=== PATIENT | female | born 1985 | race African-American/Black ===

== ENCOUNTER 2022-04-06 08:29 | Emergency (ER) | payer OTHER, SELFPAY ==
[2022-04-06 08:40] VITALS: BP 139/83; PULSE 100; RESP 19; TEMP 36.6; O2SAT 95; BMI 44.1
--- NOTE | 2022-04-06 08:51 | PC.NURSE ---
36 y/o F presents for respiratory panel. +fever/cough/chills, no other complaints, VSS.
--- OUTSIDE RECORDS SUMMARY | 2022-04-06 08:51 | XMS_ITS | Continuity of Care Document ---
:1985 Author Organization [facility] Address [address] [place] [id number]- Care Team Providers Name Role Phone Nila CLIFFORD, Tracey Colvin [id number] [address] Attending Physician: Akhil Medley MD Admitting Physician: Akhil Medley MD Referring Physician: Akhil Medley MD Allergies, Adverse Reactions, Alerts Substance Reaction Severity Status Bee Stings Active Latex Active Immunizations Given and Recorded Vaccine Date Status Refusal Reason influenza virus vaccine, inactivated1 05/11/20 Given influenza virus vaccine, inactivated2 04/11/15 Given 1Early/Late Reason: Early/Late Reason: New Med [id number] Note: vis given, dated 11/13/13 Medications aspirin 81 mg oral delayed release tablet 81 mg, 1, tablet, By Mouth, Daily, Refills 0, Maintenance, 05/08/20 13:14:00 EST, Partial fill upon patient request if the prescription is for a schedule II opioid drug. Start Date: 05/08/20 Status: OrderedColace sodium 100 mg oral capsule 1 capsule = 100 mg, By Mouth, 2 times a day, PRN for constipation, # 60 capsule, 0 Refills, Maintenance, 04/11/15 18:04:49, Capsule Start Date: 04/11/15 Status: Orderedibuprofen 600 mg oral tablet 1 tablet = 600 mg, By Mouth, 4 times a day, PRN for pain, # 40 tablet, 0 Refills, Maintenance, 04/11/15 18:04:24, Tablet Start Date: 04/11/15 Status: Orderedlabetalol 200 mg oral tablet 2 tablet = 400 mg, By Mouth, 2 times a day, # 90 tablet, 1 Refills, Maintenance, 05/22/20 10:26:00 EST, Tablet, [facility]/pharmacy #[id number], Partial fill upon patient request if the prescription is for a schedule II opioid drug., 173, cm, 05/20/20 19:02:00 EST... Start Date: 05/22/20 Status: OrderedmetFORMIN 500 mg oral tablet 1 each = 500 mg, By Mouth, 2 times a day, 0 Refills, Maintenance, 05/13/20 16:51:00 EST, Tablet, Partial fill upon patient request if the prescription is for a schedule II opioid drug. Start Date: 05/13/20 Status: OrderedMultivitamin Tablet By Mouth, Daily, 0 Refills, Maintenance Start Date: 06/02/11 Status: OrderedNexium 20 mg oral enteric coated capsule 1 capsule = 20 mg, By Mouth, Daily, 0 Refills, Maintenance, 05/08/20 13:14:00 EST, Partial fill uponpatient request if the prescription is for a schedule II opioid drug. Start Date: 05/08/20 Status: OrderedNIFEdipine 30 mg oral tablet, extended release 30 mg, 1, tablet, By Mouth, Every 24 hours, # 30 tablet, Refills 1, Tot. Refills 1, Maintenance, 05/22/20 10:23:00 EST, Route to Pharmacy Electronically, [facility]/pharmacy #[id number], Partial fill upon patient request if the prescription is for a schedule II op... Start Date: 05/22/20 Status: OrderedOmeprazole By Mouth, Daily, 0 Refills, Maintenance, 02/23/17 15:06:41 Start Date: 02/23/17 Status: Orderedsimethicone 80 mg oral tablet, chewable 80 mg, Chew, 3 times a day, PRN, # 90 tablet, Refills 0, Tot. Refills 0, Maintenance, Gas, 05/13/20 16:50:00 EST, Route to Pharmacy Electronically, [facility]/pharmacy #[id number], Partial fill upon patient requestif the prescription is for a schedule II opioid d... Start Date: 05/13/20 Status: OrderedTylenol 325 mg oral tablet 650 mg, 2, tablet, By Mouth, Every 4 hours, PRN, Refills 0, Maintenance, Pain , Mild, 05/22/20 10:24:00 EST, Partial fill upon patient request if the prescription is for a schedule II opioid drug. Start Date: 05/22/20 Status: OrderedZantac 150 = 300 mg, By Mouth, Daily, 0 Refills, Maintenance, 02/07/15 13:12:53 Start Date: 02/07/15 Status: Ordered Problem List Condition Effective Dates Status Health Status Informant Diabetes mellitus(Confirmed) Active Chronic hypertension(Confirmed) Active VILMA on CPAP(Confirmed) Active Social History Social History Type Response Smoking Status 10 or more cigarettes (1/2 p ack or more)/day in last 30 days; Other: last in March; entered on: 05/18/20 Sex
--- OUTSIDE RECORDS SUMMARY | 2022-04-06 08:51 | XMS_ITS | Continuity of Care Document ---
:1985 Author Organization [facility] Address [address] [place] [address]- Care Team Providers Name Role Phone Nila CLIFFORD, Tracey Colvin Primary Care Physician Encounter [facility] [id number] Date(s): 04/07/20 - 04/07/[address] [address] Discharge Disposition: A-D/C Home Attending Physician: Akhil Medley MD Admitting Physician: Akhil Medley MD Referring Physician: Akhil Medley MD Allergies, Adverse Reactions, Alerts Substance Reaction Severity Status Bee Stings Active Latex Active Immunizations Given and Recorded Vaccine Date Status Refusal Reason influenza virus vaccine, inactivated1 04/11/15 Given 1Admin Note: vis given, dated 11/13/13 Medications amLODIPine 2.5 mg oral tablet 2.5 mg, 1, tablet, By Mouth, Daily, # 30 tablet, Refills 0, Maintenance, 10/01/19 8:48:00 EDT Start Date: 10/01/19 Status: Orderedaspirin 81 mg oral delayed release tablet 81 mg, 1, tablet, By Mouth, Daily, Refills 0, Maintenance, 03/21/20 2:10:00 EST, Partial fill upon patient request if the prescription is for a schedule II opioid drug. Start Date: 03/21/20 Status: OrderedColace sodium 100 mg oral capsule 1 capsule = 100 mg, By Mouth, 2 times a day, PRN for constipation, # 60 capsule, 0 Refills, Maintenance, 04/11/15 18:04:49, Capsule Start Date: 04/11/15 Status: OrderedDepo-Provera = 400 mg, Intramuscular, 0 Refills, Maintenance, 02/23/17 15:06:27 Start Date: 02/23/17 Status: OrderedDouble electric breast pump Double electric breast pump, See Instructions, # 1 each, Refills 0, Tot. Refills 0, Maintenance, ., 04/11/15 18:04:40, Compound Start Date: 04/11/15 Status: OrderedFerrous Fumarate = 325 mg, By Mouth, Daily, 0 Refills, Maintenance, 02/07/15 13:12:37 Start Date: 02/07/15 Status: OrderedFreestyle Lancets See Instructions, # 250 each, Refills 11, Tot. Refills 11, Maintenance, to check sugars 7x a day when . E 11.9, 10/01/19 12:25:00 EDT, Supply, 170, cm, 10/01/19 8:47:00 EDT, Height, 132.5, kg, 08/01/19 22:39:00 EDT, Dry Weight Start Date: 10/01/19 Status: OrderedFreestyle Lite Lancets See Instructions, # 600 each, Refills 3, Tot. Refills 3, Maintenance, check 4 times a day before meals and bedtime for DM-2 (E119.0), 07/19/18 17:28:05 EDT, Compound Start Date: 07/19/18 Stop Date: 11/16/18 Status: OrderedFreestyle Lite Monitor See Instructions, # 1 each, Refills 0, Tot. Refills 0, Maintenance, use as directed for Type 2 Diabetes Mellitus (E11.9), 10/27/18 10:30:27 EDT, Compound Start Date: 10/27/18 Stop Date: 11/26/18 Status: OrderedFreestyle Lite Monitor See Instructions, # 1 each, Refills 0, Tot. Refills 0, Maintenance, to check sugars, E11.9, 10/01/2011:25:00 EDT, Supply, 170, cm, 10/01/19 8:47:00 EDT, Height, 132.5, kg, 08/01/19 22:39:00 EDT, Dry Weight Start Date: 10/01/19 Status: OrderedFreestyle Lite Test Strips See Instructions, # 600 each, Refills 5, Tot. Refills 5, Maintenance, check 4 times a day before meals and bedtime for uncontrolled DM-2, 02/23/17 16:47:33, Compound Start Date: 02/23/17 Stop Date: 08/17/18 Status: OrderedFreestyle Lite Test Strips See Instructions, # 600 each, Refills 5, Tot. Refills 5, Maintenance, check 4 times a day before meals and bedtime for uncontrolled DM-2, 07/19/18 17:29:52 EDT, Compound Start Date: 07/19/18 Stop Date: 01/10/20 Status: OrderedFreestyle Lite Test Strips See Instructions, # 720 each, Refills 0, Tot. Refills 0, Maintenance, Use as directed to test blood glucose levels before and 2hrs after meals, at bedtime, and as needed. DX [id number], Z3AOO, 02/10/15 9:30:00, Compound Start Date: 02/10/15 Status: OrderedFreestyle Lite Test Strips See Instructions, # 250 each, Refills 11, Tot. Refills 11, Maintenance, to check sugars 7x a day when . E 11.9, 10/23/19 9:40:00 EDT, Supply, 173, cm, 10/23/19 9:15:00 EDT, Height, 136.5, kg, 10/04/19 12:03:00 EDT, Dry Weight Start Date: 10/23/19 Status: OrderedHumalog Kwik Pen 100 units/mL subcutaneous injection See Instructions, take 4-14 units 3 times a day before meals per sliding scale. E 11.9 Total daily dose is 42 units, # 30 mL, 11 Refills, Maintenance, 10/01/19 12:24:00 EDT, [facility]/pharmacy #[id number], 170, cm, 10/01/19 8:47:00 EDT, Height, 132.5, kg, ... Start Date: 10/01/19 Status: Orderedibuprofen 600 mg oral tablet 1 tablet = 600 mg, By Mouth, 4 times a day, PRN for pain, # 40 tablet, 0 Refills, Maintenance, 04/11/15 18:04:24, Tablet Start Date: 04/11/15 Status: OrderedKetostix See Instructions, # 1 bottle, Refills 3, Tot. Refills 3, Maintenance, Use as directed to test urine for ketones before breakfast daily, dx [id number], Z3AOO, 03/03/15 21:31:00, Compound Start Date: 03/03/15 Status: Orderedlabetalol 200 mg oral tablet 1 tablet = 200 mg, By Mouth, 3 times a day, # 90 tablet, 0 Refills, Maintenance, 10/04/19 16:08:00 EDT, Tablet, [facility]/pharmacy #[id number], 173, cm, 10/04/19 12:03:00 EDT, Height, 136.5, kg, 10/04/19 12:03:00 EDT, Dry Weight Start Date: 10/04/19 Stop Date: 11/03/19 Status: OrderedLantus Solostar Pen 100 units/mL subcutaneous solution = 30 units, Subcutaneous Infusion, Daily at bedtime, Keep 09/08/17 appt for refills., # 15 mL, 0 Refills, Maintenance, 06/20/17 14:43:46 EDT Start Date: 06/20/17 Stop Date: 09/18/17 Status: OrderedLevemir FlexPen 100 units/mL subcutaneous solution = 15 units, Subcutaneous Injection, Daily, increase does by 2 units every 3 days until fasting BG is> 95 mg/dl, # 3 mL, 1 Refills, Maintenance, 03/13/15 15:47:10, Solution, 15 units Subcutaneous Injection Daily,Instr:increase does by 2 units every 3... Start Date: 03/13/15 Status: OrderedLevemir FlexTouch 100 units/mL subcutaneous solution See Instructions, take 13 units in the am and take 13 units in the pm . E 11.9, # 30 mL, 11 Refills,Maintenance, 10/01/19 12:24:00 EDT, [facility]/pharmacy #[id number], 170, cm, 10/01/19 8:47:00 EDT, Height, 132.5, kg, 08/01/19 22:39:00 EDT, Dry Weight Start Date: 10/01/19 Status: OrderedMultivitamin Tablet By Mouth, Daily, 0 Refills, Maintenance Start Date: 06/02/11 Status: OrderedMultivitamin, By Mouth, Daily, 0 Refills, Maintenance, 02/07/15 13:12:20 Start Date: 02/07/15 Status: OrderedOmeprazole By Mouth, Daily, 0 Refills, Maintenance, 02/23/17 15:06:41 Start Date: 02/23/17 Status: OrderedPen [place], 31 G x 5 mm BD Ultra Fine III See Instructions, # 50 each, Refills 5, Tot. Refills 5, Maintenance, to administer Lantus 1x daily, E11.9, 02/24/17 9:22:58, Compound Start Date: 02/24/17 Stop Date: 08/23/17 Status: OrderedPen [place], 31 G x 5 mm BD Ultra Fine III See Instructions, # 150 each, Refills 11, Tot. Refills 11, Maintenance, TO GIVE WITH INSULIN 4X A DAY. E 11.9, 10/01/19 12:28:00 EDT, Supply, 170, cm, 10/01/19 8:47:00 EDT, Height, 132.5, kg, 08/01/19 22:39:00 EDT, Dry Weight Start Date: 10/01/19 Status: OrderedZantac 150 = 300 mg, By Mouth, Daily, 0 Refills, Maintenance, 02/07/15 13:12:53 Start Date: 02/07/15 Status: Ordered Problem List Condition Effective Dates Status Health Status Informant Diabetes mellitus during in Active third trimester(Confirmed) Chronic hypertension(Confirmed) Active
--- OUTSIDE RECORDS SUMMARY | 2022-04-06 08:51 | XMS_ITS | Continuity of Care Document ---
:1985 Author Organization [facility] Address [address] [place] [address]- Care Team Providers Name Role Phone Nila CLIFFORD, Tracey Colvin Primary Care Physician [place] [facility]04[place] 11/03/19 [facility] [address] [place] [id number] [facility] Allergies, Adverse Reactions, Alerts Substance Reaction Severity Status Bee Stings Active Latex Active Immunizations Given and Recorded Vaccine Date Status Refusal Reason influenza virus vaccine, inactivated1 04/11/15 Given 1Admin Note: vis given, dated 11/13/13 Medications amLODIPine 2.5 mg oral tablet 2.5 mg, 1, tablet, By Mouth, Daily, # 30 tablet, Refills 0, Maintenance, 10/01/19 8:48:00 EDT Start Date: 10/01/19 Status: OrderedColace sodium 100 mg oral capsule [...] Weight Start Date: 10/01/19 Status: OrderedFreestyle Lite Monitor See Instructions, # 1 each, Refills 0, Tot. Refills 0, Maintenance, use as directed for Type 2 Diabetes Mellitus (E11.9), 10/27/18 10:30:27 EDT, Compound Start Date: 10/27/18 Stop Date: 11/26/18 Status: OrderedFreestyle Lite Test Strips See Instructions, # 720 each, Refills 0, Tot. Refills 0, Maintenance, Use as directed to test blood glucose levels before and 2hrs after meals, at bedtime, and as needed. DX [id number], Z3AOO, 02/10/15 9:30:00, Compound Start Date: 02/10/15 Status: OrderedFreestyle Lite Test Strips See Instructions, # 250 each, Refills 11, Tot. Refills 11, Maintenance, to check sugars 7x a day when . E 11.9, 10/23/19 9:40:00 EDT, Supply, 173, cm, 10/23/19 9:15:00 EDT, Height, 136.5, kg, 10/04/19 12:03:00 EDT, Dry Weight Start Date: 10/23/19 Status: OrderedFreestyle Lite Test Strips See Instructions, [...] Start Date: 07/19/18 Stop Date: 01/10/20 Status: OrderedHumalog Kwik Pen 100 units/mL subcutaneous injection See Instructions, take 4-14 units 3 times a day before meals per sliding scale. E 11.9 Total daily dose is 42 units, # 30 mL, 11 Refills, Maintenance, 10/01/19 12:24:00 EDT, [facility]/pharmacy #[id number], 170, cm, 10/01/19 8:47:00 EDT, Height, [...] urine for ketones before breakfast daily, dx [id number], Z3AOO, 03/03/15 21:31:00, Compound Start Date: 03/03/15 Status: Orderedlabetalol 200 mg oral tablet 1 tablet = 200 mg, By Mouth, 3 times a day, # 90 tablet, 0 Refills, Maintenance, 10/04/19 16:08:00 EDT, Tablet, [facility]/pharmacy #[id number], 173, cm, 10/04/19 12:03:00 EDT, Height, [...] 30 mL, 11 Refills,Maintenance, 10/01/19 12:24:00 EDT, [facility]/pharmacy #[id number], 170, cm, 10/01/19 8:47:00 EDT, Height, 132.5, kg, 08/01/19 22:39:00 EDT, Dry Weight Start Date: 10/01/19 Status: OrderedMultivitamin Tablet By Mouth, Daily, 0 Refills, Maintenance Start Date: 06/02/11 Status: OrderedMultivitamin, By Mouth, Daily, 0 Refills, Maintenance, 02/07/15 13:12:20 Start Date: 02/07/15 Status: OrderedOmeprazole By Mouth, Daily, 0 Refills, Maintenance, 02/23/17 15:06:41 Start Date: 02/23/17 Status: OrderedPen [place], 31 G x 5 mm BD Ultra Fine III See Instructions, # 150 each, Refills 11, Tot. Refills 11, Maintenance, TO GIVE WITH INSULIN 4X A DAY. E 11.9, 10/01/19 12:28:00 EDT, Supply, 170, cm, 10/01/19 8:47:00 EDT, Height, 132.5, kg, 08/01/19 22:39:00 EDT, Dry Weight Start Date: 10/01/19 Status: OrderedPen [place], 31 G x 5 mm BD Ultra Fine III See Instructions, # 50 each, Refills 5, Tot. Refills 5, Maintenance, to administer Lantus 1x daily, E11.9, 02/24/17 9:22:58, Compound Start Date: 02/24/17 Stop Date: 08/23/17 Status: OrderedZantac 150 = 300 mg, By Mouth, Daily, 0 Refills, Maintenance, 02/07/15 13:12:53 Start Date: 02/07/15 Status: Ordered Problem List Condition Effective Dates Status Health Status Informant Diabetes mellitus during in Active third trimester(Confirmed)
--- OUTSIDE RECORDS SUMMARY | 2022-04-06 08:51 | XMS_ITS | Continuity of Care Document ---
:1985 Author Organization [facility] Address [address] [place] [address]- Care Team Providers Name Role Phone Alva Granados MD Primary Care Physician [place] [facility] [place]18[place]21 [place] 12/18/21 [facility] [address] [place] [id number] Allergies, Adverse Reactions, Alerts Substance Reaction Severity Status Bee Stings Active Latex Active Immunizations Given and Recorded Vaccine Date Status Refusal Reason influenza virus vaccine, inactivated1 05/11/20 Given influenza virus vaccine, inactivated2 04/11/15 Given 1Early/Late Reason: Early/Late Reason: New Med [id number] Note: vis given, dated 11/13/13 Medications aspirin [...] 04/11/15 18:04:49, Capsule Start Date: 04/11/15 Status: OrderedFreestyle Lancets See Instructions, # 100 each, Refills 6, Tot. Refills 6, Maintenance, use to check blood sugar before breakfast and at bedtime. E 11.9, 09/16/21 15:44:00 EDT, Compound, 173, cm, 09/16/21 14:55:00 EDT, Height, 132.4, kg, 06/18/20 11:15:00 EDT, Dry Weight Start Date: 09/16/21 Status: OrderedFreestyle Lite Monitor See Instructions, # 1 each, Refills 0, Tot. Refills 0, Maintenance, use to check blood sugar before breakfast and at bedtime. E 11.9, 09/16/21 15:45:00 EDT, Compound, 173, cm, 09/16/21 14:55:00 EDT, Height, 132.4, kg, 06/18/20 11:15:00 EDT, Dry Weight Start Date: 09/16/21 Status: OrderedFreestyle Lite Test Strips See Instructions, # 100 each, Refills 6, Tot. Refills 6, Maintenance, use to check blood sugar before breakfast and at bedtime. E 11.9, 09/16/21 15:44:00 EDT, Compound, 173, cm, 09/16/21 14:55:00 EDT, Height, 132.4, kg, 06/18/20 11:15:00 EDT, Dry Weight Start Date: 09/16/21 Status: Orderedibuprofen 600 mg oral tablet 1 tablet = 600 mg, By Mouth, 4 times a day, PRN for pain, # 40 tablet, 0 Refills, Maintenance, 04/11/15 18:04:24, Tablet Start Date: 04/11/15 Status: Orderedlabetalol 200 mg oral tablet 2 tablet = 400 mg, By Mouth, 2 times a day, # 90 tablet, 1 Refills, Maintenance, 05/22/20 10:26:00 EST, Tablet, [facility]/pharmacy #[id number], Partial fill upon patient request if the prescription is for a schedule II opioid drug., 173, cm, 05/20/20 19:02:00 EST... Start Date: 05/22/20 Status: OrderedMultivitamin Tablet By Mouth, Daily, 0 Refills, Maintenance Start Date: 06/02/11 Status: OrderedNexium 20 mg oral enteric coated capsule 1 capsule = 20 mg, By Mouth, Daily, 0 Refills, Maintenance, 05/08/20 13:14:00 EST, Partial fill uponpatient request if the prescription is for a schedule II opioid drug. Start Date: 05/08/20 Status: OrderedNIFEdipine (Eqv-Procardia XL) 30 mg oral tablet, extended release See Instructions, TAKE 1 TABLET BY MOUTH EVERY 24 HOURS, # 30 tablet, 1 Refills, [facility] STORE [id number], 173, cm, 06/18/20 11:15:00 EDT, Height, 132.4, kg, 06/18/20 11:15:00 EDT, Dry Weight Start Date: 12/24/20 Status: Orderedsimethicone 80 mg oral tablet, chewable 80 mg, Chew, 3 times a day, PRN, # 90 tablet, Refills 0, Tot. Refills 0, Maintenance, Gas, 05/13/20 16:50:00 EST, Route to Pharmacy Electronically, [facility]/pharmacy #[id number], Partial fill upon patient requestif the prescription is for a schedule II opioid d... Start Date: 05/13/20 Status: OrderedTrulicity Pen 1.5 mg/0.5 mL subcutaneous solution = 1.5 mg, Subcutaneous Infusion, Every week, # 4 each, 11 Refills, Maintenance, 11/19/21 10:40:00 EDT, [facility]/pharmacy #[id number], Pls discontinue tao, 173, cm, 09/16/21 14:55:00 EDT, Height, 132.4, kg, 06/18/20 11:15:00 EDT, Dry Weight Start Date: 11/19/21 Status: OrderedTylenol 325 mg oral tablet 650 [...] Chronic hypertension(Confirmed) Active VILMA on CPAP(Confirmed) Active Severe obesity(Confirmed) Active Social History Social History Type Response Smoking Status 10 or more cigarettes (1/2 p ack or more)/day in last 30 days; Other: last in March; entered on: 05/18/20 Sex Care Team PersonnelName: Alva Granados MD Address: [address] [place] [address] [place], [place] [address]
--- OUTSIDE RECORDS SUMMARY | 2022-04-06 08:51 | XMS_ITS | Continuity of Care Document ---
:1985 Author Organization [facility] Address [address] [place] [address]- Care Team Providers Name Role Phone Nila CLIFFORD, Tracey Colvin Primary Care Physician Encounter [facility] [place] Date(s): 05/06/20 - 05/06/[address] [address] Discharge Disposition: A-D/C Home Attending Physician: Akhil [...] meals, at bedtime, and as needed. DX [id number], Z3AOO, 02/10/15 9:30:00, Compound Start Date: 02/10/15 [...] mL, 11 Refills, Maintenance, 10/01/19 12:24:00 EDT, [facility]/pharmacy #[id number], 170, cm, 10/01/19 8:47:00 EDT, Height, [...] urine for ketones before breakfast daily, dx [id number], Z3AOO, 03/03/15 21:31:00, Compound Start Date: 03/03/15 Status: Orderedlabetalol 200 mg oral tablet 1 tablet = 200 mg, By Mouth, 3 times a day, # 90 tablet, 0 Refills, Maintenance, 10/04/19 16:08:00 EDT, Tablet, [facility]/pharmacy #[id number], 173, cm, 10/04/19 12:03:00 EDT, Height, [...] 30 mL, 11 Refills,Maintenance, 10/01/19 12:24:00 EDT, [facility]/pharmacy #[id number], 170, cm, 10/01/19 8:47:00 EDT, Height, 132.5, kg, 08/01/19 22:39:00 EDT, Dry Weight Start Date: 10/01/19 Status: OrderedMultivitamin Tablet By Mouth, Daily, 0 Refills, Maintenance Start Date: 06/02/11 Status: OrderedMultivitamin, By Mouth, Daily, 0 Refills, Maintenance, 02/07/15 13:12:20 Start Date: 02/07/15 Status: OrderedOmeprazole By Mouth, Daily, 0 Refills, Maintenance, 02/23/17 15:06:41 Start Date: 02/23/17 Status: OrderedPen [place], 31 G x 5 mm BD Ultra Fine III See Instructions, # 50 each, Refills 5, Tot. Refills 5, Maintenance, to administer Lantus 1x daily, E11.9, 02/24/17 9:22:58, Compound Start Date: 02/24/17 Stop Date: 08/23/17 Status: OrderedPen [place], 31 G x 5 mm BD Ultra [...]
--- OUTSIDE RECORDS SUMMARY | 2022-04-06 08:51 | XMS_ITS | Continuity of Care Document ---
:1985 Author Organization [facility] Address [address] [place] [address]- Care Team Providers Name Role Phone Nila CLIFFORD, Tracey Colvin [id number] Date[facility]s): 04/01/20 - 04/01/[address] [address] Discharge Disposition: A-D/C Home Attending Physician: Akhil [...] meals, at bedtime, and as needed. DX [id number], Z3AOO, 02/10/15 9:30:00, Compound Start Date: 02/10/15 [...] mL, 11 Refills, Maintenance, 10/01/19 12:24:00 EDT, [facility]/pharmacy #[id number], 170, cm, 10/01/19 8:47:00 EDT, Height, [...] urine for ketones before breakfast daily, dx [id number], Z3AOO, 03/03/15 21:31:00, Compound Start Date: 03/03/15 Status: Orderedlabetalol 200 mg oral tablet 1 tablet = 200 mg, By Mouth, 3 times a day, # 90 tablet, 0 Refills, Maintenance, 10/04/19 16:08:00 EDT, Tablet, [facility]/pharmacy #[id number], 173, cm, 10/04/19 12:03:00 EDT, Height, [...] 30 mL, 11 Refills,Maintenance, 10/01/19 12:24:00 EDT, [facility]/pharmacy #[id number], 170, cm, 10/01/19 8:47:00 EDT, Height, 132.5, kg, 08/01/19 22:39:00 EDT, Dry Weight Start Date: 10/01/19 Status: OrderedMultivitamin Tablet By Mouth, Daily, 0 Refills, Maintenance Start Date: 06/02/11 Status: OrderedMultivitamin, By Mouth, Daily, 0 Refills, Maintenance, 02/07/15 13:12:20 Start Date: 02/07/15 Status: OrderedOmeprazole By Mouth, Daily, 0 Refills, Maintenance, 02/23/17 15:06:41 Start Date: 02/23/17 Status: OrderedPen [place], 31 G x 5 mm BD Ultra Fine III See Instructions, # 50 each, Refills 5, Tot. Refills 5, Maintenance, to administer Lantus 1x daily, E11.9, 02/24/17 9:22:58, Compound Start Date: 02/24/17 Stop Date: 08/23/17 Status: OrderedPen [place], 31 G x 5 mm BD Ultra [...]
--- OUTSIDE RECORDS SUMMARY | 2022-04-06 08:51 | XMS_ITS | Continuity of Care Document ---
:1985 Author Organization [facility] Address [address] [place] [address]- Care Team Providers Name Role Phone Alva Granados MD Primary Care Physician [place] [facility] [place] 02[place]/22 [facility] [address] [place] [address]- Attending Physician: Princess Jensen Admitting Physician: Princess Jensen Referring Physician: AdmPrincess waite Allergies, Adverse Reactions, Alerts Substance Reaction Severity Status Bee Stings Active Latex Active Immunizations Given and Recorded Vaccine Date Status Refusal Reason influenza virus vaccine, inactivated1 05/11/20 Given influenza virus vaccine, inactivated2 04/11/15 Given 1Early/Late Reason: Early/Late Reason: New Med [id number] Note: vis given, dated 11/13/13 Medications aspirin [...] 11.9, 09/16/21 15:44:00 EDT, Compound, 173, cm, 06/22/22 14:55:00 EDT, Height, 132.4, kg, 06/18/20 11:15:00 [...] 1 Refills, Maintenance, 05/22/20 10:26:00 EST, Tablet, [facility]/pharmacy #[id number], Partial fill upon patient request if [...] 24 HOURS, # 30 tablet, 1 Refills, [id number], 173, cm, 06/18/20 11:15:00 EDT, Height, 132.4, kg, 06/18/20 11:15:00 EDT, Dry Weight Start Date: 12/24/20 Status: Orderedsimethicone 80 mg oral tablet, chewable 80 mg, Chew, 3 times a day, PRN, # 90 tablet, Refills 0, Tot. Refills 0, Maintenance, Gas, 05/13/20 16:50:00 EST, Route to Pharmacy Electronically, [facility]/pharmacy #[id number], Partial fill upon patient requestif the prescription is for a schedule II opioid d... Start Date: 05/13/20 Status: OrderedTrulicity Pen 1.5 mg/0.5 mL subcutaneous solution = 1.5 mg, Subcutaneous Infusion, Every week, # 4 each, 11 Refills, Maintenance, 11/19/21 10:40:00 EDT, [facility]/pharmacy #[id number], Pls discontinue tao, 173, cm, 09/16/21 [...] Date: 02/07/15 Status: Ordered Problem List Condition Confirmation Course Effective Dates Status Health Stat us Informant Diabetes mellitus Confirmed Active Chronic Confirmed Active hypertension VILMA on CPAP Confirmed Active Severe obesity Confirmed Active Social History Social History Type Response Smoking Status 10 or more cigarettes (1/2 p ack or more)/day in last 30 days; Other: last in March; entered on: 05/18/20 Sex Note Event Display: Non BH Lab Results Authored Date: [id number] Patient Care team information Care Team PersonnelName: Marge LUNDY, Divine Position: [facility] RN Member Role: Primary Care Nurse Name: Alva Granados MD Position: [facility] Physician (General Medicine) Member Role: PCP Address: Address: [address] [place] [id number] Care Team Related PersonsName: MORGAN ASENCIO Address: Address: home [address] [place] [address] [place] Name: KRISTEN CHANDLER Address: home [address] [address]
--- OUTSIDE RECORDS SUMMARY | 2022-04-06 08:51 | XMS_ITS | Continuity of Care Document ---
:1985 Author Organization [facility] Address [address] [place] [address]- Care Team Providers Name Role Phone Nila CLIFFORD, Tracey Colvin Primary Care Physician [phone] [place] [facility] [place] 11/03/19 [facility] [address] [place] [address]- [facility] Allergies, Adverse Reactions, Alerts Substance Reaction Severity [...] meals, at bedtime, and as needed. DX [id number], Z3AOO, 02/10/15 9:30:00, Compound Start Date: 02/10/15 [...] mL, 11 Refills, Maintenance, 10/01/19 12:24:00 EDT, [facility]/pharmacy #[id number], 170, cm, 10/01/19 8:47:00 EDT, [...] urine for ketones before breakfast daily, dx [id number], Z3AOO, 03/03/15 21:31:00, Compound Start Date: 03/03/15 [...] 02/23/17 15:06:41 Start Date: 02/23/17 Status: OrderedPen [place], 31 G x 5 mm BD Ultra Fine III See Instructions, # 150 each, Refills 11, Tot. Refills 11, Maintenance, TO GIVE WITH INSULIN 4X A DAY. E 11.9, 10/01/19 12:28:00 EDT, Supply, 170, cm, 10/01/19 8:47:00 EDT, Height, 132.5, kg, 08/01/19 22:39:00 EDT, Dry Weight Start Date: 10/01/19 Status: OrderedPen [place], 31 G x 5 mm BD Ultra [...]
--- OUTSIDE RECORDS SUMMARY | 2022-04-06 08:51 | XMS_ITS | Continuity of Care Document ---
:1985 Author Organization [facility] Address [address] [place] [address]- Care Team Providers Name Role Phone Alva Granados MD Primary Care Phys[id number] Date(s): 06/18/20 - 07/18/20 [facility] [address] [place] [address]- Attending Physician: Princess Jensen Admitting Physician: AdmPrincess waite Referring Physician: AdmtrPrincess Allergies, Adverse Reactions, Alerts Substance Reaction Severity Status Bee Stings Active Latex Active Immunizations Given and Recorded Vaccine Date Status Refusal Reason influenza virus vaccine, inactivated1 05/11/20 Given influenza virus vaccine, inactivated2 04/11/15 Given 1Early/Late Reason: Early/Late Reason: New Med [id number] Note: vis given, dated 11/13/13 Medications aspirin [...] 1 Refills, Maintenance, 05/22/20 10:26:00 EST, Tablet, [id number], Partial fill upon patient request if [...] 05/22/20 10:23:00 EST, Route to Pharmacy Electronically, [id number], Partial fill upon patient request if the prescription is for a schedule II op... Start Date: 05/22/20 Status: Orderedsimethicone 80 mg oral tablet, chewable 80 mg, Chew, 3 times a day, PRN, # 90 tablet, Refills 0, Tot. Refills 0, Maintenance, Gas, 05/13/20 16:50:00 EST, Route to Pharmacy Electronically, [id number], Partial fill upon patient requestif the [...]
--- OUTSIDE RECORDS SUMMARY | 2022-04-06 08:51 | XMS_ITS | Continuity of Care Document ---
:1985 Author Organization [facility] Address [address] [place] [address]- Care Team Providers Name Role Phone Tracey Dotson NP Primary Care Physician [place] [facility] [place] 10/23/19 - 12/23/19 [facility] [address] [place] [address]- [facility] Attending Physician: Lizbeth Ruelas MD Admitting Physician: Lizbeth Ruelas MD Referring Physician: Tracey Dotson NP Allergies, Adverse Reactions, Alerts Substance Reaction Severity [...] Maintenance, ., 04/11/15 18:04:40, Compound Start Date: 1/15/16 Status: OrderedFerrous Fumarate = 325 mg, By [...] meals, at bedtime, and as needed. DX [id number], Z3AOO, 02/10/15 9:30:00, Compound Start Date: 02/10/15 [...] mL, 11 Refills, Maintenance, 10/01/19 12:24:00 EDT, [id number], 170, cm, [...] urine for ketones before breakfast daily, dx [id number], Z3AOO, 03/03/15 21:31:00, Compound Start Date: 03/03/15 Status: Orderedlabetalol 200 mg oral tablet 1 tablet = 200 mg, By Mouth, 3 times a day, # 90 tablet, 0 Refills, Maintenance, 10/04/19 16:08:00 EDT, Tablet, [facility]/pharmacy #[id number], 173, cm, 10/04/19 12:03:00 EDT, [...] 30 mL, 11 Refills,Maintenance, 10/01/19 12:24:00 EDT, [facility]/pharmacy #[id number], 170, cm, 10/01/19 8:47:00 EDT, Height, 132.5, kg, 08/01/19 22:39:00 EDT, Dry Weight Start Date: 10/01/19 Status: OrderedMultivitamin Tablet By Mouth, Daily, 0 Refills, Maintenance Start Date: 06/02/11 Status: OrderedMultivitamin, By Mouth, Daily, 0 Refills, Maintenance, 02/07/15 13:12:20 Start Date: 02/07/15 Status: OrderedOmeprazole By Mouth, Daily, 0 Refills, Maintenance, 02/23/17 15:06:41 Start Date: 02/23/17 Status: OrderedPen [place], 31 G x 5 mm BD Ultra Fine III See Instructions, # 150 each, Refills 11, Tot. Refills 11, Maintenance, TO GIVE WITH INSULIN 4X A DAY. E 11.9, 10/01/19 12:28:00 EDT, Supply, 170, cm, 10/01/19 8:47:00 EDT, Height, 132.5, kg, 08/01/19 22:39:00 EDT, Dry Weight Start Date: 10/01/19 Status: OrderedPen [place], 31 G x 5 mm BD Ultra [...]
--- OUTSIDE RECORDS SUMMARY | 2022-04-06 08:51 | XMS_ITS | Continuity of Care Document ---
:1985 Author Organization [facility] Address [address] [place] [address]- Care Team Providers Name Role Phone Nila CLIFFORD, Tracey Colvin Primary Care Physician [place] [facility] [place] [id number] Date(s): 04/17/20 - 05/17/20 [facility] [address] [place] [id number] Attending Physician: Princess Jensen Admitting Physician: AdmtrPrincess Referring Physician: AdmtrPrincess Allergies, Adverse Reactions, Alerts Substance Reaction Severity Status Bee Stings Active Latex Active Immunizations Given and Recorded Vaccine Date Status Refusal Reason influenza virus vaccine, inactivated1 05/11/20 Given influenza virus vaccine, inactivated2 04/11/15 Given 1Early/Late Reason: Early/Late Reason: New Med [id number] Note: vis given, dated 11/13/13 Medications amLODIPine 2.5 mg oral tablet 2.5 mg, 1, tablet, By Mouth, Daily, # 30 tablet, Refills 0, Maintenance, 10/01/19 8:48:00 EDT Start Date: 10/01/19 Status: Orderedamoxicillin 500 mg oral capsule 2 capsule = 1,000 mg, By Mouth, 3 times a day, for 5 days, # 30 capsule, 0 Refills, Acute 05/19/20 14:05:00 EST, 05/14/20 14:05:00 EST, Capsule, [facility]/pharmacy #[id number], Partial fill upon patient request ifthe prescription is for a schedule II opioid drug... Start Date: 05/14/20 Stop Date: 05/19/20 Status: Orderedaspirin 81 mg oral delayed release tablet 81 mg, 1, tablet, By Mouth, Daily, Refills 0, Maintenance, 05/08/20 13:14:00 EST, Partial fill upon patient request if the prescription is for a schedule II opioid drug. Start Date: 05/08/20 Status: Orderedaspirin 81 mg oral delayed release tablet 81 mg, 1, tablet, By Mouth, Daily, Refills 0, Maintenance, 03/21/20 2:10:00 EST, Partial fill upon patient request if the prescription is for a schedule II opioid drug. Start Date: 03/21/20 Status: Orderedazithromycin 250 mg oral tablet 1 tablet = 250 mg, By Mouth, Daily, for 5 days, # 5 tablet, 0 Refills, Acute 05/19/20 14:05:00 EST, 05/14/20 14:05:00 EST, Tablet, [id number], Partial fill upon patient request if the prescription is for a schedule II opioid drug., 173, cm, 02... Start Date: 05/14/20 Stop Date: 05/19/20 Status: OrderedColace sodium 100 mg oral capsule 1 capsule = 100 mg, By Mouth, 2 times a day, PRN for constipation, # 60 capsule, 0 Refills, Maintenance, 04/11/15 18:04:49, Capsule Start Date: 04/11/15 Status: OrderedDilaudid 2 mg oral tablet 1 tablet = 2 mg, By Mouth, Every 4 hours, PRN Pain , Severe, # 12 tablet, 0 Refills, Maintenance, 05/13/20 16:51:00 EST, Tablet, [id number], Partial fill upon patient request if the prescription is for a schedule II opioid drug., 173, cm, 04/28... Start Date: 05/13/20 Status: Ordereddocusate sodium 100 mg oral capsule 1 capsule = 100 mg, By Mouth, 2 times a day, # 60 capsule, 2 Refills, Maintenance, 05/13/20 16:50:00EST, Capsule, [id number], Partial fill upon patient request if the prescription is for a schedule II opioid drug., 173, cm, 05/13/20 13:34:00... Start Date: 05/13/20 Status: OrderedDouble electric breast pump Double electric breast pump, See Instructions, # 1 each, Refills 0, Tot. Refills 0, Maintenance, ., 04/11/15 18:04:40, Compound Start Date: 04/11/15 Status: OrderedFerrous Fumarate = 325 mg, By Mouth, Daily, 0 Refills, Maintenance, 02/07/15 13:12:37 Start Date: 02/07/15 Status: OrderedFerrous Sulfate EC Refills 0, Maintenance, 05/08/20 13:13:00 EST, Partial fill upon patient request if the prescriptionis for a schedule II opioid drug. Start Date: 05/08/20 Status: OrderedFreestyle Lancets See Instructions, # 250 [...] meals, at bedtime, and as needed. DX [id number], Z3AOO, 02/10/15 9:30:00, Compound Start Date: 02/10/15 [...] mL, 11 Refills, Maintenance, 10/01/19 12:24:00 EDT, [facility]/pharmacy #[id number], 170, cm, 10/01/19 8:47:00 EDT, Height, 132.5, kg, ... Start Date: 10/01/19 Status: Orderedibuprofen 600 mg oral tablet 1 tablet = 600 mg, By Mouth, 4 times a day, PRN for pain, # 40 tablet, 0 Refills, Maintenance, 04/11/15 18:04:24, Tablet Start Date: 04/11/15 Status: Orderedibuprofen 800 mg oral tablet 800 mg, 1, tablet, By Mouth, Every 8 hours, # 50 tablet, Refills 0, Tot. Refills 0, Maintenance, 05/13/20 16:50:00 EST, Route to Pharmacy Electronically, [facility]/pharmacy #[id number], Partial fill upon patient request if the prescription is for a schedule II op... Start Date: 05/13/20 Status: Orderedincentive spirometer incentive spirometer, See Instructions, # 1 each, Refills 0, Tot. Refills 0, Maintenance, use as directed 4-6x per hour, 05/16/20 15:26:00 EST, Supply Start Date: 05/16/20 Status: OrderedKetostix See Instructions, # 1 bottle, Refills 3, Tot. Refills 3, Maintenance, Use as directed to test urine for ketones before breakfast daily, dx [id number], Z3AOO, 03/03/15 21:31:00, Compound Start Date: 03/03/15 Status: Orderedlabetalol 200 mg oral tablet 1 tablet = 200 mg, By Mouth, 3 times a day, # 90 tablet, 0 Refills, Maintenance, 10/04/19 16:08:00 EDT, Tablet, [facility]/pharmacy #[id number], 173, cm, 10/04/19 12:03:00 EDT, Height, [...] EDT, Dry Weight Start Date: 10/01/19 Status: OrderedmetFORMIN 500 mg oral tablet 1 [...] II opioid drug. Start Date: 05/08/20 Status: OrderedOmeprazole By Mouth, Daily, 0 Refills, Maintenance, 02/23/17 15:06:41 Start Date: 02/23/17 Status: OrderedPen [place], 31 G x 5 mm BD Ultra Fine III See Instructions, # 50 each, Refills 5, Tot. Refills 5, Maintenance, to administer Lantus 1x daily, E11.9, 02/24/17 9:22:58, Compound Start Date: 02/24/17 Stop Date: 08/23/17 Status: OrderedPen [place], 31 G x 5 mm BD Ultra Fine III See Instructions, # 150 each, Refills 11, Tot. Refills 11, Maintenance, TO GIVE WITH INSULIN 4X A DAY. E 11.9, 10/01/19 12:28:00 EDT, Supply, 170, cm, 10/01/19 8:47:00 EDT, Height, 132.5, kg, 08/01/19 22:39:00 EDT, Dry Weight Start Date: 10/01/19 Status: Orderedsimethicone 80 mg oral tablet, chewable 80 mg, Chew, 3 times a day, PRN, # 90 tablet, Refills 0, Tot. Refills 0, Maintenance, Gas, 05/13/20 16:50:00 EST, Route to Pharmacy Electronically, [facility]/pharmacy #[id number], Partial fill upon patient requestif the prescription is for a schedule II opioid d... Start Date: 05/13/20 Status: OrderedAravind See Instructions, # 1 each, Maintenance, Use as needed, 05/08/20 15:06:00 EST, Supply Start Date: 05/08/20 Status: OrderedZantac 150 = 300 mg, By Mouth, Daily, 0 Refills, Maintenance, 02/07/15 13:12:53 Start Date: 02/07/15 Status: Ordered Problem List Condition Effective Dates Status Health Status Informant Diabetes mellitus during in Active third trimester(Confirmed) Chronic hypertension(Confirmed) Active
--- OUTSIDE RECORDS SUMMARY | 2022-04-06 08:52 | XMS_ITS | Continuity of Care Document ---
:1985 Author Organization [facility] Address [address] [place] [address]- Care Team Providers Name Role Phone Alva Granados MD Primary Care Physician [place] [facility] [place] 02/17/22 - 03/19/22 [facility] Diabetes [address] [place] [address]- Attending Physician: Princess Jensen Admitting Physician: Princess Jensen Referring Physician: AdmPrincess waite Allergies, Adverse Reactions, Alerts Substance Reaction Severity Status Bee Stings Active Latex Active Immunizations Given and Recorded Vaccine Date Status Refusal Reason influenza virus vaccine, inactivated1 05/11/20 Given influenza virus vaccine, inactivated2 04/11/15 Given 1Early/Late Reason: Early/Late Reason: New Med [id number] Note: vis given, dated 11/13/13 Medications aspirin [...] 1 Refills, Maintenance, 05/22/20 10:26:00 EST, Tablet, [facility]/pharmacy #[id number], Partial fill upon patient request [...] 24 HOURS, # 30 tablet, 1 Refills, [facility] STORE [id number], 173, cm, 06/18/20 11:15:00 EDT, Height, 132.4, kg, 06/18/20 11:15:00 EDT, Dry Weight Start Date: 12/24/20 Status: Orderedsimethicone 80 mg oral tablet, chewable 80 mg, Chew, 3 times a day, PRN, # 90 tablet, Refills 0, Tot. Refills 0, Maintenance, Gas, 05/13/20 16:50:00 EST, Route to Pharmacy Electronically, [facility]/pharmacy #[id number], Partial fill upon patient requestif the prescription is for a schedule II opioid d... Start Date: 05/13/20 Status: OrderedTrulicity Pen 1.5 mg/0.5 mL subcutaneous solution = 1.5 mg, Subcutaneous Infusion, Every week, # 4 each, 11 Refills, Maintenance, 11/19/21 10:40:00 EDT, [facility]/pharmacy #[id number], Pls discontinue tao, 173, cm, [...] Display: Non BH Lab Results Authored Date: [id number] Patient Care team information Care Team PersonnelName: Marge LUNDY, Divine Position: [facility] RN Member Role: Primary Care Nurse Name: Alva Granados MD Position: [facility] Physician (General Medicine) Member Role: PCP Address: Address: [address] [place] [address] Care Team Related PersonsName: MORGAN ASENCIO Address: Address: home [address] [place] [address] [place] Name: KRISTEN CHANDLER Address: home [address] [address]
--- OUTSIDE RECORDS SUMMARY | 2022-04-06 08:52 | XMS_ITS | Continuity of Care Document ---
:1985 Author Organization [facility] Address [address] [place] [address]- Care Team Providers Name Role Phone Tracey Dotson NP Primary Care Physician Encounter [facility] [place] AC[place] R [id number] Date(s): 11/23/19 - 12/27/19 [facility] [address] [place] [address] [facility] Attending Physician: Salud Jameson NP Admitting Physician: Salud Jameson NP Referring Physician: Tracey Dotson NP Allergies, Adverse [...] meals, at bedtime, and as needed. DX [id number], Z3AOO, 02/10/15 9:30:00, Compound Start Date: 02/10/15 [...] 11 Refills, Maintenance, 10/01/19 12:24:00 EDT, [facility]/pharmacy #[id number], 170, cm, 10/01/19 8:47:00 EDT, [...] urine for ketones before breakfast daily, dx [id number], Z3AOO, 03/03/15 21:31:00, Compound Start Date: 03/03/15 Status: Orderedlabetalol 200 mg oral tablet 1 tablet = 200 mg, By Mouth, 3 times a day, # 90 tablet, 0 Refills, Maintenance, 10/04/19 16:08:00 EDT, Tablet, [facility]/pharmacy #[id number], 173, cm, 10/04/19 12:03:00 EDT, [...] mL, 11 Refills,Maintenance, 10/01/19 12:24:00 EDT, [facility]/pharmacy #[id number], 170, cm, 10/01/19 8:47:00 EDT, Height, 132.5, kg, 08/01/19 22:39:00 EDT, Dry Weight Start Date: 10/01/19 Status: OrderedMultivitamin Tablet By Mouth, Daily, 0 Refills, Maintenance Start Date: 06/02/11 Status: OrderedMultivitamin, By Mouth, Daily, 0 Refills, Maintenance, 02/07/15 13:12:20 Start Date: 02/07/15 Status: OrderedOmeprazole By Mouth, Daily, 0 Refills, Maintenance, 02/23/17 15:06:41 Start Date: 02/23/17 Status: OrderedPen [place], 31 G x 5 mm BD Ultra Fine III See Instructions, # 150 each, Refills 11, Tot. Refills 11, Maintenance, TO GIVE WITH INSULIN 4X A DAY. E 11.9, 10/01/19 12:28:00 EDT, Supply, 170, cm, 10/01/19 8:47:00 EDT, Height, 132.5, kg, 08/01/19 22:39:00 EDT, Dry Weight Start Date: 10/01/19 Status: OrderedPen [place], 31 G x 5 mm BD Ultra [...]
--- OUTSIDE RECORDS SUMMARY | 2022-04-06 08:52 | XMS_ITS | Continuity of Care Document ---
:1985 Author Organization [facility]ocrinology and D [facility] Address [address] [place] [address]- Care Team Providers Name Role Phone Nila CLIFFORD, Tracey Colvin Primary Care Physician En[place] [facility] [place] Date(s): 09/26/19 - 10/26/19 [facility]ocr[facility]ology [facility] Diabetes [address] [place] [address]- [facility] Allergies, Adverse Reactions, Alerts Substance Reaction Severity [...] meals, at bedtime, and as needed. DX [id number], Z3AOO, 02/10/15 9:30:00, Compound Start Date: 02/10/15 [...] urine for ketones before breakfast daily, dx [id number], Z3AOO, 03/03/15 21:31:00, Compound Start Date: 03/03/15 Status: Orderedlabetalol 200 mg oral tablet 1 tablet = 200 mg, By Mouth, 3 times a day, # 90 tablet, 0 Refills, Maintenance, 10/04/19 16:08:00 EDT, Tablet, [id number], 173, cm, 10/04/19 12:03:00 EDT, Height, 136.5, kg, 10/04/19 12:03:00 EDT, Dry Weight Start Date: 10/04/19 Stop Date: 11/03/19 Status: OrderedLankizzyus Solostar Pen 100 units/mL subcutaneous solution = [...] 02/23/17 15:06:41 Start Date: 02/23/17 Status: OrderedPen [place], 31 G x 5 mm BD Ultra Fine III See Instructions, # 150 each, Refills 11, Tot. Refills 11, Maintenance, TO GIVE WITH INSULIN 4X A DAY. E 11.9, 10/01/19 12:28:00 EDT, Supply, 170, cm, 10/01/19 8:47:00 EDT, Height, 132.5, kg, 08/01/19 22:39:00 EDT, Dry Weight Start Date: 10/01/19 Status: OrderedPen [place], 31 G x 5 mm BD Ultra [...]
--- OUTSIDE RECORDS SUMMARY | 2022-04-06 08:52 | XMS_ITS | Continuity of Care Document ---
:1985 Author Organization [facility] Address [address] [place] [address]- Care Team Providers Name Role Phone Alva Granados MD Primary Care Physician Encounter [facility] [place] Date(s): 06/26/21 - 10/24/21 [facility] Endocr[facility]ology and Diabetes [address] [place] [address] Attending Physician: Lizbeth Ruelas MD Admitting Physician: Lizbeth Ruelas MD Referring Physician: Alva Granados MD Allergies, Adverse Reactions, Alerts Substance Reaction Severity Status Bee Stings Active Latex Active Immunizations Given and Recorded Vaccine Date Status Refusal Reason influenza virus vaccine, inactivated1 05/11/20 Given influenza virus vaccine, inactivated2 04/11/15 Given 1Early/Late Reason: Early/Late Reason: New Med [id number] Note: vis given, dated 11/13/13 Medications aspirin [...] 1 Refills, Maintenance, 05/22/20 10:26:00 EST, Tablet, [facility]/pharmacy #[id number], Partial fill upon patient request if the [...] 24 HOURS, # 30 tablet, 1 Refills, [id number], 173, cm, 06/18/20 11:15:00 EDT, Height, 132.4, kg, 06/18/20 11:15:00 EDT, Dry Weight Start Date: 12/24/20 Status: Orderedsimethicone 80 mg oral tablet, chewable 80 mg, Chew, 3 times a day, PRN, # 90 tablet, Refills 0, Tot. Refills 0, Maintenance, Gas, 05/13/20 16:50:00 EST, Route to Pharmacy Electronically, [facility]/pharmacy #[id number], Partial fill upon patient requestif the prescription is for a schedule II opioid d... Start Date: 05/13/20 Status: OrderedTrulicity Pen 0.75 mg/0.5 mL subcutaneous solution = 0.75 mg, Subcutaneous Infusion, Every week, # 4 each, 6 Refills, Maintenance, 10/16/21 13:01:00 EDT, [facility]/pharmacy #[id number], 173, cm, 09/16/21 14:55:00 EDT, Height, 132.4, kg, 06/18/20 11:15:00 EDT, Dry Weight Start Date: 10/16/21 Status: OrderedTylenol 325 mg oral tablet 650 [...]
--- OUTSIDE RECORDS SUMMARY | 2022-04-06 08:52 | XMS_ITS | Continuity of Care Document ---
:1985 Author Organization [facility] Address [address] [place] [address]- Care Team Providers Name Role Phone Alva Granados MD Primary Care Physician Encounter [facility] [place] Date(s): 01/15/21 - 02/14/21 [facility] [address] [place] [address]- Allergies, Adverse Reactions, Alerts Substance Reaction Severity Status Bee Stings Active Latex Active Immunizations Given and Recorded Vaccine Date Status Refusal Reason influenza virus vaccine, inactivated1 05/11/20 Given influenza virus vaccine, inactivated2 04/11/15 Given 1Early/Late Reason: Early/Late Reason: New Med [id number] Note: vis given, dated 11/13/13 Medications aspirin [...] 1 Refills, Maintenance, 05/22/20 10:26:00 EST, Tablet, [facility]/pharmacy #[id number], Partial fill upon patient [...] 24 HOURS, # 30 tablet, 1 Refills, [facility] STORE [id number], 173, cm, 06/18/20 11:15:00 EDT, Height, 132.4, kg, 06/18/20 11:15:00 EDT, Dry Weight Start Date: 12/24/20 Status: Orderedsimethicone 80 mg oral tablet, chewable 80 mg, Chew, 3 times a day, PRN, # 90 tablet, Refills 0, Tot. Refills 0, Maintenance, Gas, 05/13/20 16:50:00 EST, Route to Pharmacy Electronically, [facility]/pharmacy #[id number], Partial fill upon patient [...]
--- OUTSIDE RECORDS SUMMARY | 2022-04-06 08:52 | XMS_ITS | Continuity of Care Document ---
:1985 Author Organization [facility] Address [address] [place] [address]- Care Team Providers Name Role Phone Alva Granados MD Primary Care Physician En[place] [facility] [place] Date(s): 09/17/21 - 10/17/21 [facility] [address] [place] [id number] Allergies, Adverse Reactions, Alerts Substance Reaction Severity Status Bee Stings Active Latex Active Immunizations Given and Recorded Vaccine Date Status Refusal Reason influenza virus vaccine, inactivated1 05/11/20 Given influenza virus vaccine, inactivated2 04/11/15 Given 1Early/Late Reason: Early/Late Reason: New Med [id number] Note: vis given, dated 11/13/13 Medications aspirin [...] tablet, 1 Refills, [facility] STORE [id number], 173, cm, 06/18/20 11:15:00 EDT, Height, 132.4, [...] each, 6 Refills, Maintenance, 10/16/21 13:01:00 EDT, [id number], cm, 09/16/21 14:55:00 EDT, Height, [...]
--- OUTSIDE RECORDS SUMMARY | 2022-04-06 08:52 | XMS_ITS | Continuity of Care Document ---
:1985 Author Organization [facility] Address [address] [place] [phone]- Care Team Providers Name Role Phone Nila CLIFFORD, Tracey Colvin Primary Care Physician [phone] Encounter [facility] [place] Date(s): 04/11/20 - 05/11/20 [facility] [address] [place] [id number] Allergies, Adverse Reactions, Alerts Substance Reaction Severity Status Bee Stings Active Latex Active Immunizations Given and Recorded Vaccine Date Status Refusal Reason influenza virus vaccine, inactivated1 05/11/20 Given influenza virus vaccine, inactivated2 04/11/15 Given 1Early/Late Reason: Early/Late Reason: New Med [id number] Note: vis given, dated 11/13/13 Medications amLODIPine [...] 04/11/15 18:04:49, Capsule Start Date: 04/11/15 Status: OrderedDouble electric breast pump Double electric [...] meals, at bedtime, and as needed. DX [id number], Z3AOO, 02/10/15 9:30:00, Compound Start Date: 02/10/15 [...] urine for ketones before breakfast daily, dx [id number], Z3AOO, 03/03/15 21:31:00, Compound Start Date: 03/03/15 [...] 02/23/17 15:06:41 Start Date: 02/23/17 Status: OrderedPen [place], 31 G x 5 mm BD Ultra Fine III See Instructions, # 50 each, Refills 5, Tot. Refills 5, Maintenance, to administer Lantus 1x daily, E11.9, 02/24/17 9:22:58, Compound Start Date: 02/24/17 Stop Date: 08/23/17 Status: OrderedPen [place], 31 G x 5 mm BD Ultra Fine III See Instructions, # 150 each, Refills 11, Tot. Refills 11, Maintenance, TO GIVE WITH INSULIN 4X A DAY. 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
--- OUTSIDE RECORDS SUMMARY | 2022-04-06 08:52 | XMS_ITS | Continuity of Care Document ---
:1985 Author Organization [facility] Address [address] [place] [address]- Care Team Providers Name Role Phone Alva Granados MD Primary Care Phys[id number] Date(s[facility] 07/02/20 - 09/05/20 [facility] [address] [place] [address]- Attending Physician: De Bustillos MD Admitting Physician: De Butsillos MD Referring Physician: Alva Granados MD Allergies, Adverse Reactions, Alerts Substance Reaction Severity Status Bee Stings Active Latex Active Immunizations Given and Recorded Vaccine Date Status Refusal Reason influenza virus vaccine, inactivated1 05/11/20 Given influenza virus vaccine, inactivated2 04/11/15 Given 1Early/Late Reason: Early/Late Reason: New Med [id number] Note: vis given, dated 11/13/13 Medications aspirin [...] 05/22/20 10:23:00 EST, Route to Pharmacy Electronically, [facility]/pharmacy [...]
--- OUTSIDE RECORDS SUMMARY | 2022-04-06 08:52 | XMS_ITS | Continuity of Care Document ---
:1985 Author Organization [facility] Address [address] [place] [address]- Care Team Providers Name Role Phone Alva Granados MD Primary Care Physician Encounter [facility] [place] Date(s): 09/16/21 - 10/16/21 [facility] [address] [place] [id number] Attending Physician: Princess Jensen Admitting Physician: AdmPrincess waite Referring Physician: AdmtrPrincess Allergies, Adverse Reactions, Alerts Substance Reaction Severity Status Bee Stings Active Latex Active Immunizations Given and Recorded Vaccine Date Status Refusal Reason influenza virus vaccine, inactivated1 05/11/20 Given influenza virus vaccine, inactivated2 04/11/15 Given 1Early/Late Reason: Early/Late Reason: New Med [id number] Note: vis given, dated 11/13/13 Medications aspirin [...] cm, 09/16/21 14:55:00 EDT, Height, 132.4, kg, 03/24/21 11:15:00 EDT, Dry Weight Start Date: 09/16/21 [...] 1 Refills, Maintenance, 05/22/20 10:26:00 EST, Tablet, [facility]/pharmacy #[id number], Partial fill upon patient request if the [...] 24 HOURS, # 30 tablet, 1 Refills, [facility] STORE [id number], 173, cm, 06/18/20 11:15:00 EDT, Height, 132.4, kg, 06/18/20 11:15:00 EDT, Dry Weight Start Date: 12/24/20 Status: Orderedsimethicone 80 mg oral tablet, chewable 80 mg, Chew, 3 times a day, PRN, # 90 tablet, Refills 0, Tot. Refills 0, Maintenance, Gas, 05/13/20 16:50:00 EST, Route to Pharmacy Electronically, [facility]/pharmacy #[id number], Partial fill upon patient requestif the prescription is for a schedule II opioid d... Start Date: 05/13/20 Status: OrderedTrulicity Pen 0.75 mg/0.5 mL subcutaneous solution = 0.75 mg, Subcutaneous Infusion, Every week, # 4 each, 6 Refills, Maintenance, 10/16/21 13:01:00 EDT, [facility]/pharmacy #[id number], 173, cm, 09/16/21 14:55:00 EDT, Height, [...]
--- OUTSIDE RECORDS SUMMARY | 2022-04-06 08:52 | XMS_ITS | Continuity of Care Document ---
:1985 Author Organization [facility] Address [address] [place] [address]- Care Team Providers Name Role Phone Nila CLIFFORD, Tracey Colvin Primary Care Physician Encounter [facility] [place] Date(s): 10/02/19 - 11/01/19 [facility] [address] [place] [phone] [facility] Allergies, Adverse Reactions, Alerts Substance Reaction Severity [...] meals, at bedtime, and as needed. DX [id number], Z3AOO, 02/10/15 9:30:00, Compound Start Date: 02/10/15 [...] mL, 11 Refills, Maintenance, 10/01/19 12:24:00 EDT, [facility]/pharmacy #[id number], 170, cm, 10/01/19 8:47:00 EDT, Height, [...] urine for ketones before breakfast daily, dx [id number], Z3AOO, 03/03/15 21:31:00, Compound Start Date: 03/03/15 [...] 02/23/17 15:06:41 Start Date: 02/23/17 Status: OrderedPen [place], 31 G x 5 mm BD Ultra Fine III See Instructions, # 150 each, Refills 11, Tot. Refills 11, Maintenance, TO GIVE WITH INSULIN 4X A DAY. E 11.9, 10/01/19 12:28:00 EDT, Supply, 170, cm, 10/01/19 8:47:00 EDT, Height, 132.5, kg, 08/01/19 22:39:00 EDT, Dry Weight Start Date: 10/01/19 Status: OrderedPen [place], 31 G x 5 mm BD Ultra [...]
--- OUTSIDE RECORDS SUMMARY | 2022-04-06 08:52 | XMS_ITS | Continuity of Care Document ---
:1985 Author Organization [facility] Address [address] [place] [address]- Care Team Providers Name Role Phone Alva Granados MD Primary Care Physician Encounter [facility] [place] Date(s): 09/17/21 - 10/17/21 [facility] [address] [place] [id number] All[facility]ies, Adverse Reactions, Alerts Substance Reaction Severity Status Bee Stings Active Latex Active Immunizations Given and Recorded Vaccine Date Status Refusal Reason influenza virus vaccine, inactivated1 05/11/20 Given influenza virus vaccine, inactivated2 04/11/15 Given 1Early/Late Reason: Early/Late Reason: New Med [id number] Note: vis given, dated 11/13/13 Medications aspirin [...] 1 Refills, Maintenance, 05/22/20 10:26:00 EST, Tablet, [facility]/pharmacy #[id number], Partial fill upon patient request [...] 24 HOURS, # 30 tablet, 1 Refills, [facility] STORE 54730, 173, cm, 06/18/20 11:15:00 EDT, Height, 132.4, kg, 06/18/20 11:15:00 EDT, Dry Weight Start Date: 12/24/20 Status: Orderedsimethicone 80 mg oral tablet, chewable 80 mg, Chew, 3 times a day, PRN, # 90 tablet, Refills 0, Tot. Refills 0, Maintenance, Gas, 05/13/20 16:50:00 EST, Route to Pharmacy Electronically, [facility]/pharmacy #[id number], Partial fill upon patient requestif the prescription is for a schedule II opioid d... Start Date: 05/13/20 Status: OrderedTrulicity Pen 0.75 mg/0.5 mL subcutaneous solution = 0.75 mg, Subcutaneous Infusion, Every week, # 4 each, 6 Refills, Maintenance, 10/16/21 13:01:00 EDT, [id number] 173, cm, 09/16/21 14:55:00 EDT, [...]
--- OUTSIDE RECORDS SUMMARY | 2022-04-06 08:52 | XMS_ITS | Continuity of Care Document ---
:1985 Author Organization [facility] Address [address] [place] [address]- Care Team Providers Name Role Phone Nila CLIFFORD, Tracey Colvin Primary Care Physician [place] [facility] [place] Date(s): 08/01/19 - 08/01/[address] [address] [facility] Discharge Disposition: A-D/C AMA Attending Physician: Andrew Arreola MD Admitting Physician: Andrew Arreola MD Referring Physician: Not on Staff, Referring MD Allergies, Adverse Reactions, Alerts Substance Reaction Severity Status Bee Stings Active Latex Active Immunizations Given and Recorded Vaccine Date Status Refusal Reason influenza virus vaccine, inactivated1 04/11/15 Given 1Admin Note: vis given, dated 11/13/13 Medications Actos 30 mg oral tablet 1 tablet = 30 mg, By Mouth, Daily, # 30 tablet, 5 Refills, Maintenance, 07/19/18 17:30:43 EDT, Tablet Start Date: 07/19/18 Status: OrderedColace sodium 100 mg oral capsule [...] 02/07/15 13:12:37 Start Date: 02/07/15 Status: OrderedFreestyle Lite Lancets See Instructions, # [...] meals, at bedtime, and as needed. DX [id number], Z3AOO, 02/10/15 9:30:00, Compound Start Date: 02/10/15 [...] Start Date: 07/19/18 Stop Date: 01/10/20 Status: Orderedibuprofen 600 mg oral tablet 1 tablet = 600 mg, By Mouth, 4 times a day, PRN for pain, # 40 tablet, 0 Refills, Maintenance, 04/11/15 18:04:24, Tablet Start Date: 04/11/15 Status: OrderedKetostix See Instructions, # 1 bottle, Refills 3, Tot. Refills 3, Maintenance, Use as directed to test urine for ketones before breakfast daily, dx [id number], Z3AOO, 03/03/15 21:31:00, Compound Start Date: 03/03/15 Status: OrderedLantus Solostar Pen 100 units/mL subcutaneous [...] units every 3... Start Date: 03/13/15 Status: OrderedmetFORMIN 500 mg oral tablet 2 tablet = 1,000 mg, By Mouth, 2 times a day, # 120 tablet, 0 Refills, Maintenance, 07/14/18 16:14:00 EDT Start Date: 07/14/18 Stop Date: 08/13/18 Status: OrderedMultivitamin Tablet By Mouth, Daily, 0 Refills, Maintenance Start Date: 06/02/11 Status: OrderedMultivitamin, By Mouth, Daily, 0 Refills, Maintenance, 02/07/15 13:12:20 Start Date: 02/07/15 Status: OrderedOmeprazole By Mouth, Daily, 0 Refills, Maintenance, 02/23/17 15:06:41 Start Date: 02/23/17 Status: OrderedPen [place], 31 G x 5 mm BD Ultra [...] Diabetes mellitus during in Active third trimester(Confirmed) Vital Signs Most recent to oldest [Reference 1 2 3 Range]: Oxygen Saturation [94-100 %] 100 % 100 % (08/01/19 6:37 PM) (08/01/19 6:11 PM) Pulse Rate [55-90 bpm] 93 bpm 96 bpm *H* *H* (08/01/19 6:37 PM) (08/01/19 6:11 PM) Blood Pressure [90-138/55-84 mm 141/80 mm Hg Hg] *H* (08/01/19 6:37 PM) Respiratory Rate [16-30 br/min] 19 br/min (08/01/19 6:37 PM) Temperature [96.8-100.4 DegF] 98.1 DegF (08/01/19 6:37 PM) Mode of Delivery (Oxygen) Room air Room air (08/01/19 6:37 PM) (08/01/19 6:11 PM) Blood pressure sites Arm, left (08/01/19 6:37 PM) Temperature Route Oral (08/01/19 6:37 PM) Dry Weight 132.5 kg 132.5 kg 132.5 kg (08/01/19 10:39 PM) (08/01/19 6:39 PM) (08/01/19 6:37 PM)
--- OUTSIDE RECORDS SUMMARY | 2022-04-06 08:52 | XMS_ITS | Continuity of Care Document ---
:1985 Author Organization [facility] Address [address] [place] [address]- Care Team Providers Name Role Phone Nila CLIFFORD, Tracey Colvin Primary Care Physician Encounter [facility] [place] Date(s): 05/08/20 - 05/08/[address] [address] Discharge Disposition: A-D/C Home Attending Physician: [...] meals, at bedtime, and as needed. DX [id number], Z3AOO, 02/10/15 9:30:00, Compound Start Date: 02/10/15 [...] urine for ketones before breakfast daily, dx [id number], Z3AOO, 03/03/15 21:31:00, Compound Start Date: 03/03/15 Status: Orderedlabetalol 200 mg oral tablet 1 tablet = 200 mg, By Mouth, 3 times a day, # 90 tablet, 0 Refills, Maintenance, 10/04/19 16:08:00 EDT, Tablet, [facility]/pharmacy #[id number], 173, cm, 10/04/19 12:03:00 EDT, [...] 30 mL, 11 Refills,Maintenance, 10/01/19 12:24:00 EDT, [facility]/pharmacy #[id number], 170, cm, 10/01/19 8:47:00 EDT, [...] 02/23/17 15:06:41 Start Date: 02/23/17 Status: OrderedPen [place], 31 G x 5 mm BD Ultra Fine III See Instructions, # 50 each, Refills 5, Tot. Refills 5, Maintenance, to administer Lantus 1x daily, E11.9, 02/24/17 9:22:58, Compound Start Date: 02/24/17 Stop Date: 08/23/17 Status: OrderedPen [place], 31 G x 5 mm BD Ultra [...] in Active third trimester(Confirmed) Chronic hypertension(Confirmed) Active Vital Signs Most recent to oldest [Reference Range]: 1 Oxygen Saturation [94-100 %] 99 % (05/08/20 1:06 PM) Blood Pressure [90-138/55-84 mm Hg] 126/67 mm Hg (05/08/20 1:06 PM) Respiratory Rate [16-30 br/min] 20 br/min (05/08/20 1:06 PM) Temperature [96.8-100.4 DegF] 98.8 DegF (05/08/20 1:06 PM) Mode of Delivery (Oxygen) Room air (05/08/20 1:06 PM) Blood pressure sites Arm, right (05/08/20 1:06 PM) Temperature Route Oral (05/08/20 1:06 PM)
--- OUTSIDE RECORDS SUMMARY | 2022-04-06 08:52 | XMS_ITS | Continuity of Care Document ---
:1985 Author Organization [facility] Address [address] [place] [address]- Care Team Providers Name Role Phone Nila CLIFFORD, Tracey Colvin Primary Care Physician [phone] Encounter [facility] [place] Date(s): 04/09/20 - 06/10/[address] [address] Attending Physician: Akhil Medley MD Referring Physician: Akhil Medley MD Allergies, Adverse Reactions, Alerts Substance Reaction Severity Status Bee Stings Active Latex Active Immunizations Given and Recorded Vaccine Date Status Refusal Reason influenza virus vaccine, inactivated1 05/11/20 Given influenza virus vaccine, inactivated2 04/11/15 Given 1Early/Late Reason: Early/Late Reason: New Med [id number] Note: vis given, dated 11/13/13 Medications aspirin [...] 1 Refills, Maintenance, 05/22/20 10:26:00 EST, Tablet, [facility]/pharmacy #[id number], Partial fill upon patient [...] 05/22/20 10:23:00 EST, Route to Pharmacy Electronically, [facility]/pharmacy #[id number], Partial fill upon patient [...] 05/13/20 16:50:00 EST, Route to Pharmacy Electronically, [facility]/pharmacy #[id number], Partial fill upon patient [...]
--- OUTSIDE RECORDS SUMMARY | 2022-04-06 08:52 | XMS_ITS | Continuity of Care Document ---
:1985 Author Organization [facility] Address [address] [place] [address]- Care Team Providers Name Role Phone Nila CLIFFORD, Tracey Colvin [id number] Date(s): 03/21/20 - 03/21/[address] [address] Discharge Disposition: A-D/C Home Attending Physician: Akhil [...] meals, at bedtime, and as needed. DX [id number], Z3AOO, 02/10/15 9:30:00, Compound Start Date: 02/10/15 [...] mL, 11 Refills, Maintenance, 10/01/19 12:24:00 EDT, [facility]/pharmacy #[id number], 170, cm, 10/01/19 8:47:00 EDT, Height, [...] urine for ketones before breakfast daily, dx [id number], Z3AOO, 03/03/15 21:31:00, Compound Start Date: 03/03/15 Status: Orderedlabetalol 200 mg oral tablet 1 tablet = 200 mg, By Mouth, 3 times a day, # 90 tablet, 0 Refills, Maintenance, 10/04/19 16:08:00 EDT, Tablet, [facility]/pharmacy #[id number], 173, cm, 10/04/19 12:03:00 EDT, Height, [...] 30 mL, 11 Refills,Maintenance, 10/01/19 12:24:00 EDT, [facility]/pharmacy #[id number], 170, cm, 10/01/19 8:47:00 EDT, Height, 132.5, kg, 08/01/19 22:39:00 EDT, Dry Weight Start Date: 10/01/19 Status: OrderedMultivitamin Tablet By Mouth, Daily, 0 Refills, Maintenance Start Date: 06/02/11 Status: OrderedMultivitamin, By Mouth, Daily, 0 Refills, Maintenance, 02/07/15 13:12:20 Start Date: 02/07/15 Status: OrderedOmeprazole By Mouth, Daily, 0 Refills, Maintenance, 02/23/17 15:06:41 Start Date: 02/23/17 Status: OrderedPen [place], 31 G x 5 mm BD Ultra Fine III See Instructions, # 50 each, Refills 5, Tot. Refills 5, Maintenance, to administer Lantus 1x daily, E11.9, 02/24/17 9:22:58, Compound Start Date: 02/24/17 Stop Date: 08/23/17 Status: OrderedPen [place], 31 G x 5 mm BD Ultra [...] Most recent to oldest [Reference Range]: 1 Weight 133.4 kg (03/21/20 2:01 AM) Oxygen Saturation [94-100 %] 98 % (03/21/20 2:22 AM) Blood Pressure [90-138/55-84 mm Hg] 130/77 mm Hg (03/21/20 2:22 AM) Respiratory Rate [16-30 br/min] 18 br/min (03/21/20 2:22 AM) Temperature [96.8-100.4 DegF] 98.1 DegF (03/21/20 2:01 AM) Blood pressure sites Arm, right (03/21/20 2:22 AM) Temperature Route Oral (03/21/20 2:01 AM) Dry Weight 133.4 kg (03/21/20 2:01 AM) Weight Obtained Via Standing scale (03/21/20 2:01 AM) Dry Weight Obtained Via Standing scale (03/21/20 2:01 AM)
--- OUTSIDE RECORDS SUMMARY | 2022-04-06 08:52 | XMS_ITS | Continuity of Care Document ---
:1985 Author Organization [facility] Address [address] [place] [address]- Care Team Providers Name Role Phone Alva Granados MD Primary Care Physician Encounter [facility] [place] Date(s): 10/30/21 - 02/10/22 [facility] [address] [place] [address]- Attending Physician: Thom Oh MD Admitting Physician: Thom Oh MD Referring Physician: Alva Granados MD Allergies, Adverse Reactions, Alerts Substance Reaction Severity Status Bee Stings Active Latex Active Immunizations Given and Recorded Vaccine Date Status Refusal Reason influenza virus vaccine, inactivated1 05/11/20 Given influenza virus vaccine, inactivated2 04/11/15 Given 1Early/Late Reason: Early/Late Reason: New Med [id number] Note: vis given, dated 11/13/13 Medications aspirin [...] 1 Refills, Maintenance, 05/22/20 10:26:00 EST, Tablet, [facility]/pharmacy #[id number], Partial fill upon patient request [...] 24 HOURS, # 30 tablet, 1 Refills, [facility] STORE 35938, 173, cm, 06/18/20 11:15:00 EDT, Height, 132.4, kg, 06/18/20 11:15:00 EDT, Dry Weight Start Date: 12/24/20 Status: Orderedsimethicone 80 mg oral tablet, chewable 80 mg, Chew, 3 times a day, PRN, # 90 tablet, Refills 0, Tot. Refills 0, Maintenance, Gas, 05/13/20 16:50:00 EST, Route to Pharmacy Electronically, [facility]/pharmacy #[id number], Partial fill upon patient requestif the prescription is for a schedule II opioid d... Start Date: 05/13/20 Status: OrderedTrulicity Pen 1.5 mg/0.5 mL subcutaneous solution = 1.5 mg, Subcutaneous Infusion, Every week, # 4 each, 11 Refills, Maintenance, 11/19/21 10:40:00 EDT, [facility]/pharmacy #[id number], Pls discontinue tao, 173, cm, [...] days; Other: last in March; entered on: 2/21/21 Sex Patient Care team information Care Team PersonnelName: Marge LUNDY, Divine Position: [facility] RN Member Role: Primary Care Nurse Name: Alva Granados MD Position: [facility] Physician (General Medicine) Member Role: PCP Address: Address: [address] [place] [address]- Care Team Related PersonsName: MORGAN ASENCIO Address: Address: [address] [place] [address] [place] Name: KRISTEN CHANDLER Address: home [address] [address]
--- OUTSIDE RECORDS SUMMARY | 2022-04-06 08:52 | XMS_ITS | Continuity of Care Document ---
:1985 Author Organization [facility] D n[facility] Address [address] [place] [address]- Care Team Providers Name Role Phone Nila CLIFFORD, Tracey Colvin Primary Care Physician [phone] Encounter [facility] [place] Date(s): 12/26/19 - 01/25/20 [facility] [address] [place] [address]- [facility] Attending Physician: Princess Jensen Admitting Physician: AdmtrPrincess [...] meals, at bedtime, and as needed. DX [id number], Z3AOO, 02/10/15 9:30:00, Compound Start Date: 02/10/15 [...] mL, 11 Refills, Maintenance, 10/01/19 12:24:00 EDT, [facility]/pharmacy #[id number], 170, cm, 10/01/19 [...] urine for ketones before breakfast daily, dx [id number], Z3AOO, 03/03/15 21:31:00, Compound Start Date: 03/03/15 Status: Orderedlabetalol 200 mg oral tablet 1 tablet = 200 mg, By Mouth, 3 times a day, # 90 tablet, 0 Refills, Maintenance, 10/04/19 16:08:00 EDT, Tablet, [facility]/pharmacy #[id number], 173, cm, 10/04/19 12:03:00 EDT, [...] 30 mL, 11 Refills,Maintenance, 10/01/19 12:24:00 EDT, [facility]/pharmacy #[id number], 170, cm, 10/01/19 8:47:00 EDT, Height, 132.5, kg, 08/01/19 22:39:00 EDT, Dry Weight Start Date: 10/01/19 Status: OrderedMultivitamin Tablet By Mouth, Daily, 0 Refills, Maintenance Start Date: 06/02/11 Status: OrderedMultivitamin, By Mouth, Daily, 0 Refills, Maintenance, 02/07/15 13:12:20 Start Date: 02/07/15 Status: OrderedOmeprazole By Mouth, Daily, 0 Refills, Maintenance, 02/23/17 15:06:41 Start Date: 02/23/17 Status: OrderedPen [place], 31 G x 5 mm BD Ultra Fine III See Instructions, # 150 each, Refills 11, Tot. Refills 11, Maintenance, TO GIVE WITH INSULIN 4X A DAY. E 11.9, 10/01/19 12:28:00 EDT, Supply, 170, cm, 10/01/19 8:47:00 EDT, Height, 132.5, kg, 08/01/19 22:39:00 EDT, Dry Weight Start Date: 10/01/19 Status: OrderedPen [place], 31 G x 5 mm BD Ultra [...]
--- OUTSIDE RECORDS SUMMARY | 2022-04-06 08:52 | XMS_ITS | Continuity of Care Document ---
:1985 Author Organization [facility] Address [address] [place] [address]- Care Team Providers Name Role Phone Nila CLIFFORD, Tracey Colvin Primary Care Physician [phone] Encounter [facility] [place] Date(s): 05/14/20 - 05/14/[address] [address]- Encounter Diagnosis Pneumonia (Final) - 05/14/20 Pneumonia (Final) - 05/14/20 Discharge Disposition: A-D/C Home Attending Physician: Ger Coley MD Admitting Physician: Ger Coley MD Referring Physician: Not on Staff, Referring MD Allergies, Adverse Reactions, Alerts Substance Reaction Severity Status Bee Stings Active Latex Active Immunizations Given and Recorded Vaccine Date Status Refusal Reason influenza virus vaccine, inactivated1 05/11/20 Given influenza virus vaccine, inactivated2 04/11/15 Given 1Early/Late Reason: Early/Late Reason: New Med [id number] Note: vis given, dated 11/13/13 Medications amLODIPine 2.5 mg oral tablet 2.5 mg, 1, tablet, By Mouth, Daily, # 30 tablet, Refills 0, Maintenance, 10/01/19 8:48:00 EDT Start Date: 10/01/19 Status: Orderedamoxicillin 500 mg oral capsule 2 capsule = 1,000 mg, By Mouth, 3 times a day, for 5 days, # 30 capsule, 0 Refills, Acute 05/19/20 14:05:00 EST, 05/14/20 14:05:00 EST, Capsule, [id number], Partial fill upon patient request ifthe prescription [...] 05/19/20 14:05:00 EST, 05/14/20 14:05:00 EST, Tablet, [facility]/pharmacy #[id number], Partial fill upon patient request [...] 0 Refills, Maintenance, 05/13/20 16:51:00 EST, Tablet, [facility]/pharmacy #[id number], Partial fill upon patient request [...] meals, at bedtime, and as needed. DX [id number], Z3AOO, 02/10/15 9:30:00, Compound Start Date: 02/10/15 [...] 16:50:00 EST, Route to Pharmacy Electronically, [facility]/pharmacy #[id number], Partial fill upon patient request if the prescription is for a schedule II op... Start Date: 05/13/20 Status: OrderedKetostix See Instructions, # 1 bottle, Refills 3, Tot. Refills 3, Maintenance, Use as directed to test urine for ketones before breakfast daily, dx [id number], Z3AOO, 03/03/15 21:31:00, Compound Start Date: 03/03/15 Status: Orderedlabetalol 200 mg oral tablet 1 tablet = 200 mg, By Mouth, 3 times a day, # 90 tablet, 0 Refills, Maintenance, 10/04/19 16:08:00 EDT, Tablet, [facility]/pharmacy #[id number], 173, cm, 10/04/19 12:03:00 EDT, [...] 30 mL, 11 Refills,Maintenance, 10/01/19 12:24:00 EDT, [facility]/pharmacy #[id number], 170, cm, 10/01/19 8:47:00 EDT, [...] 02/23/17 15:06:41 Start Date: 02/23/17 Status: OrderedPen [place], 31 G x 5 mm BD Ultra Fine III See Instructions, # 50 each, Refills 5, Tot. Refills 5, Maintenance, to administer Lantus 1x daily, E11.9, 02/24/17 9:22:58, Compound Start Date: 02/24/17 Stop Date: 08/23/17 Status: OrderedPen [place], 31 G x 5 mm BD Ultra [...] 16:50:00 EST, Route to Pharmacy Electronically, [facility]/pharmacy #[id number], Partial fill upon patient requestif the prescription is for a schedule II opioid d... 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 Hx of Present Illness: from home, recent admission for , went home recently and now with increased sob, worse when she ambulates. Pt denies associated symptoms at this time; Reason: Shortness of Breath; Clinical Question(s): Pulmonary Embolism COMPARISON: 11/15/2016. FINDINGS: LINES AND TUBES: None. LUNGS AND PLEURA: Clear lungs. Normal pulmonary vascularity. No pleural effusion. No pneumothorax. HEART, MEDIASTINUM AND SANTIAGO: Heart is normal in size. Normal upper mediastinal and hilar contour. BONES AND SOFT TISSUES: No acute abnormality. IMPRESSION: No acute abnormality. I have personally reviewed the images and I agree with this report. WSN: [id number] Ordering Physician: Vahid Randle MD Dictated By: Johnnie Hardy MD Dictated Date/Time: 05/14/20 10:27 a Reviewed By: Danial Kirby MD Signed By: Danial Kirby MD Signed Date/Time: 05/14/20 10:32 am Transcribed By: BIJAN Transcribed Date/Time: 05/14/20 10:22 am Vital Signs Most recent to oldest 1 2 3 [Reference Range]: Oxygen Saturation [94-100 %] 94 % 96 % 95 % (05/14/20 2:20 PM) (05/14/20 12:05 PM) (05/14/20 10 :53 AM) Pulse Rate [55-90 bpm] 77 bpm 91 bpm 95 bpm (05/14/20 2:20 PM) *H* *H* (05/14/20 12:05 PM) (05/14/20 10:5 3 AM) Blood Pressure [90-138/55-84 135/67 mm Hg 157/46 mm Hg 147 /80 mm Hg mm Hg] (05/14/20 2:20 PM) *H* *H* (05/14/20 12:05 PM) (05/14/20 10:5 3 AM) Respiratory Rate [16-30 26 br/min 19 br/min 24 br/mi n br/min] (05/14/20 2:20 PM) (05/14/20 12:05 PM) (05/14/20 10 :53 AM) Temperature [96.8-100.4 DegF] 98.4 DegF 98.4 DegF (05/14/20 2:20 PM) (05/14/20 9:51 AM) Mode of Delivery (Oxygen) Room air Room air Room a ir (05/14/20 2:20 PM) (05/14/20 12:05 PM) (05/14/20 10 :53 AM) Blood pressure sites Arm, right Arm, left Arm, left (05/14/20 2:20 PM) (05/14/20 12:05 PM) (05/14/20 10 :53 AM) Temperature Route Oral Oral (05/14/20 2:20 PM) (05/14/20 9:51 AM)
--- OUTSIDE RECORDS SUMMARY | 2022-04-06 08:52 | XMS_ITS | Continuity of Care Document ---
:1985 Author Organization [facility] Address [address] [place] [address]- Care Team Providers Name Role Phone Nila CLIFFORD, Tracey Colvin Primary Care Physician [place] [facility] [place] 04/24/20 - 05/24/20 [facility] [address] [place] [id number] Allergies, Adverse Reactions, Alerts Substance Reaction Severity Status Bee Stings Active Latex Active Immunizations Given and Recorded Vaccine Date Status Refusal Reason influenza virus vaccine, inactivated1 05/11/20 Given influenza virus vaccine, inactivated2 04/11/15 Given 1Early/Late Reason: Early/Late Reason: New Med [id number] Note: vis given, dated 11/13/13 Medications aspirin [...] 05/22/20 10:23:00 EST, Route to Pharmacy Electronically, [facility]/pharmacy #[id number], Partial fill upon patient request if the prescription is for a schedule II op... Start Date: 05/22/20 Status: OrderedOmeprazole By Mouth, Daily, 0 Refills, Maintenance, 02/23/17 15:06:41 Start Date: 02/23/17 Status: Orderedsimethicone 80 mg oral tablet, chewable 80 mg, Chew, 3 times a day, PRN, # 90 tablet, Refills 0, Tot. Refills 0, Maintenance, Gas, 05/13/20 16:50:00 EST, Route to Pharmacy Electronically, [facility]/pharmacy #[id number], Partial fill upon patient requestif the [...]
--- OUTSIDE RECORDS SUMMARY | 2022-04-06 08:52 | XMS_ITS | Continuity of Care Document ---
:1985 Author Organization [facility]ology [facility] D iabetes Address [address] [place] [address]- Care Team Providers Name Role Phone Alva Granados MD Primary Care Physician [id number] Date(s[facility] 11/19/21 - 03/19/22 [facility] [address] [place] [address]- Attending Physician: Thom Oh MD Admitting Physician: Thom Oh MD Referring Physician: Alva Granados MD Allergies, Adverse Reactions, Alerts Substance Reaction Severity Status Bee Stings Active Latex Active Immunizations Given and Recorded Vaccine Date Status Refusal Reason influenza virus vaccine, inactivated1 05/11/20 Given influenza virus vaccine, inactivated2 04/11/15 Given 1Early/Late Reason: Early/Late Reason: New Med [id number] Note: vis given, dated 11/13/13 Medications aspirin [...] 1 Refills, Maintenance, 05/22/20 10:26:00 EST, Tablet, [facility]/pharmacy #[id number], Partial fill upon patient [...] 24 HOURS, # 30 tablet, 1 Refills, [facility] STORE [id number], 173, cm, 06/18/20 11:15:00 EDT, Height, 132.4, kg, 06/18/20 11:15:00 EDT, Dry Weight Start Date: 12/24/20 Status: Orderedsimethicone 80 mg oral tablet, chewable 80 mg, Chew, 3 times a day, PRN, # 90 tablet, Refills 0, Tot. Refills 0, Maintenance, Gas, 05/13/20 16:50:00 EST, Route to Pharmacy Electronically, [facility]/pharmacy #[id number], Partial fill upon patient requestif the prescription is for a schedule II opioid d... Start Date: 05/13/20 Status: OrderedTrulicity Pen 1.5 mg/0.5 mL subcutaneous solution = 1.5 mg, Subcutaneous Infusion, Every week, # 4 each, 11 Refills, Maintenance, 11/19/21 10:40:00 EDT, [facility]/pharmacy #[id number], Pls discontinue tao, 173, cm, 09/16/21 [...] Care Team PersonnelName: Marge LUNDY, Divine Position: [facility] RN Member Role: Primary Care Nurse Name: Alva Granados MD Position: [facility] Physician (General Medicine) Member Role: PCP Address: Address: [address] [place] [address]- Care Team Related PersonsName: MORGAN ASENCIO Address: Address: home [address] [place] [address] [place] Name: KRISTEN CHANDLER Address: home [address] [address]
--- OUTSIDE RECORDS SUMMARY | 2022-04-06 08:52 | XMS_ITS | Continuity of Care Document ---
:1985 Author Organization [facility] Address [address] [place] [address]- Care Team Providers Name Role Phone Tracey Dotson NP Primary Care Physician Encounter [facility] [place] Date(s): 10/01/19 - 12/05/19 [facility] Diabetes [address] [place] [address] [facility] Attending Physician: Lizbeth Ruelas MD Admitting Physician: [...] meals, at bedtime, and as needed. DX [id number], Z3AOO, 02/10/15 9:30:00, Compound Start Date: 02/10/15 [...] urine for ketones before breakfast daily, dx [id number], Z3AOO, 03/03/15 21:31:00, Compound Start Date: 03/03/15 Status: Orderedlabetalol 200 mg oral tablet 1 tablet = 200 mg, By Mouth, 3 times a day, # 90 tablet, 0 Refills, Maintenance, 10/04/19 16:08:00 EDT, Tablet, [facility]/pharmacy #[id number], 173, cm, 10/04/19 12:03:00 EDT, Height, [...] 30 mL, 11 Refills,Maintenance, 10/01/19 12:24:00 EDT, [facility]/pharmacy #[id number], 170, cm, 10/01/19 8:47:00 EDT, Height, 132.5, kg, 08/01/19 22:39:00 EDT, Dry Weight Start Date: 10/01/19 Status: OrderedMultivitamin Tablet By Mouth, Daily, 0 Refills, Maintenance Start Date: 06/02/11 Status: OrderedMultivitamin, By Mouth, Daily, 0 Refills, Maintenance, 02/07/15 13:12:20 Start Date: 02/07/15 Status: OrderedOmeprazole By Mouth, Daily, 0 Refills, Maintenance, 02/23/17 15:06:41 Start Date: 02/23/17 Status: OrderedPen [place], 31 G x 5 mm BD Ultra Fine III See Instructions, # 150 each, Refills 11, Tot. Refills 11, Maintenance, TO GIVE WITH INSULIN 4X A DAY. E 11.9, 10/01/19 12:28:00 EDT, Supply, 170, cm, 10/01/19 8:47:00 EDT, Height, 132.5, kg, 08/01/19 22:39:00 EDT, Dry Weight Start Date: 10/01/19 Status: OrderedPen [place], 31 G x 5 mm BD Ultra [...]
--- OUTSIDE RECORDS SUMMARY | 2022-04-06 08:52 | XMS_ITS | Continuity of Care Document ---
:1985 Author Organization [facility] Endocrinology and D iabetes Address [address] [place] [address]- Care Team Providers Name Role Phone Alva Granados MD Primary Care Physician [place] [facility] [place] Date(s): 01/11/22 - 02/10/22 [facility]ocrinology and Diabetes [address] [place] [address]- Allergies, Adverse Reactions, Alerts Substance Reaction Severity Status Bee Stings Active Latex Active Immunizations Given and Recorded Vaccine Date Status Refusal Reason influenza virus vaccine, inactivated1 05/11/20 Given influenza virus vaccine, inactivated2 04/11/15 Given 1Early/Late Reason: Early/Late Reason: New Med [id number] Note: vis given, dated 11/13/13 Medications aspirin [...] 1 Refills, Maintenance, 05/22/20 10:26:00 EST, Tablet, [facility]/pharmacy #[id number], Partial fill upon patient request if the [...] 24 HOURS, # 30 tablet, 1 Refills, [facility] STORE [id number], 173, cm, 06/18/20 11:15:00 EDT, Height, 132.4, kg, 06/18/20 11:15:00 EDT, Dry Weight Start Date: 12/24/20 Status: Orderedsimethicone 80 mg oral tablet, chewable 80 mg, Chew, 3 times a day, PRN, # 90 tablet, Refills 0, Tot. Refills 0, Maintenance, Gas, 05/13/20 16:50:00 EST, Route to Pharmacy Electronically, [facility]/pharmacy #[id number], Partial fill upon patient requestif the prescription is for a schedule II opioid d... Start Date: 05/13/20 Status: OrderedTrulicity Pen 1.5 mg/0.5 mL subcutaneous solution = 1.5 mg, Subcutaneous Infusion, Every week, # 4 each, 11 Refills, Maintenance, 11/19/21 10:40:00 EDT, [facility]/pharmacy #[id number], Pls discontinue januvmelva, 173, cm, 09/16/21 14:55:00 EDT, Height, 132.4, [...] last in March; entered on: 05/18/20 Sex Patient Care team information Care Team PersonnelName: Divine Bird RN Position: [facility] RN Member Role: Primary Care Nurse Name: Alva Granados MD Position: [facility] Physician (General Medicine) Member Role: PCP Address: Address: [address] [place] [address]- Care Team Related PersonsName: MORGAN ASENCIO Address: Address: home [address] [place] [address] [place] Name: KRISTEN CHANDLER Address: home [address] [address]
--- OUTSIDE RECORDS SUMMARY | 2022-04-06 08:52 | XMS_ITS | Continuity of Care Document ---
:1985 Author Organization [facility] Address [address] [place] [address]- Care Team Providers Name Role Phone Alva Granados MD Primary Care Physician [place] [facility] [place](s): 12/24/20 - 01/23/21 [facility] [address] [place] [address] Allergies, Adverse Reactions, Alerts Substance Reaction Severity Status Bee Stings Active Latex Active Immunizations Given and Recorded Vaccine Date Status Refusal Reason influenza virus vaccine, inactivated1 05/11/20 Given influenza virus vaccine, inactivated2 04/11/15 Given 1Early/Late Reason: Early/Late Reason: New Med [id number] Note: vis given, dated 11/13/13 Medications aspirin [...] 1 Refills, Maintenance, 05/22/20 10:26:00 EST, Tablet, [facility]/pharmacy #[id number], Partial fill upon patient request [...] 24 HOURS, # 30 tablet, 1 Refills, [facility] STORE 98195, 173, cm, 06/18/20 11:15:00 EDT, Height, 132.4, kg, 06/18/20 11:15:00 EDT, Dry Weight Start Date: 12/24/20 Status: Orderedsimethicone 80 mg oral tablet, chewable 80 mg, Chew, 3 times a day, PRN, # 90 tablet, Refills 0, Tot. Refills 0, Maintenance, Gas, 05/13/20 16:50:00 EST, Route to Pharmacy Electronically, [facility]/pharmacy #[id number], Partial fill upon patient requestif [...]
--- OUTSIDE RECORDS SUMMARY | 2022-04-06 08:52 | XMS_ITS | Continuity of Care Document ---
:1985 Author Organization [facility] Address [address] [place] [address]- Care Team Providers Name Role Phone Nila CLIFFORD, Tracey Colvin Primary Care Physician [phone] Encounter [facility] [place] R [id number] Date(s): 04/15/20 - 04/15/[address] [address] Discharge Disposition: A-D/C Home Attending Physician: [...] meals, at bedtime, and as needed. DX [id number], Z3AOO, 02/10/15 9:30:00, Compound Start Date: 02/10/15 [...] mL, 11 Refills, Maintenance, 10/01/19 12:24:00 EDT, [facility]/pharmacy #[id number], 170, cm, 10/01/19 8:47:00 EDT, Height, [...] urine for ketones before breakfast daily, dx [id number], Z3AOO, 03/03/15 21:31:00, Compound Start Date: 03/03/15 Status: Orderedlabetalol 200 mg oral tablet 1 tablet = 200 mg, By Mouth, 3 times a day, # 90 tablet, 0 Refills, Maintenance, 10/04/19 16:08:00 EDT, Tablet, [facility]/pharmacy #[id number], 173, cm, 10/04/19 12:03:00 EDT, Height, [...] 30 mL, 11 Refills,Maintenance, 10/01/19 12:24:00 EDT, [facility]/pharmacy #[id number], 170, cm, 10/01/19 8:47:00 EDT, Height, 132.5, kg, 08/01/19 22:39:00 EDT, Dry Weight Start Date: 10/01/19 Status: OrderedMultivitamin Tablet By Mouth, Daily, 0 Refills, Maintenance Start Date: 06/02/11 Status: OrderedMultivitamin, By Mouth, Daily, 0 Refills, Maintenance, 02/07/15 13:12:20 Start Date: 11/13/15 Status: OrderedOmeprazole By Mouth, Daily, 0 Refills, Maintenance, 02/23/17 15:06:41 Start Date: 02/23/17 Status: OrderedPen [place], 31 G x 5 mm BD Ultra Fine III See Instructions, # 50 each, Refills 5, Tot. Refills 5, Maintenance, to administer Lantus 1x daily, E11.9, 02/24/17 9:22:58, Compound Start Date: 02/24/17 Stop Date: 08/23/17 Status: OrderedPen [place], 31 G x 5 mm BD Ultra [...]
--- OUTSIDE RECORDS SUMMARY | 2022-04-06 08:52 | XMS_ITS | Continuity of Care Document ---
:1985 Author Organization [facility] Address [address] [place] [address]- Care Team Providers Name Role Phone Nila CLIFFORD, Tracey Colvin Primary Care Physician [phone] [facility] [place] Date(s): 03/19/20 - 04/18/20 [facility] [address] [place] [id number] Allergies, Adverse Reactions, Alerts Substance [...] meals, at bedtime, and as needed. DX [id number], Z3AOO, 02/10/15 9:30:00, Compound Start Date: 02/10/15 [...] urine for ketones before breakfast daily, dx [id number], Z3AOO, 03/03/15 21:31:00, Compound Start Date: 03/03/15 Status: Orderedlabetalol 200 mg oral tablet 1 tablet = 200 mg, By Mouth, 3 times a day, # 90 tablet, 0 Refills, Maintenance, 10/04/19 16:08:00 EDT, Tablet, [facility]/pharmacy #207, 173, cm, 10/04/19 12:03:00 EDT, Height, 136.5, [...] 30 mL, 11 Refills,Maintenance, 10/01/19 12:24:00 EDT, [facility]/pharmacy #[id number], 170, cm, 10/01/19 8:47:00 EDT, Height, 132.5, kg, 08/01/19 22:39:00 EDT, Dry Weight Start Date: 10/01/19 Status: OrderedMultivitamin Tablet By Mouth, Daily, 0 Refills, Maintenance Start Date: 06/02/11 Status: OrderedMultivitamin, By Mouth, Daily, 0 Refills, Maintenance, 02/07/15 13:12:20 Start Date: 02/07/15 Status: OrderedOmeprazole By Mouth, Daily, 0 Refills, Maintenance, 02/23/17 15:06:41 Start Date: 02/23/17 Status: OrderedPen [place], 31 G x 5 mm BD Ultra Fine III See Instructions, # 50 each, Refills 5, Tot. Refills 5, Maintenance, to administer Lantus 1x daily, E11.9, 02/24/17 9:22:58, Compound Start Date: 02/24/17 Stop Date: 08/23/17 Status: OrderedPen [place], 31 G x 5 mm BD Ultra [...]
--- OUTSIDE RECORDS SUMMARY | 2022-04-06 08:53 | XMS_ITS | Continuity of Care Document ---
:1985 Author Organization [facility] Address [address] [place] [address]- Care Team Providers Name Role Phone Nila CLIFFORD, Tracey Colvin Primary Care Physician [phone] [place] [facility] [place] [id number] Date(s): 04/15/20 - 04/15/[address] [address] Discharge Disposition: A-D/C Home Attending [...] meals, at bedtime, and as needed. DX [id number], Z3AOO, 02/10/15 9:30:00, Compound Start Date: 02/10/15 [...] urine for ketones before breakfast daily, dx [id number], Z3AOO, 03/03/15 21:31:00, Compound Start Date: 03/03/15 [...] 02/23/17 15:06:41 Start Date: 02/23/17 Status: OrderedPen [place], 31 G x 5 mm BD Ultra Fine III See Instructions, # 50 each, Refills 5, Tot. Refills 5, Maintenance, to administer Lantus 1x daily, E11.9, 02/24/17 9:22:58, Compound Start Date: 02/24/17 Stop Date: 08/23/17 Status: OrderedPen [place], 31 G x 5 mm BD Ultra [...] in Active third trimester(Confirmed) Chronic hypertension(Confirmed) Active Procedures Procedure Date Related Diagnosis Body Site Status delivery Completed Revision of scar Completed Vital Signs Most recent to oldest [Reference Range]: 1 Weight 135.1 kg (04/15/20 3:24 PM) Pulse Rate [55-90 bpm] 90 bpm (04/15/20 4:02 PM) Blood Pressure [90-138/55-84 mm Hg] 113/57 mm Hg (04/15/20 4:02 PM) Respiratory Rate [16-30 br/min] 18 br/min (04/15/20 4:02 PM) Temperature [96.8-100.4 DegF] 98.6 DegF (04/15/20 4:02 PM) Blood pressure sites Arm, right (04/15/20 4:02 PM) Temperature Route Oral (04/15/20 4:02 PM) Dry Weight 135.1 kg (04/15/20 3:24 PM) Weight Obtained Via Standing scale (04/15/20 3:24 PM) Dry Weight Obtained Via Standing scale (04/15/20 3:24 PM)
--- OUTSIDE RECORDS SUMMARY | 2022-04-06 08:53 | XMS_ITS | Continuity of Care Document ---
:1985 Author Organization [facility] Address [address] [place] [address]- Care Team Providers Name Role Phone Nila CLIFFORD, Tracey Colvin Primary Care Physician [place] [facility] [id number] Date(s): 04/30/20 - 04/30/[address] [address] Discharge Disposition: A-D/C Home Attending Physician: Akhil [...] meals, at bedtime, and as needed. DX [id number], Z3AOO, 02/10/15 9:30:00, Compound Start Date: 02/10/15 [...] mL, 11 Refills, Maintenance, 10/01/19 12:24:00 EDT, [facility]/pharmacy #[id number], 170, cm, 10/01/19 8:47:00 [...] urine for ketones before breakfast daily, dx [id number], Z3AOO, 03/03/15 21:31:00, Compound Start Date: 03/03/15 Status: Orderedlabetalol 200 mg oral tablet 1 tablet = 200 mg, By Mouth, 3 times a day, # 90 tablet, 0 Refills, Maintenance, 10/04/19 16:08:00 EDT, Tablet, [facility]/pharmacy #[id number], 173, cm, 10/04/19 12:03:00 [...] 30 mL, 11 Refills,Maintenance, 10/01/19 12:24:00 EDT, [facility]/pharmacy #[id number], 170, cm, 10/01/19 8:47:00 EDT, Height, 132.5, kg, 08/01/19 22:39:00 EDT, Dry Weight Start Date: 10/01/19 Status: OrderedMultivitamin Tablet By Mouth, Daily, 0 Refills, Maintenance Start Date: 06/02/11 Status: OrderedMultivitamin, By Mouth, Daily, 0 Refills, Maintenance, 02/07/15 13:12:20 Start Date: 02/07/15 Status: OrderedOmeprazole By Mouth, Daily, 0 Refills, Maintenance, 02/23/17 15:06:41 Start Date: 02/23/17 Status: OrderedPen [place], 31 G x 5 mm BD Ultra Fine III See Instructions, # 50 each, Refills 5, Tot. Refills 5, Maintenance, to administer Lantus 1x daily, E11.9, 02/24/17 9:22:58, Compound Start Date: 02/24/17 Stop Date: 08/23/17 Status: OrderedPen [place], 31 G x 5 mm BD Ultra [...]
--- OUTSIDE RECORDS SUMMARY | 2022-04-06 08:53 | XMS_ITS | Continuity of Care Document ---
:1985 Author Organization [facility] Address [address] [place] [address]- Care Team Providers Name Role Phone Alva Granados MD Primary Care Physician Encounter [facility] [place] Date(s): 08/14/20 - 09/13/20 [facility] [address] [place] [address]- Allergies, Adverse Reactions, Alerts Substance Reaction Severity Status Bee Stings Active Latex Active Immunizations Given and Recorded Vaccine Date Status Refusal Reason influenza virus vaccine, inactivated1 05/11/20 Given influenza virus vaccine, inactivated2 04/11/15 Given 1Early/Late Reason: Early/Late Reason: New Med [id number] Note: vis given, dated 11/13/13 Medications aspirin [...] Refills, Maintenance, 05/22/20 10:26:00 EST, Tablet, [facility]/pharmacy #[id number], Partial fill upon patient request [...] 05/22/20 10:23:00 EST, Route to Pharmacy Electronically, [facility]/pharmacy #[id number], Partial fill upon patient request if the prescription is for a schedule II op... Start Date: 05/22/20 Status: Orderedsimethicone 80 mg oral tablet, chewable 80 mg, Chew, 3 times a day, PRN, # 90 tablet, Refills 0, Tot. Refills 0, Maintenance, Gas, 05/13/20 16:50:00 EST, Route to Pharmacy Electronically, [facility]/pharmacy #[id number], Partial fill upon patient requestif [...]
--- OUTSIDE RECORDS SUMMARY | 2022-04-06 08:53 | XMS_ITS | Continuity of Care Document ---
:1985 Author Organization [facility] Address [address] [place] [address]- Care Team Providers Name Role Phone Nila CLIFFORD, Tracey Colvin Primary Care Physician [phone] Encounter [facility] Date(s): 10/04/19 - 10/04/[address] [address]- [facility] Encounter Diagnosis Hypertension (Final) - 10/04/19 (Final) - 10/04/19 Discharge Disposition: A-D/C Home Attending Physician: Hayden aBjwa MD Admitting Physician: Hayden Bajwa MD Referring Physician: Not on Staff, Referring [...] 10/01/19 8:48:00 EDT Start Date: 10/01/19 Status: OrderedBasaglar KwikPen 100 units/mL subcutaneous solution See Instructions, Take 13 units before breakfast and 13 units at bedtime until levemir PA comes through. E 11.9, # 30 mL, 11 Refills, Maintenance, 10/02/19 16:40:00 EDT, [facility]/pharmacy #[id number], 170, cm, 10/01/19 8:47:00 EDT, Height, 132.5, kg, 08/01/19 22... Start Date: 10/02/19 Status: OrderedColace sodium 100 mg oral capsule [...] meals, at bedtime, and as needed. DX [id number], Z3AOO, 02/10/15 9:30:00, Compound Start Date: 02/10/15 [...] urine for ketones before breakfast daily, dx [id number], Z3AOO, 03/03/15 21:31:00, Compound Start Date: 03/03/15 Status: Orderedlabetalol 200 mg oral tablet 1 tablet = 200 mg, By Mouth, 3 times a day, # 90 tablet, 0 Refills, Maintenance, 10/04/19 16:08:00 EDT, Tablet, [facility]/pharmacy #[id number], 173, cm, 10/04/19 12:03:00 [...] mL, 11 Refills,Maintenance, 10/01/19 12:24:00 EDT, [facility]/pharmacy #[id number], 170, cm, 10/01/19 8:47:00 EDT, Height, 132.5, kg, 08/01/19 22:39:00 EDT, Dry Weight Start Date: 10/01/19 Status: OrderedMultivitamin Tablet By Mouth, Daily, 0 Refills, Maintenance Start Date: 06/02/11 Status: OrderedMultivitamin, By Mouth, Daily, 0 Refills, Maintenance, 02/07/15 13:12:20 Start Date: 02/07/15 Status: OrderedOmeprazole By Mouth, Daily, 0 Refills, Maintenance, 02/23/17 15:06:41 Start Date: 02/23/17 Status: OrderedPen [place], 31 G x 5 mm BD Ultra Fine III See Instructions, # 150 each, Refills 11, Tot. Refills 11, Maintenance, TO GIVE WITH INSULIN 4X A DAY. E 11.9, 10/01/19 12:28:00 EDT, Supply, 170, cm, 10/01/19 8:47:00 EDT, Height, 132.5, kg, 08/01/19 22:39:00 EDT, Dry Weight Start Date: 10/01/19 Status: OrderedPen [place], 31 G x 5 mm BD Ultra [...] trimester(Confirmed) Vital Signs Most recent to oldest 1 2 3 [Reference Range]: Height 173 cm (10/04/19 12:03 PM) Weight 136.5 kg (10/04/19 12:03 PM) Oxygen Saturation [94-100 97 % 99 % 100 % %] (10/04/19 4:48 PM) (10/04/19 12:03 PM) (10/04/19 11:43 AM) Pulse Rate [55-90 bpm] 86 bpm 88 bpm 100 bpm (10/04/19 4:48 PM) (10/04/19 12:03 PM) *H* (10/04/19 11:43 AM ) Blood Pressure 147/89 mm Hg 145/86 mm Hg [90-138/55-84 mm Hg] *H* *H* (10/04/19 4:48 PM) (10/04/19 12:03 PM) Respiratory Rate [16-30 20 br/min 18 br/min 18 br/mi n br/min] (10/04/19 4:48 PM) (10/04/19 12:03 PM) (10/04/19 11:43 AM) Temperature [96.8-100.4 98.8 DegF DegF] (10/04/19 12:03 PM) Mode of Delivery (Oxygen) Room air Room air (10/04/19 4:48 PM) (10/04/19 12:03 PM) Blood pressure sites Arm, left Arm, right (10/04/19 4:48 PM) (10/04/19 12:03 PM) Temperature Route Oral (10/04/19 12:03 PM) Dry Weight 136.5 kg (10/04/19 12:03 PM) Weight Obtained Via Patient/family stated (10/04/19 12:03 PM) Dry Weight Obtained Via Patient/family stated (10/04/19 12:03 PM)
--- OUTSIDE RECORDS SUMMARY | 2022-04-06 08:53 | XMS_ITS | Continuity of Care Document ---
:1985 Author Organization [facility] Address [address] [place] [address]- Care Team Providers Name Role Phone Alva Granados MD Primary Care Physician [place] [facility] [place] 12[place]21 [facility] [address] [place] [id number] Allergies, Adverse Reactions, Alerts Substance Reaction Severity Status Bee Stings Active Latex Active Immunizations Given and Recorded Vaccine Date Status Refusal Reason influenza virus vaccine, inactivated1 05/11/20 Given influenza virus vaccine, inactivated2 04/11/15 Given 1Early/Late Reason: Early/Late Reason: New Med [id number] Note: vis given, dated 11/13/13 Medications aspirin [...] Maintenance, 05/22/20 10:26:00 EST, Tablet, [facility]/pharmacy #[id number], Partial fill upon patient request if the [...] # 30 tablet, 1 Refills, [facility] [id number], 173, cm, 06/18/20 11:15:00 EDT, Height, 132.4, kg, 06/18/20 11:15:00 EDT, Dry Weight Start Date: 12/24/20 Status: Orderedsimethicone 80 mg oral tablet, chewable 80 mg, Chew, 3 times a day, PRN, # 90 tablet, Refills 0, Tot. Refills 0, Maintenance, Gas, 05/13/20 16:50:00 EST, Route to Pharmacy Electronically, [facility]/pharmacy #[id number], Partial fill upon patient requestif the prescription is for a schedule II opioid d... Start Date: 05/13/20 Status: OrderedTrulicity Pen 1.5 mg/0.5 mL subcutaneous solution = 1.5 mg, Subcutaneous Infusion, Every week, # 4 each, 11 Refills, Maintenance, 11/19/21 10:40:00 EDT, [facility]/pharmacy #[id number], Pls discontinue tao, 173, cm, 09/16/21 [...] Care Team PersonnelName: Alva Granados MD Address: [address] [place] [address] [place], [place] [address]
--- OUTSIDE RECORDS SUMMARY | 2022-04-06 08:53 | XMS_ITS | Continuity of Care Document ---
:1985 Author Organization [facility] Address [address] [place] [address]- Care Team Providers Name Role Phone Nila CLIFFORD, Tracey Colvin Primary Care Physician [phone] [id number] Date(s): 04/21/20 - 04/21/[address] [address] Discharge Disposition: A-D/C Home [...] meals, at bedtime, and as needed. DX [id number], Z3AOO, 02/10/15 9:30:00, Compound Start Date: 02/10/15 [...] mL, 11 Refills, Maintenance, 10/01/19 12:24:00 EDT, [facility]/pharmacy #[id number], 170, cm, 10/01/19 8:47:00 EDT, Height, [...] urine for ketones before breakfast daily, dx [id number], Z3AOO, 03/03/15 21:31:00, Compound Start Date: 03/03/15 Status: Orderedlabetalol 200 mg oral tablet 1 tablet = 200 mg, By Mouth, 3 times a day, # 90 tablet, 0 Refills, Maintenance, 10/04/19 16:08:00 EDT, Tablet, [facility]/pharmacy #[id number], 173, cm, 10/04/19 12:03:00 EDT, Height, [...] 30 mL, 11 Refills,Maintenance, 10/01/19 12:24:00 EDT, [facility]/pharmacy #[id number], 170, cm, 10/01/19 8:47:00 EDT, Height, 132.5, kg, 08/01/19 22:39:00 EDT, Dry Weight Start Date: 10/01/19 Status: OrderedMultivitamin Tablet By Mouth, Daily, 0 Refills, Maintenance Start Date: 06/02/11 Status: OrderedMultivitamin, By Mouth, Daily, 0 Refills, Maintenance, 02/07/15 13:12:20 Start Date: 11/13/15 Status: OrderedOmeprazole By Mouth, Daily, 0 Refills, Maintenance, 02/23/17 15:06:41 Start Date: 02/23/17 Status: OrderedPen [place], 31 G x 5 mm BD Ultra Fine III See Instructions, # 50 each, Refills 5, Tot. Refills 5, Maintenance, to administer Lantus 1x daily, E11.9, 02/24/17 9:22:58, Compound Start Date: 02/24/17 Stop Date: 08/23/17 Status: OrderedPen [place], 31 G x 5 mm BD Ultra [...]
--- OUTSIDE RECORDS SUMMARY | 2022-04-06 08:53 | XMS_ITS | Continuity of Care Document ---
:1985 Author Organization [facility] Address [address] [place] [address]- Care Team Providers Name Role Phone Alva Granados MD Primary Care Physician [id number] Date(s): 06/04/20 - 07/11/20 [facility] [address] [facility] [place] [address]- Attending Physician: Ale Cox MD Admitting Physician: Ale Cox MD Referring Physician: Tracey Dotson NP Allergies, Adverse Reactions, Alerts Substance Reaction Severity Status Bee Stings Active Latex Active Immunizations Given and Recorded Vaccine Date Status Refusal Reason influenza virus vaccine, inactivated1 05/11/20 Given influenza virus vaccine, inactivated2 04/11/15 Given 1Early/Late Reason: Early/Late Reason: New Med [id number] Note: vis given, dated 11/13/13 Medications aspirin [...] 05/22/20 10:26:00 EST, Tablet, [facility]/pharmacy #[id number], Partial fill upon patient request if [...] 05/22/20 10:23:00 EST, Route to Pharmacy Electronically, [facility]/pharmacy #[id number], Partial fill upon patient request if [...]
--- OUTSIDE RECORDS SUMMARY | 2022-04-06 08:53 | XMS_ITS | Continuity of Care Document ---
:1985 Author Organization [facility] Address [address] [place] [address]- Care Team Providers Name Role Phone Alva Granados MD Primary Care Physician [id number] Date(s): 08/06/20 - 09/05/20 [facility] [address] [place] [address]- Attending Physician: Princess Jensen Admitting Physician: AdmPrincess waite Referring Physician: AdmtrPrincess Allergies, Adverse Reactions, Alerts Substance Reaction Severity Status Bee Stings Active Latex Active Immunizations Given and Recorded Vaccine Date Status Refusal Reason influenza virus vaccine, inactivated1 05/11/20 Given influenza virus vaccine, inactivated2 04/11/15 Given 1Early/Late Reason: Early/Late Reason: New Med [id number] Note: vis given, dated 11/13/13 Medications aspirin [...]
--- OUTSIDE RECORDS SUMMARY | 2022-04-06 08:53 | XMS_ITS | Continuity of Care Document ---
:1985 Author Organization [facility] Address [address] [place] [address]- Care Team Providers Name Role Phone Nila CLIFFORD, Tracey Colvin Primary Care Physician Encounter [facility] Date(s): 05/25/20 - 05/26/[address] [address]- Encounter Diagnosis Breast abscess (Final) - 05/26/20 Discharge Disposition: A-D/C Home Attending Physician: Lina Serrato MD Admitting Physician: Lina Serrato MD Referring Physician: Not on Staff, Referring MD Allergies, Adverse Reactions, Alerts Substance Reaction Severity Status Bee Stings Active Latex Active Immunizations Given and Recorded Vaccine Date Status Refusal Reason influenza virus vaccine, inactivated1 05/11/20 Given influenza virus vaccine, inactivated2 04/11/15 Given 1Early/Late Reason: Early/Late Reason: New Med [id number] Note: vis given, dated 11/13/13 Medications aspirin [...] 04/11/15 18:04:24, Tablet Start Date: 04/11/15 Status: OrderedKeflex monohydrate 500 mg oral capsule 1 capsule = 500 mg, By Mouth, 4 times a day, for 7 days, # 28 capsule, 0 Refills, Acute 06/02/20 1:45:00 EST, 05/26/20 1:45:00 EST, Capsule, [facility]/pharmacy #[id number], Partial fill upon patient request if theprescription is for a schedule II opioid drug., 1... Start Date: 05/26/20 Stop Date: 06/02/20 Status: Orderedlabetalol 200 mg oral tablet 2 tablet = 400 mg, By Mouth, 2 times a day, # 90 tablet, 1 Refills, Maintenance, 05/22/20 10:26:00 EST, Tablet, [facility]/pharmacy #[id number], Partial fill upon patient [...] 05/22/20 10:23:00 EST, Route to Pharmacy Electronically, [facility]/pharmacy #[id number], Partial fill upon patient [...] 05/13/20 16:50:00 EST, Route to Pharmacy Electronically, [facility]/pharmacy #[id number], Partial fill upon patient requestif the prescription is for a schedule II opioid d... Start Date: 05/13/20 Status: OrderedSMZ-TMP DS 800 mg-160 mg oral tablet 1 tablet, By Mouth, Every 12 hours, for 7 days, # 14 tablet, 0 Refills, Acute 06/02/20 1:46:00 EST, 05/26/20 1:46:00 EST, Tablet, [facility]/pharmacy #[id number], Partial fill upon patient request if the prescription is for a schedule II opioid drug., 1 tablet By... Start Date: 05/26/20 Stop Date: 06/02/20 Status: OrderedTylenol 325 mg oral tablet 650 [...] Chronic hypertension(Confirmed) Active VILMA on CPAP(Confirmed) Active Results Orders for Microbiology Reports Name Date Wound Superficial Culture W/ Gram Smear 05/26/20 Microbiology Reports TEST:Superficial Wound Culture STATUS:Unauthenticated BODY SITE: SOURCE:SWAB1 COLLECTED DATE/TIME:05/26/20 1:40 AMSuperficial Wound Culture SPECIMEN DESCRIPTION : SWAB BREAST LT SPECIAL REQUESTS : NONE GRAM STAIN : NO CELLS OR ORGANISMS SEEN REPORT STATUS : PRELIMINARY REPORT Vital Signs Most recent to oldest 1 2 3 [Reference Range]: Oxygen Saturation [94-100 %] 98 % 99 % 100 % (05/26/20 2:15 AM) (05/26/20 2:00 AM) (05/26/20 12:00 AM) Pulse Rate [55-90 bpm] 78 bpm 62 bpm 58 bpm (05/26/20 2:15 AM) (05/26/20 2:00 AM) (05/26/20 12:45 AM) Blood Pressure [90-138/55-84 132/71 mm Hg 134/75 mm Hg 150 /80 mm Hg mm Hg] (05/26/20 2:15 AM) (05/26/20 2:00 AM) *H* (05/26/20 12:45 AM ) Respiratory Rate [16-30 17 br/min 18 br/min 17 br/mi n br/min] (05/26/20 2:15 AM) (05/26/20 2:00 AM) (05/26/20 12:00 AM) Temperature [96.8-100.4 DegF] 98.2 DegF 99.3 DegF 99 .5 DegF (05/26/20 2:15 AM) (05/25/20 10:23 PM) (05/25/20 8:2 2 PM) Mode of Delivery (Oxygen) Room air Room air Room a ir (05/26/20 2:15 AM) (05/26/20 2:00 AM) (05/26/20 12:00 AM) Blood pressure sites Arm, right Arm, left Arm, left (05/26/20 2:15 AM) (05/26/20 12:00 AM) (05/25/20 11:5 6 PM) Temperature Route Oral Oral Oral (05/26/20 2:15 AM) (05/25/20 10:23 PM) (05/25/20 8:2 2 PM) Social History Social History Type Response Smoking Status 10 or more cigarettes (1/2 p ack or more)/day in last 30 days; Other: last in March; entered on: 05/18/20 Sex
--- OUTSIDE RECORDS SUMMARY | 2022-04-06 08:53 | XMS_ITS | Continuity of Care Document ---
:1985 Author Organization [facility] Address [address] [place] [phone]- Care Team Providers Name Role Phone Nila CLIFFORD, Tracey Colvin Primary Care Physician [place] [facility] [place] - 05/22/[address] [address]- Encounter Diagnosis Severe preeclampsia (Discharge Diagnosis) - 05/19/20 care following delivery (Discharge Diagnosis) - 05/18/20 Pulmonary edema (Discharge Diagnosis) - 05/19/20 Diabetes mellitus (Discharge Diagnosis) - 05/19/20 Obstructive sleep apnea (Discharge Diagnosis) - 05/19/20 VILMA on CPAP (Discharge Diagnosis) - 05/19/20 Discharge Disposition: A-D/C Home Attending Physician: Lina Peterson MD Admitting Physician: Gay Barrios MD Referring Physician: Gay Barrios MD Allergies, Adverse Reactions, Alerts Substance Reaction Severity Status Bee Stings Active Latex Active Immunizations Given and Recorded Vaccine Date Status Refusal Reason influenza virus vaccine, inactivated1 05/11/20 Given influenza virus vaccine, inactivated2 04/11/15 Given 1Early/Late Reason: Early/Late Reason: New Med [id number] Note: vis given, dated 11/13/13 Medications aspirin [...] Orderedibuprofen 800 mg oral tablet 800 mg, Tablet, By Mouth, Once, PRN for Pain , Mild, Routine, 05/22/20 0:12:00 EST Start Date: 05/22/20 Stop Date: 05/22/20 Status: Completedlabetalol 200 mg oral tablet 400 mg, Tablet, By Mouth, 05/21/20 21:00:00 EST Start Date: 05/21/20 Stop Date: 05/21/20 Status: Completedlabetalol 200 mg oral tablet 400 mg, Tablet, By Mouth, 05/22/20 9:00:00 EST Start Date: 05/22/20 Stop Date: 05/22/20 Status: Completedlabetalol 200 mg oral tablet 400 mg, Tablet, By Mouth, 05/21/20 9:00:00 EST Start Date: 05/21/20 Stop Date: 05/21/20 Status: Completedlabetalol 200 mg oral tablet 2 tablet = 400 mg, By Mouth, 2 times a day, # 90 tablet, 1 Refills, Maintenance, 05/22/20 10:26:00 EST, Tablet, [facility]/pharmacy #[id number], Partial fill upon [...] 05/22/20 10:23:00 EST, Route to Pharmacy Electronically, [facility]/pharmacy #[id number], Partial fill upon [...] 05/13/20 16:50:00 EST, Route to Pharmacy Electronically, [facility]/pharmacy #[id number], Partial fill upon [...] Chronic hypertension(Confirmed) Active VILMA on CPAP(Confirmed) Active Diagnosis Diagnosis Type Effective Dates Health Clinical Infor mant Status Service care Discharge 05/18/20 following Diagnosis delivery Severe preeclampsia Discharge 05/19/20 Diagnosis Pulmonary edema Discharge 05/19/20 Diagnosis Diabetes mellitus Discharge 05/19/20 Diagnosis Obstructive sleep Discharge 05/19/20 apnea Diagnosis VILMA on CPAP Discharge 05/19/20 Diagnosis Results Orders for Microbiology Reports Name Date Sputum Culture w/ Gram Smear 05/18/20 Blood Culture 05/18/20 Blood Culture #2 05/18/20 Microbiology Reports TEST:Sputum Culture STATUS:Auth (Verified) BODY SITE: SOURCE:EXPECT COLLECTED DATE/TIME:05/18/20 5:00 PMSputum Culture SPECIMEN DESCRIPTION : EXPECTORATED SPUTUM SPECIAL REQUESTS : NONE GRAM STAIN : 3+ SQ.EPITHELIAL CELLS 2+ WHITE BLOOD CELLS 4+ GRAM POSITIVE COCCI 3+ GRAM POSITIVE RODS 3+ GRAM NEGATIVE RODS CULTURE : MICROSCOPIC EXAM SHOWS SQUAMOUS EPITHELIAL CELLS INDICATIVE OF OROPHARYNGEAL CONTAMINATION. PLEASE RECOLLECT APPROPRIATE SPECIMEN FOR CULTURE IF CLINICALLY INDICATED. REPORT STATUS : FINAL 05/18/2020TEST:Blood Culture STATUS:Unauthenticated BODY SITE: SOURCE:Blood COLLECTED DATE/TIME:05/18/20 4:22 PMBlood Culture SPECIMEN DESCRIPTION : BLOOD LFT SPECIAL REQUESTS : NONE CULTURE : NO GROWTH 4 DAYS REPORT STATUS : PRELIMINARY REPORT TEST:Blood Culture, Second Order STATUS:Unauthenticated BODY SITE: SOURCE:Blood COLLECTED DATE/TIME:05/18/20 4:22 PMBlood Culture, Second Order SPECIMEN DESCRIPTION : BLOOD RT SPECIAL REQUESTS : NONE CULTURE : NO GROWTH 4 DAYS REPORT STATUS : PRELIMINARY REPORT Radiology Reports Exam Date Time Procedure Performing Provider Status 05/21/20 10:35 AM Chest 2 Views Frontal and Lat Malcolm Rios [facility] (Verified) Notes:(Chest 2 Views Frontal and Lat) Reason For Exam: Shortness of Breath RESULT: Chest 2 Views Frontal and Lat Chest 2 Views Frontal and Lat Reason: Shortness of Breath; Clinical Question(s): Pulmonary Edema COMPARISON: Multiple prior chest x-rays, the most recent of which is dated 05/18/2020.. FINDINGS: LINES AND TUBES: None. LUNGS AND PLEURA: New small right pleural effusion. Slightly improved aeration of the lung parenchyma though there is persistent patchy airspace opacity involving the right mid and lower lung anteriorly lesser extent the left lower lung. No pneumothorax. HEART, MEDIASTINUM AND SANTIAGO: Heart is normal in size. Normal upper mediastinal and hilar contour. BONES AND SOFT TISSUES: No acute abnormality. IMPRESSION: 1. New small right pleural effusion. 2. Slightly improved aeration of the lungs with persistent airspace opacities involving the right middle lower lung and left lower lung zone. I have personally reviewed the images and I agree with this report. WSN: [id number] Ordering Physician: Kristy Phillips Dictated By: Johnnie Hardy MD Dictated Date/Time: 05/21/20 11:38 a Reviewed By: Hoda Shelton MD Signed By: Hoda Shelton MD Signed Date/Time: 05/21/20 11:43 am Transcribed By: BIJAN Transcribed Date/Time: 05/21/20 10:45 am Exam Date Time Procedure Performing Provider Status 05/18/20 2:34 PM Chest 2 Views Frontal and Lat Jeannette Dawson; Marcel [facility] (Verified) Notes:(Chest 2 Views Frontal and Lat) Reason For Exam: Shortness of Breath RESULT: Chest 2 Views Frontal and Lat Chest 2 Views Frontal and Lat Reason: Shortness of Breath; Clinical Question(s): Pulmonary Edema COMPARISON: 05/14/2020 and 11/15/2016. FINDINGS: LINES AND TUBES: None. LUNGS AND PLEURA: Extensive patchy airspace opacities, predominantly in the mid to lower lung field. No pleural effusion. No pneumothorax. HEART, MEDIASTINUM AND SANTIAGO: Heart is normal in size. Normal upper mediastinal and hilar contour. BONES AND SOFT TISSUES: No acute abnormality. IMPRESSION: Airspace opacities, predominantly in the mid to lower lung field which is new compared to the prior exam. WSN: [id number] Ordering Physician: Anita Solares Dictated By: Karrie Veloz MD Dictated Date/Time: 05/18/20 2:46 pm Reviewed By: Karrie Veloz MD Signed By: Karrie Veloz MD Signed Date/Time: 05/18/20 2:46 pm Transcribed By: BIJAN Transcribed Date/Time: 05/18/20 2:44 pm Vital Signs Most recent to oldest 1 2 3 [Reference Range]: Height 173 cm 173 cm 173 cm (05/20/20 7:02 PM) (05/20/20 3:49 PM) (05/20/20 8:0 3 AM) Weight 129 kg 132 kg 135 kg (05/22/20 8:13 AM) (05/21/20 8:23 AM) (05/20/20 7:0 2 PM) Oxygen Saturation [94-100 %] 98 % 100 % 99 % (05/22/20 7:58 AM) (05/21/20 9:38 PM) (05/21/20 6:0 7 PM) Pulse Rate [55-90 bpm] 66 bpm 64 bpm 69 bpm (05/22/20 8:02 AM) (05/21/20 9:38 PM) (05/21/20 8:1 5 AM) Body Mass Index [18.5-24.99] 45.11 46.78 46. 88 *>HHI* *>HHI* *>HHI* (05/20/20 7:02 PM) (05/18/20 8:35 PM) (05/18/20 11: 45 AM) Blood Pressure [90-138/55-84 124/68 mm Hg 126/62 mm Hg 126 /62 mm Hg mm Hg] (05/22/20 11:47 AM) (05/22/20 8:02 AM) (05/22/20 7: 58 AM) Respiratory Rate [16-30 18 br/min 18 br/min 18 br/mi n br/min] (05/22/20 8:20 AM) (05/22/20 7:58 AM) (05/21/20 9:3 8 PM) Temperature [96.8-100.4 DegF] 98.6 DegF 98.3 DegF 98 .6 DegF (05/22/20 7:58 AM) (05/21/20 8:13 AM) (05/21/20 5:3 7 AM) Liters per Minute 0 L/min 2 L/min 2 L/min (05/20/20 3:49 PM) (05/20/20 8:03 AM) (05/19/20 8:3 5 PM) Mode of Delivery (Oxygen) Room air Room air Room a ir (05/22/20 7:58 AM) (05/21/20 6:07 PM) (05/21/20 4:0 9 PM) Blood pressure sites Arm, right Arm, left Arm, left (05/21/20 8:13 AM) (05/21/20 5:37 AM) (05/21/20 4:0 2 AM) Temperature Route Oral Oral Oral (05/22/20 7:58 AM) (05/21/20 5:37 AM) (05/21/20 12: 53 AM) Dry Weight 135 kg 140 kg (05/20/20 7:02 PM) (05/18/20 8:35 PM) Weight Obtained Via Standing scale Standing scale Standing sca le (05/22/20 8:13 AM) (05/21/20 8:23 AM) (05/20/20 4:4 9 AM) Social History Social History Type Response Smoking Status 10 or more cigarettes (1/2 p ack or more)/day in last 30 days; Other: last in March; entered on: 05/18/20 Sex
--- OUTSIDE RECORDS SUMMARY | 2022-04-06 08:53 | XMS_ITS | Continuity of Care Document ---
:1985 Author Organization [facility] Address [address] [place] [phone]- Care Team Providers Name Role Phone Nila CLIFFORD, Tracey Colvin Primary Care Physician [phone] [place] [facility] [place] 11/07[place]19 - 12/07/19 [facility] [address] [place] [phone]- [facility] Allergies, Adverse Reactions, Alerts Substance Reaction [...] 0 Refills, Maintenance, 02/07/15 13:12:37 Start Date: 11/13/15 Status: OrderedFreestyle Lancets See Instructions, # 250 [...] meals, at bedtime, and as needed. DX [id number], Z3AOO, 02/10/15 9:30:00, Compound Start Date: 02/10/15 [...] urine for ketones before breakfast daily, dx [id number], Z3AOO, 03/03/15 21:31:00, Compound Start Date: 03/03/15 Status: Orderedlabetalol 200 mg oral tablet 1 tablet = 200 mg, By Mouth, 3 times a day, # 90 tablet, 0 Refills, Maintenance, 10/04/19 16:08:00 EDT, Tablet, [id number], 173, cm, 10/04/19 12:03:00 EDT, Height, 136.5, kg, 10/04/19 12:03:00 EDT, Dry Weight Start Date: 10/04/19 Stop Date: 11/03/19 Status: OrderedShelbyus Ednaostar Pen 100 units/mL subcutaneous solution = 30 [...] 02/23/17 15:06:41 Start Date: 02/23/17 Status: OrderedPen [place], 31 G x 5 mm BD Ultra Fine III See Instructions, # 150 each, Refills 11, Tot. Refills 11, Maintenance, TO GIVE WITH INSULIN 4X A DAY. E 11.9, 10/01/19 12:28:00 EDT, Supply, 170, cm, 10/01/19 8:47:00 EDT, Height, 132.5, kg, 08/01/19 22:39:00 EDT, Dry Weight Start Date: 10/01/19 Status: OrderedPen [place], 31 G x 5 mm BD Ultra [...]
--- OUTSIDE RECORDS SUMMARY | 2022-04-06 08:53 | XMS_ITS | Continuity of Care Document ---
:1985 Author Organization [facility] Address [address] [place] [phone]- Care Team Providers Name Role Phone Nila CLIFFORD, Tracey Colvin Primary Care Physician [place] [facility] [place] - 04/10/20 [facility] [address] [place] [id number] Allergies, Adverse Reactions, Alerts Substance Reaction [...] meals, at bedtime, and as needed. DX [id number], Z3AOO, 02/10/15 9:30:00, Compound Start Date: 02/10/15 [...] urine for ketones before breakfast daily, dx [id number], Z3AOO, 03/03/15 21:31:00, Compound Start Date: 03/03/15 Status: Orderedlabetalol 200 mg oral tablet 1 tablet = 200 mg, By Mouth, 3 times a day, # 90 tablet, 0 Refills, Maintenance, 10/04/19 16:08:00 EDT, Tablet, [facility]/pharmacy #[id number], 173, cm, 10/04/19 12:03:00 EDT, Height, [...] 11 Refills,Maintenance, 10/01/19 12:24:00 EDT, [facility]/pharmacy #[id number], 170, cm, 10/01/19 8:47:00 EDT, Height, 132.5, kg, 08/01/19 22:39:00 EDT, Dry Weight Start Date: 10/01/19 Status: OrderedMultivitamin Tablet By Mouth, Daily, 0 Refills, Maintenance Start Date: 06/02/11 Status: OrderedMultivitamin, By Mouth, Daily, 0 Refills, Maintenance, 02/07/15 13:12:20 Start Date: 02/07/15 Status: OrderedOmeprazole By Mouth, Daily, 0 Refills, Maintenance, 02/23/17 15:06:41 Start Date: 02/23/17 Status: OrderedPen [place], 31 G x 5 mm BD Ultra Fine III See Instructions, # 50 each, Refills 5, Tot. Refills 5, Maintenance, to administer Lantus 1x daily, E11.9, 02/24/17 9:22:58, Compound Start Date: 02/24/17 Stop Date: 08/23/17 Status: OrderedPen [place], 31 G x 5 mm BD Ultra [...]
--- OUTSIDE RECORDS SUMMARY | 2022-04-06 08:53 | XMS_ITS | Continuity of Care Document ---
:1985 Author Organization [facility] Address [address] [place] [phone]- Care Team Providers Name Role Phone Nila CLIFFORD, Tracey Colvin Primary Care Physician [place] [facility] [place](s): 05/10/20 - 05/13/[address] [address] Discharge Disposition: A-D/C Home Attending Physician: Akhil Medley MD Admitting Physician: Akhil Medley MD Referring Physician: Akhil Medley MD Allergies, Adverse Reactions, Alerts Substance Reaction Severity Status Bee Stings Active Latex Active Immunizations Given and Recorded Vaccine Date Status Refusal Reason influenza virus vaccine, inactivated1 05/11/20 Given influenza virus vaccine, inactivated2 04/11/15 Given 1Early/Late Reason: Early/Late Reason: New Med [id number] Note: vis given, dated 11/13/13 Medications amLODIPine [...] 04/11/15 Status: OrderedDilaudid 2 mg oral tablet 2 mg, Tablet, By Mouth, Every 4 hours, PRN for Pain , Severe, Routine, 05/13/20 5:51:00 EST Start Date: 05/13/20 Stop Date: 05/20/20 Status: OrderedDilaudid 2 mg oral tablet 1 tablet = 2 mg, By Mouth, Every 4 hours, PRN Pain , Severe, # 12 tablet, 0 Refills, Maintenance, 05/13/20 16:51:00 EST, Tablet, [facility]/pharmacy #[id number], Partial fill upon patient request if the prescription is for a schedule II opioid drug., 173, cm, 04/28... Start Date: 05/13/20 Status: Ordereddocusate sodium 100 mg oral capsule 1 capsule = 100 mg, By Mouth, 2 times a day, # 60 capsule, 2 Refills, Maintenance, 05/13/20 16:50:00EST, Capsule, [facility]/pharmacy #[id number], Partial fill upon patient [...] meals, at bedtime, and as needed. DX [id number], Z3AOO, 02/10/15 9:30:00, Compound Start Date: 02/10/15 [...] mL, 11 Refills, Maintenance, 10/01/19 12:24:00 EDT, [facility]/pharmacy #[id number], 170, cm, 10/01/19 8:47:00 EDT, [...] 05/13/20 16:50:00 EST, Route to Pharmacy Electronically, [facility]/pharmacy #[id number], Partial fill upon patient request if the prescription is for a schedule II op... Start Date: 05/13/20 Status: OrderedKetostix See Instructions, # 1 bottle, Refills 3, Tot. Refills 3, Maintenance, Use as directed to test urine for ketones before breakfast daily, dx [id number], Z3AOO, 03/03/15 21:31:00, Compound Start Date: 03/03/15 Status: Orderedlabetalol 200 mg oral tablet 1 tablet = 200 mg, By Mouth, 3 times a day, # 90 tablet, 0 Refills, Maintenance, 10/04/19 16:08:00 EDT, Tablet, [facility]/pharmacy #[id number], 173, cm, 10/04/19 12:03:00 EDT, Height, 136.5, kg, 10/04/19 12:03:00 EDT, Dry Weight Start Date: 10/04/19 Stop Date: 11/03/19 Status: Orderedlabetalol 200 mg oral tablet 200 mg, Tablet, By Mouth, 05/10/20 12:00:00 EST Start Date: 05/10/20 Stop Date: 05/13/20 Status: CompletedLantus Solostar Pen 100 units/mL subcutaneous solution = [...] 30 mL, 11 Refills,Maintenance, 10/01/19 12:24:00 EDT, [facility]/pharmacy #[id number], 170, cm, 10/01/19 8:47:00 [...] 02/23/17 15:06:41 Start Date: 02/23/17 Status: OrderedPen [place], 31 G x 5 mm BD Ultra Fine III See Instructions, # 50 each, Refills 5, Tot. Refills 5, Maintenance, to administer Lantus 1x daily, E11.9, 02/24/17 9:22:58, Compound Start Date: 02/24/17 Stop Date: 08/23/17 Status: OrderedPen [place], 31 G x 5 mm BD Ultra [...] 05/13/20 16:50:00 EST, Route to Pharmacy Electronically, [facility]/pharmacy #[id number], Partial fill upon patient requestif the prescription [...] Date Related Diagnosis Body Site Status delivery only; 05/10/20 Comp leted Vital Signs Most recent to oldest 1 2 3 [Reference Range]: Height 173 cm 173 cm 173 cm (05/13/20 4:30 PM) (05/13/20 1:34 PM) (05/13/20 8:4 5 AM) Weight 142 kg 141.3 kg (05/10/20 7:12 AM) (05/10/20 1:54 AM) Oxygen Saturation [94-100 %] 95 % 96 % 96 % (05/13/20 4:30 PM) (05/13/20 1:34 PM) (05/13/20 8:4 5 AM) Pulse Rate [55-90 bpm] 88 bpm 93 bpm 98 bpm (05/13/20 4:30 PM) *H* *H* (05/13/20 1:34 PM) (05/13/20 11:56 AM) Body Mass Index [18.5-24.99] 47.45 *>HHI* (05/10/20 7:12 AM) Blood Pressure [90-138/55-84 137/67 mm Hg 115/58 mm Hg 123 /65 mm Hg mm Hg] (05/13/20 4:30 PM) (05/13/20 1:34 PM) (05/13/20 11: 56 AM) Respiratory Rate [16-30 20 br/min 20 br/min 20 br/mi n br/min] (05/13/20 4:30 PM) (05/13/20 2:25 PM) (05/13/20 1:3 4 PM) Temperature [96.8-100.4 98.3 DegF 98.1 DegF 98.1 Deg F DegF] (05/13/20 4:30 PM) (05/13/20 1:34 PM) (05/13/20 8:4 5 AM) Mode of Delivery (Oxygen) Room air Room air Room a ir (05/13/20 4:22 AM) (05/13/20 12:02 AM) (05/12/20 7: 58 PM) Blood pressure sites Arm, right Arm, right Arm, left (05/13/20 12:02 AM) (05/12/20 7:58 PM) (05/12/20 4: 00 PM) Temperature Route Oral Oral Oral (05/13/20 4:30 PM) (05/13/20 1:34 PM) (05/13/20 8:4 5 AM) Dry Weight 142 kg 141.3 kg (05/10/20 7:12 AM) (05/10/20 1:54 AM) Weight Obtained Via Standing scale (05/10/20 1:54 AM) Dry Weight Obtained Via Standing scale (05/10/20 1:54 AM)
--- OUTSIDE RECORDS SUMMARY | 2022-04-06 08:53 | XMS_ITS | Continuity of Care Document ---
:1985 Author Organization [facility] Address [address] [place] [phone]- Care Team Providers Name Role Phone Alva Granados MD Primary Care Physician [place] [facility] [place]s): 07/17/21 - 08/16/21 [facility] [address] [place] [id number] [place] Allergies, Adverse Reactions, Alerts Substance Reaction Severity Status Bee Stings Active Latex Active Immunizations Given and Recorded Vaccine Date Status Refusal Reason influenza virus vaccine, inactivated1 05/11/20 Given influenza virus vaccine, inactivated2 04/11/15 Given 1Early/Late Reason: Early/Late Reason: New Med [id number] Note: vis given, dated 11/13/13 Medications aspirin [...] 1 Refills, Maintenance, 05/22/20 10:26:00 EST, Tablet, [facility]/pharmacy #[id number], Partial fill upon patient request if the prescription is for a schedule II opioid drug., 173, cm, 05/20/20 19:02:00 EST... Start Date: 05/22/20 Status: OrderedmetFORMIN 500 mg oral tablet 2 tablet = 1,000 mg, By Mouth, 2 times a day, # 120 tablet, 5 Refills, Maintenance, 05/04/21 14:21:00 EST, [facility]/pharmacy #[id number], Partial fill upon patient request if the prescription is for a schedule IIopioid drug., 173, cm, 04/22/21 11:59:00 EST, Hei... Start Date: 05/04/21 Status: OrderedMultivitamin Tablet By Mouth, Daily, 0 [...] 24 HOURS, # 30 tablet, 1 Refills, [facility] STORE [id number], 173, cm, 06/18/20 11:15:00 EDT, Height, 132.4, kg, 06/18/20 11:15:00 EDT, Dry Weight Start Date: 12/24/20 Status: Orderedsimethicone 80 mg oral tablet, chewable 80 mg, Chew, 3 times a day, PRN, # 90 tablet, Refills 0, Tot. Refills 0, Maintenance, Gas, 05/13/20 16:50:00 EST, Route to Pharmacy Electronically, [facility]/pharmacy #[id number], Partial fill upon patient [...]
--- OUTSIDE RECORDS SUMMARY | 2022-04-06 08:53 | XMS_ITS | Continuity of Care Document ---
:1985 Author Organization [facility] Address [address] [place] [phone]- Care Team Providers Name Role Phone Nila CLIFFORD, Tracey Colvin Primary Care Physician [place] [facility] [place]/24/20 - 05/29/[address] [id number] Attending Physician: Akhil Medley MD Admitting Physician: Akhil Medley MD Referring Physician: Akhil Medley MD Allergies, Adverse Reactions, Alerts Substance Reaction Severity Status Bee Stings Active Latex Active Immunizations Given and Recorded Vaccine Date Status Refusal Reason influenza virus vaccine, inactivated1 05/11/20 Given influenza virus vaccine, inactivated2 04/11/15 Given 1Early/Late Reason: Early/Late Reason: New Med [id number] Note: vis given, dated 11/13/13 Medications aspirin [...] 06/02/20 1:45:00 EST, 05/26/20 1:45:00 EST, Capsule, [facility]/pharmacy #[id number], Partial fill upon patient request if theprescription is for a schedule II opioid drug., 1... Start Date: 05/26/20 Stop Date: 06/02/20 Status: Orderedlabetalol 200 mg oral tablet 2 tablet = 400 mg, By Mouth, 2 times a day, # 90 tablet, 1 Refills, Maintenance, 05/22/20 10:26:00 EST, Tablet, [facility]/pharmacy #[id number], Partial fill upon patient request if [...] 05/22/20 10:23:00 EST, Route to Pharmacy Electronically, [facility]/pharmacy #[id number], Partial fill upon patient request if the prescription is for a schedule II op... Start Date: 05/22/20 Status: OrderedOmeprazole By Mouth, Daily, 0 Refills, Maintenance, 02/23/17 15:06:41 Start Date: 02/23/17 Status: Orderedsimethicone 80 mg oral tablet, chewable 80 mg, Chew, 3 times a day, PRN, # 90 tablet, Refills 0, Tot. Refills 0, Maintenance, Gas, 05/13/20 16:50:00 EST, Route to Pharmacy Electronically, [facility]/pharmacy #[id number], Partial fill upon patient requestif the prescription is for a schedule II opioid d... Start Date: 05/13/20 Status: OrderedSMZ-TMP DS 800 mg-160 mg oral tablet 1 tablet, By Mouth, Every 12 hours, for 7 days, # 14 tablet, 0 Refills, Acute 06/02/20 1:46:00 EST, 05/26/20 1:46:00 EST, Tablet, [facility]/pharmacy #[id number], Partial fill upon patient request if [...]
--- OUTSIDE RECORDS SUMMARY | 2022-04-06 08:53 | XMS_ITS | Continuity of Care Document ---
:1985 Author Organization [facility] Address [address] [place] [address]- Care Team Providers Name Role Phone Nila CLIFFORD, Tracey Colvin Primary Care Physician [phone] [place] [facility] [place] Date(s): 01/02/20 - 02/01/20 [facility] [address] [place] [id number] Allergies, Adverse Reactions, Alerts Substance [...] meals, at bedtime, and as needed. DX [id number], Z3AOO, 02/10/15 9:30:00, Compound Start Date: 02/10/15 [...] urine for ketones before breakfast daily, dx [id number], Z3AOO, 03/03/15 21:31:00, Compound Start Date: 03/03/15 [...] 02/23/17 15:06:41 Start Date: 02/23/17 Status: OrderedPen [place], 31 G x 5 mm BD Ultra Fine III See Instructions, # 150 each, Refills 11, Tot. Refills 11, Maintenance, TO GIVE WITH INSULIN 4X A DAY. E 11.9, 10/01/19 12:28:00 EDT, Supply, 170, cm, 10/01/19 8:47:00 EDT, Height, 132.5, kg, 08/01/19 22:39:00 EDT, Dry Weight Start Date: 10/01/19 Status: OrderedPen [place], 31 G x 5 mm BD Ultra [...]
--- OUTSIDE RECORDS SUMMARY | 2022-04-06 08:53 | XMS_ITS | Continuity of Care Document ---
:1985 Author Organization [facility] Address [address] [place] [address]- Care Team Providers Name Role Phone Nila CLIFFORD, Tracey Colvin Primary Care Physician En[place] [facility] [place] Date(s): 10/02/19 - 11/01/19 [facility] [address] [place] [id number]- [facility] Allergies, Adverse Reactions, Alerts Substance Reaction Severity [...] meals, at bedtime, and as needed. DX [id number], Z3AOO, 02/10/15 9:30:00, Compound Start Date: 02/10/15 [...] mL, 11 Refills, Maintenance, 10/01/19 12:24:00 EDT, [facility]/pharmacy #[id number], 170, cm, 10/01/19 8:47:00 [...] urine for ketones before breakfast daily, dx [id number], Z3AOO, 03/03/15 21:31:00, Compound Start Date: 03/03/15 [...] 02/23/17 15:06:41 Start Date: 02/23/17 Status: OrderedPen [place], 31 G x 5 mm BD Ultra Fine III See Instructions, # 150 each, Refills 11, Tot. Refills 11, Maintenance, TO GIVE WITH INSULIN 4X A DAY. E 11.9, 10/01/19 12:28:00 EDT, Supply, 170, cm, 10/01/19 8:47:00 EDT, Height, 132.5, kg, 08/01/19 22:39:00 EDT, Dry Weight Start Date: 10/01/19 Status: OrderedPen [place], 31 G x 5 mm BD Ultra [...]
--- OUTSIDE RECORDS SUMMARY | 2022-04-06 08:53 | XMS_ITS | Continuity of Care Document ---
:1985 Author Organization [facility] Address [address] [place] [id number]- Care Team Providers Name Role Phone Alva Granados MD Primary Care Physician Encounter [facility] Date(s): 10/22/21 - 11/21/21 [facility] [address] [place] [id number] Allergies, Adverse Reactions, Alerts Substance Reaction Severity Status Bee Stings Active Latex Active Immunizations Given and Recorded Vaccine Date Status Refusal Reason influenza virus vaccine, inactivated1 05/11/20 Given influenza virus vaccine, inactivated2 04/11/15 Given 1Early/Late Reason: Early/Late Reason: New Med [id number] Note: vis given, dated 11/13/13 Medications aspirin [...] 1 Refills, Maintenance, 05/22/20 10:26:00 EST, Tablet, [facility]/pharmacy #[id number], Partial fill upon patient request if the [...] 24 HOURS, # 30 tablet, 1 Refills, [facility] [id number], 173, cm, 06/18/20 11:15:00 EDT, Height, 132.4, kg, 06/18/20 11:15:00 EDT, Dry Weight Start Date: 12/24/20 Status: Orderedsimethicone 80 mg oral tablet, chewable 80 mg, Chew, 3 times a day, PRN, # 90 tablet, Refills 0, Tot. Refills 0, Maintenance, Gas, 05/13/20 16:50:00 EST, Route to Pharmacy Electronically, [facility]/pharmacy #[id number], Partial fill upon patient requestif the prescription is for a schedule II opioid d... Start Date: 05/13/20 Status: OrderedTrulicity Pen 1.5 mg/0.5 mL subcutaneous solution = 1.5 mg, Subcutaneous Infusion, Every week, # 4 each, 11 Refills, Maintenance, 11/19/21 10:40:00 EDT, [facility]/pharmacy #[id number], Pls discontinue tao, 173, cm, 09/16/21 [...] Care Team PersonnelName: Alva Granados MD Address: [address] [place] [address] [place], [place] [address]
--- OUTSIDE RECORDS SUMMARY | 2022-04-06 08:53 | XMS_ITS | Continuity of Care Document ---
:1985 Author Organization [facility] Address [address] [place] [id number]- Care Team Providers Name Role Phone Alva Granados MD Primary Care Physician Encounter [facility] Date(s): 11/26/21 - 12/26/21 [facility] [address] [place] [id number] Allergies, Adverse Reactions, Alerts Substance Reaction Severity Status Bee Stings Active Latex Active Immunizations Given and Recorded Vaccine Date Status Refusal Reason influenza virus vaccine, inactivated1 05/11/20 Given influenza virus vaccine, inactivated2 04/11/15 Given 1Early/Late Reason: Early/Late Reason: New Med [id number] Note: vis given, dated 11/13/13 Medications aspirin [...] Refills, Maintenance, 05/22/20 10:26:00 EST, Tablet, [facility]/pharmacy #[id number], Partial fill upon patient request if the [...] HOURS, # 30 tablet, 1 Refills, [facility] STORE [id number], 173, cm, 06/18/20 11:15:00 EDT, Height, 132.4, kg, 06/18/20 11:15:00 EDT, Dry Weight Start Date: 12/24/20 Status: Orderedsimethicone 80 mg oral tablet, chewable 80 mg, Chew, 3 times a day, PRN, # 90 tablet, Refills 0, Tot. Refills 0, Maintenance, Gas, 05/13/20 16:50:00 EST, Route to Pharmacy Electronically, [facility]/pharmacy #[id number], Partial fill upon patient requestif the prescription is for a schedule II opioid d... Start Date: 05/13/20 Status: OrderedTrulicity Pen 1.5 mg/0.5 mL subcutaneous solution = 1.5 mg, Subcutaneous Infusion, Every week, # 4 each, 11 Refills, Maintenance, 11/19/21 10:40:00 EDT, [facility]/pharmacy #[id number], Pls discontinue tao, 173, cm, [...] on: 05/18/20 Sex Patient Care team information PersonnelName: Alva Granados MD Address: Address: [address] [place] [address] [place], [place] [id number]
--- NOTE | 2022-04-06 08:55 | ED.GENADULT ---
HPI - General Adult General Chief complaint: Upper Respiratory Symptoms Stated complaint: cough/fever Time Seen by Provider: 04/06/22 08:45 Source: patient Mode of arrival: ambulatory Limitations: no limitations History of Present Illness HPI narrative: Patient is a 36 year old assigned female at with no reported medical history presenting to the emergency department today with a cough and congestion. Patient states that over the last 5 days she has had a cough and congestion. Patient denies any dizziness, lightheadedness, abdominal pain, nausea, vomiting, fever, chills, blurry vision, double vision, loss of vision, chest pain, difficulty breathing, shortness of breath, back pain, night sweats, pain with urination, increased urinary frequency, increased urinary urgency, blood in her urine or stool, syncope or a near syncopal episode, recent trauma or falls, bowel incontinence, bladder incontinence, bowel retention, bladder retention, or any other complaints at this time. Onset (ago): day(s) (5) Severity: mild Severity scale (1-10): 2 Relieving factors: none Exacerbating factors: none Associated symptoms: cough Treatments prior to arrival: none Related Data Allergies Allergy/AdvReac Type Severity Reaction Status Date / Time latex [LATEX] Allergy Unknown HIVES Unverified 12/13/19 18:49 Review of Systems Constitutional: Constitutional: Reports no additional constitutional complaints, Denies chills, Denies fever(s) and Denies night sweats Eyes: Eyes: Reports no additional eye complaints, Denies blurry vision, Denies change in vision, Denies diplopia, Denies eye discharge, Denies loss of vision and Denies eye pain ENT: Denies dizziness and Reports nasal congestion Cardiovascular: Cardiovascular: Reports no additional cardiovascular complaints, Denies chest pain, Denies lightheadedness, Denies Loss of Consciousness and Denies dyspnea Respiratory: Respiratory: Reports no additional respiratory complaints, Reports cough and Denies dyspnea Gastrointestinal: Gastrointestinal: Reports no additional gastrointestinal complaints, Denies abdominal pain, Denies melena, Denies hematochezia, Denies change in bowel habits and Denies change in stool character Genitourinary: Genitourinary: Denies hematuria, Denies urinary frequency, Denies dysuria, Denies urinary incontinence, Denies urinary hesitancy and Denies urinary urgency Musculoskeletal: Musculoskeletal: Reports no additional musculoskeletal complaints, Denies numbness and Denies tingling Neurologic: Denies dizziness, Denies loss of vision, Denies numbness and Denies tingling Psychiatric: Psychiatric: Reports no additional psychiatric complaints Endocrine: Endocrine: Reports no additional endocrine complaints Hematologic/Lymphatic: Hematologic/Lymphatic: Reports no additional hematologic/lymphatic complaints Allergic/Immunologic: Allergic/Immunologic: Reports no additional allergic/immunologic complaints [facility] Past Medical History Attestation statement: The following information was validated with the patient. Source: old records reviewed and nursing notes reviewed Social History Social History Advance Directives: No Advance Directives Information Provided: No Physical Exam ED Vital Signs: Vital Signs - 24 hr 04/06/22 08:40 Temperature 98 F Pulse Rate 100 Respiratory Rate 19 Blood Pressure 139/83 Pulse Oximetry 95 BMI result Body Mass Index 44.1 Const General: cooperative, no acute distress, alert and awake Nutritional Appearance: well nourished Orientation/consciousness: patient oriented x3 Limitations: no limitations HENMT Head: Yes normal to inspection and Yes atraumatic Ears: hearing grossly normal bilaterally and external ears normal General nose exam: Normal external nose present, no nasal discharge noted and no epistaxis Face and sinus: Yes normal facial exam, No abrasion and No laceration Mouth: Normal oral and palatal mucosa present, no drooling and no muffled voice Eyes General: appearance normal, both eyes and all related structures Periorbital: periorbital findings normal Eyelids: Yes eyelids normal Conjunctivae: conjunctivae normal Pupils: Equal, round and reactive pupils present EOM: EOMs intact bilaterally Neck Neck: Yes normal visual inspection, Yes full ROM and Yes no lymphadenopathy Chest Chest palpation & inspection: normal inspection of the chest Resp Effort & Inspection: normal respiratory effort and able to speak in complete sentences Auscultation: clear to auscultation bilaterally Cardio Rate: regular rate Rhythm: regular rhythm GI Inspection: Yes normal to inspection Palpation (GI): Soft to palpation, not firm, nontender, no guarding and not rigid Neuro General: patient oriented x3 and moves all extremities Cranial nerves: Yes Equal, round and reactive pupils present Cognition (Neuro): normal cognition Motor exam (neuro): 5/5 motor strength present throughout Sensory Exam: Normal double simultaneous stimulation for sensation Coordination: [id number] test normal Extrem General: Yes normal to inspection, Yes full ROM and Yes capillary refill normal Psych Appearance: grossly normal Mental Status: mental status grossly normal Affect: normal affect Attitude: cooperative Thought process: Normal thought process present Thought content: Normal thought content present Insight: Good insight present (Psych) Medical Decision Making Medical Decision Making [facility] Narrative: Patient is a 36 year old assigned female at with no reported medical history presenting to the emergency department today with a cough and nasal congestion. Patient's physical exam was unremarkable. Patient's influenza swab was positive. I explained my physical exam findings as well as all test results to the patient. I answered all questions asked by the patient. I stressed the importance of the patient taking her medication as prescribed. I stressed the importance of the patient following up with her primary care provider. I stressed the importance of the patient returning to the emergency department immediately if her symptoms were to worsen or if she were to develop any dizziness, shortness of breath, difficulty breathing, chest pain, blurry vision, loss of vision, nausea, vomiting, abdominal pain, fever, chills, back pain, or any other complaints. Patient verbalized agreement and understanding with this treatment plan and discharge. Differential Diagnosis Differential Diagnoses: The differential diagnosis associated with the presentation includes influenza, COVID-19, RSV Lab Data [facility] Lab Attestation statement: I reviewed the patient's lab results. Labs: Lab Results 04/06/22 Range/Units 08:48 Influenza Type A (PCR) POSITIVE A (Negative) Influenza Type B (PCR) NEGATIVE (Negative) RSV RNA Qual (PCR) NEGATIVE (Negative) SARS-CoV-2 RNA (RT-PCR) NEGATIVE (Negative) Discharge Plan Discharge Clinical Impression: Influenza Patient Disposition: Home, Self-Care Instructions: Influenza (ED) Additional Instructions: Follow up with your primary care provider. Return to the emergency department immediately if your symptoms worsen or if you develop any dizziness, shortness of breath, difficulty breathing, chest pain, blurry vision, loss of vision, nausea, vomiting, abdominal pain, fever, chills, back pain, or any other complaints. Referrals: Alva Granados MD [Primary Care Provider] - Stand Alone Forms: Work/School Release Interventions: ED Discharge Assessment Last Done: 04/06/22 10:17 Discharge Date/Time: 04/06/22 10:18 Print Language: Hong Konger
[2022-04-06 09:47] LABS: Influenza A PCR POSITIVE (Negative); Influenza B PCR NEGATIVE (Negative); Resp Syncy Virus RNA Qual PCR NEGATIVE (Negative); SARS COV2 PCR INHOUSE NEGATIVE (Negative)
== END 2022-04-06 10:18 | disposition home or self-care (01) ==
PROVIDERS: Physician Assistant Medical; Emergency Provider Student in an Organized Health Care Education/Training Program; PCP Internal Medicine
DX: J11.1 Influenza due to unidentified influenza virus with other respiratory manifestations (principal); Z20.822 Contact with and (suspected) exposure to COVID-19
CPT/HCPCS: 0241U; 99283; 99284

== ENCOUNTER 2022-11-02 02:40 | Emergency (ER) | payer OTHER, SELFPAY ==
--- NOTE | ~2022-11-02 | XR_ITS ---
EXAMINATION: XR CHEST CLINICAL INFORMATION: Cough. COMPARISON: None available. TECHNIQUE: 2 views of the chest were obtained. FINDINGS: The cardiomediastinal silhouette is normal. There is no focal lung consolidation or pleural effusion. The bony structures and soft tissues are unremarkable. XR/XR chest 2V IMPRESSION: No active cardiopulmonary disease.
[2022-11-02 03:19] VITALS: BP 136/82; PULSE 95; RESP 20; TEMP 36.8; O2SAT 96; BMI 42.6
--- OUTSIDE RECORDS SUMMARY | 2022-11-02 04:50 | XMS_ITS | Continuity of Care Document ---
Author Name Unknown Organization [facility] Address [address] [place] [address]- Care Team Providers Care Unemployment Inspector Name Role Phone Alva Granados MD Primary Care Physician [phone] Encounter [facility] Date(s): 09/03/22 - 10/03/22 [facility] [address] [place] [id number] Attending Physician: Princess Jensen Admitting Physician: Princess Jensen Referring Physician: Princess Jensen Allergies, Adverse Reactions, Alerts Substance Reaction Severity Status Bee Stings Active Latex Active Immunizations Given and Recorded Vaccine Date Status Refusal Reason influenza virus vaccine, inactivated 1 05/11/20 Gi mary influenza virus vaccine, inactivated 2 04/11/15 Gi mary 1Early/Late Reason: Early/Late Reason: New Med Order 2Admin Note: vis given, dated 11/13/13 Medications aspirin 81 mg oral delayed release tablet 81 mg, 1, tablet, By Mouth, Daily, Refills 0, Maintenance, 05/08/20 13:14:00 EST, Partial fill uponpatient request if the prescription is for a schedule II opioid drug. Start Date: 05/08/20 Status: Ordered Colace sodium 100 mg oral capsule 1 capsule = 100 mg, By Mouth, 2 times a day, PRN for constipation, # 60 capsule, 0 Refills, Maintenance, 04/11/15 18:04:49, Capsule Start Date: 04/11/15 Status: Ordered Freestyle Lancets See Instructions, # 100 each, Refills 6, Tot. Refills 6, Maintenance, use to check blood sugar before breakfast and at bedtime. E 11.9, 09/16/21 15:44:00 EDT, Compound, 173, cm, 09/16/21 14:55:00 EDT, Height, 132.4, kg, 06/18/20 11:15:00 EDT, Dry Weight Start Date: 09/16/21 Status: Ordered Freestyle Lite Monitor See Instructions, # 1 each, Refills 0, Tot. Refills 0, Maintenance, use to check blood sugar beforebreakfast and at bedtime. E 11.9, 09/16/21 15:45:00 EDT, Compound, 173, cm, 09/16/21 14:55:00 EDT, Height, 132.4, kg, 06/18/20 11:15:00 EDT, Dry Weight Start Date: 09/16/21 Status: Ordered Freestyle Lite Test Strips See Instructions, # 100 each, Refills 6, Tot. Refills 6, Maintenance, use to check blood sugar before breakfast and at bedtime. E 11.9, 09/16/21 15:44:00 EDT, Compound, 173, cm, 09/16/21 14:55:00 EDT, Height, 132.4, kg, 06/18/20 11:15:00 EDT, Dry Weight Start Date: 09/16/21 Status: Ordered ibuprofen 600 mg oral tablet 1 tablet = 600 mg, By Mouth, 4 times a day, PRN for pain, # 40 tablet, 0 Refills, Maintenance, 04/11/15 18:04:24, Tablet Start Date: 04/11/15 Status: Ordered labetalol 200 mg oral tablet 2 tablet = 400 mg, By Mouth, 2 times a day, # 90 tablet, 1 Refills, Maintenance, 05/22/20 10:26:00 EST, Tablet, [facility]/pharmacy #[id number], Partial fill upon patient request if the prescription is for a schedule II opioid drug., 173, cm, 05/20/20 19:02:00 EST... Start Date: 05/22/20 Status: Ordered Multivitamin Tablet By Mouth, Daily, 0 Refills, Maintenance Start Date: 06/02/11 Status: Ordered Nexium 20 mg oral enteric coated capsule 1 capsule = 20 mg, By Mouth, Daily, 0 Refills, Maintenance, 05/08/20 13:14:00 EST, Partial fill upon patient request if the prescription is for a schedule II opioid drug. Start Date: 05/08/20 Status: Ordered NIFEdipine (Eqv-Procardia XL) 30 mg oral tablet, extended release See Instructions, TAKE 1 TABLET BY MOUTH EVERY 24 HOURS, # 30 tablet, 1 Refills, [facility] [id number], 173, cm, 06/18/20 11:15:00 EDT, Height, 132.4, kg, 06/18/20 11:15:00 EDT, Dry Weight Start Date: 12/24/20 Status: Ordered simethicone 80 mg oral tablet, chewable 80 mg, Chew, 3 times a day, PRN, # 90 tablet, Refills 0, Tot. Refills 0, Maintenance, Gas, 05/13/2115:50:00 EST, Route to Pharmacy Electronically, [facility]/pharmacy #[id number], Partial fill upon patient request if the prescription is for a schedule II opioid d... Start Date: 05/13/20 Status: Ordered Trulicity Pen 1.5 mg/0.5 mL subcutaneous solution = 1.5 mg, Subcutaneous Infusion, Every week, # 4 each, 11 Refills, Maintenance, 11/19/21 10:40:00 EDT, [facility]/pharmacy #[id number], Pls discontinue tao, 173, cm, 09/16/21 14:55:00 EDT, Height, 132.4, kg, 06/18/20 11:15:00 EDT, Dry Weight Start Date: 11/19/21 Status: Ordered Tylenol 325 mg oral tablet 650 mg, 2, tablet, By Mouth, Every 4 hours, PRN, Refills 0, Maintenance, Pain , Mild, 05/22/20 10:24:00 EST, Partial fill upon patient request if the prescription is for a schedule II opioid drug. Start Date: 05/22/20 Status: Ordered Zantac 150 = 300 mg, By Mouth, Daily, 0 Refills, Maintenance, 02/07/15 13:12:53 Start Date: 02/07/15 Status: Ordered Problem List Condition Confirmation Course Effective Dates Status Health St atus Informant Diabetes mellitus Confirmed Active Chronic hypertension Confirmed Active VILMA on CPAP Confirmed Active Severe obesity Confirmed Active Social History Social History Type Response Smoking Status 10 or more cigarette s (1/2 pack or more)/day in last 30 days; Other: last in March; entered on: 05/18/20 Sex Laboratory * Event Display: Non BH Lab Results Authored Date: [id number] Patient Care team information Care Team Personnel Name: Divine Bird RN Position: [facility] RN Member Role: Primary Care Nurse Name: Alva Granados MD Position: [facility] Physician - Primary Care Member Role: PCP Address: Address: [address] [place] [id number] Care Team Related Persons Name: MORGAN ASENCIO Address: Address: home [address] [place] [address] [place] Name: CUONGClaudia KRISTEN Address: home [address] [address]
--- OUTSIDE RECORDS SUMMARY | 2022-11-02 04:50 | XMS_ITS | Continuity of Care Document ---
Author Name Unknown Organization [facility] Address [address] [place] [address]- Care Team Providers Care Addictions Counselor Assistant Name Role Phone Alva Granados MD Primary Care Physician Encounter [facility] Date(s): 08/13/22 - 09/12/22 [facility] [address] [place] [id number] Allergies, Adverse Reactions, Alerts Substance Reaction [...] 1 Refills, Maintenance, 05/22/20 10:26:00 EST, Tablet, [facility]/pharmacy #[id number], Partial fill upon patient request if the [...] 24 HOURS, # 30 tablet, 1 Refills, [facility] [id number], 173, cm, 06/18/20 11:15:00 EDT, Height, 132.4, kg, 06/18/20 11:15:00 EDT, Dry Weight Start Date: 12/24/20 Status: Ordered simethicone 80 mg oral tablet, chewable 80 mg, Chew, 3 times a day, PRN, # 90 tablet, Refills 0, Tot. Refills 0, Maintenance, Gas, 05/13/2115:50:00 EST, Route to Pharmacy Electronically, [facility]/pharmacy #[id number], Partial fill upon patient request if the prescription is for a schedule II opioid d... Start Date: 05/13/20 Status: Ordered Trulicity Pen 1.5 mg/0.5 mL subcutaneous solution = 1.5 mg, Subcutaneous Infusion, Every week, # 4 each, 11 Refills, Maintenance, 11/19/21 10:40:00 EDT, [facility]/pharmacy #[id number], Pls discontinue leahuvmelva, 173, cm, 09/16/21 14:55:00 EDT, Height, 132.4, [...] Sex Patient Care team information Care Team Personnel Name: Divine Bird RN Position: [facility] RN Member Role: Primary Care Nurse Name: Alva Granados MD Position: [facility] Physician - Primary Care Member Role: PCP Address: Address: [address] [place] [id number]- Care Team Related Persons Name: MORGAN ASENCIO Address: Address: home [address] [place] [address] [place] Name: KRISTEN CHANDLER Address: home [address] [address]
--- OUTSIDE RECORDS SUMMARY | 2022-11-02 04:50 | XMS_ITS | Continuity of Care Document ---
Author Name Unknown Organization [facility] Address [address] [place] [address]- Care Team Providers Care Weatherization Field Technician Name Role Phone Alva Granados MD Primary Care Physician [phone] [id number] Date(s): 08/11/22 - 10/03/22 [facility] [address] [place] [id number] Attending Physician: Viv Pro MD Admitting Physician: Viv Pro MD Referring Physician: Alva Granados MD Allergies, [...] Refills, Maintenance, 05/22/20 10:26:00 EST, Tablet, [facility]/pharmacy #[id number], Partial fill upon patient request if the [...] HOURS, # 30 tablet, 1 Refills, [facility] STORE [address]20, 173, cm, 06/18/20 11:15:00 EDT, Height, 132.4, kg, 06/18/20 11:15:00 EDT, Dry Weight Start Date: 12/24/20 Status: Ordered simethicone 80 mg oral tablet, chewable 80 mg, Chew, 3 times a day, PRN, # 90 tablet, Refills 0, Tot. Refills 0, Maintenance, Gas, 05/13/2115:50:00 EST, Route to Pharmacy Electronically, [facility]/pharmacy #[id number], Partial fill upon patient request if the prescription is for a schedule II opioid d... Start Date: 05/13/20 Status: Ordered Trulicity Pen 1.5 mg/0.5 mL subcutaneous solution = 1.5 mg, Subcutaneous Infusion, Every week, # 4 each, 11 Refills, Maintenance, 11/19/21 10:40:00 EDT, [facility]/pharmacy #[id number], Pls discontinue tao, 173, [...] Team Personnel Name: Divine Bird RN Position: [facility] RN Member Role: Primary Care Nurse Name: Alva Granados MD Position: [facility] Physician - Primary Care Member Role: PCP Address: Address: [address] [place] [id number]- Care Team Related Persons Name: MORGAN ASENCIO Address: Address: home [address] [place] [address] [place] Name: KRISTEN CHANDLER Address: home [address] [address]
--- OUTSIDE RECORDS SUMMARY | 2022-11-02 04:51 | XMS_ITS | Continuity of Care Document ---
Author Name Unknown Organization [facility] ter Address [address] [place] [id number]- Care Team Providers Care Gullet Slitter Name Role Phone Alva Granados MD Primary Care Physician [phone] Encounter [facility] Date(s): 04/29/22 - 04/30/[address] [address]- Encounter Diagnosis Acute epigastric pain(Final) - 04/29/22 Discharge Disposition: A-D/C Home Attending Physician: Tatiana Gaspar MD Admitting Physician: Tatiana Gaspar MD Referring Physician: Not on Staff, Referring [...] Maintenance, 05/22/20 10:26:00 EST, Tablet, [facility]/pharmacy #[id number], Partial fill upon patient request if the [...] # 30 tablet, 1 Refills, [facility] STORE [id number], 173, cm, 06/18/20 11:15:00 EDT, Height, 132.4, kg, 06/18/20 11:15:00 EDT, Dry Weight Start Date: 12/24/20 Status: Ordered simethicone 80 mg oral tablet, chewable 80 mg, Chew, 3 times a day, PRN, # 90 tablet, Refills 0, Tot. Refills 0, Maintenance, Gas, 05/13/2115:50:00 EST, Route to Pharmacy Electronically, [facility]/pharmacy #[id number], Partial fill upon patient request if the prescription is for a schedule II opioid d... Start Date: 05/13/20 Status: Ordered Trulicity Pen 1.5 mg/0.5 mL subcutaneous solution = 1.5 mg, Subcutaneous Infusion, Every week, # 4 each, 11 Refills, Maintenance, 11/19/21 10:40:00 EDT, [facility]/pharmacy #[id number], Pls discontinue tao, 173, cm, [...] CPAP Confirmed Active Severe obesity Confirmed Active Vital Signs Most recent to oldest [Reference Range]: 1 2 3 Oxygen Saturation [94-100 %] 99 % (04/29/22 7:53 PM) 99 % (04/29/22 6:59 PM) 99 % (04/29/22 6:52 PM) Pulse Rate [55-90 bpm] 96 bpm *H* (04/29/22 7:53 PM) 93 bpm *H* (04/29/22 6:59 PM) 100 bpm *H* (04/29/22 6:52 PM) Blood Pressure [90-138/55-84 mm Hg] 140/81mm Hg *H* (04/29/22 7:53 PM) 185/105mm Hg *H* (04/29/22 6:59 PM) Respiratory Rate [16-30 br/min] 16 br/min (04/29/22 6:59 PM) Temperature [96.8-100.4 DegF] 99.5 DegF (04/29/22 7:53 PM) 98.7 DegF (04/29/22 6:59 PM) Mode of Delivery (Oxygen) Room air (04/29/22 6:59 PM) Room air (04/29/22 6:52 PM) Blood pressure sites Arm, left (04/29/22 7:53 PM) Arm, left (04/29/22 6:59 PM) Temperature Route Oral (04/29/22 7:53 PM) Oral (04/29/22 6:59 PM) Social History Social History Type Response Smoking Status 10 or more cigarette s (1/2 pack or more)/day in last 30 days; Other: last in March; entered on: 05/18/20 Sex EKG study * Event Display: ECG 12-Lead Authored Date: Please click on pdf link to open report * Event Display: ECG 12-Lead Authored Date: Ventricular Rate: 92 BPM Atrial Rate: 92 BPM P-R Interval: 162 ms QRS Duration: 84 ms Q-T Interval: 364 ms QTC Calculation(Bazett): 450 ms P [place]: 53 degrees R [place]: -12 degrees T [place]: 100 degrees Normal sinus rhythm Nonspecific ST and T wave abnormality When compared with ECG of 18-MAY-2020 13:12, T wave inversion now evident in Lateral leads Confirmed by JASVIR TRAMMELL ([id number]) on 04/30/2022 2:08:25 PM Combs: JASVIR TRAMMELL Note * Chasity CARDOSO, Tatiana Toledo: PERFORM Event Display: Patient Education Leaflets Authored Date: [id number] Epigastric Pain (Uncertain Cause) ?? [id number] Epigastric Pain (Uncertain Cause) Epigastric pain is pain in the upper abdomen. It can be a sign of disease. Common causes include: ??? Acid reflux (stomach acid flowing up into the esophagus) ??? Gastritis (irritation of the stomach lining). Most often this is from aspirin or NSAIDs (nonsteroidal anti-inflammatory drugs) such asibuprofen, bacteria called H. pylori, or frequent alcohol use. ??? Peptic ulcer disease ??? Inflammation of the pancreas (pancreatitis) ??? Gallstone ??? Inflammation in the gallbladder (cholecystitis) Pain may be dull or burning. It may spread upward to the chest or to the back. There may be other symptoms such as belching, bloating, cramps, or hunger pains. There may be weight loss or poor appetite, nausea, or vomiting. Since the cause of your pain is not certain yet, you may need more tests. Sometimes your healthcareprovider will treat you for the most likely condition to see if there is improvement before doing more tests. Talk with your provider about what is best for you. Home care Medicines ??? Antacids help neutralize the normal acids in your stomach. If you don???t like the liquid, you can try a chewable one. You may find one works better than another for you. Overuse can cause diarrhea or constipation. Call your provider if you have questions about your medicines or concerns about side effects. ??? Acid blockers (H2 blockers) decrease acid production. Examples are cimetidine and famotidine. ??? Acid inhibitors (PPIs) decrease acid production in a different way than blockers. You may find they work better but can take a little longer to take effect. Examples are omeprazole, lansoprazole, pantoprazole, rabeprazole, and esomeprazole. Many of these are available [id number] or as generics. ??? Take an antacid 30 to 60??minutes after eating and at bedtime, but not at the same time as an acid fredi. ??? Try not to take NSAIDs such as ibuprofen. Aspirin may also cause problems, but if you are taking it for your heart or other medical reasons, talk to your healthcare provider before stopping it. Diet ??? If certain foods seem to cause your pain, try not to eat them. Certain foods can worsen symptoms of gastritis. Limit or avoid fatty, fried, and spicy foods, as well as coffee, chocolate, mint, and foods with high acid content such as tomatoes and citrus fruit and juices (orange, grapefruit, lemon). ??? Eat slowly and chew food well before swallowing. ??? Don't drink alcohol. It can irritate the stomach. If you have trouble giving up alcohol, ask your provider for treatment resources. ??? Don't consume caffeine or use tobacco. These can delay healing??and worsen your problem. ??? Try eating smaller meals with snacks in between. Don't eat large meals before bedtime. ??? Keep an emptystomach for 2 to 3 hours before lying down. ??? Prop the head of the bed up if you have overnight symptoms. This helps acid clear from your esophagus. ?? Follow-up care Follow up with your healthcare provider or as advised. ?? When to seek medical advice Call your healthcare provider right away if any of the following occur: ??? Stomach pain worsens ormoves to the right lower part of the abdomen ??? Frequent vomiting (can???t keep down liquids) ??? Blood in the stool or vomit (red or black color) ??? Fever of 100.4??F (38??C) or higher, or as directed by your healthcare provider ??? Abdominal swelling ??? Worsening symptoms or new symptoms ?? Call 911 Call 911 if any of these occur: ??? Chest pain appears, or if pain worsens or spreads to the back, neck, shoulder, or arm ??? Feeling weak or dizzy, fainting, or having trouble breathing ?? Last Reviewed Date: 2022 ?? [id number] [employer]. All rights reserved. This information is not intended as a substitute for professional medical care. Always follow your healthcare professional's instructions. ?? Patient Care team information Care Team Personnel Name: Divine Bird RN Position: Rita RN Member Role: Primary Care Nurse Name: Alva Granados MD Position: [facility] Physician (General Medicine) Member Role: PCP Address: Address: [address] [place] [id number]- Name: Chasity CARDOSO, Tatiana Toledo Position: [facility] ED Medicine MD Member Role: ED Attending Physician Address: Address: [address] [place] [id number]- Name: Harrison Gifford RN Position: [facility] ED RN W/OE and Tasks Member Role: Patient Care Provider Care Team Related Persons Name: MORGAN ASENCIO Address: Address: home [address] [place] [address] [place] Name: KRISTEN CHANDLER Address: home [address] [address]
[2022-11-02 04:55] LABS: Influenza A PCR NEGATIVE (Negative); Influenza B PCR NEGATIVE (Negative); Resp Syncy Virus RNA Qual PCR NEGATIVE (Negative); SARS COV2 PCR INHOUSE NEGATIVE (Negative)
--- NOTE | 2022-11-02 05:06 | ED_ITS ---
HPI - URI/Sore Throat General Chief Complaint: Upper Respiratory Symptoms Stated Complaint: Cough Time Seen by Provider: 11/02/22 04:58 Source: patient Mode of arrival: ambulatory Limitations: no limitations History of Present Illness HPI Narrative: 37 yo female hx of bronchitis, DM here with c/o 3 weeks of cough she has been living in hotels until she gets placed in a correction. her daughter has a cough too but the patient passed it to her. She has no fevers, eating and drinking well. No travel or known sick contacts. MD elicited complaint: cough Onset (ago): week(s) (3) Consistency: intermittent Severity: moderate Description of mucous: clear Able to tolerate fluids by mouth: Yes Exacerbating factors: other (coughing) Relieving factors: nothing Context: sick contacts Associated symptoms: denies other symptoms Treatments prior to arrival: none Related Data Previous Rx's Medication Instructions Recorded azithromycin 250 mg tablet 250 mg PO DAILY 4 days #4 tabs 11/02/22 Allergies Allergy/AdvReac Type Severity Reaction Status Date / Time latex [LATEX] Allergy Unknown HIVES Unverified 12/13/19 18:49 Review of Systems Review of Systems: Constitutional : No Fever, No Chills ENT/Mouth : No Hoarseness, No sore throat, No Rhinorrhea Eyes: No Redness, No Discharge, No Vision Changes Cardiovascular : No Chest Pain, positive SOB, No Edema Respiratory : positive Cough, No Sputum, positive Wheezing, Gastrointestinal : No Nausea, No Vomiting, No Diarrhea, No abdominal Pain Genitourinary : No Dysuria, No Hematuria Musculoskeletal : No joint pain, No Myalgias Skin : No rash Neuro : No Weakness, No Numbness, No Headache Psych : No anxiety, depression All other systems reviewed and are negative [facility] Past Medical History Attestation statement: The following information was validated with the patient. Social History Social History (Updated 11/02/22 @ 05:29 by Debbie Dyer DO) Patient Tobacco Use Status: Never used Tobacco Physical Exam Vital Signs: Vital Signs: Last Vital Signs Temp 98.2 F 11/02/22 03:19 Pulse 95 11/02/22 03:19 Resp 20 11/02/22 03:19 BP 136/82 11/02/22 03:19 Pulse Ox 96 11/02/22 03:19 O2 Del Method Room Air 11/02/22 03:19 BMI result Body Mass Index 42.6 Appearance: Alert. Oriented X3. No acute distress. Eyes: Pupils equal, round and reactive to light. ENT: Pharynx normal. Neck: Normal inspection. Neck supple. CVS: Normal heart rate and rhythm. Pulses normal. Respiratory: No respiratory distress. Breath sounds rhonchi noted anteriorly mild wheezes heard upper lobes Abdomen: Soft and nontender. Skin: Skin warm and dry. Normal skin color. Normal skin turgor. Extremities: No lower extremity edema. No calf ttp Neuro: Oriented X 3. No motor deficit. No sensory deficit. Medical Decision Making Medical Decision Making [facility] Narrative: 37 yo female hx of bronchitis, DM, HTN here with c/o 3 weeks of cough not improving she has rhonchi on exam - swabs and CXR normal VS stable given duration at this time INH ordered and PO zpack for bronchitis. Stable for outpatient management Differential Diagnosis Differential Diagnoses: The differential diagnosis associated with the presentation includes asthma, bronchitis, viral syndrome Lab Data [facility] Lab Attestation statement: I reviewed the patient's lab results. Labs: Lab Results 11/02/22 Range/Units 04:11 Influenza Type A (PCR) NEGATIVE (Negative) Influenza Type B (PCR) NEGATIVE (Negative) RSV RNA Qual (PCR) NEGATIVE (Negative) SARS-CoV-2 RNA (RT-PCR) NEGATIVE (Negative) Independent Interpretation I performed an independent interpretation of an: Plain X-Ray (no pneumonia) External Record Review External record reviewed: Outpatient record Prescription Management I considered prescription management with: Antibiotic (zpak) Discharge Plan Discharge Clinical Impression: Bronchitis Patient Disposition: Home, Self-Care Instructions: Acute Bronchitis (ED) Additional Instructions: you can take the inhaler 2 puffs every 4 hours as needed for cough, shortness of breath or wheeze return for worsening breathing, chest pain, fevers or no improvement start 2nd dose of antibiotics 11/03 Prescriptions: New azithromycin 250 mg tablet 250 mg PO DAILY 4 Days Qty: 4 0RF Rx Instructions: start on day 2 of therapy
[2022-11-02] MEDS: Albuterol Sulfate 90 MCG 8 GM INHALER 2 PUFF INHALE (05:55)
[2022-11-02] MEDS: Azithromycin 500 MG TABLET PO (05:55)
== END 2022-11-02 07:01 | disposition home or self-care (01) ==
PROVIDERS: Emergency Provider Emergency Medicine; PCP Internal Medicine
DX: J40 Bronchitis, not specified as acute or chronic (principal); R05.9 Cough, unspecified; Z20.822 Contact with and (suspected) exposure to COVID-19; Z20.828 Contact with and (suspected) exposure to other viral communicable diseases
CPT/HCPCS: 0241U; 71046; 99282; 99284

== ENCOUNTER 2023-11-13 12:55 | Emergency (ER) | payer OTHER, SELFPAY ==
[2023-11-13 13:12] VITALS: BP 155/98; PULSE 96; RESP 18; TEMP 37.1; O2SAT 96; BMI 43.1
--- NOTE | 2023-11-13 13:12 | ED_ITS ---
HPI - URI/Sore Throat General Chief Complaint: Upper Respiratory Symptoms Stated Complaint: strep ? Time Seen by Provider: 11/13/23 13:52 Source: patient and RN notes reviewed Mode of arrival: ambulatory Limitations: no limitations History of Present Illness ED Provider: Cheryl Fontana PA-C [facility] Narrative: This is a 38-year-old female who presents to the emergency department with complaints of bilateral ear pain, sore throat, and cough since yesterday. Patient reports that her children are also sick, they tested positive for strep throat in the department today. Patient also states that she woke up this morning in her left eye was draining, and has been slightly itchy, reports it feels like pinkeye. She denies any fevers, chills, dizziness, blurred vision, eye pain, chest pain, shortness of breath, abdominal pain, nausea, vomiting or diarrhea. Denies taking any medications at home to treat her current symptoms. No other complaints or concerns at this time. MD elicited complaint: cough, sore throat and nasal congestion Exacerbating factors: swallowing and speaking Relieving factors: nothing Associated symptoms: denies other symptoms Treatments prior to arrival: none Related Data Previous Rx's ?Medication ?Instructions ?Recorded azithromycin 250 mg tablet 250 mg PO DAILY 4 days #4 tabs 11/02/22 amoxicillin 500 mg tablet 500 mg PO BID 10 days #20 tabs 11/13/23 polymyxin B sulfate 10,000 1 drp ophthalmic (eye) QID 5 days 11/13/23 unit-trimethoprim 1 mg/mL eye drops #10 mL Allergies Allergy/AdvReac Type Severity Reaction Status Date / Time latex [LATEX] Allergy Unknown HIVES Verified 11/13/23 13:14 bee pollen [bee stings] Allergy Hives Verified 11/13/23 13:14 Review of Systems Review of Systems: Yes all other systems are reviewed and are negative Constitutional: Constitutional: Reports as per [facility] Social History Social History (Updated 11/02/22 @ 05:29 by Debbie Dyer DO) Patient Tobacco Use Status: Never used Tobacco Advance Directives: No Advance Directives Information Provided: Yes Physical Exam Vital Signs: Vital Signs: Last Vital Signs Temp 98.8 F 11/13/23 15:22 Pulse 96 11/13/23 15:22 Resp 18 11/13/23 15:22 BP 155/68 H 11/13/23 15:22 Pulse Ox 100 11/13/23 15:22 O2 Del Method Room Air 11/13/23 15:22 BMI result Body Mass Index 43.1 Const: General: cooperative, comfortable and no acute distress Orientation/consciousness: patient oriented x3 Limitations: no limitations HEENT: Other: Oral mucosa is erythematous, mild tonsillar hypertrophy, no exudates, uvula is midline. No trismus, drooling or dysphonia. Head: Yes normal to inspection, Yes normocephalic and Yes atraumatic Ears: hearing grossly normal bilaterally and TM's normal bilaterally General nose exam: Normal external nose present Face and sinus: Yes normal facial exam Eyes: General: appearance normal, both eyes and all related structures Eyelids: Yes eyelids normal Conjunctivae: conjunctivae normal Sclerae: sclerae normal Pupils: Equal, round and reactive pupils present EOM: EOMs intact bilaterally Neck: Other: No lymphadenopathy noted however thyroid does feel diffusely enlarged, no palpable nodes present. Nontender. Neck: Yes normal visual inspection, Yes full ROM and Yes no lymphadenopathy Lymphatic: no lymphadenopathy noted Chest: Chest palpation & inspection: normal inspection of the chest Resp: Effort & Inspection: normal respiratory effort and able to speak in complete sentences Auscultation: clear to auscultation bilaterally, no crackles, no rales, no rhonchi and no wheezes Cardio: Rate: regular rate Rhythm: regular rhythm Heart sounds: S1 normal heart sound present and S2 normal heart sound present GI: Inspection: Yes normal to inspection Skin: General skin exam: no rashes or lesions noted Trauma: no lacerations or abrasions Wounds: no wounds Neuro: General: patient oriented x3 and moves all extremities Cranial nerves: Yes Equal, round and reactive pupils present Extrem: General: Yes normal to inspection Right upper extremity: normal to inspection Left upper extremity: normal to inspection Right lower extremity: normal to inspection Left lower extremity: normal to inspection Course Course Course Narrative: This is a Rapid Medical Exam performed in triage by Brittni Worley PA-C. Full HPI, ROS and PE to be performed by primary ED provider. 38 yo F w/PMHx HTN, DM presenting to the ED c/o ear pain, cough, sore throat, myalgias x yesterday. kids w/similar sx PE: congestion noted, talking in complete sentences Plan: viral testing, rapid strep Medical Decision Making Medical Decision Making [facility] Narrative: This is a 38-year-old female who presents emergency department with complaints of bilateral ear pain, sore throat, cough since yesterday. On arrival, vital signs within normal limits. Patient is here with her 2 children who just tested positive for strep throat. Examination with erythematous oropharynx, no tonsillar hypertrophy or exudates. No evidence of VACUUM SYSTEM TESTER. Given positive strep throat exposure, patient likely has strep throat as well however is testing negative. Will treat with amoxicillin, she tested negative for flu, and RSV as well as COVID. Discussed worked up with patient. Her thyroid also feels diffusely enlarged, she has a history of thyroid disease, and has had a needle aspiration which was normal. She will follow-up with her annual giving officer as she feels as though it is feeling more enlarged lately. Nontender. She is speaking in full sentences under no distress. Further workup indicated at this time. Patient given strict return precautions. She understands agrees with plan. Patient stable for discharge Differential Diagnosis Differential Diagnoses: The differential diagnosis associated with the presentation includes Strep pharyngitis, tonsillitis, URI, URI, COVID, VACUUM SYSTEM TESTER Lab Data [facility] Lab Attestation statement: I reviewed the patient's lab results. Negative Labs: Lab Results 11/13/23 Range/Units 13:33 Influenza Type A (PCR) NEGATIVE (Negative) Influenza Type B (PCR) NEGATIVE (Negative) RSV RNA Qual (PCR) NEGATIVE (Negative) SARS-CoV-2 RNA (RT-PCR) NEGATIVE (Negative) S. pyogenes GrpA JEF Negative (Negative) Discharge Plan Discharge Clinical Impression: URI (upper respiratory infection), Conjunctivitis Patient Disposition: Home, Self-Care Instructions: Upper Respiratory Infection (ED), Conjunctivitis (ED) Additional Instructions: You were seen in the emergency department due to bilateral ear pain, sore throat and cough. You tested negative for COVID, flu and RSV. You also tested negative for strep throat. Both of your children tested positive for strep throat therefore I am also treating you for strep throat. You also have evidence of conjunctivitis on the left, please use eyedrops as prescribed. Please take prescribed antibiotic as directed. Finish the entire course even if your symptoms improve. Saltwater gargles, alternating between ibuprofen and Tylenol can help. Stay well hydrated and get plenty of sleep. If any new or worsening symptoms occur including but not limited to fevers, chills, inability to swallow, please return for re-evaluation. Prescriptions: New amoxicillin 500 mg tablet 500 mg PO BID 10 Days Qty: 20 0RF polymyxin B sulf-trimethoprim 10,000 unit- 1 mg/mL drops 1 drp ophthalmic (eye) QID 5 Days Qty: 10 0RF No Action azithromycin 250 mg tablet 250 mg PO DAILY 4 Days Qty: 4 0RF Rx Instructions: start on day 2 of therapy Interventions: ED Discharge Assessment Last Done: 11/13/23 15:22 Discharge Date/Time: 11/13/23 15:23 Print Language: Danish
[2023-11-13 13:56] LABS: IDNOW Serial# 6674DD1D; Strep A Nucleic Acid Negative (Negative)
[2023-11-13 14:27] LABS: Influenza A PCR NEGATIVE (Negative); Influenza B PCR NEGATIVE (Negative); Resp Syncy Virus RNA Qual PCR NEGATIVE (Negative); SARS COV2 PCR INHOUSE NEGATIVE (Negative)
[2023-11-13 15:22] VITALS: BP 155/68; PULSE 96; RESP 18; TEMP 37.1; O2SAT 100
== END 2023-11-13 15:23 | disposition home or self-care (01) ==
PROVIDERS: Physician Assistant; Emergency Provider Emergency Medicine
DX: J06.9 Acute upper respiratory infection, unspecified (principal); H10.9 Unspecified conjunctivitis; J02.9 Acute pharyngitis, unspecified; R05.9 Cough, unspecified; H92.03 Otalgia, bilateral; R09.81 Nasal congestion; Z03.818 Encounter for observation for suspected exposure to other biological agents ruled out
CPT/HCPCS: 0241U; 87651; 99282

== ENCOUNTER 2024-04-06 16:42 | Inpatient (IN) | payer OTHER, SELFPAY ==
[2024-04-06] VITALS (8 sets, daily range): BP systolic 151–225; BP diastolic 88–123; PULSE 83–97; RESP 11–18; TEMP 36.8–36.9; O2SAT 98–100; BMI 44.5; BMI 43.1
--- NOTE | ~2024-04-06 | XR_ITS ---
CLINICAL HISTORY: pain 1 view chest x-ray Comparison: Chest x-ray from 11/02/2022 Findings: No consolidation, pneumothorax, or pleural effusion. Imaged mediastinum is unchanged accounting for differences in technique. No acute fracture, By one view study. IMPRESSION: No consolidation in this portable image. This document has been electronically signed by: Israel Castro MD on 04/06/2024 19:03:30
--- NOTE | ~2024-04-06 | CT_ITS ---
CLINICAL HISTORY: HTN emergency, headache CT head without contrast Comparison: None Findings: No intra-axial mass, midline shift, hydrocephalus, or acute hemorrhage. No significant atrophy-like change or white matter disease. The visualized paranasal sinuses and mastoid air cells are normal. The orbits are within normal limits. There is no acute fracture. IMPRESSION: 1. No acute intracranial findings This document has been electronically signed by: Mike Ann MD on 04/06/2024 18:26:33
--- NOTE | ~2024-04-06 | NM_ITS ---
EXERCISE MYOCARDIAL PERFUSION STUDY INDICATION: NSTEMI TECHNIQUE: The patient was brought in for an exercise perfusion study on April 08 2024. Patient performed exercise as per Jose Francisco protocol and was injected 40 mCi of sestamibi once target heart rate was achieved. Images were obtained using the SPECT gamma camera interlaced with the gating device. Images were obtained in supine position. Resting perfusion study was performed on April 09, 2024. Patient was administered 40 mCi of sestamibi intravenously at rest. Images were then obtained in supine position. Images obtained without without CT attenuation. Total DLP 159 mGy-cm. Images were processed with the software and compared side to side in short axis, horizontal long axis and vertical long axis views. FINDINGS: Raw images were reviewed The stress perfusion study showed nonattenuated images show small area of reduced uptake of moderate intensity in the distal lateral as well as distal anterior wall of the myocardium. Remainder of the LV myocardium is normally perfused. Attenuated corrected images show normal uptake ordered images in all segments of the LV myocardium.. The gated study shows normal LV systolic function with calculated LVEF of 54%. LV cavity is normal in size. The gated study shows normal systolic wall thickening and contraction of segments. Resting study shows nonattenuated images show improved uptake in the distal anterior and distal lateral wall of the LV myocardium. Attenuated corrected images show normal uptake ordered images in all segments of the LV myocardium. Gating at rest reveals normal systolic wall motion with ejection fraction at greater than 50%. The findings are consistent with likely normal myocardial perfusion with reversible defect noted on nonattenuated images most likely related to shifting breast attenuation on. NM/NM junior perf SPECT rest & str IMPRESSION: 1. Myocardial perfusion imaging study shows normal perfusion. 2. Gated LVEF is 54%. 3. Transient ischemic dilatation not present. EKG revealed negative for ischemia. Electronically signed by: Nilton Gonzalez MD 04/09/2024 04:36 PM [facility]
--- NOTE | 2024-04-06 16:47 | ECG_ITS ---
Test Reason : CHEST PAIN Blood Pressure : */* mmHG Vent. Rate : 94 BPM Atrial Rate : 94 BPM P-R Int : 174 ms QRS Dur : 84 ms QT Int : 362 ms P-R-T Axes : 38 -20 165 degrees QTcB Int : 452 ms Normal sinus rhythm Minimal voltage criteria for LVH, may be normal variant ( Ti product ) T inversion lateral leads, probably from LVH, less likely ischemia. Abnormal ECG No previous ECGs available Referred By: Salud Anne Electronically Signed By: GABRIELA BROWN
--- NOTE | 2024-04-06 16:55 | ED.GENADULT ---
HPI - General Adult General Chief complaint: Chest Pain Stated complaint: CP, headache, BP high Time Seen by Provider: 04/06/24 17:48 Source: patient and old records reviewed Mode of arrival: ambulatory Limitations: no limitations History of Present Illness ED Provider: DANISH AYALA narrative: 38 yo female with PMH of HTN, DM, on losartan 25mg daily used to be on 2 meds in past, notes for 3 weeks chest pain and dyspnea with rapid heart rate when she walks up stairs, she waits and it goes away. That happened much earlier today. She has been on amoxicillin for 2 days due to cavity of tooth and went to dentist today to have it pulled but her BP was > 200s so sent to ED. She has no chest pain now. She has no numnbess, weakness. She states she took her medications. She has had stress test last one a year ago but was told it was normal. She never told her doctors about her exertional chest pain. She has had slight headaches on and off for 5 days. Patient stated she wasn't going to stay due to childcare issues but notes her mom is supposed to come at 930pm so she cannot decide or do anything until her mom comes complaint: chest pain Onset (ago): week(s) (3) Location: chest Radiation: non-radiation Severity: moderate Quality: other (sharp intermittent pains) Pain Consistency: intermittent Relieving factors: rest Exacerbating factors: other (exertion) Associated symptoms: headaches Treatments prior to arrival: none Related Data Previous Rx's ?Medication ?Instructions ?Recorded azithromycin 250 mg tablet 250 mg PO DAILY 4 days #4 tabs 11/02/22 amoxicillin 500 mg tablet 500 mg PO BID 10 days #20 tabs 11/13/23 polymyxin B sulfate 10,000 1 drp ophthalmic (eye) QID 5 days 11/13/23 unit-trimethoprim 1 mg/mL eye drops #10 mL Allergies Allergy/AdvReac Type Severity Reaction Status Date / Time latex [LATEX] Allergy Unknown HIVES Verified 04/06/24 16:57 bee pollen [bee stings] Allergy Hives Verified 04/06/24 16:57 Review of Systems Review of Systems: Constitutional : No Weight loss, No Fever, No Chills ENT/Mouth : No sore throat, No Rhinorrhea Eyes: No Eye Pain, No Swelling Cardiovascular : pos Chest Pain, pos SOB, pos Dyspnea on Exertion, No Orthopnea, No Edema, No Palpitations Respiratory : No Cough, No Sputum Gastrointestinal : no Nausea, No Vomiting, No Diarrhea, No abdominal Pain, No Hematochezia, No Melena Genitourinary : No Dysuria, No Urinary Frequency Musculoskeletal : No joint pain, No Myalgias, No Joint Swelling Skin : No Skin Lesions, No rash Neuro : No Weakness, No Numbness, No Dizziness, pos Headache Psych : No Anxiety/Panic, No Depression All other systems reviewed and are negative [facility] Past Medical History Attestation statement: The following information was validated with the patient. Source: old records reviewed Medical History (Updated 04/06/24 @ 20:12 by Debbie Dyer DO) HTN (hypertension) Social History Social History Patient Tobacco Use Status: Never used Tobacco Advance Directives: No Advance Directives Information Provided: No Do you have a plan to hurt others: No Plan Physical Exam ED Vital Signs: Vital Signs - 24 hr 04/06/24 16:55 04/06/24 17:48 04/06/24 19:28 Temperature 98.5 F 98.2 F 98.2 F Pulse Rate 97 90 86 Respiratory Rate 16 18 11 L Blood Pressure 225/123 H 154/97 H 161/92 H Pulse Oximetry 100 100 99 Oxygen Delivery Method Room Air Room Air Room Air 04/06/24 19:36 04/06/24 19:40 04/06/24 19:51 Temperature Pulse Rate 88 87 Respiratory Rate Blood Pressure 161/92 H 164/92 H 159/94 H Pulse Oximetry Oxygen Delivery Method 04/06/24 19:56 Temperature Pulse Rate 83 Respiratory Rate 13 Blood Pressure 151/88 H Pulse Oximetry Oxygen Delivery Method BMI result Body Mass Index 44.5 Appearance: Alert. Oriented X3. No acute distress. Eyes: Pupils equal, round and reactive to light. ENT: Pharynx normal. Neck: Normal inspection. Neck supple. CVS: Normal heart rate and rhythm. Pulses normal. Respiratory: No respiratory distress. Breath sounds normal. Abdomen: Soft and nontender. Skin: Skin warm and dry. Normal skin color. Normal skin turgor. Extremities: No lower extremity edema. No calf ttp Neuro: Oriented X 3. No motor deficit. No sensory deficit. CN2-12 intact Course Course Course Narrative: This is an RME performed by Ivett Anne CNP: Additional HPI, ROS, PE not included below will be deferred to primary provider. Patient is a 38-year-old female who presents to the emergency department for evaluation. Admits over the past 4 days she has been experiencing intermittent chest pain to the left anterior chest as well as a constant headache. She went to the dentist today and was told that her blood pressure was elevated 202/137 detected with an automated wrist cuff. Endorses a history of hypertension, compliance with her medication- losartan 25 mg ( though in pharmacy records doesnt appear to be filled since June 2023. Plan: EKG, serum labs, CT head to exclude ICH Medications Administered Discontinued Medications Generic Name Dose Route Start Last Admin Trade Name Kami PRN Reason Stop Dose Admin Aspirin 324 mg 04/06/24 18:29 04/06/24 18:39 Aspirin 81 Mg Tab.Chew PO 04/06/24 18:30 324 mg ONCE ONE Administration Morphine Sulfate 4 mg 04/06/24 18:38 04/06/24 18:59 Morphine Sulfate 4 Mg/Ml Cartridge IVPUSH 04/06/24 18:39 4 mg ONCE ONE Administration Protocol Nitroglycerin 0.5 inch 04/06/24 19:32 04/06/24 19:36 Nitroglycerin 2 % Oint 1 Gm Packet TRANSDERMA 04/06/24 19:33 0.5 inch ONCE ONE Administration Medical Decision Making Medical Decision Making MDM Narrative: 38 yo female with PMH of HTN, DM here with c/o exertional dyspnea, chest pain that resolves with rest has no pain now now neuro deficits, BP has come down without intervention she has no pain other than her tooth aches. No leg pain, swelling, recent travel or other infections. She notes she never saw anyone for her exertional chest pain - at this time repeat labs, CT head negative from triage, trop elevated will repeat no contraindications to heparin denies bleeding issues or thinner use. At this time suspect NSTEMI, uncontrolled HTN. Differential Diagnosis Differential Diagnoses: The differential diagnosis associated with the presentation includes exertional angina, NSTEMI, uncontrolled HTN Admission/Observation Consideration of admission/observation: Escalation of care including admission/observation considered admit for NSTEMI work up Consult Healthcare Provider Management of the patient was discussed with: Hospitalist (will admit) and Computing Machine Operator Rishi roche to start heparin and EKG could be LVH Lab Data MDM Lab Attestation statement: I reviewed the patient's lab results. 04/06/24 17:05 04/06/24 17:05 Labs: Lab Results 04/06/24 04/06/24 Range/Units 17:05 18:57 WBC 7.9 (4.8-10.8) X10*3/uL RBC 3.88 L (4.20-5.50) X10*6/uL Hgb 11.0 L (12.0-16.0) g/dl Hct 34.7 L (37.0-47.0) % MCV 89.4 (80.0-98.0) fL MCH 28.4 (27.0-33.0) pg MCHC 31.7 (31.0-35.0) g/dl RDW 15.0 (11.0-16.0) % Plt Count 332 (160-400) X10*3/uL MPV 9.7 (9.4-12.3) fL Immature Gran % (Auto) 0.3 (0.0-0.4) % Neut % (Auto) 54.6 (45-73) % Lymph % (Auto) 35.7 (20-40) % [place] % (Auto) 7.1 (2-11) % Eos % (Auto) 1.9 (0-4) % Baso % (Auto) 0.4 (0-2) % Lymph # (Auto) 2.8 (1.2-4.9) X10*3/uL [place] # (Auto) 0.6 (0.1-1.2) X10*3/uL Eos # (Auto) 0.2 (0.0-0.4) X10*3/uL Baso # (Auto) 0.0 (0.0-0.2) X10*3/uL Abs Immat Gran (auto) 0.02 (0.00-0.03) X10*3/uL Absolute Neuts (auto) 4.3 (2.0-8.3) x10*3/uL Absolute Nucleated RBC 0.000 (0.0-0.012) X10*3/uL Nucleated RBC % (auto) 0.0 (0.0-0.2) /100WBC PT 10.9 (10.9-12.4) SEC INR 0.9 (0.9-1.1) Sodium 142 (135-145) mmol/L Potassium 3.6 (3.3-5.1) mmol/L Chloride 109 H (96-108) mmol/L Carbon Dioxide 28 (22-29) mmol/L Anion Gap 9 L (12-20) BUN 12 (9-16) mg/dL Creatinine 0.78 (0.5-1.4) mg/dL Estim Creat Clear Calc 141.2 Estimated GFR > 60 Random Glucose 180 H (60-115) mg/dL Calcium 8.8 (8.4-10.2) mg/dL Magnesium 1.9 (1.6-2.6) mg/dL Total Bilirubin 0.1 (0.0-1.0) mg/dL AST 21 (5-31) U/L ALT 26 (0-31) U/L Alkaline Phosphatase 77 (39-117) U/L Troponin I High Sens 233.4 H* 253.6 H* (<3.5-17.0) ng/L B-Natriuretic Peptide 10 (<100) pg/mL Total Protein 6.8 (6.5-8.0) g/dL Albumin 3.9 (3.5-5.0) g/dL Beta HCG, Quant < 2 mIU/mL Independent Interpretation I performed an independent interpretation of an: EKG and Plain X-Ray (normal ) Interpretation: Rate: 94 Rhythm: NSR [place]: left, LVH Normal P waves. Normal JACQUELINE. Normal QRS complex. ST T wave : inverted t waves I, aVL, V5, V6, III no DORENE qTC: 452 prior studies: no acute ischemia The study has been interpreted contemporaneously by me. . Radiology Impression Discussion of test interpretation with radiology: I have reviewed the radiologist's reading. Independent Historian Clinical information obtained from an independent historian. History obtained from or confirmed by: Other (brother) Critical Care Time Critical Care Time Critical Care Time: Yes Total Critical Care Time: 45 Attestation: nitro for BP, heparin for NSTEMI, repeat labs, consultation, admission I attest to this time spent taking care of the patient Discharge Plan Discharge Clinical Impression: Acute non-ST elevation myocardial infarction (NSTEMI), Hypertension, uncontrolled Patient Disposition: Admitted As Inpatient Prescriptions: No Action azithromycin 250 mg tablet 250 mg PO DAILY 4 Days Qty: 4 0RF Rx Instructions: start on day 2 of therapy amoxicillin 500 mg tablet 500 mg PO BID 10 Days Qty: 20 0RF polymyxin B sulf-trimethoprim 10,000 unit- 1 mg/mL drops 1 drp ophthalmic (eye) QID 5 Days Qty: 10 0RF Print Language: Spanish
[2024-04-06 17:09] LABS: MANUAL DIFF FLAG NO
[2024-04-06 17:13] LABS: Basophils Percent Auto 0.4 % (0-2); Eosinophils Absolute Auto 0.2 X10*3/uL (0.0-0.4); Eosinophils Percent Auto 1.9 % (0-4); Hematocrit 34.7 % (37.0-47.0); Imm Gran Abs Auto 0.02 X10*3/uL (0.00-0.03); Imm Gran Pct Auto 0.3 % (0.0-0.4); Lymphocytes Absolute Auto 2.8 X10*3/uL (1.2-4.9); Lymphocytes Percent Auto 35.7 % (20-40); Mean Corpuscular HGB Conc 31.7 g/dl (31.0-35.0); Mean Corpuscular Hemoglobin 28.4 pg (27.0-33.0); Mean Corpuscular Volume 89.4 fL (80.0-98.0); Mean Platelet Volume 9.7 fL (9.4-12.3); Monocytes Absolute Auto 0.6 X10*3/uL (0.1-1.2); Monocytes Percent Auto 7.1 % (2-11); Neutrophils Absolute Auto 4.3 x10*3/uL (2.0-8.3); Neutrophils Percent Auto 54.6 % (45-73); Platelet Count 332 X10*3/uL (160-400); Red Blood Count 3.88 X10*6/uL (4.20-5.50); White Blood Count 7.9 X10*3/uL (4.8-10.8)
[2024-04-06 17:26] LABS: Alanine Aminotransferase 26 U/L (0-31); Albumin Level 3.9 g/dL (3.5-5.0); Alkaline Phosphatase 77 U/L (39-117); Anion Gap 9 (12-20); Aspartate Amino Transferase 21 U/L (5-31); Bilirubin Total 0.1 mg/dL (0.0-1.0); Blood Urea Nitrogen 12 mg/dL (9-16); Calcium 8.8 mg/dL (8.4-10.2); Carbon Dioxide 28 mmol/L (22-29); Chloride 109 mmol/L (96-108); Creatinine Clr Calc Pharmacy 141.2; Estimated Glomerular Filt Rate > 60; Glucose Random 180 mg/dL (60-115); Magnesium 1.9 mg/dL (1.6-2.6); Potassium 3.6 mmol/L (3.3-5.1); Sodium 142 mmol/L (135-145); Total Protein 6.8 g/dL (6.5-8.0)
[2024-04-06 17:27] LABS: INTERNATIONAL NORM RATIO 0.9 (0.9-1.1); Prothrombin Time 10.9 SEC (10.9-12.4)
[2024-04-06 17:36] LABS: Troponin-I High Sensitivity 233.4 ng/L (<3.5-17.0)
[2024-04-06] MEDS: Aspirin 81 MG TAB.CHEW 324 MG PO (18:39)
[2024-04-06] MEDS: Morphine Sulfate 4 MG/ML CARTRIDGE IVPUSH (18:59)
[2024-04-06 19:29] LABS: B Type Natriuretic Peptide 10 pg/mL (<100)
[2024-04-06 19:35] LABS: Troponin-I High Sensitivity 253.6 ng/L (<3.5-17.0)
[2024-04-06] MEDS: Nitroglycerin 2 % Oint 1 GM Packet 0.5 INCH TRANSDERMA (19:36)
[2024-04-06 19:58] LABS: HCG Quantitative < 2 mIU/mL
[2024-04-06] MEDS: Heparin Sodium,Porcine 5,000 UNIT/ML VIAL 4000 UNIT IVPUSH (20:36)
--- NOTE | 2024-04-06 20:41 | P.HPHOSP_ITS ---
History of Present Illness Date of Service: 04/06/24 Attending physician on admission: Radha Zaragoza Chief Complaint: Chest pain Pt is a 38-year-old female with a PMH significant for?HTN, ryl-utryvqk-yylpecvcp type 2 diabetes, and hx of pre-eclampia who presents to the ED from dental appointment for evaluation of high blood pressure. Pt states she had an appointment earlier today for a wisdom tooth extraction. During intake patient's SBP was noted to be in the 200s and provider told pt they were unable to perform the procedure in that she should be evaluated at the ED. pt also has been experiencing a ?pounding? headache for the past 5-7 days with exertion, especially going upstairs. Headaches will last 30 seconds to 1 minute long. Also reports less severe though longer-lasting headaches at rest. Approximately 4-5 days ago pt also began experiencing palpitations and chest pain that occurred either with exertion or at rest. Describes chest pain as sharp and stabbing and radiating to left neck and sometimes to her eyes. No chest pressure. Pt reports has been experiencing chest pain for the past year so, and has seen multiple providers for this in the past. Apparently underwent a stress test last summer that was negative. Denies diaphoresis, nausea, vomiting. No shortness a breath or difficulty breathing. Denies cough. No fever, chills, nausea,, abdominal pain. Reports a history of CAD on her mother's side. In the ED pt with elevated HR as high as 97 and hypertensive as high as 225/123. Labs were significant for initial troponin 233.4 with repeat 253.6 in H&H 11.0/34.7, otherwise grossly unremarkable. No leukocytosis. No significant electrolyte abnormalities. Renal function WNL. Hepatic function WNL. BNP 10. CXR showed no acute cardiopulmonary disease. CT?of head negative for acute intracranial findings. EKG demonstrated normal sinus rhythm with T-wave inversions in leads I, II, aVL, and V4-V6. Pt was treated with aspirin, morphine, nitro paste and started on a heparin drip. Pt will be admitted to the hospital for treatment and further evaluation of elevated troponins and atypical chest pain radiating to neck concerning for NSTEMI. Review of Systems 2 Review of Systems: Negative except for that which is stated in the [facility] Medical History (Updated 04/06/24 @ 22:17 by GREG Urias) Preeclampsia HTN (hypertension) Social History Patient Tobacco Use Status: Never used Tobacco Advance Directives: No Advance Directives Information Provided: No Do you have a plan to hurt others: No Plan Meds Allergies Allergy/AdvReac Type Severity Reaction Status Date / Time latex [LATEX] Allergy Unknown HIVES Verified 04/06/24 16:57 bee pollen [bee stings] Allergy Hives Verified 04/06/24 16:57 Active Medications: Current Medications Acetaminophen (Acetaminophen 325 Mg Tablet) 975 mg PO Q6H PRN PRN Reason: Pain, Mild 1-3,fever,headache Heparin Sodium (Porcine) (Heparin Sodium,Porcine 5,000 Unit/Ml Vial) 5,100 unit 40 unit/kg (5100 unit) IVPUSH PROTOCOL BOLUS PRN; Protocol PRN Reason: 40 unit/kg - Heparin Protocol Heparin Sodium (Porcine) (Heparin Sodium,Porcine 5,000 Unit/Ml Vial) 10,000 unit IVPUSH PROTOCOL BOLUS PRN; Protocol PRN Reason: 80 unit/kg - Heparin Protocol Heparin Sodium/Sodium Chloride (Heparin Sodium,Porcine/1/2ns) 25,000 unit in 250 mls @ 0 mls/hr IVCONT .Q0M [facility]; Protocol Melatonin (Melatonin 3 Mg Tablet) 6 mg PO BEDTIME PRN PRN Reason: Insomnia Sodium Chloride (0.9 % Sodium Chloride Flush 3 Ml Syringe) 3 ml IVFLUSH QSHIFT [facility] Home Medications ?Medication ?Instructions ?Recorded ?Confirmed ?Last Taken ?Type ibuprofen 800 mg tablet 800 mg PO Q6H PRN Pain 04/06/24 Unknown History losartan 25 mg tablet 25 mg PO DAILY 04/06/24 04/06/24 04/06/24 History tirzepatide 5 mg/0.5 mL 1 mg subcut QWEEK 04/06/24 Unknown History subcutaneous pen injector (Matheusunesha) Physical Exam 2 Vital Signs and Narrative: Vital Signs: Last Vital Signs Temp 98.2 F 04/06/24 19:28 Pulse 83 04/06/24 19:56 Resp 13 04/06/24 19:56 BP 151/88 H 04/06/24 19:56 Pulse Ox 99 04/06/24 19:28 O2 Del Method Room Air 04/06/24 19:28 BMI result Body Mass Index 43.1 General: AOx3, no acute distress Resp: CTA bilaterally CVS: S1, S2, RRR GI: +BS, NT, no distention Chest: Non-tender to palpation Skin: Warm, dry Neuro: Cranial nerves II-XII grossly intact bilaterally. Motor grossly intact bilaterally Extremities: No edema Psych: Appropriate affect Results Labs 04/06/24 17:05 04/06/24 17:05 Labs: Laboratory Results - last 24 hr 04/06/24 04/06/24 17:05 18:57 MCV 89.4 MCH 28.4 MCHC 31.7 RDW 15.0 Plt Count 332 MPV 9.7 Immature Gran % (Auto) 0.3 Neut % (Auto) 54.6 Lymph % (Auto) 35.7 [place] % (Auto) 7.1 Eos % (Auto) 1.9 Baso % (Auto) 0.4 Lymph # (Auto) 2.8 [place] # (Auto) 0.6 Eos # (Auto) 0.2 Baso # (Auto) 0.0 Abs Immat Gran (auto) 0.02 Absolute Neuts (auto) 4.3 Absolute Nucleated RBC 0.000 Nucleated RBC % (auto) 0.0 PT 10.9 INR 0.9 Anion Gap 9 L Estim Creat Clear Calc 141.2 Estimated GFR > 60 Random Glucose 180 H Calcium 8.8 Magnesium 1.9 Total Bilirubin 0.1 AST 21 ALT 26 Alkaline Phosphatase 77 Troponin I High Sens 233.4 H* 253.6 H* B-Natriuretic Peptide 10 Total Protein 6.8 Albumin 3.9 Beta HCG, Quant < 2 Assessment and Plan (1) Acute non-ST elevation myocardial infarction (NSTEMI): Status: Acute Plan Pt is a 38-year-old female with a PMH significant for?HTN, ozw-plltean-vziazwuox type 2 diabetes, and hx of pre-eclampia who presents to the ED from dental appointment for evaluation of high blood pressure. Pt will be admitted to the hospital for treatment and further evaluation of elevated troponins and atypical chest pain radiating to neck concerning for NSTEMI. Elevated troponins and atypical chest pain Initial troponin 233.4 with repeat flat at 253.6 Pt with sharp and stabbing left-sided chest pain radiating to neck and eyes with exertion or at rest Concerning for NSTEMI Pt is started on heparin drip in the ED, will continue Echocardiogram Daily aspirin Cardiology consult Follow CBC Hypertension Poorly controlled BP as high as 225/123 in the ED Pt given nitro paste in the ED Continue losartan Labetalol 5 mg IV prn for SBP>170 Monitor BP Vea-fmtdmph-rbdtrhuhs type 2 diabetes Sliding-scale insulin Diabetic diet Dental caries Continue amoxicillin Full Code Attending:?Dr. Zaragoza DVT Prophylaxis: On heparin drip Pt will require a hospitalization of at least two nights for treatment and further evaluation of elevated troponins and atypical chest pain concerning for NSTEMI. Pt require hospital level care for administration of heparin drip, Cardiology consult, and close monitoring of labs. Quality Stroke Does the patient have a stroke diagnosis?: No VTE Prior VTE?: No VTE Risk Level:: Medical - moderate - high VTE Device Contraindication: Treatment Not Indicated VTE Drug Contraindication: N/A - Med Ordered
[2024-04-06] MEDS: Heparin Sodium,Porcine/1/2NS 25,000 UNIT/250 ML IV.SOLN 10 UNIT IVCONT (20:44)
[2024-04-06 21:57] LABS: Partial Thromboplastin Time 27.9 SEC (26.0-36.8)
[2024-04-06 22:15] LABS: Glucose, Whole Blood 133 mg/dL (60-115)
--- NOTE | 2024-04-06 22:17 | PHA.MEDREC ---
Addendum entered by Miguel Wade, formerly [facility] 04/06/24 22:26: med rec reviewed Original Note: Pharmacy Consult ? Medication Reconciliation Pharmacy has completed the medication reconciliation. Spoke with patient and she confirmed her medications. She confirmed she is taking the Amoxicillin 500mg tabs BID and stated she is on Day 2 of taking that medication. She confirmed the Monjaro 5 mg/0.5 mL injection once a week and confirmed she takes it on Fridays and confirmed she took it this morning. She has a bottle of Losartan 25mg tabs in her purse that she still states she is taking once daily and looking at the Rx bottle the label is pretty worn and I couldn't get a clear fill date but looking in claims the Losartan 25mg tabs have not been filled since June 2023. She confirmed she took her medications this morning.
[2024-04-07] VITALS: BP 156/75; PULSE 85; RESP 16; TEMP 36.4; O2SAT 96
--- NOTE | 2024-04-07 | CA_ITS ---
Acquisition Time: 2024-04-09 10:57:03 Total Exercise Time: 00:07:10 Test Indications: Medications: Protocol: KELLI Max HR: 155 BPM 85% of Pred: 182 BPM Max BP: 210/70 mmHG Max Work Load: 8.8 METS Exercise Stress Test with exercise 7 mins 10 secs of Kelli Protocol, achieving 85% MPHR, with reports of moderate SOB, no chest discomfort, without any arrythmias, with baseline BP at 144/90 that went up to 210/70 with exercise. Without EKG changes meeting criteria for ischemia. In recovery, breathing and BP returned to baseline. Nuclear images pending. Test reviewed with Dr. Harkins. Referred By: Nelson Blackwell Electronically Signed By: Maikel Gaona
[2024-04-07 00:02] VITALS: BMI 43.1
[2024-04-07 03:22] LABS: MANUAL DIFF FLAG NO
[2024-04-07 03:24] LABS: Basophils Absolute Auto 0.1 X10*3/uL (0.0-0.2); Basophils Percent Auto 0.7 % (0-2); Eosinophils Absolute Auto 0.2 X10*3/uL (0.0-0.4); Eosinophils Percent Auto 2.2 % (0-4); Hematocrit 33.3 % (37.0-47.0); Hemoglobin 10.8 g/dl (12.0-16.0); Imm Gran Abs Auto 0.02 X10*3/uL (0.00-0.03); Imm Gran Pct Auto 0.3 % (0.0-0.4); Lymphocytes Absolute Auto 3.3 X10*3/uL (1.2-4.9); Lymphocytes Percent Auto 44.9 % (20-40); Mean Corpuscular HGB Conc 32.4 g/dl (31.0-35.0); Mean Corpuscular Hemoglobin 28.7 pg (27.0-33.0); Mean Corpuscular Volume 88.6 fL (80.0-98.0); Monocytes Absolute Auto 0.4 X10*3/uL (0.1-1.2); Monocytes Percent Auto 5.9 % (2-11); Neutrophils Absolute Auto 3.4 x10*3/uL (2.0-8.3); Platelet Count 305 X10*3/uL (160-400); Red Blood Count 3.76 X10*6/uL (4.20-5.50); White Blood Count 7.4 X10*3/uL (4.8-10.8)
[2024-04-07 03:33] LABS: PTT Heparin Drip 27.7 SEC (53-77.9)
[2024-04-07 03:37] VITALS: BP 141/79; PULSE 83; RESP 16; TEMP 36.5; O2SAT 97
[2024-04-07 03:39] LABS: Anion Gap 11 (12-20); Blood Urea Nitrogen 13 mg/dL (9-16); Calcium 8.9 mg/dL (8.4-10.2); Carbon Dioxide 24 mmol/L (22-29); Chloride 109 mmol/L (96-108); Creatinine Clr Calc Pharmacy 140.4; Estimated Glomerular Filt Rate > 60; Glucose Random 188 mg/dL (60-115); Potassium 3.6 mmol/L (3.3-5.1); Sodium 140 mmol/L (135-145)
[2024-04-07] MEDS: Butalb/Acetamin/Caff 50/325/40 TABLET 1 TAB PO (04:03)
[2024-04-07] MEDS: Heparin Sodium,Porcine 5,000 UNIT/ML VIAL 10000 UNIT IVPUSH (04:52)
[2024-04-07] MEDS: Acetaminophen 1,000 MG/100 ML PIGGYBACK 400 MG IV (05:36)
[2024-04-07] MEDS: Ketorolac Tromethamine 30 MG/ML VIAL IVPUSH (05:36)
--- NOTE | 2024-04-07 06:00 | CA_ITS ---
Transthoracic Echocardiogram Patient (Last, First, Middle): Susan Das R Gender: Female Date of : 1985 Age: 38 Procedure Date: 04/07/2024 Procedure Type: Transthoracic Echocardiogram Location: [facility] Height: 172. cm Weight: 128.37 kg BSA: 2.36 m2 Heart Rate: 87 bpm BP: 142 / 75 mmHg Replenishment Buyer: VARUN Referring MD: Genie Campbell MD Symptoms: NSTEMI Study Quality: Adequate w/Contrast ECG Rhythm: Sinus Conclusions: - The left ventricular systolic function is normal. The visually estimated ejection fraction is between 65-70%. - Possible basal inferior wall hypokinesis. - There is moderate septal asymmetric hypertrophy. - No obvious valvular pathology seen on this study. Findings Procedure Information Contrast agent, definity, is being given per protocol without apparent complications. Left Ventricle Normal left ventricular cavity size. There is mildly increased left ventricular wall thickness. The left ventricular systolic function is normal. The visually estimated ejection fraction is between 65-70%. There is moderate septal asymmetric hypertrophy. Possible basal inferior wall hypokinesis. Wall Motion Rest Echo Findings The basal inferior segment is hypokinetic. Right Ventricle Normal right ventricular cavity size and systolic function. Atria Both atria are normal in size. Aortic Valve There is a normal trileaflet aortic valve. There is no aortic valve stenosis. There is no aortic valve regurgitation. Mitral Valve The mitral valve appears normal. There is trace mitral valve regurgitation. There is no mitral valve stenosis. Pulmonic Valve The pulmonic valve is likely normal. Tricuspid Valve Normal tricuspid valve structure. There is no tricuspid valve regurgitation. Tricuspid regurgitation envelope is inadequate for calculation of right ventricular systolic pressure. Great Vessels The asc aorta and aortic arch are normal in size. Venous The inferior vena cava is normal in size and collapses greater than 50% with inspiration. Pericardium/Pleural There is no evidence of pericardial effusion. Prior Study Comparison No prior study available for comparison. Recommendations, Care & Conclusions No obvious valvular pathology seen on this study. Measurements 2D Linear Measurements IVSd: 1.45 0.6-0.9/0.6-1.0 cm LVIDd: 4.76 3.9-5.3/4.2-5.9 cm LVIDd Index: 2.02 2.4-3.2/2.2-3.1 cm/m2 LVIDs: 2.48 2.0-3.6 cm LVPWd: 1.23 0.7-1.1 cm LA Diam: 4.30 2.7-3.8/3.0-4.0 cm LAIDs Index: 1.82 1.5-2.3 cm/m2 LV Mass: 316.14 67-162/88-224 g LV Mass Index: 133.96 43-95/49-115 g/m2 LVOT Diam: 2.10 3.0+(-)1.3 cm 2D Systolic Function EF 4C: 67.80 >55% EF 2C: 54.60 >55% EF BiP: 62.40 >55% Mitral Valve MV Pk E: 1.12 MV PK A: 0.90 MV Decel Time: 153.00 E/A: 1.20 E'Lateral: 6.31 E'Medial: 5.87 E/E' Med: 19.10 E/E' Lat: 17.70 PHT: 45.00 MVA PHT: 4.89 Decel Clinch: 7.35 Aortic Valve AoV Pk Marcus: 1.69 AoV Mn Marcus: 1.23 AoV VTI: 0.35 AoV Pk Grad: 11.00 Aov Mn Grad: 7.00 MJ Cont.VTI: 2.58 LVOT LVOT Pk Macrus: 1.41 LVOT Mn Marcus: 1.04 LVOT VTI: 0.26 LVOT Pk Grad: 8.00 LVOT Mn Grad: 5.00 LVOT Diam: 2.10 LVOT Area: 3.46 Diastolic Function MV Pk E: 1.12 MV Pk A: 0.90 E/A: 1.20 E'Medial: 5.87 E/E' Med: 19.10 E' Laterial: 6.31 E/E' Lat: 17.70 Right Ventricle TAPSE (mm): 30.60 TVS' Marcus: 14.80 Tricuspid Valve RA Press: 8.00 Great Vessels Aorta Sinus of Valsalva: 3.30 2.0-3.5 cm Ao Asc: 3.30 2.1-3.4 cm Ao Arch: 2.20 Pulmonary Valve PV Pk Marcus: 1.21 Peak PV Grad: 6.00 Updated in Other Vendor System with Status of Final Nelson Blackwell MD electronically signed on 04/07/2024 2:41:56 PM with status of Final
[2024-04-07 06:25] LABS: Prothrombin Time 11.5 SEC (10.9-12.4)
[2024-04-07 07:03] VITALS: BP 141/80; PULSE 87; RESP 18; TEMP 36.4; O2SAT 93
[2024-04-07 07:10] LABS: Glucose, Whole Blood 150 mg/dL (60-115)
[2024-04-07] MEDS: Aspirin Enteric Coated 81 MG TABLET.DR PO (08:45)
[2024-04-07] MEDS: Losartan Potassium 25 MG TABLET PO (08:45)
--- NOTE | 2024-04-07 10:09 | PM.CNCAR ---
History of Present Illness History of Present Illness Date of Service: 04/07/24 Chief complaint: CP, headache, BP high Narrative: This is a cardiology consultation regarding uncontrolled blood pressure, elevated troponins. Patient states that she does not have any known coronary disease or myocardial infarction or cardiomyopathy or in fact any other cardiac issues. She has high blood pressure but she states it was never this high. She was apparently at a dentist when her blood pressure was told to be almost at 200 mm Hg and she was sent to the emergency room. Previously, she was having some headaches off and on which could be indeed from high blood pressure. Otherwise, she gets some sharp chest pains which are nonspecific but could be related to again high blood pressure. However, she does not have any exertional angina. Currently, she states she feels fine. She is not having any chest pains. Troponins were elevated when she arrived and hence she is admitted. Review of Systems Review of Systems: Yes all other systems are reviewed and are negative Constitutional: Constitutional: Reports as per HPI and Reports no additional constitutional complaints Eyes: Eyes: Reports as per HPI and Denies no additional eye complaints ENT: Denies system reviewed and no additional complaints, except as documented and Reports as per HPI Cardiovascular: Cardiovascular: Reports as per HPI, Reports no additional cardiovascular complaints, Denies acrocyanosis, Denies cool extremities, Denies chest pain, Denies leg edema, Denies lightheadedness, Denies palpitations and Denies dyspnea Respiratory: Respiratory: Reports as per HPI, Denies no additional respiratory complaints and Denies dyspnea Gastrointestinal: Gastrointestinal: Reports as per HPI and Denies no additional gastrointestinal complaints Genitourinary: Genitourinary: Reports as per HPI Musculoskeletal: Musculoskeletal: Reports no additional musculoskeletal complaints and Reports as per HPI Integumentary/Breasts: Skin/Breast: Reports system reviewed and no additional complaints, except as docu Neurologic: Reports system reviewed and no additional complaints, except as documented and Reports as per HPI Psychiatric: Psychiatric: Reports no additional psychiatric complaints and Reports as per HPI Endocrine: Endocrine: Reports no additional endocrine complaints, Reports as per HPI and Denies palpitations Hematologic/Lymphatic: Hematologic/Lymphatic: Reports no additional hematologic/lymphatic complaints and Reports as per HPI Allergic/Immunologic: Allergic/Immunologic: Reports no additional allergic/immunologic complaints and Reports as per HPI [facility] Past Medical History Medical History (Updated 01/11/25 @ 10:12 by Nelson Blackwell MD) Preeclampsia HTN (hypertension) Family History Family History Father No problems noted. Mother No problems noted. Social History Social History Household Members: Children Housing: Apartment Do you presently have visiting nurse or other home services: No Patient Tobacco Use Status: Current everyday Tobacco user Tobacco use type: Cigarette Smoked in Last 30 Days: Yes e-Cigarette/Vaping Use: Never Used Patient Interested in Nicotine Replacement: No Patient Given Instructions on How to Stop Smoking: Yes Date Education Initiated: 04/07/24 Second Hand Smoke Exposure: No Use of substances other than those prescribed or required for medical reasons: No Substance Use Type: Marijuana Last Used Substance: Weeks (ago) Currently Displaying Signs/Symptoms of Drug Intoxication Withdrawal: No Any prior treatment program specific to substance use: No Have you been hit, kicked, punched, or otherwise hurt by someone within the past year? If so, by whom?: No Do you feel safe in your current relationship?: No Current Relationship Is there a partner from a previous relationship who is making you feel unsafe now?: No [facility] Practices: religion Advance Directives: No Advance Directives Information Provided: No Advance Directives on File: No Do you have a plan to hurt others: No Plan Recently lost weight without trying: No How much weight loss: Not applicable Eating poorly because of decreased appetite: No Nutrition screen score: 0 Nutrition Risks: No Nutritional Risk Patient : No : No Poor oral hygiene: No Meds Allergies Allergy/AdvReac Type Severity Reaction Status Date / Time latex [LATEX] Allergy Unknown HIVES Verified 04/06/24 16:57 bee pollen [bee stings] Allergy Hives Verified 04/06/24 16:57 Active Medications: Current Medications Acetaminophen (Acetaminophen 325 Mg Tablet) 975 mg PO Q6H PRN PRN Reason: Pain, Mild 1-3,fever,headache Acetaminophen/Butalbital/Caffeine (Butalb/Acetamin/Caff 50/325/40 Tablet) 1 tab PO Q4H PRN PRN Reason: Headache Last Admin: 04/07/24 04:03 Dose: 1 tab Aspirin (Aspirin Enteric Coated 81 Mg Tablet.) 81 mg PO DAILY KEVIN Last Admin: 04/07/24 08:45 Dose: 81 mg Glucose (Glucose Gel 15 Gm Gel..Gram.) 15 gm PO Q15M PRN; Protocol PRN Reason: per Hypoglycemia Standing Ord. Heparin Sodium (Porcine) (Heparin Sodium,Porcine 5,000 Unit/Ml Vial) 5,100 unit 40 unit/kg (5100 unit) IVPUSH PROTOCOL BOLUS PRN; Protocol PRN Reason: 40 unit/kg - Heparin Protocol Heparin Sodium (Porcine) (Heparin Sodium,Porcine 5,000 Unit/Ml Vial) 10,000 unit IVPUSH PROTOCOL BOLUS PRN; Protocol PRN Reason: 80 unit/kg - Heparin Protocol Last Admin: 04/07/24 04:52 Dose: 10,000 unit Heparin Sodium/Sodium Chloride (Heparin Sodium,Porcine/1/2ns) 25,000 unit in 250 mls @ 0 mls/hr IVCONT .Q0M [facility]; Protocol Last Titration: 04/07/24 04:56 Dose: 11.77 units/kg/hr, 15.15 mls/hr Dextrose (D10) 250 mls @ 750 mls/hr IV Q15M PRN; Protocol PRN Reason: per Hypoglycemia Standing Ord. Insulin Human Lispro (Insulin Lispro 100 Unit/Ml 3 Ml Vial) 0 unit SUBCUT QIDACHS [facility]; Protocol Last Admin: 04/07/24 07:18 Dose: Not Given Losartan Potassium (Losartan Potassium 25 Mg Tablet) 25 mg PO DAILY [facility]; Protocol Last Admin: 04/07/24 08:45 Dose: 25 mg Melatonin (Melatonin 3 Mg Tablet) 6 mg PO BEDTIME PRN PRN Reason: Insomnia Non-Formulary Medication (Amoxicillin) 500 mg PO BID [facility] Sodium Chloride (0.9 % Sodium Chloride Flush 3 Ml Syringe) 3 ml IVFLUSH QSHIFT [facility] Last Admin: 04/07/24 07:52 Dose: Not Given Home Medications ?Medication ?Instructions ?Recorded ?Confirmed ?Last Taken ?Type ibuprofen 800 mg tablet 800 mg PO Q6H PRN Pain 04/06/24 04/06/24 Unknown History losartan 25 mg tablet 25 mg PO DAILY 04/06/24 04/06/24 04/06/24 History tirzepatide 5 mg/0.5 mL 5 mg subcut FR 04/06/24 04/06/24 04/06/24 History subcutaneous pen injector (Lu) Physical Exam Vital Signs: Vital Signs: Last Vital Signs Temp 97.6 F 04/07/24 07:03 Pulse 87 04/07/24 07:03 Resp 18 04/07/24 07:03 BP 141/80 H 04/07/24 07:03 Pulse Ox 93 04/07/24 07:03 O2 Del Method Room Air 04/07/24 07:03 BMI result Body Mass Index 43.1 Const: General: comfortable and no acute distress Orientation/consciousness: patient oriented x3 HEENT: Other: Unremarkable Head: Yes normal to inspection Neck: Neck: Yes normal visual inspection Chest: Chest palpation & inspection: normal inspection of the chest Resp: Auscultation: clear to auscultation bilaterally Cardio: Palpation: normal PMI Heart sounds: S1 normal heart sound present, S2 normal heart sound present, no gallops, no murmurs and no rubs GI: Palpation (GI): Soft to palpation Back/Spine/Pelvis: Other: unremarkable Skin: General skin exam: no rashes or lesions noted Neuro: General: patient oriented x3 Extrem: General: Yes normal to inspection Psych: Mental Status: mental status grossly normal Objective Labs and Meds 04/07/24 03:08 04/07/24 03:08 Lab results: Laboratory Results - last 24 hr 04/06/24 04/06/24 04/06/24 17:05 18:57 22:07 WBC 7.9 RBC 3.88 L Hgb 11.0 L Hct 34.7 L MCV 89.4 MCH 28.4 MCHC 31.7 RDW 15.0 Plt Count 332 MPV 9.7 Immature Gran % (Auto) 0.3 Neut % (Auto) 54.6 Lymph % (Auto) 35.7 [place] % (Auto) 7.1 Eos % (Auto) 1.9 Baso % (Auto) 0.4 Lymph # (Auto) 2.8 [place] # (Auto) 0.6 Eos # (Auto) 0.2 Baso # (Auto) 0.0 Abs Immat Gran (auto) 0.02 Absolute Neuts (auto) 4.3 Absolute Nucleated RBC 0.000 Nucleated RBC % (auto) 0.0 Hold Purple Top PT 10.9 INR 0.9 APTT 27.9 aPTT Heparin Protocol Sodium 142 Potassium 3.6 Chloride 109 H Carbon Dioxide 28 Anion Gap 9 L BUN 12 Creatinine 0.78 Estim Creat Clear Calc 141.2 Estimated GFR > 60 POC Glucose 133 H Random Glucose 180 H Calcium 8.8 Magnesium 1.9 Total Bilirubin 0.1 AST 21 ALT 26 Alkaline Phosphatase 77 Troponin I High Sens 233.4 H* 253.6 H* B-Natriuretic Peptide 10 Total Protein 6.8 Albumin 3.9 Beta HCG, Quant < 2 04/07/24 04/07/24 04/07/24 03:08 05:48 07:02 WBC 7.4 RBC 3.76 L Hgb 10.8 L Hct 33.3 L MCV 88.6 MCH 28.7 MCHC 32.4 RDW 15.0 Plt Count 305 MPV 10.0 Immature Gran % (Auto) 0.3 Neut % (Auto) 46.0 Lymph % (Auto) 44.9 H [place] % (Auto) 5.9 Eos % (Auto) 2.2 Baso % (Auto) 0.7 Lymph # (Auto) 3.3 [place] # (Auto) 0.4 Eos # (Auto) 0.2 Baso # (Auto) 0.1 Abs Immat Gran (auto) 0.02 Absolute Neuts (auto) 3.4 Absolute Nucleated RBC 0.000 Nucleated RBC % (auto) 0.0 Hold Purple Top SEE NOTE PT 11.5 INR 1.0 APTT aPTT Heparin Protocol 27.7 L Sodium 140 Potassium 3.6 Chloride 109 H Carbon Dioxide 24 Anion Gap 11 L BUN 13 Creatinine 0.77 Estim Creat Clear Calc 140.4 Estimated GFR > 60 POC Glucose 150 H Random Glucose 188 H Calcium 8.9 Magnesium Total Bilirubin AST ALT Alkaline Phosphatase Troponin I High Sens B-Natriuretic Peptide Total Protein Albumin Beta HCG, Quant ECG Interpretation: EKGs suggestive of underlying sinus rhythm at 94/Min; suspect left ventricular hypertrophy with lateral T inversions. Less likely ischemia but cannot exclude. No previous EKGs. Assessment and Plan (1) NSTEMI (non-ST elevated myocardial infarction): Status: Acute Likely type 2, demand related. Keep her on heparin drip for 48 hours. Continue aspirin. Add carvedilol 6.25 b.i.d.. Echocardiogram. Ischemia workup to be decided based on echocardiographic findings. (2) Hypertensive emergency: Status: Acute At home she only takes losartan 25 mg daily. We can increase that to 50 mg daily. Carvedilol as above. May need further changes depending on blood pressure trend. To be decided. Blood pressure was as much as 225/123 mmHg upon arrival. Currently, 141/80 mm Hg. Procedures Date of Service Date of Service: 04/07/24
[2024-04-07 10:56] LABS: Glucose, Whole Blood 158 mg/dL (60-115)
[2024-04-07 11:07] VITALS: BP 142/75; PULSE 83; RESP 18; TEMP 36.7; O2SAT 97
[2024-04-07 11:28] LABS: PTT Heparin Drip 63.6 SEC (53-77.9)
[2024-04-07] MEDS: Insulin Lispro 100 UNIT/ML 3 ML VIAL SUBCUT ×2 (11:49→16:43)
[2024-04-07] MEDS: carvediloL 6.25 MG TABLET PO ×2 (11:49→20:55)
[2024-04-07] MEDS: Amoxicillin 500 MG CAPSULE PO ×2 (14:20→20:55)
--- NOTE | 2024-04-07 14:46 | P.PNIM_ITS ---
Subjective Subjective Date of Service: 04/07/24 Interval History: Seen and examined this morning Follow-up for chest pain, high blood pressure no chest pain now, no sob; RODAS resolved Review of Systems Review of Systems: Yes all other systems are reviewed and are negative Constitutional Constitutional: Denies chills and Denies fever(s) Cardiovascular Cardiovascular: Denies chest pain, Denies palpitations and Denies dyspnea Respiratory Respiratory: Denies cough and Denies dyspnea Gastrointestinal Gastrointestinal: Denies abdominal pain Endocrine Endocrine: Denies palpitations Physical Exam 2 Vital Signs: Vital Signs: Last Vital Signs Temp 98.1 F 04/07/24 11:07 Pulse 83 04/07/24 11:07 Resp 18 04/07/24 11:07 BP 142/75 H 04/07/24 11:07 Pulse Ox 97 04/07/24 11:07 O2 Del Method Room Air 04/07/24 11:07 BMI result Body Mass Index 43.1 Const: General: cooperative, comfortable, no acute distress, alert and awake Nutritional Appearance: obese Orientation/consciousness: patient oriented x3 Resp: Effort & Inspection: normal respiratory effort, able to speak in complete sentences, no respiratory distress and no use of accessory muscles Cardio: Rate: regular rate GI: Inspection: No distended Palpation (GI): Soft to palpation Neuro: General: patient oriented x3, moves all extremities and CN's II-XI intact bilaterally Extrem: General: Yes no pedal edema Objective Data Active Medications Acetaminophen (Acetaminophen 325 Mg Tablet) 975 mg PO Q6H PRN PRN Reason: Pain, Mild 1-3,fever,headache Acetaminophen/Butalbital/Caffeine (Butalb/Acetamin/Caff 50/325/40 Tablet) 1 tab PO Q4H PRN PRN Reason: Headache Last Admin: 04/07/24 04:03 Dose: 1 tab Documented By: ROSAURA Amoxicillin (Amoxicillin 500 Mg Capsule) 500 mg PO TID [facility] Stop: 04/12/24 09:01 Last Admin: 04/07/24 14:20 Dose: 500 mg Documented By: JAMIL Aspirin (Aspirin Enteric Coated 81 Mg Tablet.) 81 mg PO DAILY [facility] Last Admin: 04/07/24 08:45 Dose: 81 mg Documented By: JAMIL Carvedilol (Carvedilol 6.25 Mg Tablet) 6.25 mg PO BID [facility]; Protocol Last Admin: 04/07/24 11:49 Dose: 6.25 mg Documented By: JAMIL Glucose (Glucose Gel 15 Gm Gel..Gram.) 15 gm PO Q15M PRN; Protocol PRN Reason: per Hypoglycemia Standing Ord. Heparin Sodium (Porcine) (Heparin Sodium,Porcine 5,000 Unit/Ml Vial) 5,100 unit 40 unit/kg (5100 unit) IVPUSH PROTOCOL BOLUS PRN; Protocol PRN Reason: 40 unit/kg - Heparin Protocol Heparin Sodium (Porcine) (Heparin Sodium,Porcine 5,000 Unit/Ml Vial) 10,000 unit IVPUSH PROTOCOL BOLUS PRN; Protocol PRN Reason: 80 unit/kg - Heparin Protocol Last Admin: 04/07/24 04:52 Dose: 10,000 unit Documented By: ROSAURA Heparin Sodium/Sodium Chloride (Heparin Sodium,Porcine/1/2ns) 25,000 unit in 250 mls @ 0 mls/hr IVCONT .Q0M [facility]; Protocol Last Titration: 04/07/24 11:40 Dose: 11.77 units/kg/hr, 15.15 mls/hr Documented By: JAMIL Co-signed By: JOSIAS Dextrose (D10) 250 mls @ 750 mls/hr IV Q15M PRN; Protocol PRN Reason: per Hypoglycemia Standing Ord. Insulin Human Lispro (Insulin Lispro 100 Unit/Ml 3 Ml Vial) 0 unit SUBCUT QIDACHS [facility]; Protocol Last Admin: 04/07/24 11:49 Dose: 2 unit Documented By: JAMIL Losartan Potassium (Losartan Potassium 50 Mg Tablet) 50 mg PO DAILY [facility]; Protocol Melatonin (Melatonin 3 Mg Tablet) 6 mg PO BEDTIME PRN PRN Reason: Insomnia Sodium Chloride (0.9 % Sodium Chloride Flush 3 Ml Syringe) [facility] Last Admin: 04/07/24 14:07 Dose: Not Given Documented By: JAMIL Non-Admin Reason: IV Running Labs 04/07/24 03:08 04/07/24 03:08 Labs: Laboratory Results - last 24 hr 04/06/24 04/06/24 04/06/24 17:05 18:57 22:07 MCV 89.4 MCH 28.4 MCHC 31.7 RDW 15.0 Plt Count 332 MPV 9.7 Immature Gran % (Auto) 0.3 Neut % (Auto) 54.6 Lymph % (Auto) 35.7 [place] % (Auto) 7.1 Eos % (Auto) 1.9 Baso % (Auto) 0.4 Lymph # (Auto) 2.8 [place] # (Auto) 0.6 Eos # (Auto) 0.2 Baso # (Auto) 0.0 Abs Immat Gran (auto) 0.02 Absolute Neuts (auto) 4.3 Absolute Nucleated RBC 0.000 Nucleated RBC % (auto) 0.0 Hold Purple Top PT 10.9 INR 0.9 APTT 27.9 aPTT Heparin Protocol Anion Gap 9 L Estim Creat Clear Calc 141.2 Estimated GFR > 60 POC Glucose 133 H Random Glucose 180 H Calcium 8.8 Magnesium 1.9 Total Bilirubin 0.1 AST 21 ALT 26 Alkaline Phosphatase 77 Troponin I High Sens 233.4 H* 253.6 H* B-Natriuretic Peptide 10 Total Protein 6.8 Albumin 3.9 Beta HCG, Quant < 2 04/07/24 04/07/24 04/07/24 03:08 05:48 07:02 MCV 88.6 MCH 28.7 MCHC 32.4 RDW 15.0 Plt Count 305 MPV 10.0 Immature Gran % (Auto) 0.3 Neut % (Auto) 46.0 Lymph % (Auto) 44.9 H [place] % (Auto) 5.9 Eos % (Auto) 2.2 Baso % (Auto) 0.7 Lymph # (Auto) 3.3 [place] # (Auto) 0.4 Eos # (Auto) 0.2 Baso # (Auto) 0.1 Abs Immat Gran (auto) 0.02 Absolute Neuts (auto) 3.4 Absolute Nucleated RBC 0.000 Nucleated RBC % (auto) 0.0 Hold Purple Top SEE NOTE PT 11.5 INR 1.0 APTT aPTT Heparin Protocol 27.7 L Anion Gap 11 L Estim Creat Clear Calc 140.4 Estimated GFR > 60 POC Glucose 150 H Random Glucose 188 H Calcium 8.9 Magnesium Total Bilirubin AST ALT Alkaline Phosphatase Troponin I High Sens B-Natriuretic Peptide Total Protein Albumin Beta HCG, Quant 04/07/24 04/07/24 10:30 10:48 MCV MCH MCHC RDW Plt Count MPV Immature Gran % (Auto) Neut % (Auto) Lymph % (Auto) [place] % (Auto) Eos % (Auto) Baso % (Auto) Lymph # (Auto) [place] # (Auto) Eos # (Auto) Baso # (Auto) Abs Immat Gran (auto) Absolute Neuts (auto) Absolute Nucleated RBC Nucleated RBC % (auto) Hold Purple Top PT INR APTT aPTT Heparin Protocol 63.6 D Anion Gap Estim Creat Clear Calc Estimated GFR POC Glucose 158 H Random Glucose Calcium Magnesium Total Bilirubin AST ALT Alkaline Phosphatase Troponin I High Sens B-Natriuretic Peptide Total Protein Albumin Beta HCG, Quant Assessment and Plan (1) Hypertensive emergency: Status: Acute (2) NSTEMI (non-ST elevated myocardial infarction): Status: Acute Plan Pt is a 38-year-old female with a PMH significant for?HTN, [id number] type 2 diabetes, and hx of pre-eclampia who presents to the ED from dental appointment for evaluation of high blood pressure. Pt will be admitted to the hospital for treatment and further evaluation of elevated troponins and atypical chest pain radiating to neck concerning for NSTEMI. NSTEMI possibly type 2 due to demand elevated trops 233.4, 253.6 with intermittent chest pain and EKG changes Echocardiogram pending seen by cardiology, plan for stress test tuesday continue aspirin start coreg, increase dose of losartan Hypertension Poorly controlled BP as high as 225/123 in the ED increase losartan, start coreg follow bp closely [id number] type 2 diabetes Sliding-scale insulin Diabetic diet Dental caries Continue amoxicillin morbid obesity BMI 43.1 weight loss encouraged Full Code DVT Prophylaxis: heparin drip Patient requires ongoing inpatient stay for management of NSTEMI requiring heparin drip, specialist evaluation and stress test Quality Stroke Does the patient have a stroke diagnosis?: No VTE Prior VTE?: No VTE Risk Level:: Medical - moderate - high VTE Device Contraindication: Treatment Not Indicated VTE Drug Contraindication: N/A - Med Ordered
--- NOTE | 2024-04-07 14:55 | HO.PM.IMPN ---
Subjective Subjective Date of Service: 04/07/24 Interval History: seen and examined this morning follow up for chest pain Physical Exam Vital Signs: Vital Signs: Last Vital Signs Temp 98.1 F 04/07/24 11:07 Pulse 83 04/07/24 11:07 Resp 18 04/07/24 11:07 BP 142/75 H 04/07/24 11:07 Pulse Ox 97 04/07/24 11:07 O2 Del Method Room Air 04/07/24 11:07 BMI result Body Mass Index 43.1 Objective Data Active Medications Acetaminophen (Acetaminophen 325 Mg Tablet) 975 mg PO Q6H PRN PRN Reason: Pain, Mild 1-3,fever,headache Acetaminophen/Butalbital/Caffeine (Butalb/Acetamin/Caff 50/325/40 Tablet) 1 tab PO Q4H PRN PRN Reason: Headache Last Admin: 04/07/24 04:03 Dose: 1 tab Documented By: ROSAURA Amoxicillin (Amoxicillin 500 Mg Capsule) 500 mg PO TID [facility] Stop: 04/12/24 09:01 Last Admin: 04/07/24 14:20 Dose: 500 mg Documented By: JAMIL Aspirin (Aspirin Enteric Coated 81 Mg Tablet.) 81 mg PO DAILY [facility] Last Admin: 04/07/24 08:45 Dose: 81 mg Documented By: JAMIL Carvedilol (Carvedilol 6.25 Mg Tablet) 6.25 mg PO BID [facility]; Protocol Last Admin: 04/07/24 11:49 Dose: 6.25 mg Documented By: JAMIL Glucose (Glucose Gel 15 Gm Gel..Gram.) 15 gm PO Q15M PRN; Protocol PRN Reason: per Hypoglycemia Standing Ord. Heparin Sodium (Porcine) (Heparin Sodium,Porcine 5,000 Unit/Ml Vial) 5,100 unit 40 unit/kg (5100 unit) IVPUSH PROTOCOL BOLUS PRN; Protocol PRN Reason: 40 unit/kg - Heparin Protocol Heparin Sodium (Porcine) (Heparin Sodium,Porcine 5,000 Unit/Ml Vial) 10,000 unit IVPUSH PROTOCOL BOLUS PRN; Protocol PRN Reason: 80 unit/kg - Heparin Protocol Last Admin: 04/07/24 04:52 Dose: 10,000 unit Documented By: ROSAURA Heparin Sodium/Sodium Chloride (Heparin Sodium,Porcine/1/2ns) 25,000 unit in 250 mls @ 0 mls/hr IVCONT .Q0M [facility]; Protocol Last Titration: 04/07/24 11:40 Dose: 11.77 units/kg/hr, 15.15 mls/hr Documented By: JAMIL Co-signed By: JOSIAS Dextrose (D10) 250 mls @ 750 mls/hr IV Q15M PRN; Protocol PRN Reason: per Hypoglycemia Standing Ord. Insulin Human Lispro (Insulin Lispro 100 Unit/Ml 3 Ml Vial) 0 unit SUBCUT QIDACHS [facility]; Protocol Last Admin: 04/07/24 11:49 Dose: 2 unit Documented By: JAMIL Losartan Potassium (Losartan Potassium 50 Mg Tablet) 50 mg PO DAILY [facility]; Protocol Melatonin (Melatonin 3 Mg Tablet) 6 mg PO BEDTIME PRN PRN Reason: Insomnia Sodium Chloride (0.9 % Sodium Chloride Flush 3 Ml Syringe) 3 ml IVFLUSH QSHIFT [facility] Last Admin: 04/07/24 14:07 Dose: Not Given Documented By: JAMIL Non-Admin Reason: IV Running Labs 04/07/24 03:08 04/07/24 03:08 Labs: Laboratory Results - last 24 hr 04/06/24 04/06/24 04/06/24 17:05 18:57 22:07 MCV 89.4 MCH 28.4 MCHC 31.7 RDW 15.0 Plt Count 332 MPV 9.7 Immature Gran % (Auto) 0.3 Neut % (Auto) 54.6 Lymph % (Auto) 35.7 Barber % (Auto) 7.1 Eos % (Auto) 1.9 Baso % (Auto) 0.4 Lymph # (Auto) 2.8 Barber # (Auto) 0.6 Eos # (Auto) 0.2 Baso # (Auto) 0.0 Abs Immat Gran (auto) 0.02 Absolute Neuts (auto) 4.3 Absolute Nucleated RBC 0.000 Nucleated RBC % (auto) 0.0 Hold Purple Top PT 10.9 INR 0.9 APTT 27.9 aPTT Heparin Protocol Anion Gap 9 L Estim Creat Clear Calc 141.2 Estimated GFR > 60 POC Glucose 133 H Random Glucose 180 H Calcium 8.8 Magnesium 1.9 Total Bilirubin 0.1 AST 21 ALT 26 Alkaline Phosphatase 77 Troponin I High Sens 233.4 H* 253.6 H* B-Natriuretic Peptide 10 Total Protein 6.8 Albumin 3.9 Beta HCG, Quant < 2 04/07/24 04/07/24 04/07/24 03:08 05:48 07:02 MCV 88.6 MCH 28.7 MCHC 32.4 RDW 15.0 Plt Count 305 MPV 10.0 Immature Gran % (Auto) 0.3 Neut % (Auto) 46.0 Lymph % (Auto) 44.9 H Barber % (Auto) 5.9 Eos % (Auto) 2.2 Baso % (Auto) 0.7 Lymph # (Auto) 3.3 Barber # (Auto) 0.4 Eos # (Auto) 0.2 Baso # (Auto) 0.1 Abs Immat Gran (auto) 0.02 Absolute Neuts (auto) 3.4 Absolute Nucleated RBC 0.000 Nucleated RBC % (auto) 0.0 Hold Purple Top SEE NOTE PT 11.5 INR 1.0 APTT aPTT Heparin Protocol 27.7 L Anion Gap 11 L Estim Creat Clear Calc 140.4 Estimated GFR > 60 POC Glucose 150 H Random Glucose 188 H Calcium 8.9 Magnesium Total Bilirubin AST ALT Alkaline Phosphatase Troponin I High Sens B-Natriuretic Peptide Total Protein Albumin Beta HCG, Quant 04/07/24 04/07/24 10:30 10:48 MCV MCH MCHC RDW Plt Count MPV Immature Gran % (Auto) Neut % (Auto) Lymph % (Auto) Barber % (Auto) Eos % (Auto) Baso % (Auto) Lymph # (Auto) Barber # (Auto) Eos # (Auto) Baso # (Auto) Abs Immat Gran (auto) Absolute Neuts (auto) Absolute Nucleated RBC Nucleated RBC % (auto) Hold Purple Top PT INR APTT aPTT Heparin Protocol 63.6 D Anion Gap Estim Creat Clear Calc Estimated GFR POC Glucose 158 H Random Glucose Calcium Magnesium Total Bilirubin AST ALT Alkaline Phosphatase Troponin I High Sens B-Natriuretic Peptide Total Protein Albumin Beta HCG, Quant Quality Stroke Does the patient have a stroke diagnosis?: No VTE Prior VTE?: No VTE Risk Level:: Medical - moderate - high VTE Device Contraindication: Treatment Not Indicated VTE Drug Contraindication: N/A - Med Ordered
[2024-04-07 15:27] VITALS: BP 133/76; PULSE 91; RESP 18; TEMP 36.3; O2SAT 97
[2024-04-07] MEDS: Heparin Sodium,Porcine/1/2NS 25,000 UNIT/250 ML IV.SOLN 15.15 UNIT IVCONT (16:17)
[2024-04-07 16:38] LABS: Glucose, Whole Blood 151 mg/dL (60-115)
[2024-04-07] MEDS: Docusate Sodium 100 MG CAPSULE PO (16:43)
[2024-04-07] MEDS: oxyCODONE HCl Immed Release 5 MG TABLET PO ×2 (16:43→21:53)
[2024-04-07 17:02] LABS: PTT Heparin Drip 39.9 SEC (53-77.9)
[2024-04-07] MEDS: Heparin Sodium,Porcine 5,000 UNIT/ML VIAL 5100 UNIT IVPUSH (17:53)
[2024-04-07 19:33] VITALS: BP 158/80; PULSE 76; RESP 16; TEMP 36.6; O2SAT 98
[2024-04-07 20:42] LABS: Glucose, Whole Blood 128 mg/dL (60-115)
[2024-04-07] MEDS: polyethylene glycoL 3350 17 GM POWD.PACK PO (20:58)
[2024-04-08] VITALS (7 sets, daily range): BP systolic 116–154; BP diastolic 67–86; PULSE 79–85; RESP 16–18; TEMP 36.4–36.9; O2SAT 94–98
[2024-04-08 00:30] LABS: PTT Heparin Drip 48.6 SEC (53-77.9)
[2024-04-08] MEDS: Heparin Sodium,Porcine 5,000 UNIT/ML VIAL 5100 UNIT IVPUSH (01:20)
[2024-04-08] MEDS: oxyCODONE HCl Immed Release 5 MG TABLET PO ×3 (05:27→17:51)
[2024-04-08] MEDS: Heparin Sodium,Porcine/1/2NS 25,000 UNIT/250 ML IV.SOLN 20.3 UNIT IVCONT ×2 (06:22→16:46)
[2024-04-08 06:55] LABS: Glucose, Whole Blood 172 mg/dL (60-115)
[2024-04-08 07:11] LABS: Hemoglobin 10.7 g/dl (12.0-16.0); Mean Corpuscular HGB Conc 32.4 g/dl (31.0-35.0); Mean Corpuscular Hemoglobin 28.4 pg (27.0-33.0); Mean Corpuscular Volume 87.5 fL (80.0-98.0); Platelet Count 305 X10*3/uL (160-400); Red Blood Count 3.77 X10*6/uL (4.20-5.50); Red Cell Distribution Width 14.7 % (11.0-16.0); White Blood Count 6.7 X10*3/uL (4.8-10.8)
[2024-04-08 07:18] LABS: PTT Heparin Drip 65.3 SEC (53-77.9)
[2024-04-08 07:29] LABS: Cholesterol 164 mg/dL (<200); HDL Cholesterol 34 mg/dL (>40); LDL Cholesterol Calculated 73 mg/dL (<100); Triglycerides 289 mg/dL (<150)
[2024-04-08] MEDS: Insulin Lispro 100 UNIT/ML 3 ML VIAL SUBCUT (07:46)
[2024-04-08] MEDS: 0.9 % Sodium Chloride Flush 3 ML SYRINGE IVFLUSH ×3 (07:47→22:23)
[2024-04-08] MEDS: Amoxicillin 500 MG CAPSULE PO ×3 (07:49→22:22)
[2024-04-08] MEDS: Aspirin Enteric Coated 81 MG TABLET.DR PO (07:49)
[2024-04-08] MEDS: Docusate Sodium 100 MG CAPSULE PO (07:49)
[2024-04-08] MEDS: carvediloL 6.25 MG TABLET PO ×2 (07:49→22:21)
[2024-04-08] MEDS: Losartan Potassium 50 MG TABLET PO (07:49)
--- NOTE | 2024-04-08 10:18 | PM.PNCARD ---
Subjective Subjective Date of Service: 04/08/24 Interval history: Patient states she feels okay. She does not have any cardiac symptoms. Blood pressure is better. Review of Systems Review of Systems Yes all other systems are reviewed and are negative Constitutional: Reports as per HPI and Reports no additional constitutional complaints Eyes: Reports as per HPI and Denies no additional eye complaints Denies system reviewed and no additional complaints, except as documented and Reports as per HPI Cardiovascular: Reports as per HPI, Reports no additional cardiovascular complaints, Denies acrocyanosis, Denies cool extremities, Denies chest pain, Denies leg edema, Denies lightheadedness, Denies palpitations and Denies dyspnea Respiratory: Reports as per HPI, Denies no additional respiratory complaints and Denies dyspnea Gastrointestinal: Reports as per HPI and Denies no additional gastrointestinal complaints Genitourinary: Reports as per HPI Musculoskeletal: Reports no additional musculoskeletal complaints and Reports as per HPI Skin/Breast: Reports system reviewed and no additional complaints, except as docu Reports system reviewed and no additional complaints, except as documented and Reports as per HPI Psychiatric: Reports no additional psychiatric complaints and Reports as per HPI Endocrine: Reports no additional endocrine complaints, Reports as per HPI and Denies palpitations Hematologic/Lymphatic: Reports no additional hematologic/lymphatic complaints and Reports as per HPI Allergic/Immunologic: Reports no additional allergic/immunologic complaints and Reports as per HPI Physical Exam Vital Signs: Last Vital Signs Temp 98.4 F 04/08/24 07:18 Pulse 80 04/08/24 07:18 Resp 18 04/08/24 07:18 BP 139/78 04/08/24 07:18 Pulse Ox 94 04/08/24 07:18 O2 Del Method Room Air 04/08/24 07:18 BMI result Body Mass Index 43.1 Const General: comfortable and no acute distress Orientation/consciousness: patient oriented x3 HEENT Other: Unremarkable Head: Yes normal to inspection Neck Neck: Yes normal visual inspection Chest Chest palpation & inspection: normal inspection of the chest Resp Auscultation: clear to auscultation bilaterally Cardio Palpation: normal PMI Heart sounds: S1 normal heart sound present, S2 normal heart sound present, no gallops, no murmurs and no rubs GI Palpation (GI): Soft to palpation Back/Spine/Pelvis Other: unremarkable Skin General skin exam: no rashes or lesions noted Neuro General: patient oriented x3 Extrem General: Yes normal to inspection Psych Mental Status: mental status grossly normal Objective Labs and Meds 04/08/24 07:00 04/07/24 03:08 Lab results: Laboratory Results - last 24 hr 04/07/24 04/07/24 04/07/24 10:30 10:48 16:33 WBC RBC Hgb Hct MCV MCH MCHC RDW Plt Count MPV Absolute Nucleated RBC Nucleated RBC % (auto) aPTT Heparin Protocol 63.6 D 39.9 L D POC Glucose 158 H Triglycerides Cholesterol LDL Cholesterol, Calc HDL Cholesterol 04/07/24 04/07/24 04/08/24 16:35 20:38 00:09 WBC RBC Hgb Hct MCV MCH MCHC RDW Plt Count MPV Absolute Nucleated RBC Nucleated RBC % (auto) aPTT Heparin Protocol 48.6 L D POC Glucose 151 H 128 H Triglycerides Cholesterol LDL Cholesterol, Calc HDL Cholesterol 04/08/24 04/08/24 06:47 07:00 WBC 6.7 RBC 3.77 L Hgb 10.7 L Hct 33.0 L MCV 87.5 MCH 28.4 MCHC 32.4 RDW 14.7 Plt Count 305 MPV 10.0 Absolute Nucleated RBC 0.000 Nucleated RBC % (auto) 0.0 aPTT Heparin Protocol 65.3 D POC Glucose 172 H Triglycerides 289 H Cholesterol 164 LDL Cholesterol, Calc 73 HDL Cholesterol 34 L Progress Note: A&P Assessment and plan (1) NSTEMI (non-ST elevated myocardial infarction): Status: Acute Assessment and Plan: Likely type 2, demand related. Heparin drip for 48 hours. Continue aspirin. Carvedilol 6.25 b.i.d.. In the echocardiogram, possible basal inferior wall hypokinesis but otherwise unremarkable. Stress MIBI pending. (2) Hypertensive emergency: Status: Acute Assessment and Plan: Increase losartan to 100 mg daily. Carvedilol 6.25 mg b.i.d.. Time Spent With Patient Time: Total time managing care of this patient today ____ minutes. Progress Note: Quality Stroke Does the patient have a stroke diagnosis?: No Procedures Date of Service Date of Service: 04/08/24
[2024-04-08 10:55] LABS: Glucose, Whole Blood 128 mg/dL (60-115)
--- NOTE | 2024-04-08 11:41 | P.PNIM_ITS ---
Subjective Subjective Date of Service: 04/08/24 Interval History: seen and examined this morning follow up for chest pain, uncontrolled blood pressure no chest pain, headache resolved Review of Systems Review of Systems: Yes all other systems are reviewed and are negative Constitutional Constitutional: Denies chills and Denies fever(s) Cardiovascular Cardiovascular: Denies chest pain and Denies palpitations Endocrine Endocrine: Denies palpitations Physical Exam 2 Vital Signs: Vital Signs: Last Vital Signs Temp 97.8 F 04/08/24 11:09 Pulse 84 04/08/24 11:09 Resp 18 04/08/24 11:09 BP 136/82 04/08/24 11:09 Pulse Ox 96 04/08/24 11:09 O2 Del Method Room Air 04/08/24 11:09 BMI result Body Mass Index 43.1 Const: General: cooperative, comfortable, no acute distress, alert and awake Nutritional Appearance: obese Orientation/consciousness: patient oriented x3 Resp: Effort & Inspection: normal respiratory effort, able to speak in complete sentences, no respiratory distress and no use of accessory muscles Cardio: Rate: regular rate GI: Inspection: No distended Palpation (GI): Soft to palpation Neuro: General: patient oriented x3, moves all extremities and CN's II-XI intact bilaterally Extrem: General: Yes no pedal edema Objective Data Active Medications Acetaminophen (Acetaminophen 325 Mg Tablet) 975 mg PO Q6H PRN PRN Reason: Pain, Mild 1-3,fever,headache Acetaminophen/Butalbital/Caffeine (Butalb/Acetamin/Caff 50/325/40 Tablet) 1 tab PO Q4H PRN PRN Reason: Headache Last Admin: 04/07/24 04:03 Dose: 1 tab Documented By: ROSAURA Amoxicillin (Amoxicillin 500 Mg Capsule) 500 mg PO TID [facility] Stop: 04/12/24 09:01 Last Admin: 04/08/24 07:49 Dose: 500 mg Documented By: ILA Aspirin (Aspirin Enteric Coated 81 Mg Tablet.) 81 mg PO DAILY [facility] Last Admin: 04/08/24 07:49 Dose: 81 mg Documented By: ILA Carvedilol (Carvedilol 6.25 Mg Tablet) 6.25 mg PO BID [facility]; Protocol Last Admin: 04/08/24 07:49 Dose: 6.25 mg Documented By: ILA Docusate Sodium (Docusate Sodium 100 Mg Capsule) 100 mg PO DAILY [facility] Last Admin: 04/08/24 07:49 Dose: 100 mg Documented By: ILA Glucose (Glucose Gel 15 Gm Gel..Gram.) 15 gm PO Q15M PRN; Protocol PRN Reason: per Hypoglycemia Standing Ord. Heparin Sodium (Porcine) (Heparin Sodium,Porcine 5,000 Unit/Ml Vial) 5,100 unit 40 unit/kg (5100 unit) IVPUSH PROTOCOL BOLUS PRN; Protocol PRN Reason: 40 unit/kg - Heparin Protocol Last Admin: 04/08/24 01:20 Dose: 5,100 unit Documented By: ROSAURA Heparin Sodium (Porcine) (Heparin Sodium,Porcine 5,000 Unit/Ml Vial) 10,000 unit IVPUSH PROTOCOL BOLUS PRN; Protocol PRN Reason: 80 unit/kg - Heparin Protocol Last Admin: 04/07/24 04:52 Dose: 10,000 unit Documented By: ROSAURA Heparin Sodium/Sodium Chloride (Heparin Sodium,Porcine/1/2ns) 25,000 unit in 250 mls @ 0 mls/hr IVCONT .Q0M [facility]; Protocol Last Titration: 04/08/24 07:38 Dose: 15.77 units/kg/hr, 20.3 mls/hr Documented By: ILA Co-signed By: VIOLET Dextrose (D10) 250 mls @ 750 mls/hr IV Q15M PRN; Protocol PRN Reason: per Hypoglycemia Standing Ord. Insulin Human Lispro (Insulin Lispro 100 Unit/Ml 3 Ml Vial) 0 unit SUBCUT QIDACHS [facility]; Protocol Last Admin: 04/08/24 11:40 Dose: Not Given Documented By: ILA Non-Admin Reason: No Insulin Coverage Losartan Potassium (Losartan Potassium 50 Mg Tablet) 50 mg PO DAILY [facility]; Protocol Last Admin: 04/08/24 07:49 Dose: 50 mg Documented By: ILA Melatonin (Melatonin 3 Mg Tablet) 6 mg PO BEDTIME PRN PRN Reason: Insomnia Oxycodone HCl (Oxycodone Hcl Immed Release 5 Mg Tablet) 5 mg PO Q6H PRN PRN Reason: Pain, Moderate(Pain Scale 4-6) Last Admin: 04/08/24 11:38 Dose: 5 mg Documented By: ILA Polyethylene Glycol (Polyethylene Glycol 3350 17 Gm Powd.Pack) 17 gm PO DAILY PRN PRN Reason: Constipation Last Admin: 04/07/24 20:58 Dose: 17 gm Documented By: ROSAURA Sodium Chloride (0.9 % Sodium Chloride Flush 3 Ml Syringe) 3 ml IVFLUSH QSHIFT [facility] Last Admin: 04/08/24 07:47 Dose: 3 ml Documented By: ILA Labs 04/08/24 07:00 04/07/24 03:08 Labs: Laboratory Results - last 24 hr 04/07/24 04/07/24 04/07/24 16:33 16:35 20:38 MCV MCH MCHC RDW Plt Count MPV Absolute Nucleated RBC Nucleated RBC % (auto) aPTT Heparin Protocol 39.9 L D POC Glucose 151 H 128 H Triglycerides Cholesterol LDL Cholesterol, Calc HDL Cholesterol 04/08/24 04/08/24 04/08/24 00:09 06:47 07:00 MCV 87.5 MCH 28.4 MCHC 32.4 RDW 14.7 Plt Count 305 MPV 10.0 Absolute Nucleated RBC 0.000 Nucleated RBC % (auto) 0.0 aPTT Heparin Protocol 48.6 L D 65.3 D POC Glucose 172 H Triglycerides 289 H Cholesterol 164 LDL Cholesterol, Calc 73 HDL Cholesterol 34 L 04/08/24 10:47 MCV MCH MCHC RDW Plt Count MPV Absolute Nucleated RBC Nucleated RBC % (auto) aPTT Heparin Protocol POC Glucose 128 H Triglycerides Cholesterol LDL Cholesterol, Calc HDL Cholesterol Assessment and Plan (1) Hypertensive emergency: Status: Acute (2) NSTEMI (non-ST elevated myocardial infarction): Status: Acute Plan Pt is a 38-year-old female with a PMH significant for?HTN, [id number] type 2 diabetes, and hx of pre-eclampia who presents to the ED from dental appointment for evaluation of high blood pressure. Pt will be admitted to the hospital for treatment and further evaluation of elevated troponins and atypical chest pain radiating to neck concerning for NSTEMI. NSTEMI possibly type 2 due to demand elevated trops 233.4, 253.6 with intermittent chest pain and EKG changes Echocardiogram possible basal interior wall hypokinesis seen by cardiology, plan for stress test tuesday continue aspirin, BB Hypertension Poorly controlled BP as high as 225/123 in the ED continue coreg losartan increased to 50 today, if bp remains uncontrolled increase to 100 mg in am follow bp closely Geb-omkqvsa-razngycca type 2 diabetes Sliding-scale insulin Diabetic diet Dental caries Continue amoxicillin (rx by dentist outpatient) morbid obesity BMI 43.1 weight loss encouraged Full Code DVT Prophylaxis: heparin drip Patient requires ongoing inpatient stay for management of NSTEMI requiring heparin drip, specialist evaluation and stress test Quality Stroke Does the patient have a stroke diagnosis?: No VTE Prior VTE?: No VTE Risk Level:: Medical - moderate - high VTE Device Contraindication: Treatment Not Indicated VTE Drug Contraindication: N/A - Med Ordered
--- NOTE | 2024-04-08 11:56 | MHC.CM.PN ---
PT REPORTS SHE LIVES WITH HER TWO KIDS, AGES 8 AND 3 SHE IS INDEPENDENT WITH CARE AND USES A CPAP FOR DME SHE SAYS SHE HAS A HCP NAMING HER MOTHER, KRISTEN CHANDLER, HER AGENT PCP: FITO CORDERO DCP: HOME NO SERVICES VIA SELF TRANSPORT
[2024-04-08 13:33] LABS: PTT Heparin Drip 64.3 SEC (53-77.9)
[2024-04-08 16:54] LABS: Glucose, Whole Blood 133 mg/dL (60-115)
[2024-04-08 21:36] LABS: Glucose, Whole Blood 140 mg/dL (60-115)
[2024-04-08] MEDS: Melatonin 3 MG TABLET 6 MG PO (22:22)
[2024-04-08] MEDS: Acetaminophen 325 MG TABLET 975 MG PO (22:27)
[2024-04-09 03:25] VITALS: BP 120/65; PULSE 76; RESP 18; TEMP 36.7; O2SAT 96
[2024-04-09] MEDS: Acetaminophen 325 MG TABLET 975 MG PO (05:22)
[2024-04-09] MEDS: oxyCODONE HCl Immed Release 5 MG TABLET PO ×2 (05:25→12:35)
[2024-04-09] MEDS: Heparin Sodium,Porcine/1/2NS 25,000 UNIT/250 ML IV.SOLN 20.3 UNIT IVCONT (05:40)
[2024-04-09 06:22] LABS: Hematocrit 33.2 % (37.0-47.0); Hemoglobin 10.5 g/dl (12.0-16.0); Mean Corpuscular HGB Conc 31.6 g/dl (31.0-35.0); Mean Corpuscular Hemoglobin 28.1 pg (27.0-33.0); Mean Corpuscular Volume 88.8 fL (80.0-98.0); Mean Platelet Volume 9.9 fL (9.4-12.3); Platelet Count 310 X10*3/uL (160-400); Red Blood Count 3.74 X10*6/uL (4.20-5.50); Red Cell Distribution Width 14.7 % (11.0-16.0); White Blood Count 6.8 X10*3/uL (4.8-10.8)
[2024-04-09 06:25] LABS: PTT Heparin Drip 53.4 SEC (53-77.9)
[2024-04-09 07:15] VITALS: BP 124/66; PULSE 81; RESP 20; TEMP 36.9; O2SAT 96
[2024-04-09 07:35] LABS: Glucose, Whole Blood 173 mg/dL (60-115)
[2024-04-09] MEDS: Losartan Potassium 50 MG TABLET PO (08:23)
[2024-04-09 11:59] VITALS: BP 121/66; PULSE 86; RESP 20; TEMP 35.9; O2SAT 96
[2024-04-09 11:59] LABS: Glucose, Whole Blood 134 mg/dL (60-115)
[2024-04-09] MEDS: carvediloL 6.25 MG TABLET PO (12:27)
[2024-04-09] MEDS: Amoxicillin 500 MG CAPSULE PO ×2 (12:27→17:31)
[2024-04-09] MEDS: Aspirin Enteric Coated 81 MG TABLET.DR PO (12:27)
[2024-04-09] MEDS: Docusate Sodium 100 MG CAPSULE PO (12:27)
[2024-04-09] MEDS: 0.9 % Sodium Chloride Flush 3 ML SYRINGE IVFLUSH (12:28)
--- NOTE | 2024-04-09 14:06 | HO.PM.IMPN ---
Subjective Subjective Date of Service: 04/09/24 Interval History: seen and examined this morning follow up for chest pain, uncontrolled blood pressure no chest pain, headache resolved Review of Systems Review of Systems: Yes all other systems are reviewed and are negative Constitutional Constitutional: Denies chills and Denies fever(s) Cardiovascular Cardiovascular: Denies chest pain and Denies palpitations Endocrine Endocrine: Denies palpitations Physical Exam Vital Signs: Vital Signs: Last Vital Signs Temp 96.7 F L 04/09/24 11:59 Pulse 86 04/09/24 11:59 Resp 20 04/09/24 11:59 BP 121/66 04/09/24 11:59 Pulse Ox 96 04/09/24 11:59 O2 Del Method Room Air 04/09/24 11:59 BMI result Body Mass Index 43.1 Appearing in no acute distress lung sounds are clear to auscultation heart regular rate rhythm, clear S1, S2 positive bowel sounds, abdomen is soft, nontender neuro patient is alert x3, no focal deficits Objective Data Active Medications Acetaminophen (Acetaminophen 325 Mg Tablet) 975 mg PO Q6H PRN PRN Reason: Pain, Mild 1-3,fever,headache Last Admin: 04/09/24 05:22 Dose: 975 mg Documented By: JAYA Acetaminophen/Butalbital/Caffeine (Butalb/Acetamin/Caff 50/325/40 Tablet) 1 tab PO Q4H PRN PRN Reason: Headache Last Admin: 04/07/24 04:03 Dose: 1 tab Documented By: ROSAURA Amoxicillin (Amoxicillin 500 Mg Capsule) 500 mg PO TID [facility] Stop: 04/12/24 09:01 Last Admin: 04/09/24 12:27 Dose: 500 mg Documented By: ILA Aspirin (Aspirin Enteric Coated 81 Mg Tablet.) 81 mg PO DAILY [facility] Last Admin: 04/09/24 12:27 Dose: 81 mg Documented By: ILA Carvedilol (Carvedilol 6.25 Mg Tablet) 6.25 mg PO BID [facility]; Protocol Last Admin: 04/09/24 12:27 Dose: 6.25 mg Documented By: ILA Docusate Sodium (Docusate Sodium 100 Mg Capsule) 100 mg PO DAILY [facility] Last Admin: 04/09/24 12:27 Dose: 100 mg Documented By: ILA Glucose (Glucose Gel 15 Gm Gel..Gram.) 15 gm PO Q15M PRN; Protocol PRN Reason: per Hypoglycemia Standing Ord. Heparin Sodium (Porcine) (Heparin Sodium,Porcine 5,000 Unit/Ml Vial) 5,100 unit 40 unit/kg (5100 unit) IVPUSH PROTOCOL BOLUS PRN; Protocol PRN Reason: 40 unit/kg - Heparin Protocol Last Admin: 04/08/24 01:20 Dose: 5,100 unit Documented By: ROSAURA Heparin Sodium (Porcine) (Heparin Sodium,Porcine 5,000 Unit/Ml Vial) 10,000 unit IVPUSH PROTOCOL BOLUS PRN; Protocol PRN Reason: 80 unit/kg - Heparin Protocol Last Admin: 04/07/24 04:52 Dose: 10,000 unit Documented By: ROSAURA Heparin Sodium/Sodium Chloride (Heparin Sodium,Porcine/1/2ns) 25,000 unit in 250 mls @ 0 mls/hr IVCONT .Q0M [facility]; Protocol Last Titration: 04/09/24 12:41 Dose: 15.77 units/kg/hr, 20.3 mls/hr Documented By: PETER Co-signed By: EMA Dextrose (D10) 250 mls @ 750 mls/hr IV Q15M PRN; Protocol PRN Reason: per Hypoglycemia Standing Ord. Insulin Human Lispro (Insulin Lispro 100 Unit/Ml 3 Ml Vial) 0 unit SUBCUT QIDACHS [facility]; Protocol Last Admin: 04/09/24 12:36 Dose: Not Given Documented By: ILA Non-Admin Reason: No Insulin Coverage Losartan Potassium (Losartan Potassium 50 Mg Tablet) 50 mg PO DAILY [facility]; Protocol Last Admin: 04/09/24 08:23 Dose: 50 mg Documented By: ILA Melatonin (Melatonin 3 Mg Tablet) 6 mg PO BEDTIME PRN PRN Reason: Insomnia Last Admin: 04/08/24 22:22 Dose: 6 mg Documented By: EMA Oxycodone HCl (Oxycodone Hcl Immed Release 5 Mg Tablet) 5 mg PO Q6H PRN PRN Reason: Pain, Moderate(Pain Scale 4-6) Last Admin: 04/09/24 12:35 Dose: 5 mg Documented By: ILA Polyethylene Glycol (Polyethylene Glycol 3350 17 Gm Powd.Pack) 17 gm PO DAILY PRN PRN Reason: Constipation Last Admin: 04/07/24 20:58 Dose: 17 gm Documented By: ROSAURA Sodium Chloride (0.9 % Sodium Chloride Flush 3 Ml Syringe) 3 ml IVFLUSH QSHIFT [facility] Last Admin: 04/09/24 12:28 Dose: 3 ml Documented By: ILA Labs 04/09/24 06:03 04/07/24 03:08 Labs: Laboratory Results - last 24 hr 04/08/24 04/08/24 04/09/24 16:49 21:31 06:03 MCV 88.8 MCH 28.1 MCHC 31.6 RDW 14.7 Plt Count 310 MPV 9.9 Absolute Nucleated RBC 0.000 Nucleated RBC % (auto) 0.0 aPTT Heparin Protocol 53.4 POC Glucose 133 H 140 H 04/09/24 04/09/24 07:31 11:56 MCV MCH MCHC RDW Plt Count MPV Absolute Nucleated RBC Nucleated RBC % (auto) aPTT Heparin Protocol POC Glucose 173 H 134 H Assessment and Plan (1) Hypertensive emergency: Status: Acute (2) NSTEMI (non-ST elevated myocardial infarction): Status: Acute Plan Pt is a 38-year-old female with a PMH significant for?HTN, [id number]-[id number] type 2 diabetes, and hx of pre-eclampia who presents to the ED from dental appointment for evaluation of high blood pressure. Pt will be admitted to the hospital for treatment and further evaluation of elevated troponins and atypical chest pain radiating to neck concerning for NSTEMI. NSTEMI possibly type 2 due to demand elevated trops 233.4, 253.6 with intermittent chest pain and EKG changes Echocardiogram possible basal interior wall hypokinesis seen by cardiology> stress today, results pending continue aspirin, BB Hypertension Poorly controlled BP as high as 225/123 in the ED continue coreg losartan increased to 50 today, if bp remains uncontrolled increase to 100 mg in am follow bp closely Uaf-unqbclr-fryqnygio type 2 diabetes Sliding-scale insulin Diabetic diet Dental caries Continue amoxicillin (rx by dentist outpatient) morbid obesity BMI 43.1 weight loss encouraged Full Code DVT Prophylaxis: heparin drip Patient requires ongoing inpatient stay for management of NSTEMI requiring heparin drip, specialist evaluation and stress test Quality Stroke Does the patient have a stroke diagnosis?: No VTE Prior VTE?: No VTE Risk Level:: Medical - moderate - high VTE Device Contraindication: Treatment Not Indicated VTE Drug Contraindication: N/A - Med Ordered
--- NOTE | 2024-04-09 14:45 | MHC.CM.PN ---
Per rounds and EMR review, pt. requires acute care for tx of NSTEMI, Heparin drip and stress test. CM to follow for DC needs.
[2024-04-09 15:54] VITALS: BP 117/59; PULSE 84; RESP 16; TEMP 36.6; O2SAT 95
[2024-04-09 16:25] LABS: Glucose, Whole Blood 125 mg/dL (60-115)
--- NOTE | 2024-04-09 17:29 | PC.NURSE ---
stress testnegative foe ischemia , pt is being discharge home . VENESSA Mota : stop heparin , pt may go home in 1 hr after heparin was stopped
--- NOTE | 2024-04-09 17:41 | PM.DS ---
DS: Providers Provider Date of Service: 04/09/24 Date of admission: 04/06/24 20:38 Date of discharge: 04/09/24 Primary care physician: Alva Granados MD Consults: 04/06/24 20:40 Consult to Cardiology Routine Consulting Provider: [facility] Reason for consultation: NSTEMI Has provider been notified: Yes DS: Diagnosis Discharge Diagnosis (1) Hypertensive emergency: Status: Acute (2) NSTEMI (non-ST elevated myocardial infarction): Status: Acute DS: Summary Hospital Course Hospital Course: History and physical as per admitting provider. Pt is a 38-year-old female with a PMH significant for?HTN, dnr-fptcyil-mdpoeypao type 2 diabetes, and hx of pre-eclampia who presents to the ED from dental appointment for evaluation of high blood pressure. Pt states she had an appointment earlier today for a wisdom tooth extraction. During intake patient's SBP was noted to be in the 200s and provider told pt they were unable to perform the procedure in that she should be evaluated at the ED. pt also has been experiencing a ?pounding? headache for the past 5-7 days with exertion, especially going upstairs. Headaches will last 30 seconds to 1 minute long. Also reports less severe though longer-lasting headaches at rest. Approximately 4-5 days ago pt also began experiencing palpitations and chest pain that occurred either with exertion or at rest. Describes chest pain as sharp and stabbing and radiating to left neck and sometimes to her eyes. No chest pressure. Pt reports has been experiencing chest pain for the past year so, and has seen multiple providers for this in the past. Apparently underwent a stress test last summer that was negative. Denies diaphoresis, nausea, vomiting. No shortness a breath or difficulty breathing. Denies cough. No fever, chills, nausea,, abdominal pain. Reports a history of CAD on her mother's side. In the ED pt with elevated HR as high as 97 and hypertensive as high as 225/123. Labs were significant for initial troponin 233.4 with repeat 253.6 in H&H 11.0/34.7, otherwise grossly unremarkable. No leukocytosis. No significant electrolyte abnormalities. Renal function WNL. Hepatic function WNL. BNP 10. CXR showed no acute cardiopulmonary disease. CT?of head negative for acute intracranial findings. EKG demonstrated normal sinus rhythm with T-wave inversions in leads I, II, aVL, and V4-V6. Pt was treated with aspirin, morphine, nitro paste and started on a heparin drip. Pt will be admitted to the hospital for treatment and further evaluation of elevated troponins and atypical chest pain radiating to neck concerning for NSTEMI. 38-year-old woman treated for NSTEMI secondary to hypertensive urgency. Troponin peaked at 253.6 and patient initially had intermittent chest pain and EKG changes. Echocardiogram showed possible basal anterior wall hypokinesis. Seen evaluated by Cardiology with overall negative ETT. Had medicine stress test which was also negative. Patient was started on aspirin, statin and beta-fredi. Discussed with Cardiology, no plan for cardiac catheterization. Patient definitely needs better blood pressure control as initially her blood pressure was over 200 systolically. Her losartan was increased to 50 mg daily and Coreg was added. Patient should monitor blood pressures at home and report to her primary care provider for management of medications. Diabetes mellitus type 2. Continue home medications Dental caries. Continue amoxicillin the prescribed by outpatient dentist Morbid obesity. BMI 43.1 Discussed importance of weight management as this may be contributing to worsening of other comorbidities Time Attestation Discharge Coordination Time (in mins): 40 Quality: Safe Use of Opioids Does Pt have an Active Cancer Diagnosis on the Problem List?: No Quality: Stroke Does the patient have a stroke diagnosis?: No Physical Exam Vital Signs: Vital Signs: Last Vital Signs Temp 97.8 F 04/09/24 15:54 Pulse 84 04/09/24 15:54 Resp 16 04/09/24 15:54 BP 117/59 L 04/09/24 15:54 Pulse Ox 95 04/09/24 15:54 O2 Del Method Room Air 04/09/24 15:54 BMI result Body Mass Index 43.1 Appearing in no acute distress head is normocephalic atraumatic eyes pupils are PERRLA sclera is anicteric mouth throat mucous membranes are intact and moist neck is supple no lymphadenopathy, no JVD noted lung sounds are clear to auscultation heart regular rate rhythm, clear S1, S2 positive bowel sounds, abdomen is soft, nontender neuro patient is alert x3, no focal deficits DS: Data Data Completed and Pending Labs on day of discharge: Laboratory Results - last 24 hr 04/08/24 04/09/24 04/09/24 21:31 06:03 07:31 WBC 6.8 RBC 3.74 L Hgb 10.5 L Hct 33.2 L MCV 88.8 MCH 28.1 MCHC 31.6 RDW 14.7 Plt Count 310 MPV 9.9 Absolute Nucleated RBC 0.000 Nucleated RBC % (auto) 0.0 aPTT Heparin Protocol 53.4 POC Glucose 140 H 173 H 04/09/24 04/09/24 11:56 16:14 WBC RBC Hgb Hct MCV MCH MCHC RDW Plt Count MPV Absolute Nucleated RBC Nucleated RBC % (auto) aPTT Heparin Protocol POC Glucose 134 H 125 H Discharge Plan Discharge Anticipated Discharge Date/Time: 04/09/24 17:30 Patient Disposition: Home, Self-Care Discharge Diagnosis: Hypertensive urgency NSTEMI Referrals: Elvis Harkins MD [Physician] - None Alva Granados MD [Primary Care Provider] - 1 Week Discharge Medications: New losartan 50 mg Tablet 50 mg PO DAILY Qty: 60 0RF Protocol: Hold for SBP< HOLD for SBP < : 90 carvedilol 6.25 mg Tablet 6.25 mg PO BID Qty: 60 0RF Protocol: Hold for SBP/HR < HOLD for SBP < : 90 HOLD for HR < : 60 aspirin 81 mg Tablet,Delayed Release (Dr/Ec) 81 mg PO DAILY Qty: 30 0RF atorvastatin 40 mg tablet 40 mg PO BEDTIME Qty: 30 0RF Continued amoxicillin 500 mg tablet 500 mg PO BID 10 Days Qty: 20 0RF ibuprofen 800 mg tablet 800 mg PO Q6H PRN (Reason: Pain) Mounjaro 5 mg/0.5 mL pen injector 5 mg subcut FR Discontinued losartan 25 mg tablet 25 mg PO DAILY Discharge Orders: Discharge Order (Routine); Ordered 04/09/24 Ordered By: Svetlana Riley Diet: Advance to usual diet Activity on Discharge: As tolerated Stand Alone Forms: Patient Portal Discharge page Print Language: Faroese Care Plan Goals: Your losartan was increased to 50 mg daily Coreg has been added for better blood pressure control Asprin and Atorvastin have been started for cholesterol control Health Concerns: Hypertensive Urgency NSTEMI from elevated blood pressure Plan of Treatment: Follow up with primary care provider as needed Monitor your blood pressure daily and document to share with your primary care provider Take all medications as prescribed Assessment: See discharge summary If you have any further episodes of chest pain, return to the ED Patient Instructions: Aspirin (By mouth), Atorvastatin (By mouth), Carvedilol (By mouth) Discharge Date/Time: 04/09/24 18:44
== END 2024-04-09 18:44 | disposition home or self-care (01) | DRG 199 ==
LOC: HO.ED 20:12 → HO.EDOVER 20:44 → HO.IMC 21:06
PROVIDERS: Nurse Practitioner Family; Physician Assistant Medical; Admitting Provider Internal Medicine; Emergency Provider Emergency Medicine; PCP Internal Medicine; Visit Provider Nurse Practitioner Acute Care
DX: I16.1 Hypertensive emergency (principal); I21.A1 Myocardial infarction type 2; E66.01 Morbid (severe) obesity due to excess calories; E11.9 Type 2 diabetes mellitus without complications; I10 Essential (primary) hypertension; Z68.41 Body mass index [BMI] 40.0-44.9, adult; K02.9 Dental caries, unspecified; F17.210 Nicotine dependence, cigarettes, uncomplicated; Z71.6 Tobacco abuse counseling; Z79.899 Other long term (current) drug therapy
CPT/HCPCS: 36415; 70450; 71045; 78452; 80048; 80053; 80061; 82947; 83735; 83880; 84484; 84702; 85025; 85027; 85610; 85730; 93005; 93017; 93306; 99285; A9500; J0131; J1644; J1885; J2270; Q9957

== ENCOUNTER → 2024-04-06 16:59 | Outpatient (BNV) | payer OTHER, SELFPAY | PROVIDERS: Emergency Provider Emergency Medicine; PCP Internal Medicine; Visit Provider Radiology Diagnostic Radiology | DX: R07.9 Chest pain, unspecified (principal); I16.1 Hypertensive emergency; R51.9 Headache, unspecified | CPT/HCPCS: 70450; 71045 ==

== ENCOUNTER 2024-04-06 20:38 | Outpatient (BNV) | payer OTHER, SELFPAY | END 2024-04-07 06:00 | PROVIDERS: Admitting Provider Internal Medicine; Emergency Provider Emergency Medicine; PCP Internal Medicine; Visit Provider Internal Medicine | DX: I42.2 Other hypertrophic cardiomyopathy (principal); I21.4 Non-ST elevation (NSTEMI) myocardial infarction | CPT/HCPCS: 93016; 93018; 93320; 93325; 93350; 93352 ==

== ENCOUNTER 2024-04-06 20:38 | Outpatient (BNV) | payer OTHER, SELFPAY | END 2024-04-08 14:43 | PROVIDERS: Admitting Provider Internal Medicine; Emergency Provider Emergency Medicine; PCP Internal Medicine; Visit Provider Internal Medicine Cardiovascular Disease | DX: I21.4 Non-ST elevation (NSTEMI) myocardial infarction (principal) | CPT/HCPCS: 78452 ==

== ENCOUNTER → 2024-04-06 20:38 | Outpatient (BNV) | payer OTHER, SELFPAY | PROVIDERS: Admitting Provider Internal Medicine; Emergency Provider Emergency Medicine; PCP Internal Medicine; Visit Provider Student in an Organized Health Care Education/Training Program | DX: I16.1 Hypertensive emergency (principal); I21.4 Non-ST elevation (NSTEMI) myocardial infarction | CPT/HCPCS: 99223; 99232 ==

== ENCOUNTER → 2024-04-06 20:38 | Outpatient (BNV) | payer OTHER, SELFPAY | PROVIDERS: Admitting Provider Internal Medicine; Emergency Provider Emergency Medicine; PCP Internal Medicine; Visit Provider Internal Medicine | DX: I21.4 Non-ST elevation (NSTEMI) myocardial infarction (principal); I16.1 Hypertensive emergency; R07.9 Chest pain, unspecified; R94.31 Abnormal electrocardiogram [ECG] [EKG] | CPT/HCPCS: 93010; 99223 ==

== ENCOUNTER 2024-06-15 14:00 | Outpatient (AMB) | payer OTHER, SELFPAY ==
--- NOTE | 2024-06-15 14:04 | A.OFFVIS_ITS ---
Vital Signs 06/15/24 14:05 Height 5 ft 7 in Weight 284 lb BMI 44.5 BP 124/68 Blood Pressure Location Lt brachial Position Sitting Pulse 70 Pulse Source Pulse Oximeter Intake [place] Re[place] [facility] Follow up Allergies pineapple Allergy (Severe, Verified 06/15/24 14:08) itchy throat latex [LATEX] Allergy (Unknown, Verified 04/06/24 16:57) HIVES bee pollen [bee stings] Allergy (Verified 04/06/24 16:57) Hives Medication List - Last Reconciled 06/15/24 by Maikel Gaona NP aspirin 81 mg PO DAILY atorvastatin 40 mg PO BEDTIME carvedilol 6.25 mg See Protocol PO BID ibuprofen 800 mg PO Q6H PRN losartan 50 mg See Protocol PO DAILY tirzepatide (Mounjaro) 7.5 mg subcut FR HPI Comments Details: This is a 38-year-old female patient presenting for hospital discharge follow- up. Patient has a history of hypertension, diabetes, preeclampsia, and morbid obesity. Recently she was seen in the ER for high blood pressure following a dental appointment and was treated for NSTEMI secondary to hypertensive urgency. During her hospitalization, she underwent a complete cardiac workup including an echocardiogram, EKG, stress test, and life were. Today, the patient reports resolution of her chest pain states that she has been experiencing infrequent and intermittent shortness of breath. She denies any other symptoms of palpitations, dizziness, orthopnea, PND, leg edema, fatigue, presyncope, or syncope. The patient mentions being out of her medications for the past 2 weeks and has been taking medications. She states that she has lost over 30 lb since starting Mounjaro and expresses interest in being referred to a weight management program for further assistance. [facility] Medical History Hypertension, uncontrolled Preeclampsia HTN (hypertension) Family History Father No problems noted. Mother No problems noted. Social History Household Members: Children Housing: Apartment Do you presently have visiting nurse or other home services: No Alcohol intake: never Patient Tobacco Use Status: Current everyday Tobacco user Tobacco use type: Cigarette e-Cigarette/Vaping Use: Never Used Second Hand Smoke Exposure: No Substance Use Type: Marijuana service: No Review of Systems Const Denies weakness ENT Denies dizziness Card Denies chest pain, Denies chest pain with activity, Denies syncope, Denies rapid heart rate, Denies pedal edema, Denies edema, Denies leg edema, Denies lightheadedness, Denies palpitations, Denies dyspnea, Denies dyspnea on exertion and Denies orthopnea Resp Denies cough, Denies dyspnea and Denies dyspnea on exertion GI Denies hematochezia and Denies change in stool character Musc Denies abnormal gait, Denies muscle cramps, Denies muscle weakness, Denies numbness, Denies radiating pain into limb and Denies tingling Neuro Denies abnormal gait, Denies dizziness, Denies syncope, Denies numbness, Denies tingling and Denies weakness Endo Denies palpitations Physical Exam Vital Signs: Last Vital Signs Pulse 70 06/15/24 14:05 BP 124/68 06/15/24 14:05 BMI result Body Mass Index 44.5 Const General: cooperative, healthy appearing, comfortable and no acute distress Orientation/consciousness: patient oriented x3 HEENT Head: Yes normal to inspection Neck Neck: Yes normal visual inspection, Yes trachea midline and Yes supple Chest Chest palpation & inspection: normal inspection of the chest Resp Effort & Inspection: normal respiratory effort Auscultation: clear to auscultation bilaterally, no crackles, no rales, no rhonchi and no wheezes Cardio Jugular venous distension: no JVD Palpation: normal PMI Rate: regular rate Rhythm: regular rhythm Heart sounds: S1 normal heart sound present, S2 normal heart sound present, no click, no gallops, no murmurs and no rubs Peripheral pulses: Peripheral pulses 2+ throughout GI Inspection: Yes normal to inspection Palpation (GI): Soft to palpation Auscultation: normal bowel sounds Skin General skin exam: no rashes or lesions noted Neuro General: patient oriented x3 Extrem General: Yes normal to inspection, No no pedal edema and No calf tenderness Psych Appearance: grossly normal Mental Status: mental status grossly normal Speech and movement: Normal speech and movement present Assessment & Plan Assessment & Plan (1) NSTEMI (non-ST elevated myocardial infarction): Code(s): I21.4 - Non-ST elevation (NSTEMI) myocardial infarction Category: Medical Plan: 04/06/2024- EKGs showed normal sinus rhythm with T-wave inversion in lead 1, 2, aVL, and V4 to V6. 04/07/2024- Echocardiogram showed normal EF between 65-70%, possible basal inferior wall hypokinesis, and moderate septal asymmetric hypertrophy. Patient also underwent a myocardial perfusion study which was normal. Her troponins peaked at 253.6. Denies any exertional chest pain. Reports some intermittent shortness of breath most likely due to the weight. We will refer her to weight management for this. (2) Chronic hypertension: Code(s): I10 - Essential (primary) hypertension Category: Medical Plan: Blood pressure today is well-controlled. Continue with current regimen. Advised to check blood pressures at home and keep a log of it. Ideally, blood pressure less than 130/80. (3) Diabetes mellitus: Code(s): E11.9 - Type 2 diabetes mellitus without complications Category: Medical Plan: Patient states her blood sugars have been stable at home. No recent A1c. Ideally A1c goal less than 7%. Continue with current diabetes management. Most recent LDL at 73. Continue with statin therapy. Ideally, LDL goal less than 70. We will repeat labs before her next visit. (4) Hospital discharge follow-up: Code(s): Z09 - Encounter for follow-up examination after completed treatment for conditions other than malignant neoplasm Category: Medical Plan: As above. Advised heart healthy diet, regular exercise, losing weight, compliance with medications, and aggressive management of her vascular risk factors. We will follow up with the patient in 4 months. In the interim, patient will call us with concerns or change in symptoms. Advised patient to seek ER care in case of exertional chest pain not resolved with rest. This note was generated using voice recognition software. While every effort has been made to ensure accuracy and proper billing control clerk, there may be occasional errors that could affect the content or meaning of the described symptoms. Orders: Orders Basic Metabolic Panel Today I21.4 - Non-ST elevation (NSTEMI) myocardial infarction Lipid Panel Today I21.4 - Non-ST elevation (NSTEMI) myocardial infarction Referrals Medical Weight Management Referral E11.9 - Type 2 diabetes mellitus without complications, I10 - Essential (primary) hypertension, I21.4 - Non-ST elevation (NSTEMI) myocardial infarction Medications: Refilled aspirin 81 mg PO DAILY 90 tabs 3RF losartan 50 mg See Protocol PO DAILY 90 tabs 3RF atorvastatin 40 mg PO BEDTIME 90 tabs 3RF carvedilol 6.25 mg See Protocol PO BID 90 tabs 3RF Discontinued amoxicillin Discontinued Reason: Patient no longer taking 500 mg PO BID 10 days 20 tabs 0RF Coding Level of Care Code Est Pt Level 4 (93240) Complex EM visit Add On G2211 Diagnoses NSTEMI (non-ST elevated myocardial infarction) I21.4 Chronic hypertension I10 Diabetes mellitus E11.9 Hospital discharge follow-up Z09 Time Spent (min) 32 Comment Time spent in reviewing the chart, test results, assessment, counseling and documentation.
[2024-06-15 14:05] VITALS: BP 124/68; PULSE 70; BMI 44.5
--- OUTSIDE RECORDS SUMMARY | 2024-06-15 16:17 | XMS_ITS | Clinical Summary ---
Author Organization [facility] it Address [address] [place] [address] Care Team Providers Care Recycling Program Manager Name Role Phone Alva Granados MD Primary Care Provider [phone] Allergies Active Allergy Reactions Criticality Noted Date Comments Latex Swelling 09/12/2015 Medications dulaglutide (Trulicity) 0.75 mg/0.5 mL pen injector injection Inject into the skin. Active labetaloL (NORMODYNE) 200 mg tablet Take 1 Tab by mouth 3 times daily. 10/10/2019 Active cholecalciferol (VITAMIN D-3) 50 mcg (2,000 unit) capsule Take 1 capsule (2,000 Units total) by mouth 1 (one) time each day. 05/03/2019 Active PNV no.95/ferrous fum/folic ac ( ORAL) Take 1 Tab by mouth daily. 07/06/2019 Active aspirin-acetami nophen-caffeine (EXCEDRIN MIGRAINE) 250-250-65 mg per tablet Take 1 tablet by mouth every 6 (six) hours if needed. Active multivitamin (MULTIPLE VITAMINS ORAL) Take by mouth 1 (one) time each day. Active Active Problems Problem Noted Date Diagnosed Date COVID-19 virus infection 08/06/2019 Overview (03/14/2024): Tested positive at [facility] 08/01/2019 Hypertension 11/15/2018 PLMD (periodic limb movement disorder) 9 Obstructive sleep apnea 05/24/2018 Overview (03/14/2024): [facility] Home Polysomnogram: Date 05/23/2018; REYES 16, Unclassified apneas 0; Obstructive apneas 2; Central apneas 1; Mixed apneas 0; hypopneas 45; average oxygen saturation 92% (lowest 76% with saturations <88% for 5% or more of study) [facility]BMG Polysomnogram treatment study. Date 07/30/2018. Wt 290#; BMI 44; SE 68 % SM 78 %; spent 26 % of the study in REM. On CPAP @ 8 RDI 0.6 (AHI 0.6), Central apneas 0; Obstructive apneas 0; Mixed apneas 0; hypopneas 2; RERAs 0; and, average oxygen saturation was 95%. For the entire study, PLMs ~166. - 07/30/2018 Pre-study ESS 11. 2/4 RLS symptoms. - Obstructive Sleep Apnea - moderate; mostly hypopneas; with sleep related hypoventilation by 2018 home polysomnogram. Diabetes mellitus with micro albuminuria, without long-term current use of insulin 02/23/2017 Allergic rhinitis 09/12/2015 Migraine 09/12/2015 Morbid obesity due to excess calories 09/12/2015 Encounters Date Type Department Care Team Description 04/10/2024 Telephone Adult Medicine [address] [phone] Ximena Douglass, NIKKIE hosp f/u from Last 3 Months Immunizations Name Administration Dates Next Due Influenza trivalent, with pr eservative (Fluzone; Afluria) 6mo and older 05/11/2020,01/06/2015 PPD Test 11/15/2018,09/17/2015 Tdap Tetanus diptheria acell ular pertussis (Boostrix; Adacel) 7yo and older 11/15/2018 Surgical History Surgery Date Site/Laterality Comments SECTION PROCEDURE: HISTORICAL DELIVERY Medical History Medical History Date Comments Fibroid DX:Fibroid Migraines DX:Migraines Gestational diabetes DX:Gestatio nal diabetes DM (diabetes mellitus) ([facility]) DX:DM (diabetes mellitus) ([facility]) HTN (hypertension) 2017 DX:HTN (hyper tension) Hypertension 11/15/2018 DX:Hypertension Family History Medical History Relation Name Comments Diabetes Maternal Grandfather cva, th yroid disease Diabetes Maternal Grandmother kidney disease, cancer Hypertension Mother Diabetes Paternal Grandfather Breast cancer Neg Hx Colon cancer Neg Hx Relation Name Status Comments Maternal Grandfather Maternal Grandmother Mother Paternal Grandfather Social History Tobacco Use Types Packs/Day Years Used Date Smoking Tobacco: Every Day Cigarettes Smokeless Tobacco: Never Alcohol Use Standard Drinks/Week Comments Yes 0 (1 standard drink = 0.6 oz pur e alcohol) Comments Unknown Sex and Gender Information Value Date Recorded Sex Assigned at Not on file Legal Sex Female 10:34 AM EST Gender Identity Not on file Sexual Orientation Not on file Obstetrics History Last Filed Vital Signs Vital Sign Reading Time Taken Comments Blood Pressure 142/80 10/24/2021 9:59 AM EDT Pulse 96 10/24/2021 9:32 AM EDT Temperature - - Respiratory Rate - - Oxygen Saturation - - Inhaled Oxygen Concentration - - Weight - - Height - - Body Mass Index - - Plan of Treatment Health Maintenance Due Date Last Done Comments Diabetes: Annual Foot Exam 08/03/1995 Diabetes: Annual Retina Eye Exam 08/03/1995 Hepatitis B Vaccines (1 of 3 - 19+ 3-dose series) 2004 Pneumococcal Vaccine: Pediatrics (0 to 5 Years) and At-Risk Patients (6 to 64 Years) (1 of 2 - PCV) 2004 Diabetes: Annual GFR (Glomerular Filtration Rate) 01/10/2020 01/09/2019 Depression Screening 03/06/2022 Social Influencers of Health Screening 03/06/2022 Diabetes: Annual Urine Albumin-Creatinine Ratio (uACR) 03/13/2022 05/19/2018 Diabetes: Blood Sugar Control Test (HGBA1C) 03/13/2022 01/09/2019 Hypertension/CHF/CAD Annual BMP Blood Test 03/13/2022 01/09/2019 Cholesterol Screening (Lipid Panel) 05/19/2023 05/19/2018 COVID-19 Vaccine ( season) 2023 Influenza Vaccine (#1) 2023 05/11/2020, 2014 Cervical Cancer Screening: Pap Smear 10/19/2025 10/19/2022, 04/12/2018, 04/12/2018, Additional history exists DTaP,Tdap,and Td Vaccines (2 - Td or Tdap) 11/15/2028 11/15/2018 HIV Screening Completed 01/09/2019 Hepatitis C Screening Completed 01/09/2019 HIB Vaccines Aged Out No longer eligi ble based on patient's age to complete this topic HPV Vaccines Aged Out No longer eligi ble based on patient's age to complete this topic Hepatitis A Vaccines Aged Out No long er eligible based on patient's age to complete this topic IPV Vaccines Aged Out No longer eligi ble based on patient's age to complete this topic MMR Vaccines Aged Out No longer eligi ble based on patient's age to complete this topic Meningococcal ACWY Vaccine Aged Out N o longer eligible based on patient's age to complete this topic Meningococcal B Vacine Aged Out No lo nger eligible based on patient's age to complete this topic RSV Immunization Patients Under 20 months Aged Out No longer eligible based on patient's age to complete this topic Varicella Vaccines Aged Out No longer eligible based on patient's age to complete this topic Procedures Procedure Name Priority Date/Time Associated Diagnosis Comments PAP SMEAR Routine 10/19/2022 HEPATITIS C SCREENING Routine 01/09/2019 HIV SCREENING Routine 01/09/2019 ANNUAL BMP BLOOD TEST Routine 01/09/2019 HEMOGLOBIN A1C Routine 01/09/2019 URINE ALBUMIN CREATININE RATIO Routine 05/19/2018 LIPID PANEL Routine 05/19/2018 from Last 3 Months or Most Recently Relevant to Health Maintenance Results * Pap Smear (10/19/2022) Pathologist [facility] Pap smear Negative, Abstracted Historical Provider HEALTH MAINTENANCE Final Result * Annual BMP Blood Test (01/09/2019) Pathologist [facility] Annual BMP Blood Test Abstracted Historical Provider HEALTH MAINTENANCE Final Result * HIV Screening (01/09/2019) Pathologist [facility] HIV Screening Abstracted Historical Provider HEALTH MAINTENANCE Final Result * Hepatitis C Screening (01/09/2019) Pathologist [facility] Hepatitis C Screening Abstracted [facility] Provider HEALTH MAINTENANCE Final Result * Hemoglobin A1c (01/09/2019) [facility] Hemoglobin A1C 6.2 <=6.5 % Blood Venous blood specimen / Unknown Result [facility] Provider LAB BLOOD ORDERABLES Adriana l Result * HM Urine Albumin Creatinine Ratio (05/19/2018) [facility] Urine Albumin Creatinine Ratio Abstracted Result [facility] Provider HEALTH MAINTENANCE Final Result * (ABNORMAL) Lipid panel (05/19/2018) [facility] LDL/HDL Ratio 6(A) 0 - 4 Triglycerides 115 0 - 150 mg/dL Cholesterol 169 0 - 200 mg/dL HDL 28(A) >=40 mg/dL LDL Cholesterol 118(A) 0 - 100 mg/dL Blood Venous blood specimen / Unknown Result [facility] Provider LAB BLOOD ORDERABLES Adriana l Result from Last 3 Months or Most Recently Relevant to Health Maintenance Care Teams Recycling Program Manager Relationship Specialty Start Date End Date Alva Granados MD [address] [place] [address] PCP - General Internal Medicine 02/13/16
--- OUTSIDE RECORDS SUMMARY | 2024-06-15 16:18 | XMS_ITS | Data Portability ---
Author Organization [facility], [address] Address [address] [place] [address] Assessment No assessment recorded. Plan of Treatment Reminders Order Date Submit Date Provider Last Modified By Organization Details Last Modified Time Details Appointments None recorded. Lab rapid SARS CoV 2 Ag, QL IA, respiratory specimen 2021 [place] [id number], [address] [place] [address], [phone], 13:53:14 rapid flu (A+B) 2021 [address], [address] [place] [address], [phone], 13:53:14 Referral None recorded. Procedures None recorded. Surgeries None recorded. Imaging None recorded. Medication Orders benzonatate 200 mg capsule 2021 [facility]acy #[id number], [address] [place], [address], 13:53:17 loratadine 10 mg tablet 2021 [facility]armacy #[id number], [address] [place], [address], 13:53:18 Patient TargetsNo targets recorded. Patient Instructions Encounter Date Encounter Id Patient Instructions Last Modified By Organization Details Last Modified Time 03/02/2022 [id number] cough: care instructions Not available 03/02/2022 13:53:14 You are being treated for a cough that is most like related to a viral infection. Currently your exam does not suggest anything worrisome like pneumonia or a bacterial infection. The following are my recommendations to help you with your symptoms and recovery. 1. Take Ibuprofen or Tylenol if you do not have any allergies to these medications. If you take a blood thinner you should not take NSAIDS like Ibuprofen. These medication will help with the inflammation in your respiratory tract which should help the cough. 2. Do not take any decongestants at this time because this will dry out that tract too much. If you have a lot of nasal congestion you can try nasal decongestants, but I would not take them more than 5 days. 3. Use a humidifier or add a cup of water by your bed. Sometimes if our sleeping environment is too dry this can lead to cough 4. Salt Water Gargles 5. Saline nasal spray is helpful. I would be seen again if you develop any of the following. 1. Cough last longer than 3 weeks - and has not worsened 2. You develop a thick productive cough 3. Develop shortness of breath or wheezing 4. Develop achy feel or discomfort in a specific chest location 5. Fever > 100.5 I would go immediately to the Emergency Room if you develop: 1. Chest Pain 2. Severe Shortness of breath 3. Coughing up Blood. Most coughs will resolve on their own without any intervention in 3 weeks. If they last longer we need to evaluate and rule out some other condition like Acid Reflux, or lung pathology. Thank you for using [facility] today - please don't hesitate to contact up or return to see if you have any questions or concerns. [email or web address] Not available 03/02/2022 13:45:15 Reason for Referral None Reported. Results Created Date Observation Date Name Description Value Unit Range Abnormal Flag Note LastModifiedBy Organization Detail LastModifiedTime 03/02/20 22 03/02/2022 rapid SARS CoV 2 Ag, QL IA, respi rator y speci men COVID ANTIGEN negati ve Not Available [facility] [address], [place], [address], 03/02/2022 12:52:20 03/02/20 22 03/02/2022 rapid flu (A+B) Unknown Analyte negati ve Not Available [facility] [place], [address], 03/02/2022 12:52:15 03/02/2003/02/2022 rapid flu (A+B) Unknown Analyte negati ve Not Available [address] [address] [place], [address], 03/02/2022 12:52:15 Result Notes None recorded. Problems Name Problem SNOMED Code Status Onset Date Resolution Date Notes Provider Name and Address Organization Details Recorded Time Diabetes mellitus 64155885 Active 2021 TOMASA [place], [place] - [facility] 2 12:49:26 Hypertensive disorder 47847140 Active 2021 TOMASA [place] - [facility] 2 12:49:31 Problem Notes None recorded. Procedures Surgical History Date Name Laterality Status Provider Name and Address Organization Details Recorded Time section completed TOMASA YADAV [place] - [facility] 03/02/2022 12:52:04 Imaging Results None recorded. Procedure Notes None recorded. Medical Equipment None Reported. Allergies Allergen ID Allergen Name Allergen Category Reaction Reaction Severity Criticality Documentation Date Start Date Code Code System Note Provider Name and Address Organization Details Recorded Time 62361 honey bee venom medicatio n anaphylax is Not available Not available 03/02/2022 40950 7 RxNorm TOMASA costa, [place] - [facility] 2 12:48:11 36905 latex environme nt,medica tion hives Not available Not available 03/02/2022 63622 91 RxNorm TOMASA YADAV null, [place] - [facility] 2 12:48:23 Medications Name Sig Start Date Stop Date Status Note LastModified by Organization Details LastModified Time nifedipine ER 30 mg tablet,exte nded release 24 hr TAKE 1 TABLET (30 MG TOTAL) BY MOUTH 1 (ONE) TIME EACH DAY DO NOT CRUSH, CHEW, OR SPLIT. active Not Available Not Available No t Available metformin 500 mg tablet TAKE 2 TABLETS BY MOUTH TWICE A DAY 12/06 /2022 completed Not Available Not Available Not Available labetalol 200 mg tablet TAKE 2 TABLETS BY MOUTH 2 TIMES A DAY. 03/02 completed Not Available Not Available Not Available benzonatate 200 mg capsule Take 1 capsule 3 times a day by oral route. 2021 active Not Available Not Available Not Avai lable FreeStyle Lancets 28 gauge USE TO TEST TWICE DAILY BEFORE BREAKFAST AND BEDTIME active Not Available Not Available No t Available prednisone 20 mg tablet TAKE 3 TABLETS BY MOUTH EVERY DAY WITH FOOD FOR 5 DAYS FOR INFLAMMAT ION 03/02 completed Not Available Not Available Not Available amoxicillin 250 mg/5 mL oral suspension TAKE 10 ML BY MOUTH 3 TIMES DAILY FOR 10 DAYS. 03/02 completed Not Available Not Available Not Available loratadine 10 mg tablet Take 1 tablet every day by oral route. 2021 active Not Available Not Available Not Avai lable FreeStyle Lite Meter kit USE TO TEST TWICE DAILY BEFORE BREAKFAST AND BEDTIME active Not Available Not Available No t Available FreeStyle Lite Strips USE TO CHECK BLOOD SUGAR BEFORE BREAKFAST AND AT BEDTIME active Not Available Not Available No t Available Trulicity 1.5 mg/0.5 mL subcutaneou s pen injector INJECT 0.5 ML SUBCUTANE OUSLY ONCE A WEEK active Not Available Not Available No t Available Trulicity 0.75 mg/0.5 mL subcutaneou s pen injector 0.75 MG SUBCUTANE OUS INFUSION EVERY WEEK 03/02 completed Not Available Not Available Not Available Vitals Date Recorded Body weight Body mass index (BMI) Body height Oxygen saturation Oxygen saturation in Arterial blood by Pulse oximetry Heart rate Respiratory rate Body temperature Systolic blood pressure Diastolic blood pressure Provider Name and Address Organization Details Last Updated DateTime 2 037488. 19 g 45.3 kg/m2 170.18 cm 98 % 98 % 107 /min 18 /min 99.1 [degF] 154 mm[Hg] 98 mm[Hg] TOMASA [facility] 2 12:53:38 Social History Question Answer Notes LastModified by Organizat ion Details LastModified Time Tobacco Smoking Status Current Every Day Smoker [facility] 03/02/2022 12:51:19 What Is Your Level Of Alcohol Consumption? None [email or web address] Information not available 03/02/2022 Which Illicit Or Recreational Drugs Have You Used? Marijuana [email or web address] Information not available 03/02/2022 How Much Tobacco Do You Smoke? 0.25 PPD [email or web address] Information not available 03/02/2022 Do You Use Any Illicit Or Recreational Drugs? Yes Information not available 03/02/2022 Have You Recently Traveled Abroad? No Information not available 03/02/2022 Do You Or Have You Ever Used Any Other Forms Of Tobacco Or Nicotine? No Information not available 03/02/2022 Sex: Unknown Functional Status None recorded. Mental Status None recorded. Family History Relationship Description Onset Age of this Age Resolved Age Notes LastModified by Organization Details LastModified Time Mother Hypertensive disorder [email or web address] Not available 2021 12:50:24 Maternal Grandmother Diabetes mellitus [email or web address] Not available 2021 12:50:34 Medical History No medical history recorded. Gynecological HistoryNo gynecological history recorded. Obstetrics History GPAL:G 0 P 0 0 0 0 Past Encounters Encounter ID Performer Location Encounter Start Date Encounter Closed Date Diagnosis/Indication Diagnosis SNOMED-CT Code Diagnosis ICD10 Code Diagnosis Note [id number] [facility] [address] [place] [phone] 01/28/2021 13:31:57 01/28/2021 14:33:12 [id number] [facility] [address] [place] [address] 11/18/2021 09:15:38 11/18/2021 11:59:18 [id number] [facility] [address] [place] [address] 05/04/2020 15:37:56 05/04/2020 16:04:40 [id number] GREG RANDHAWA [address] [address] [place] [address] 03/02/2022 12:22:53 03/02/2022 13:57:10 Exposure to SARS-CoV-2 783097951 Z20.822 Rapid COVID Test Negative Hypertensive disorder 38 347437 I10 Your blood pressure was elevated today - you need to follow up with your PCP for this. Medication may need to be adjusted. Please keep a journal of AM and PM readings from a home cuff. This will help adjust medication s. Cough 82417385 R05.9 Health Concerns Section Related Observation LastModified by Organization Detai ls LastModified Time None Recorded Concern Status LastModified by Organization Details LastModified Time None Recorded Advance Directives Directive None Recorded Payers Encounter Date Sequence Insurance Name Policy Number Policy Bernard Covered Member ID Bernard Member ID Guarantor Name 05/04/2020 1 [facility] (MEDICAID REPLACEMENT - HMO) [place] Susan R Pippa [id number] Susan Pippa 01/28/2021 1 [facility] (MEDICAID REPLACEMENT - HMO) [place] Susan R Pippa [id number] Susan Trent 11/18/2021 1 [facility] (MEDICAID REPLACEMENT - HMO) [place] Susan R Pippa [id number] Susan Trent 03/02/2022 1 [facility] (MEDICAID REPLACEMENT - HMO) [place] Susan R Trent [id number] Susan Pippa Notes Date Note Type Note Provider Name and Address Organization Details Recorded Time 2 text/html CoughReported bypatient.source of patient informationInformation obtained from patient; Patient arrived at Urgent Care ambulatory Severity:mild Duration:3 days Timing:sudden Context:family members ill with similar symptoms Modifying Factors:Lying down Associated Symptoms:no fever; no chills; no chest pain; no nausea; no vomitingNotes:The patient presents with her young daughter who is being see too during this visit. The patient reports both have congestion. Worried about COVID and Flu. GREG RANDHAWA [address] [place], [address], [place] - [facility] 03/02/2022 22:44:59 OBGyn Episode No OBEpisode recorded.
--- OUTSIDE RECORDS SUMMARY | 2024-06-15 16:18 | XMS_ITS | Data Portability ---
Author Organization [place] - [facility], Allergy Address [address] [address] Care Team Providers Care Associate Professor Of Art History Name Role Phone CONSUELODARYL WEISSE Primary Care Provider [phone] Assessment Encounter Date Assessment Date Assessment LastModified by Organization Details LastModified Time 08/23/2023 08/23/2023 38-year-old female presents for follow-up swallow study. Modified barium swallow is indeed normal without aspiration or penetration. I have discussed that if her symptoms return could consider speech and language therapy or swallow therapy. But as her symptoms have resolved no further intervention was recommended. She may follow-up as needed. [email or web address] Not available 08/23/2023 10:13:47 Plan of Treatment Reminders Order Date Submit Date Provider Last Modified By Organization Details Last Modified Time Details Appointments None record ed. Lab None record ed. Referral None record ed. Procedures None record ed. Surgeries None record ed. Imaging None record ed. Medication Orders None record ed. Patient TargetsNo targets recorded. Patient InstructionsNo instructions recorded. Reason for Referral None Reported. Results Created Date Observation Date Name Description Value Unit Range Abnormal Flag Note LastModifiedBy Organization Detail LastModifiedTime 08/09/19 24 08/09/2023 kang powellviangel [facility] Diagno stic Karolin[facility] g Depart ment [address] [place] [address] [phone] ____ Annel t: ANDRÉS ASENCIOBrayan CALZADA /Age/S ex: 1985 - 38 - F Unit#: [id number] Locati on/Sta tus: [facility] T/PRE CLI Accoun t#: [id number] Mnjohnny ic/Ord ering Site: [facility]/S PDI Orderi ng Physic duarte: EPHRAIM SINGH MD ___ CR Barium Swallo w W Video - - 1112 Report Status :Caitlin d CLINIC AL HISTOR Y: DYSPHA KORINA. 38-yea r-old female with histor y of vocal cord polyps , chokin g on liquid s, reflux . COMPAR YOHAN: None TECHNI QUE: Multip le sequen tial fluoro scopic images of the latera l neck were obtain ed for a swallo wing functi on study. Barium enhanc ed consis tencie s of puddin g, honey, nectar , thin liquid , semi-s olid and 13 mm barium tablet were utiliz ed for evalua tion. Examin ation was perfor med with the speech therap ist dory DU GS: There was no eviden ce for penetr ation or aspira tion of the variou s consis tencie s. IMPRES AJ: Normal swallo wing functi on. Please refer to the sofia wahl speech pathol ogist report for furthe r detail s as clinic khadijah wahl. DAP: 0.48 Gycm 2 Dictat ing Physic duarte: JOSE CRAWFORD MD Electr onical ly Signed by: JOSE CRAWFORD MD Dic Date/T pamella: 1226 Sign date/T pamella: 1242 [facility] ([facility] Central Scheduling) Any [facility], [place], [address], 10/10/2023 15:11:31 11/17/19 24 08/08/2020 imagi ng/di agnos tic resul t No observ ation record ed. [email or web address] Not Available 02:55:58 11/17/19 24 08/09/2023 imagi ng/di agnos tic resul t No observ ation record ed. [email or web address] Not Available 02:56:03 Result Notes None recorded. Problems Name Problem SNOMED Code Status Onset Date Resolution Date Notes Provider Name and Address Organization Details Recorded Time Impacted cerumen in right ear 54774236467 96711 Active 2019 Impacted cerumen, right ear; Note: Date Diagnosed : 11/16/2019 1:26 PM (H61.21) Not Available [facility] 4 02:59:18 Impacted cerumen 68931871 Active 2013 Impacted cerumen; CMS Risk: low risk Cond ition: uncontrol led Not Available [facility] 4 02:59:18 Impacted cerumen in left ear 88515179230 96683 Active 2014 Impacted cerumen, left ear; Note: Date Diagnosed : 01/02/2015 1:36 PM (H61.22) Not Available [facility] 4 02:59:19 Hypertrop hy of tonsils 18597615 Active 2021 Hypertrop hy of tonsils; Note: Date Diagnosed : 12/17/2021 12:38 PM (J35.1) Not Available [facility] 4 02:59:19 Impacted cerumen of bilateral ears 95127743938 07791 Active 2017 Impacted cerumen, bilateral ; Note: Date Diagnosed : 08/11/2017 10:21 AM (H61.23) Not Available [facility] 4 02:59:18 Tinnitus of right ear 52826460989 08 Active 2015 Tinnitus, right ear; Note: Date Diagnosed : 09/08/2015 2:03 PM (H93.11) Not Available [facility] 4 02:59:21 Chronic tonsillit is 41749865 Active 2021 Chronic tonsillit is; Note: Date Diagnosed : 12/17/2021 12:39 PM (J35.01) Not Available [facility] 02:59:19 Dysphagia 54685638 Active 2023 TIFFANY RINCON PA-C [address] [facility], [place], [address] , [facility] - [facility] 4 10:14:03 Hoarse 37821361 Active 2023 TIFFANY RINCON PA-C 100 [facility],[address], [place], [address] , [facility] - [facility] 4 10:14:14 Pharyngea l dysphagia 59250602090 105 Active 2023 Dysphagia , pharyngea l phase; Note: Date Diagnosed : 05/23/2023 2:05 PM (R13.13) Not Available [facility] 02:59:19 Dysphonia 77985854 Active 2023 Hoarsenes s; Note: Date Diagnosed : 05/23/2023 2:09 PM (R49.0) Not Available [facility] 02:59:20 Problem Notes None recorded. Procedures Surgical History None recorded. Imaging Results Imaging Date Name Status LastModified by Organiz ation Details LastModified Time 08/09/2023 amee completed [facility] ([facility] Central Scheduling) [facility], [place], [address], 10/10/2023 15:11:31 08/08/2020 imaging/diagnos tic result completed Information not available 11/17/2023 02:55:58 08/09/2023 imaging/diagnos tic result completed Information not available 11/17/2023 02:56:03 Procedure Notes None recorded. Medical Equipment None Reported. Medications Name Sig Start Date Stop Date Status Note LastModified by Organization Details LastModified Time metformin 500 mg tablet 2017 active Medicati on ID: [id number] B rand Name: metformi n Send Method: E-Prescr ibed Sub s Allowed: subs OK Medic ationGen ericName : metformi n Not Available Not Available Not Available labetalol 200 mg tablet 2019 active Medicati on ID: [id number] D uration Value: 30 Brand Name: labetalo l Send Method: E-Prescr ibed Sub s Allowed: subs OK Speci al Instruct ion: TAKE 1 TABLET BY MOUTH 3 TIMES A DAY Medi cationGe nericNam e: labetalo l Not Available Not Available Not Available trazodone 50 mg tablet TAKE 1 TABLET BY MOUTH EVERYDAY AT BEDTIME active Not Available Not Available No t Available azithromy aimee 250 mg tablet TAKE 1 TABLET ORALLY DAILY FOR 4 DAYS START ON DAY 2 OF THERAPY active Not Available Not Available No t Available fluconazo le 150 mg tablet TAKE 1 TABLET BY MOUTH ONCE FOR 1 DAY active Not Available Not Available No t Available spironola ctone 25 mg-hydroc hlorothia zide 25 mg tablet 11/15 completed Medicati on ID: [id number] D uration Value: 30 Reason: () Brand Name: spironol nghia-hy drochlor othiaz S end Method: E-Prescr ibed Sub s Allowed: subs OK Medic ationGen ericName : spironol nghia-hy drochlor othiaz Not Available Not Available Not Available FreeStyle Lancets 28 gauge USE TO TEST 3 TIMES DAILY active Not Available Not Available No t Available terconazo le 0.8 % vaginal cream INSERT 1 APPLICAT ORFUL VAGINALL Y AT BEDTIME FOR 3 DAYS active Not Available Not Available No t Available Lantus U-100 Insulin 100 unit/mL subcutane ous solution 2017 active Medicati on ID: [id number] B rand Name: Lantus U-100 Insulin Send Method: E-Prescr ibed Sub s Allowed: subs OK Medic ationGen ericName : Lantus U-100 Insulin Not Available Not Available Not Available amlodipin e 2.5 mg tablet 2019 active Medicati on ID: [id number] D uration Value: 30 Brand Name: amlodipi ne Send Method: E-Prescr ibed Sub s Allowed: subs OK Speci al Instruct ion: TAKE 1 TABLET BY MOUTH EVERY DAY Medi cationGe nericNam e: amlodipi ne Not Available Not Available Not Available nifedipin e ER 60 mg tablet,ex tended release 24 hr TAKE 1 TABLET (60 MG TOTAL) BY MOUTH 1 (ONE) TIME EACH DAY DO NOT CRUSH, CHEW, OR SPLIT. active Not Available Not Available No t Available losartan 25 mg tablet TAKE 1 TABLET BY MOUTH 1 TIME EACH DAY. active Not Available Not Available No t Available Vitamin D2 1,250 mcg (50,000 unit) capsule 01/18 completed Medicati on ID: [id number] Du ration Value: 28 Reason: () Brand Name: Vitamin D2 Send Method: E-Prescr ibed Sub s Allowed: subs OK Marielenai al Instruct ion: TAKE 1 C BY MOUTH WEEKLY FOR 8 WEEKS Me dication GenericN ashley: Vitamin D2 Not Available Not Available Not Available medroxypr ogesteron e 150 mg/mL intramusc ular suspensio n 11/15 completed Medicati on ID: [id number] D uration Value: 90 Reason: () Brand Name: medroxyp rogester one Send Method: E-Prescr ibed Sub s Allowed: subs OK Medic ationGen ericName : medroxyp rogester one Not Available Not Available Not Available escitalop maikol 10 mg tablet TAKE 1 TABLET BY MOUTH EVERY DAY IN THE MORNING active Not Available Not Available No t Available BD Ultra-Fin e Mini Pen Needle 31 gauge x 3/16 2019 active Medicati on ID: [id number] D uration Value: 25 Brand Name: BD Ultra-Fi ne Mini Pen Needle S end Method: E-Prescr ibed Sub s Allowed: subs OK Marielenai al Instruct ion: TO GIVE WITH INSULIN 4X A DAY. E 11.9 Med icationG enericNa me: BD Ultra-Fi ne Mini Pen Needle Not Available Not Available Not Available FreeStyle Lite Strips USE TO TEST 3 TIMES DAILY active Not Available Not Available No t Available Humalog KwikPen (U-100) Insulin 100 unit/mL subcutane ous 2019 active Medicati on ID: [id number] D uration Value: 30 Brand Name: Humalog KwikPen Insulin Send Method: E-Prescr ibed Sub s Allowed: subs OK Speci al Instruct ion: TAKE 4 14 UNITS 3 TIMES A DAY BEFORE MEALS PER SLIDING SCALE. E 11.9 T OTAL DAILY DOSE IS 42 UNITS Me dication GenericN ashley: Humalog KwikPen Insulin Not Available Not Available Not Available FreeStyle [place] Lite kit USE TO TEST 3 TIMES DAILY active Not Available Not Available No t Available Levemir FlexTouch U-100 Insulin 100 unit/mL (3 mL) subcutane ous pen 2019 active Medicati on ID: [id number] D uration Value: 34 Brand Name: Levemir FlexTouc h U-100 Insuln S end Method: E-Prescr ibed Sub s Allowed: subs OK Speci al Instruct ion: INJECT 13 UNITS SUBCUTAN EOUSLY IN THE MORNING AND AFTERNOO N Medica tionGene ricName: Levemir FlexTouc h U-100 Insuln Not Available Not Available Not Available Trulicity 0.75 mg/0.5 mL subcutane ous pen injector INJECT 0.5 ML SUBCUTAN EOUSLY EVERY WEEK active Not Available Not Available No t Available selenium sulfide 2.5 % lotion 01/18 completed Medicati on ID: [id number] Du ration Value: 10 Reason: () Brand Name: selenium sulfide Send Method: E-Prescr ibed Sub s Allowed: subs OK Speci al Instruct ion: USE EXTERNAL LY D PRN FOR 10 DAYS Med icationG enericNa me: selenium sulfide Not Available Not Available Not Available Basaglar KwikPen U-100 Insulin 100 unit/mL (3 mL) subcutane ous 2019 active Medicati on ID: [id number] D uration Value: 42 Brand Name: Basaglar KwikPen U-100 Insulin Send Method: E-Prescr ibed Sub s Allowed: subs OK Speci al Instruct ion: TAKE 13 UNITS BEFORE BREAKFAS T AND 13 UNITS AT BEDTIME UNTIL LEVEMIR P A COMES THROUGH Medicati onGeneri cName: Basaglar KwikPen U-100 Insulin Not Available Not Available Not Available Vitals Date Recorded Body height Body mass index (BMI) Body weight Provider Name and Address Organization Details Last Updated DateTime 08/23/2023 172.72 cm 43.3 kg/m2 762584.83 g Elayne Velazquez [place] - [facility] 08/23/2023 09:47:48 Social History None recorded. Functional Status None recorded. Mental Status None recorded. Family History Nothing Reported. Medical History No medical history recorded. Gynecological HistoryNo gynecological history recorded. Obstetrics History GPAL:G 0 P 0 0 0 0 Past Encounters Encounter ID Performer Location Encounter Start Date Encounter Closed Date Diagnosis/Indication Diagnosis SNOMED-CT Code Diagnosis ICD10 Code Diagnosis Note [id number] LAQUITA MACK MD [facility] [address] [address] 08/23/2023 09:30:26 08/23/2023 10:03:34 Dysphagia 39023378 R13.10 Hoarse 41019562 R49.0 Health Concerns Section Related Observation LastModified by Organization Detai ls LastModified Time None Recorded Concern Status LastModified by Organization Details LastModified Time None Recorded Advance Directives Directive None Recorded Payers Encounter Date Sequence Insurance Name Policy Number Policy Bernard Covered Member ID Bernard Member ID Guarantor Name 08/23/2023 1 [facility] - [facility] (MEDICAID REPLACEMENT - HMO) [facility] Susan Asencio [id number] Susan Asencio Notes Date Note Type Note Provider Name and Address Organization Details Recorded Time 08/23/2023 text/html 38-year-old brittney jacques presents following swallow study. Swallow study was ordered due to concerns about choking. Patient was also having hoarseness. Flexible laryngoscopy at her last visit was unremarkable. Her hoarseness has resolved and she is having less difficulty with swallowing. She has had her modified barium swallow. Was told that the results were normal. LAQUITA MACK MD [address] [place] [address], [address], [facility] - [facility] 08/24/2023 08:23:27 OBGyn Episode No OBEpisode recorded.
--- OUTSIDE RECORDS SUMMARY | 2024-06-15 16:18 | XMS_ITS | Clinical Summary ---
Author Organization [facility] Address 100 [facility] [address] [place] [address] Phone Care Team Providers Care Bariatric Nurse Name Role Phone Alav Granados MD Primary Care Provider [phone] Allergies Active Allergy Reactions Criticality Noted Date Comments Bee Venom 11/19/2021 Latex 05/17/2018 Other Other (see comments) 06/18/2020 Medications acetaminophen (TYLENOL) 325 MG tablet Take 650 mg by mouth 1 Active aspirin (ST BESS) 81 MG EC tablet Take 81 mg by mouth 1 Active Trulicity 0.75 MG/0.5ML solution pen-injector 1.5 mg 2 Active ibuprofen (ADVIL,MOTRIN) 600 MG tablet Take 600 mg by mouth 6 Active NIFEdipine XL (PROCARDIA XL) 60 MG 24 hr tablet Take 1 tablet (60 mg total) by mouth 1 (one) time each day Do not crush, chew, or split. 90 tablet 1 3 Active Additional Information Patient not taking.Reported on 04/01/2023 losartan (Cozaar) 25 MG tablet Take 1 tablet (25 mg total) by mouth 1 (one) time each day 90 tablet 3 4 Active Blood Pressure Monitoring (Blood Pressure Monitor 3) device 1 Device by Other route 1 (one) time each day 1 each 4 Active Active Problems Problem Noted Date Diagnosed Date Hypertensive disorder 06/18/2020 Resolved Problems Problem Noted Date Diagnosed Date Resolved Date Allergic rhinitis 06/18/2020 04/06/2021 Obesity 06/18/2020 04/06/2021 COVID-19 08/06/2019 04/06/2021 Overview (02/02/2021): Tested positive at [facility] 08/01/2019 Periodic limb movement disorder 08/01/2018 04/06/2021 Obstructive sleep apnea 05/24/201803/28 Overview (02/02/2021): [facility] Home Polysomnogram: Date 05/23/2018; REYES 16, Unclassified apneas 0; Obstructive apneas 2; Central apneas 1; Mixed apneas 0; hypopneas 45; average oxygen saturation 92% (lowest 76% with saturations <88% for 5% or more of study) [facility] Polysomnogram treatment study. Date 07/30/2018. Wt 290#; [...] hypoventilation by 2018 home polysomnogram. Diabetes mellitus 02/23/2017 04/06/2021 Migraine 09/12/2015 04/06/2021 Immunizations Name Administration Dates Next Due PPD Test 11/15/2018,09/17/2015 Tdap 11/15/2018 Family History Medical History Relation Comments Hypertension Mother Relation Status Comments Father Unknown Mother Unknown Social History Tobacco Use Types Packs/Day Years Used Date Smoking Tobacco: Every Day Cigarettes Smokeless Tobacco: Never Tobacco Cessation:Ready to Q uit: Not Asked; Counseling Given: Not Answered Alcohol Use Standard Drinks/Week Comments Yes 0 (1 standard drink = 0.6 oz pure alcohol) Alcoholic Drinks/day: Occasional social drink Comments Unknown Sex and Gender Information Value Date Recorded Sex Assigned at Not on file Legal Sex Female 4:49 PM EST Gender Identity Not on file Sexual Orientation Not on file Last Filed Vital Signs Vital Sign Reading Time Taken Comments Blood Pressure 146/92 04/01/2023 10:32 AM EST Pulse 94 04/01/2023 10:32 AM EST Temperature - - Respiratory Rate - - Oxygen Saturation 97% 04/01/2023 10:32 AM EST Inhaled Oxygen Concentration - - Weight 127 kg (279 lb 12.8 oz) 04/01/2023 10:32 AM EST Height 172.7 cm (5' 8 ) 07/19/2022 1:43 PM EDT Body Mass Index 42.54 07/19/2022 1:43 PM EDT Plan of Treatment Health Maintenance Due Date Last Done Comments Pneumococcal Vaccine: Pediat rics (0 to 5 Years) and At-Risk Patients (6 to 64 Years) (1 of 2 - PCV) 08/03/1991 Hepatitis B Vaccine (1 of 3 - 19+ 3-dose series) 08/02 Influenza Vaccine (#1) 2023 01/06/2015 [place] [address] [place] [address] Care Teams Bariatric Nurse Relationship Specialty Start Date End Date Alva Granados MD PCP - General 04/07/20
== END 2024-06-15 14:42 | disposition home or self-care (01) ==
PROVIDERS: PCP Internal Medicine
DX: I21.4 Non-ST elevation (NSTEMI) myocardial infarction (principal); I10 Essential (primary) hypertension; E11.9 Type 2 diabetes mellitus without complications; Z09 Encounter for follow-up examination after completed treatment for conditions other than malignant neoplasm
CPT/HCPCS: 99214; G2211

== ENCOUNTER → 2024-06-15 14:00 | Outpatient (BNVA) | payer OTHER, SELFPAY | PROVIDERS: PCP Internal Medicine | DX: Z09 Encounter for follow-up examination after completed treatment for conditions other than malignant neoplasm (principal); I21.4 Non-ST elevation (NSTEMI) myocardial infarction; I10 Essential (primary) hypertension; E11.9 Type 2 diabetes mellitus without complications | CPT/HCPCS: 99212 ==

== ENCOUNTER → 2024-06-27 10:23 | Outpatient (BNVA) | payer OTHER, SELFPAY | PROVIDERS: PCP Internal Medicine; Visit Provider Physician Assistant Surgical ==

== ENCOUNTER → 2024-07-09 09:02 | Outpatient (BNVA) | payer OTHER, SELFPAY | PROVIDERS: PCP Internal Medicine; Visit Provider Surgery ==

== ENCOUNTER 2024-07-19 09:29 | Outpatient (AMB) | payer OTHER, SELFPAY ==
--- OUTSIDE RECORDS SUMMARY | 2024-07-19 10:26 | XMS_ITS | Clinical Summary ---
Author Organization [facility] Address [facility] [address] [place] [address] Phone Care Team Providers Care Drapery Estimator Name Role Phone Alva Granados MD Primary Care Provider [phone] Allergies Active Allergy Reactions Criticality Noted Date [...] 08/06/2019 04/06/2021 Overview (02/02/2021): Tested positive at [facility] 08/01/2019 Periodic limb movement disorder 08/01/2018 04/06/2021 Obstructive sleep apnea 05/24/201803/28 Overview (02/02/2021): [facility] Home Polysomnogram: Date 05/23/2018; REYES 16, Unclassified apneas 0; Obstructive apneas 2; Central apneas 1; Mixed apneas 0; hypopneas 45; average oxygen saturation 92% (lowest 76% with saturations <88% for 5% or more of study) [facility] Polysomnogram treatment study. Date 07/30/2018. Wt 290#; [...] mellitus 02/23/2017 04/06/2021 Migraine 09/12/2015 04/06/2021 Immunizations Immunization Administration Dates Next Due PPD Test 11/15/2018,09/17/2015 [...] Health Maintenance Due Date Last Done Comments Hepatitis B Vaccine (1 of 3 - 19+ 3-dose series) 08/02 Pneumococcal Vaccine: Peds ( 0 to 5 Years) and At-Risk Patients (6 to 49 Years) (1 of 2 - PCV) 2004 Influenza Vaccine (Season Ended) 2024 01/07/20 15 Insurance Medicaid Medicaid Care Teams Drapery Estimator Relationship Specialty Start Date End Date Alva Granados MD PCP - General 04/07/20
--- OUTSIDE RECORDS SUMMARY | 2024-07-19 10:26 | XMS_ITS | Clinical Summary ---
Author Organization [facility] it Address [address] [place] [address] Care Team Providers Care Laboratory Director Name Role Phone Alva Granados MD Primary Care Provider [phone] Allergies Active Allergy Reactions Criticality Noted Date [...] infection 08/06/2019 Overview (03/14/2024): Tested positive at [facility] 08/01/2019 Hypertension 11/15/2018 PLMD (periodic limb movement disorder) 9 Obstructive sleep apnea 05/24/2018 Overview (03/14/2024): [facility] Home Polysomnogram: Date 05/23/2018; REYES 16, Unclassified apneas 0; Obstructive apneas 2; Central apneas 1; Mixed apneas 0; hypopneas 45; average oxygen saturation 92% (lowest 76% with saturations <88% for 5% or more of study) [facility] Polysomnogram treatment study. Date 07/30/2018. Wt 290#; [...] albuminuria, without long-term current use of insulin ([facility] V24, [facility] V28) 02/23/2017 Allergic rhinitis 09/12/2015 Migraine 09/12/2015 Morbid obesity due to excess calories ([facility] V24, [facility] V28) 09/12/2015 Immunizations Name Administration Dates Next Due Influenza trivalent, with pr eservative (Fluzone; Afluria) 6mo and older 05/11/2020,01/06/2015 PPD Test 11/15/2018,09/17/2015 Tdap Tetanus diptheria acell ular pertussis (Boostrix; Adacel) 7yo and older 11/15/2018 Surgical History Surgery Date Site/Laterality Comments SECTION PROCEDURE: HISTORICAL DELIVERY Medical History Medical History Date Comments Fibroid DX:Fibroid Migraines DX:Migraines Gestational diabetes DX:Gestatio nal diabetes DM (diabetes mellitus) ([facility] V24, [facility] V28) DX:DM (diabetes mellitus) ([facility]) HTN (hypertension) 2017 DX:HTN (hyper tension) Hypertension [...] COVID-19 Vaccine ( season) 2023 Influenza Vaccine (Season Ended) 2024 05/11/2020, 01/06/2015 Cervical Cancer Screening: Pap Smear 10/19/2025 10/19/2022, [...] age to complete this topic Meningococcal B Vaccine Aged Out No l onger eligible based on patient's age to complete [...] Maintenance Results * Pap Smear (10/19/2022) Pathologist [facility] Pap smear Negative, Abstracted Historical Provider HEALTH MAINTENANCE Final Result * Annual BMP Blood Test (01/09/2019) [facility] Annual BMP Blood Test Abstracted Historical Provider HEALTH MAINTENANCE Final Result * HIV Screening (01/09/2019) [facility] HIV Screening Abstracted [facility] Provider HEALTH MAINTENANCE Final Result * Hepatitis C Screening (01/09/2019) [facility] Hepatitis C Screening Abstracted [facility] Provider HEALTH MAINTENANCE Final Result * Hemoglobin A1c (01/09/2019) Hemoglobin A1C 6.2 <=6.5 % Blood Venous blood specimen / Unknown Result [facility] Provider LAB BLOOD ORDERABLES Adriana l Result * HM Urine Albumin Creatinine Ratio (05/19/2018) Urine Albumin Creatinine Ratio Abstracted Result [facility] Provider HEALTH MAINTENANCE Final Result * (ABNORMAL) Lipid panel (05/19/2018) LDL/HDL Ratio 6(A) 0 - 4 Triglycerides 115 0 - 150 mg/dL Cholesterol 169 0 - 200 mg/dL HDL 28(A) >=40 mg/dL LDL Cholesterol 118(A) 0 - 100 mg/dL Blood Venous blood specimen / Unknown Result [facility] Provider LAB BLOOD ORDERABLES Adriana l Result from Last 3 Months or Most Recently Relevant to Health Maintenance Care Teams Laboratory Director Relationship Specialty Start Date End Date Alva Granados MD [address] [place] [id number] PCP - General Internal Medicine 02/13/16
--- OUTSIDE RECORDS SUMMARY | 2024-07-19 10:26 | XMS_ITS | Data Portability ---
Author Organization [facility] [employer], [address] Address [address] [place] [address] Assessment No assessment recorded. Plan of Treatment Reminders Order Date Submit Date Provider Last Modified By Organization Details Last Modified Time Details Appointments None recorded. Lab rapid SARS CoV 2 Ag, QL IA, respiratory specimen 2021 [place] [address], [address] [place] [address], [id number], 13:53:14 rapid flu (A+B) 2021 [email or web address] 20995[facility], [address] [place] [address], [id number], 13:53:14 Referral None recorded. Procedures None recorded. Surgeries None recorded. Imaging None recorded. Medication Orders benzonatate 200 mg capsule 2021 [id number], [address] [place], [address], 13:53:17 loratadine 10 mg tablet 2021 [id number], [address] [place], [address], 13:53:18 Patient TargetsNo targets recorded. Patient Instructions Encounter Date Encounter Id Patient Instructions Last Modified By Organization Details Last Modified Time 03/02/2022 [id number] cough: care instructions [email or web address] Not available 03/02/2022 13:53:14 You are being [...] or lung pathology. Thank you for using [employer] today - please don't hesitate to contact up or return to see if you have any questions or concerns. [email or web address] Not available 03/02/2022 13:45:15 Reason for Referral None Reported. Results Created Date Observation Date Name Description Value Unit Range Abnormal Flag Note LastModifiedBy Organization Detail LastModifiedTime 03/02/20 22 03/02/2022 rapid SARS CoV 2 Ag, QL IA, respi rator y speci men COVID ANTIGEN negati ve Not Available [address] [address], [place], [address], 03/02/2022 12:52:20 03/02/20 22 03/02/2022 rapid flu (A+B) Unknown Analyte negati ve Not Available [facility] [address] [place], [address], 03/02/2022 12:52:15 03/02/2003/02/2022 rapid flu (A+B) Unknown Analyte negati ve Not Available [address] [facility] [place], [address], 03/02/2022 12:52:15 Result Notes None recorded. Problems Name Problem SNOMED Code Status Onset Date Resolution Date Notes Provider Name and Address Organization Details Recorded Time Diabetes mellitus 64802597 Active 2021 [place] - [facility] 2 12:49:26 Hypertensive disorder 11974101 Active 2021 [place] [place] [facility] Name and Address Organization Details Recorded Time 58628 honey bee venom medicatio n anaphylax is Not available Not available 03/02/2022 97080 7 RxNorm [place] - [facility] 2 12:48:11 04045 latex environme nt,medica tion hives Not available Not available 03/02/2022 97058 91 RxNorm TOMASA YADAV null, [place] - [...] Address Organization Details Last Updated DateTime 2 856340. 19 g 45.3 kg/m2 170.18 cm 98 % 98 % 107 /min 18 /min 99.1 [degF] 154 mm[Hg] 98 mm[Hg] TOMASA [facility] 2 12:53:38 Social History Question Answer Notes LastModified by Organizat ion Details LastModified Time Tobacco Smoking Status Current Every Day Smoker [facility] 03/02/2022 12:51:19 What Is Your Level Of Alcohol Consumption? None [email or web address] Information not available 03/02/2022 Which Illicit Or Recreational Drugs Have You Used? Marijuana [email or web address] Information not available 03/02/2022 How Much Tobacco Do You Smoke? 0.25 PPD [email or web address] Information not available 03/02/2022 Do You Use Any Illicit Or Recreational Drugs? Yes [email or web address] Information not available 03/02/2022 Have You Recently Traveled Abroad? No [email or web address] Information not available 03/02/2022 Do You Or Have You Ever Used Any Other Forms Of Tobacco Or Nicotine? No [email or web address] Information not available 03/02/2022 Sex: Unknown Functional Status None recorded. Mental Status None recorded. Family History Relationship Description Onset Age of this Age Resolved Age Notes LastModified by Organization Details LastModified Time Mother Hypertensive disorder [email or web address] Not available 2021 12:50:24 Maternal Grandmother Diabetes mellitus [email or web address] Not available 2021 12:50:34 Medical History No medical history recorded. Gynecological HistoryNo gynecological history recorded. Obstetrics History GPAL:G 0 P 0 0 0 0 Past Encounters Encounter ID Performer Location Encounter Start Date Encounter Closed Date Diagnosis/Indication Diagnosis SNOMED-CT Code Diagnosis ICD10 Code Diagnosis Note [id number] [facility] [address] [place] [address] 01/28/2021 13:31:57 01/28/2021 14:33:12 [id number] [facility] [address] [place] [address] 11/18/2021 09:15:38 11/18/2021 11:59:18 [id number] [facility] [address] [place] [address] 05/04/2020 15:37:56 05/04/2020 16:04:40 [id number] [facility]REG [facility] [address] [address] [place] [address] 03/02/2022 12:22:53 03/02/2022 13:57:10 Exposure to SARS-CoV-2 689517704 Z20.822 Rapid COVID Test Negative Hypertensive disorder 38 548752 I10 Your blood pressure was elevated today - you need to follow up with your PCP for this. Medication may need to be adjusted. Please keep a journal of AM and PM readings from a home cuff. This will help adjust medication s. Cough 55501255 R05.9 Health Concerns Section Related Observation LastModified by Organization Detai ls LastModified Time None Recorded Concern Status LastModified by Organization Details LastModified Time None Recorded Advance Directives Directive None Recorded Payers Encounter Date Sequence Insurance Name Policy Number Policy Bernard Covered Member ID Bernard Member ID Guarantor Name 05/04/2020 1 [facility] (MEDICAID REPLACEMENT - HMO) [place] Susan R Pippa [id number] Susan Pippa 01/28/2021 1 [facility] (MEDICAID REPLACEMENT - HMO) [place] Susan R Pippa [id number] Susan [place] 11/18/2021 1 [facility] (MEDICAID REPLACEMENT - HMO) [place] Susan R Pippa [id number] Susan [place] 03/02/2022 1 [facility] (MEDICAID REPLACEMENT - HMO) [place] Susan R [place] [id number] Susan Pippa Notes Date Note Type Note [...] Flu. GREG RANDHAWA [address] [place], [address], [place] - [facility] 03/02/2022 22:44:59 OBGyn Episode No OBEpisode recorded.
--- NOTE | 2024-07-19 10:56 | MHC.OFFVISWM ---
VS Expanded 07/19/24 11:10 Height 5 ft 7 in Weight 281 lb 8 oz BMI 44.1 Body Fat % 39.4 Body Fat Mass 110.8 Fat Free Mass 170.8 Visceral Fat Rating 11 Body Water % 43.3 Body Water Mass 122.2 Basal Metabolic Rate/Score 2,395 Intake Visit Reasons: [employer] BMI 44.2 Allergies pineapple Allergy (Severe, Verified 07/19/24 10:57) itchy throat latex [LATEX] Allergy (Unknown, Verified 07/19/24 10:57) HIVES bee pollen [bee stings] Allergy (Verified 07/19/24 10:57) Hives Medication List - Last Reconciled 07/19/24 by Jesse Nava MD aspirin 81 mg PO DAILY atorvastatin 40 mg PO BEDTIME carvedilol 6.25 mg See Protocol PO BID losartan 50 mg See Protocol PO DAILY omeprazole 40 mg PO DAILY tirzepatide (Mounjaro) 7.5 mg subcut FR HPI HPI [employer] BMI 44.2: Details: Start time: 10.47am, End time: 11.32am ?I spent 40 minutes speaking with the patient on the phone plus an additional 5 minutes reviewing and updating records for a total of 45 minutes HPI Comments Details: Previous weight loss efforts: Mounjaro 7.5mg/wk (7lbs last 2 months) Wakes up: 7am, Sleeps: 1am Breakfast: skips Lunch: 1pm (tuna in can, chips) Dinner: 6pm (chicken, beef with salad or bread or rice) Snacks: 3pm (granola bar), 9pm (ham and cheese sandwich, granola bar) Exercise: none Beverages: Coffee: occasionally, tea: none, soda: sparkling water, juice: none, ETOH: none PFSH Medical History (Updated 07/19/24 @ 11:04 by Jesse Nava MD) Anxiety Depression GERD (gastroesophageal reflux disease) Hyperlipidemia Back pain Morbid obesity Hypertension, uncontrolled Preeclampsia HTN (hypertension) Surgical History (Updated 06/27/24 @ 10:32 by Kinga Anderson CMA) H/O section Family History Father No problems noted. Mother No problems noted. Social History (Updated 06/27/24 @ 10:32 by STEVEN Cope Household Members: Children Housing: Apartment Do you presently have visiting nurse or other home services: No Alcohol intake: never Patient Tobacco Use Status: Current everyday Tobacco user Tobacco use type: Cigarette Cigarettes Per Day: 3 e-Cigarette/Vaping Use: Never Used Second Hand Smoke Exposure: No Substance Use Type: Marijuana service: No Telehealth Telehealth Telehealth Platform: Telephone Location of provider rendering services: practice address Location of patient: address on file Patient Identification confirmed using: Name, : Yes Telehealth method: voice only Patient verbally consented to treatment: Yes Patient verbally consented to billing insurance company: Yes Patient informed of any privacy concerns related to visit: Yes Minutes spent on Phone/Video with Pt.: 45 Assessment & Plan Assessment & Plan (1) Morbid obesity: Code(s): E66.01 - Morbid (severe) obesity due to excess calories Category: Medical Plan: 1.? Plan for lap sleeve gastrectomy. If diaphragmatic or ventral hernias are present at time of surgery, these will be repaired laparoscopically as well. I emphasized the importance of close follow-up, adherence to instructions and good communication. The surgery does not replace the need to change your lifestlyle which is the cause of the obesity problem. The surgery provides the motivation to try again to change your lifestyle, it reduces the appetite and make the transition to a better lifestyle easier and doubles the amount of weight you would lose compared to doing the lifestyle change without the surgery. You will need to be on a liquid diet with protein shakes for 2 weeks before surgery to maximize weight loss and boost your nutritional status to recover better from surgery and also for the first two weeks after surgery to let the stomach heal before we introduce other foods. After the first 2 weeks we will introduce protein bars and soft foods like scrambled eggs, cottage cheese and yogurt and after the 6th week will introduce meat, fish and cooked vegetables in small amounts. Over time you should be able to eat everything in small amounts. Side effects like nausea, vomiting, heartburn or abdominal pain are not common in the practice unless you are not following in the practice. This operation requires lifetime commitment to following in our practice and communication with me. You will much less weight and experience side effects if you don?t communicate or not following in the practice. Complications are rare and in our practice is about 1/10 of the national average. However, you can develop bleeding that may require transfusion (hasn?t happened for year in the practice), you may from complications (we did not have any deaths in the practice) and infections. Infections are usually a result of breakdown in communication or not understanding or following directions correctly. They are difficult to treat, they can happen during the first 6 weeks, they may require to be in the hospital for weeks or even months, not being able to eat by mouth and you may have drains and surgeries to try and correct the issue. Other risks and complications include possible conversion to an open procedure, leaks, small bowel obstruction, blood clots, cardiac, or pulmonary complications, as termite control servicer complications such as ulcers, insufficient weight loss and vitamin deficiencies. 2. You will receive a link of our software george to generate an individualized nutritional and exercise plan specific for you. Please send me a screenshot of the plans you will generate Meal to include lean meat (beef, fish, pork, turkey, chicken), or yemeni yogurt, or egg whites, or beans with a salad with olive oil and fruits (berries, pears, apples, kiwi). Avoid salt, breads, potatoes, rice, pasta, desserts. ?3. If you choose shakes, each shake would be drunk slowly, like coffee in a period of 2 hours. ?4. If you choose bars, cut each bar in 4 pieces and eat each piece in 30min ?to make each bar last 2 hours. ?5. I emphasized the importance of measuring accurately the food portion and measure it when serving the food in plate ?6. The meal portions include a specific number of forks of meat and salad. You always eat the meat portion but you can replace up to half of salad/vegetables portion with rice, potatoes or pasta, or a fruit ?if you like. The less you do it the better weight loss will be. ?7. One full-size fork is what it can be scooped on the fork without falling aside and not what can be bit with the fork. Use regular forks like those you find in a typical restaurant. ?8.? Please buy the body composition scale we discussed and send me weight measurements as soon as possible and then once a week. Always include your diet and exercise plan. 9. The best choice would be to purchase a stationary bike, elliptical or treadmill at home that can track calories. You can create and exercise plan with the [facility]. ?10.?It is important of avoiding and for at least 18 months postoperatively and has been discussed at the infosession. ?11. Goal is to lose at least 1.5-2lbs per week ?12. Goal to lose 10% of your weight before surgery, which is about 28lbs. Ultimate weight goal: 253lbs before surgery 13. Please follow the diet plan exactly without any change. If you don't like something about the plan or you feel hungry you need to communicate with me so I can help you revise the plan. You should not change the plan yourself. 14. To be scheduled for EGD due to the history of GERD. The possibility of biopsies was discussed. Patient needs to avoid use of NSAIDs and aspirin for 1 week prior to EGD. You must be on liquids only the day before your endoscopy. Risks of perforation and bleeding was discussed with the patient. This will be an outpatient procedure with IV sedation. Orders: Orders Insulin Today E11.9 - Type 2 diabetes mellitus without complications, E66.01 - Morbid (severe) obesity due to excess calories, E78.5 - Hyperlipidemia, unspecified, I10 - Essential (primary) hypertension, I21.4 - Non-ST elevation (NSTEMI) myocardial infarction, K21.9 - Gastro-esophageal reflux disease without esophagitis H Pylori Breath Test Today E11.9 - Type 2 diabetes mellitus without complications, E66.01 - Morbid (severe) obesity due to excess calories, E78.5 - Hyperlipidemia, unspecified, I10 - Essential (primary) hypertension, I21.4 - Non-ST elevation (NSTEMI) myocardial infarction, K21.9 - Gastro-esophageal reflux disease without esophagitis Complete Blood Count Auto Diff Today E11.9 - Type 2 diabetes mellitus without complications, E66.01 - Morbid (severe) obesity due to excess calories, E78.5 - Hyperlipidemia, unspecified, I10 - Essential (primary) hypertension, I21.4 - Non-ST elevation (NSTEMI) myocardial infarction, K21.9 - Gastro-esophageal reflux disease without esophagitis Lipid Panel Today E11.9 - Type 2 diabetes mellitus without complications, E66.01 - Morbid (severe) obesity due to excess calories, E78.5 - Hyperlipidemia, unspecified, I10 - Essential (primary) hypertension, I21.4 - Non-ST elevation (NSTEMI) myocardial infarction, K21.9 - Gastro-esophageal reflux disease without esophagitis Comprehensive Met. Panel Today E11.9 - Type 2 diabetes mellitus without complications, E66.01 - Morbid (severe) obesity due to excess calories, E78.5 - Hyperlipidemia, unspecified, I10 - Essential (primary) hypertension, I21.4 - Non-ST elevation (NSTEMI) myocardial infarction, K21.9 - Gastro-esophageal reflux disease without esophagitis Vitamin B12 and Folate Today E11.9 - Type 2 diabetes mellitus without complications, E66.01 - Morbid (severe) obesity due to excess calories, E78.5 - Hyperlipidemia, unspecified, I10 - Essential (primary) hypertension, I21.4 - Non-ST elevation (NSTEMI) myocardial infarction, K21.9 - Gastro-esophageal reflux disease without esophagitis C Reactive Protein Today E11.9 - Type 2 diabetes mellitus without complications, E66.01 - Morbid (severe) obesity due to excess calories, E78.5 - Hyperlipidemia, unspecified, I10 - Essential (primary) hypertension, I21.4 - Non-ST elevation (NSTEMI) myocardial infarction, K21.9 - Gastro-esophageal reflux disease without esophagitis TSH reflex Free T4 Today E11.9 - Type 2 diabetes mellitus without complications, E66.01 - Morbid (severe) obesity due to excess calories, E78.5 - Hyperlipidemia, unspecified, I10 - Essential (primary) hypertension, I21.4 - Non-ST elevation (NSTEMI) myocardial infarction, K21.9 - Gastro-esophageal reflux disease without esophagitis US abdomen comp w elastography Today E11.9 - Type 2 diabetes mellitus without complications, E66.01 - Morbid (severe) obesity due to excess calories, E78.5 - Hyperlipidemia, unspecified, I10 - Essential (primary) hypertension, I21.4 - Non-ST elevation (NSTEMI) myocardial infarction, K21.9 - Gastro-esophageal reflux disease without esophagitis XR chest 2V Today E11.9 - Type 2 diabetes mellitus without complications, E66.01 - Morbid (severe) obesity due to excess calories, E78.5 - Hyperlipidemia, unspecified, I10 - Essential (primary) hypertension, I21.4 - Non-ST elevation (NSTEMI) myocardial infarction, K21.9 - Gastro-esophageal reflux disease without esophagitis ECG 12 lead EKG Today E11.9 - Type 2 diabetes mellitus without complications, E66.01 - Morbid (severe) obesity due to excess calories, E78.5 - Hyperlipidemia, unspecified, I10 - Essential (primary) hypertension, I21.4 - Non-ST elevation (NSTEMI) myocardial infarction, K21.9 - Gastro-esophageal reflux disease without esophagitis Hemoglobin A1c Today E11.9 - Type 2 diabetes mellitus without complications, E66.01 - Morbid (severe) obesity due to excess calories, E78.5 - Hyperlipidemia, unspecified, I10 - Essential (primary) hypertension, I21.4 - Non-ST elevation (NSTEMI) myocardial infarction, K21.9 - Gastro-esophageal reflux disease without esophagitis IRON PROFILE Today E11.9 - Type 2 diabetes mellitus without complications, E66.01 - Morbid (severe) obesity due to excess calories, E78.5 - Hyperlipidemia, unspecified, I10 - Essential (primary) hypertension, I21.4 - Non-ST elevation (NSTEMI) myocardial infarction, K21.9 - Gastro-esophageal reflux disease without esophagitis Zinc Today E11.9 - Type 2 diabetes mellitus without complications, E66.01 - Morbid (severe) obesity due to excess calories, E78.5 - Hyperlipidemia, unspecified, I10 - Essential (primary) hypertension, I21.4 - Non-ST elevation (NSTEMI) myocardial infarction, K21.9 - Gastro-esophageal reflux disease without esophagitis Vitamin B1 Today E11.9 - Type 2 diabetes mellitus without complications, E66.01 - Morbid (severe) obesity due to excess calories, E78.5 - Hyperlipidemia, unspecified, I10 - Essential (primary) hypertension, I21.4 - Non-ST elevation (NSTEMI) myocardial infarction, K21.9 - Gastro-esophageal reflux disease without esophagitis Vitamin A Today E11.9 - Type 2 diabetes mellitus without complications, E66.01 - Morbid (severe) obesity due to excess calories, E78.5 - Hyperlipidemia, unspecified, I10 - Essential (primary) hypertension, I21.4 - Non-ST elevation (NSTEMI) myocardial infarction, K21.9 - Gastro-esophageal reflux disease without esophagitis Ferritin Today E11.9 - Type 2 diabetes mellitus without complications, E66.01 - Morbid (severe) obesity due to excess calories, E78.5 - Hyperlipidemia, unspecified, I10 - Essential (primary) hypertension, I21.4 - Non-ST elevation (NSTEMI) myocardial infarction, K21.9 - Gastro-esophageal reflux disease without esophagitis Vitamin D 25-OH Total Today E11.9 - Type 2 diabetes mellitus without complications, E66.01 - Morbid (severe) obesity due to excess calories, E78.5 - Hyperlipidemia, unspecified, I10 - Essential (primary) hypertension, I21.4 - Non-ST elevation (NSTEMI) myocardial infarction, K21.9 - Gastro-esophageal reflux disease without esophagitis FL upper GI w air Today E11.9 - Type 2 diabetes mellitus without complications, E66.01 - Morbid (severe) obesity due to excess calories, E78.5 - Hyperlipidemia, unspecified, I10 - Essential (primary) hypertension, I21.4 - Non-ST elevation (NSTEMI) myocardial infarction, K21.9 - Gastro-esophageal reflux disease without esophagitis Referrals Nutrition/Dietitian Referral E11.9 - Type 2 diabetes mellitus without complications, E66.01 - Morbid (severe) obesity due to excess calories, E78.5 - Hyperlipidemia, unspecified, I10 - Essential (primary) hypertension, I21.4 - Non-ST elevation (NSTEMI) myocardial infarction, K21.9 - Gastro-esophageal reflux disease without esophagitis Behavioral Health Referral E11.9 - Type 2 diabetes mellitus without complications, E66.01 - Morbid (severe) obesity due to excess calories, E78.5 - Hyperlipidemia, unspecified, I10 - Essential (primary) hypertension, I21.4 - Non-ST elevation (NSTEMI) myocardial infarction, K21.9 - Gastro-esophageal reflux disease without esophagitis
[2024-07-19 11:10] VITALS: BMI 44.1
== END 2024-07-19 11:33 | disposition home or self-care (01) ==
LOC: HO.HBS 09:29
PROVIDERS: PCP Internal Medicine; Visit Provider Surgery
DX: E66.01 Morbid (severe) obesity due to excess calories (principal); E66.813 Obesity, class 3; Z68.41 Body mass index [BMI] 40.0-44.9, adult
CPT/HCPCS: 99204

== ENCOUNTER 2024-08-24 10:27 | Outpatient (AMB) | payer OTHER, SELFPAY ==
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
--- OUTSIDE RECORDS SUMMARY | 2024-08-24 11:08 | XMS_ITS | Clinical Summary ---
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 Diabetes mellitus with micro albuminuria, without long-term current use of insulin ([facility] V24, [facility] V28) 02/23/2017 Allergic rhinitis 09/12/2015 Migraine 09/12/2015 Morbid obesity due to excess calories ([facility] V24, [facility] V28) 09/12/2015 Encounters Date Type Department Care Team Description 08/07/2024 10:58 AM EDT - 08/07/2024 11:59 PM EDT Hospital Encounter [facility] Xray [address] [place] [address] Pain; Sprain of ligaments of lumbar spine, initial encounter; Sprain of unspecified collateral ligament of right knee, initial encounter; Sprain of ligaments of cervical spine, initial encounter Discharge Disposition: Home or Self Care from Last 3 Months Immunizations Name Administration [...] diabetes DX:Gestatio nal diabetes DM (diabetes mellitus) ([facility]/ [facility] V24, [facility] V28) DX:DM (diabetes mellitus) ([facility]) HTN [...] 08/03/1995 Diabetes: Annual Retina Eye Exam 08/03/1995 Pneumococcal Vaccine: Pediatrics (0 to 5 Years) and At-Risk Patients (6 to 64 Years) (1 of 2 - PCV) 2004 Hepatitis B Vaccines (2 of 3 - 19+ 3-dose series) 08/23/2017 07/26/2017 Diabetes: Annual GFR (Glomerular Filtration Rate) 01/10/2020 01/09/2019 Depression Screening 03/06/2022 Social Influencers of Health Screening 03/06/2022 Diabetes: Annual Urine Albumin-Creatinine Ratio (uACR) 03/13/2022 05/19/2018 Diabetes: Blood Sugar Control Test (HGBA1C) 03/13/2022 01/09/2019 Hypertension/CHF/CAD Annual BMP Blood Test 03/13/2022 01/09/2019 Cholesterol Screening (Lipid Panel) 05/19/2023 05/19/2018 COVID-19 Vaccine ( season) 2023 Influenza Vaccine (Season Ended) 2024 05/11/2020, 04/11/2015, 01/06/2015 Cervical Cancer Screening: Pap Smear 10/19/2025 10/19/2022, 04/12/2018, 04/12/2018, Additional history exists DTaP,Tdap,and Td Vaccines (2 - Td or Tdap) 11/15/2028 11/15/2018 MMR Vaccines Aged Out 07/26/2017 No longer eligi ble based on patient's age to complete this topic HIV Screening Completed 01/09/2019 Hepatitis C Screening [...] Procedure Name Priority Date/Time Associated Diagnosis Comments XR CERVICAL SPINE 4-5 VIEWS Routine 08/07/2024 11:26 AM EDT Pain Sprain of ligaments of lumbar spine, initial encounter Sprain of unspecified collateral ligament of right knee, initial encounter Sprain of ligaments of cervical spine, initial encounter XR LUMBAR SPINE 4+ VIEWS Routine 08/07/2024 11:26 AM EDT Pain Sprain of ligaments of lumbar spine, initial encounter Sprain of unspecified collateral ligament of right knee, initial encounter Sprain of ligaments of cervical spine, initial encounter XR KNEE 4+ VIEWS BILAT Routine 08/07/2024 11:26 AM EDT Pain Sprain of ligaments of lumbar spine, initial encounter Sprain of unspecified collateral ligament of right knee, initial encounter Sprain of ligaments of cervical spine, initial encounter HM PAP SMEAR Routine 10/19/2022 HEPATITIS C SCREENING Routine 01/09/2019 HIV SCREENING Routine 01/09/2019 ANNUAL BMP BLOOD TEST Routine 01/09/2019 HEMOGLOBIN A1C Routine 01/09/2019 HM URINE ALBUMIN CREATININE RATIO Routine 05/19/2018 LIPID PANEL Routine 05/19/2018 from Last 3 Months or Most Recently Relevant to Health Maintenance Results * XR Knee 4+ Views bilat (08/07/2024 11:26 AM EDT) Anatomical Region Laterality Modality Lower Extremities, Knee Bilateral Radiogra phic Imaging 08/07/2024 11:2 7 AM EDT Impressions 08/07/2024 3:08 PM EDT No acute abnormalities. No significant disc narrowing. No significant arthritic changes in either knee. Tracheal deviation. Correlate with any thyroid enlargement. -------- FINAL REPORT -------- Dictated By: Jagjit Verde Dictated Date: 08/07/2024 11:27 ET Assigned Physician: Jagjit Verde Reviewed and Electronically Signed By: Jagjit Verde Signed Date: 08/07/2024 15:08 ET Workstation ID: [id number] Transcribed By: Self Edit Transcribed Date: 08/07/2024 11:47 ET Narrative 08/07/2024 3:08 PM EDT EXAMINATION: LUMBAR SPINE CERVICAL SPINE RIGHT KNEE LEFT KNEE CLINICAL INFORMATION: Bilateral knee pain Cervical pain Lumbar pain COMPARISON: None. TECHNIQUE: 5 views of the cervical spine 5 views of lumbar spine 4 views of the right knee 4 views of the left knee FINDINGS: Cervical spine: The anatomy inferior to C7 is obscured on the lateral view. No fracture, subluxation, suspicious focal lesion or loss of volume. There is no prevertebral soft tissue swelling. The expected cervical lordosis is somewhat straightened. There is no significant disc narrowing. No large osteophytes. There is no significant bony foraminal narrowing. The trachea appears deviated to the right at the thoracic inlet. Correlate with any evidence of thyroid enlargement. Lumbar spine: There are 5 intact lumbar-type vertebrae in normal alignment. No focal lesion, loss of volume or disc narrowing. No significant osteophytes. The endplates are sharply defined. There is no pars defect. No suspicious paraspinal abnormality. Right knee: No fracture, subluxation, focal lesion or periosteal new bone. The osteochondral surfaces are smooth. The joint spaces are preserved. No significant osteophyte or erosion. No abnormal soft tissue calcification. No evidence of joint fluid. Left knee: No fracture, subluxation, focal lesion or periosteal new bone. The osteochondral surfaces are smooth. The joint spaces are preserved. No significant osteophyte or erosion. No abnormal soft tissue calcification. No evidence of joint fluid. Procedure Note Jagjit Verde MD - 08/07/2024 EXAMINATION: LUMBAR SPINE CERVICAL SPINE RIGHT KNEE LEFT KNEE CLINICAL INFORMATION: Bilateral knee pain Cervical pain Lumbar pain COMPARISON: None. TECHNIQUE: 5 views of the cervical spine 5 views of lumbar spine 4 views of the right knee 4 views of the left knee FINDINGS: Cervical spine: The anatomy inferior to C7 is obscured on the lateral view. No fracture, subluxation, suspicious focal lesion or loss of volume. Thereis no prevertebral soft tissue swelling. The expected cervical lordosis issomewhat straightened. There is no significant disc narrowing. No largeosteophytes. There is no significant bony foraminal narrowing. The trachea appears deviated to the right at the thoracic inlet. Correlatewith any evidence of thyroid enlargement. Lumbar spine: There are 5 intact lumbar-type vertebrae in normal alignment. No focallesion, loss of volume or disc narrowing. No significant osteophytes. Theendplates are sharply defined. There is no pars defect. No suspicious paraspinal abnormality. Right knee: No fracture, subluxation, focal lesion or periosteal new bone. The osteochondral surfaces are smooth. The joint spaces are preserved. No significant osteophyte or erosion. Noabnormal soft tissue calcification. No evidence of joint fluid. Left knee: No fracture, subluxation, focal lesion or periosteal new bone. The osteochondral surfaces are smooth. The joint spaces are preserved. No significant osteophyte or erosion. Noabnormal soft tissue calcification. No evidence of joint fluid. IMPRESSION: No acute abnormalities. No significant disc narrowing. No significant arthritic changes in either knee. Tracheal deviation. Correlate with any thyroid enlargement. -------- FINAL REPORT -------- Dictated By: Jagjit Verde Dictated Date: 08/07/2024 11:27 ET Assigned Physician: Jagjit Verde Reviewed and Electronically Signed By: Jagjit Verde Signed Date: 08/07/2024 15:08 ET Workstation ID: [id number] Transcribed By: Self Edit Transcribed Date: 08/07/2024 11:47 ET Miguel Mcleod DC IMG XR PROCEDURES Final Re sult * XR Lumbar Spine 4+ Views (08/07/2024 11:26 AM EDT) Anatomical Region Laterality Modality Spine, L-spine Radiographic Justina ging 08/07/2024 11:2 7 AM EDT Impressions 08/07/2024 3:08 PM EDT No acute abnormalities. No significant disc narrowing. No significant arthritic changes in either knee. Tracheal deviation. Correlate with any thyroid enlargement. -------- FINAL REPORT -------- Dictated By: Jagjit Verde Dictated Date: 08/07/2024 11:27 ET Assigned Physician: Jagjit Verde Reviewed and Electronically Signed By: Jagjit Verde Signed Date: 08/07/2024 15:08 ET Workstation ID: [id number] Transcribed By: Self Edit Transcribed Date: 08/07/2024 11:47 ET Narrative 08/07/2024 3:08 PM EDT EXAMINATION: LUMBAR SPINE CERVICAL SPINE RIGHT KNEE LEFT KNEE CLINICAL INFORMATION: Bilateral knee pain Cervical pain Lumbar pain COMPARISON: None. TECHNIQUE: 5 views of the cervical spine 5 views of lumbar spine 4 views of the right knee 4 views of the left knee FINDINGS: Cervical spine: The anatomy inferior to C7 is obscured on the lateral view. No fracture, subluxation, suspicious focal lesion or loss of volume. There is no prevertebral soft tissue swelling. The expected cervical lordosis is somewhat straightened. There is no significant disc narrowing. No large osteophytes. There is no significant bony foraminal narrowing. The trachea appears deviated to the right at the thoracic inlet. Correlate with any evidence of thyroid enlargement. Lumbar spine: There are 5 intact lumbar-type vertebrae in normal alignment. No focal lesion, loss of volume or disc narrowing. No significant osteophytes. The endplates are sharply defined. There is no pars defect. No suspicious paraspinal abnormality. Right knee: No fracture, subluxation, focal lesion or periosteal new bone. The osteochondral surfaces are smooth. The joint spaces are preserved. No significant osteophyte or erosion. No abnormal soft tissue calcification. No evidence of joint fluid. Left knee: No fracture, subluxation, focal lesion or periosteal new bone. The osteochondral surfaces are smooth. The joint spaces are preserved. No significant osteophyte or erosion. No abnormal soft tissue calcification. No evidence of joint fluid. Procedure Note Jagjit Verde MD - 08/07/2024 EXAMINATION: LUMBAR SPINE CERVICAL SPINE RIGHT KNEE LEFT KNEE CLINICAL INFORMATION: Bilateral knee pain Cervical pain Lumbar pain COMPARISON: None. TECHNIQUE: 5 views of the cervical spine 5 views of lumbar spine 4 views of the right knee 4 views of the left knee FINDINGS: Cervical spine: The anatomy inferior to C7 is obscured on the lateral view. No fracture, subluxation, suspicious focal lesion or loss of volume. Thereis no prevertebral soft tissue swelling. The expected cervical lordosis issomewhat straightened. There is no significant disc narrowing. No largeosteophytes. There is no significant bony foraminal narrowing. The trachea appears deviated to the right at the thoracic inlet. Correlatewith any evidence of thyroid enlargement. Lumbar spine: There are 5 intact lumbar-type vertebrae in normal alignment. No focallesion, loss of volume or disc narrowing. No significant osteophytes. Theendplates are sharply defined. There is no pars defect. No suspicious paraspinal abnormality. Right knee: No fracture, subluxation, focal lesion or periosteal new bone. The osteochondral surfaces are smooth. The joint spaces are preserved. No significant osteophyte or erosion. Noabnormal soft tissue calcification. No evidence of joint fluid. Left knee: No fracture, subluxation, focal lesion or periosteal new bone. The osteochondral surfaces are smooth. The joint spaces are preserved. No significant osteophyte or erosion. Noabnormal soft tissue calcification. No evidence of joint fluid. IMPRESSION: No acute abnormalities. No significant disc narrowing. No significant arthritic changes in either knee. Tracheal deviation. Correlate with any thyroid enlargement. -------- FINAL REPORT -------- Dictated By: Jagjit Verde Dictated Date: 08/07/2024 11:27 ET Assigned Physician: Jagjit Verde Reviewed and Electronically Signed By: Jagjit Verde Signed Date: 08/07/2024 15:08 ET Workstation ID: [id number] Transcribed By: Self Edit Transcribed Date: 08/07/2024 11:47 ET Miguel Mcleod DC IMG XR PROCEDURES Final Re sult * XR Cervical Spine 4-5 Views (08/07/2024 11:26 AM EDT) Anatomical Region Laterality Modality Spine, C-spine Radiographic Justina ging 08/07/2024 11:2 7 AM EDT Impressions 08/07/2024 3:08 PM EDT No acute abnormalities. No significant disc narrowing. No significant arthritic changes in either knee. Tracheal deviation. Correlate with any thyroid enlargement. -------- FINAL REPORT -------- Dictated By: Jagjit Verde Dictated Date: 08/07/2024 11:27 ET Assigned Physician: Jagjit Verde Reviewed and Electronically Signed By: Jagjit Verde Signed Date: 08/07/2024 15:08 ET Workstation ID: [id number] Transcribed By: Self Edit Transcribed Date: 08/07/2024 11:47 ET Narrative 08/07/2024 3:08 PM EDT EXAMINATION: LUMBAR SPINE CERVICAL SPINE RIGHT KNEE LEFT KNEE CLINICAL INFORMATION: Bilateral knee pain Cervical pain Lumbar pain COMPARISON: None. TECHNIQUE: 5 views of the cervical spine 5 views of lumbar spine 4 views of the right knee 4 views of the left knee FINDINGS: Cervical spine: The anatomy inferior to C7 is obscured on the lateral view. No fracture, subluxation, suspicious focal lesion or loss of volume. There is no prevertebral soft tissue swelling. The expected cervical lordosis is somewhat straightened. There is no significant disc narrowing. No large osteophytes. There is no significant bony foraminal narrowing. The trachea appears deviated to the right at the thoracic inlet. Correlate with any evidence of thyroid enlargement. Lumbar spine: There are 5 intact lumbar-type vertebrae in normal alignment. No focal lesion, loss of volume or disc narrowing. No significant osteophytes. The endplates are sharply defined. There is no pars defect. No suspicious paraspinal abnormality. Right knee: No fracture, subluxation, focal lesion or periosteal new bone. The osteochondral surfaces are smooth. The joint spaces are preserved. No significant osteophyte or erosion. No abnormal soft tissue calcification. No evidence of joint fluid. Left knee: No fracture, subluxation, focal lesion or periosteal new bone. The osteochondral surfaces are smooth. The joint spaces are preserved. No significant osteophyte or erosion. No abnormal soft tissue calcification. No evidence of joint fluid. Procedure Note Jagjit Verde MD - 08/07/2024 EXAMINATION: LUMBAR SPINE CERVICAL SPINE RIGHT KNEE LEFT KNEE CLINICAL INFORMATION: Bilateral knee pain Cervical pain Lumbar pain COMPARISON: None. TECHNIQUE: 5 views of the cervical spine 5 views of lumbar spine 4 views of the right knee 4 views of the left knee FINDINGS: Cervical spine: The anatomy inferior to C7 is obscured on the lateral view. No fracture, subluxation, suspicious focal lesion or loss of volume. Thereis no prevertebral soft tissue swelling. The expected cervical lordosis issomewhat straightened. There is no significant disc narrowing. No largeosteophytes. There is no significant bony foraminal narrowing. The trachea appears deviated to the right at the thoracic inlet. Correlatewith any evidence of thyroid enlargement. Lumbar spine: There are 5 intact lumbar-type vertebrae in normal alignment. No focallesion, loss of volume or disc narrowing. No significant osteophytes. Theendplates are sharply defined. There is no pars defect. No suspicious paraspinal abnormality. Right knee: No fracture, subluxation, focal lesion or periosteal new bone. The osteochondral surfaces are smooth. The joint spaces are preserved. No significant osteophyte or erosion. Noabnormal soft tissue calcification. No evidence of joint fluid. Left knee: No fracture, subluxation, focal lesion or periosteal new bone. The osteochondral surfaces are smooth. The joint spaces are preserved. No significant osteophyte or erosion. Noabnormal soft tissue calcification. No evidence of joint fluid. IMPRESSION: No acute abnormalities. No significant disc narrowing. No significant arthritic changes in either knee. Tracheal deviation. Correlate with any thyroid enlargement. -------- FINAL REPORT -------- Dictated By: Jagjit Verde Dictated Date: 08/07/2024 11:27 ET Assigned Physician: Jagjit Verde Reviewed and Electronically Signed By: Jagjit Verde Signed Date: 08/07/2024 15:08 ET Workstation ID: [id number] Transcribed By: Self Edit Transcribed Date: 08/07/2024 11:47 ET Result [facility] Miguel Mcleod DC IMG XR PROCEDURES Final Re sult * Pap Smear (10/19/2022) [facility] Pap smear Negative, Abstracted Result [facility] Provider HEALTH MAINTENANCE Final Result * Annual BMP Blood Test (01/09/2019) [facility] Annual BMP Blood Test Abstracted Result [facility] HEALTH MAINTENANCE Final Result * HIV Screening (01/09/2019) [facility] HIV Screening Abstracted Result [facility] Provider HEALTH MAINTENANCE Final Result * Hepatitis C Screening (01/09/2019) [facility] Hepatitis C Screening Abstracted Result [facility] HEALTH MAINTENANCE Final Result * Hemoglobin A1c (01/09/2019) [facility] Hemoglobin A1C 6.2 <=6.5 % Blood Venous blood specimen / Unknown Result [facility] LAB BLOOD ORDERABLES Adriana l Result * Urine Albumin Creatinine Ratio (05/19/2018) [facility] Urine Albumin Creatinine Ratio Abstracted Historical Provider HEALTH MAINTENANCE Final Result * (ABNORMAL) Lipid panel (05/19/2018) LDL/HDL Ratio 6(A) 0 - 4 Triglycerides 115 0 - 150 mg/dL Cholesterol 169 0 - 200 mg/dL HDL 28(A) >=40 mg/dL LDL Cholesterol 118(A) 0 - 100 mg/dL Blood Venous blood specimen / Unknown Historical Provider LAB BLOOD ORDERABLES Adriana l Result from Last 3 Months or Most Recently Relevant to Health Maintenance Insurance [employer] Care 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
== END 2024-08-24 10:56 | disposition home or self-care (01) ==
LOC: HO.HBST 10:27
PROVIDERS: PCP Internal Medicine; Visit Provider Counselor Mental Health
DX: F32.A Depression, unspecified (principal); F41.9 Anxiety disorder, unspecified; F43.9 Reaction to severe stress, unspecified; Z71.89 Other specified counseling
CPT/HCPCS: 90791

== ENCOUNTER 2024-10-17 13:04 | Outpatient (AMB) | payer OTHER, SELFPAY ==
[2024-10-17 13:16] VITALS: BP 130/72; PULSE 94; BMI 43.5
--- NOTE | 2024-10-17 13:16 | MHC.OFFVIS ---
Vital Signs 10/17/24 13:16 Height 5 ft 7 in Weight 277 lb 12.519 oz BMI 43.5 BP 130/72 Blood Pressure Location Lt brachial Position Sitting Pulse 94 Pulse Source Pulse Oximeter Intake Visit Reasons: 4m follow up Intake Note: 4 mth f/up Financial Advisor Trainee Required: No Accompanied by: Self / Same As Patient Allergies pineapple Allergy (Severe, Verified 07/19/24 10:57) itchy throat latex (LATEX) Allergy (Unknown, Verified 07/19/24 10:57) HIVES bee pollen (bee stings) Allergy (Verified 07/19/24 10:57) Hives Medication List - Last Reconciled 10/17/24 by Maikel Gaona NP aspirin 81 mg PO DAILY atorvastatin 40 mg PO BEDTIME carvedilol 6.25 mg See Protocol PO BID losartan 50 mg See Protocol PO DAILY omeprazole 40 mg PO DAILY tirzepatide (Mounjaro) 7.5 mg subcut FR HPI Comments Details: This is a 39-year-old female patient coming in for a follow-up visit. Patient with a history of hypertension, diabetes, preeclampsia, obesity, and recent hospitalization with a NSTEMI due to hypertensive urgency. Previously there was issues with some noncompliance with the medications but is stating her compliance now. Patient reports to be feeling well overall except ongoing shortness of breath for which she was previously referred to weight management. Patient states that she felt through with them due to ongoing stress and mental health deprivation. Now that patient is feeling better, she is going to pursue and get in touch with weight management again. Patient is otherwise denying any exertional chest pain, palpitations, dizziness, orthopnea, PND, leg edema, presyncope, or syncope. [facility]LY [facility] Medical History Anxiety Depression GERD (gastroesophageal reflux disease) Hyperlipidemia Back pain Morbid obesity Hypertension, uncontrolled Preeclampsia HTN (hypertension) Surgical History H/O section Family History Father No problems noted. Mother No problems noted. Social History Household Members: Children Housing: Apartment Do you presently have visiting nurse or other home services: No Alcohol intake: never Patient Tobacco Use Status: Current everyday Tobacco user Tobacco use type: Cigarette Cigarettes Per Day: 3 e-Cigarette/Vaping Use: Never Used Second Hand Smoke Exposure: No Substance Use Type: Marijuana service: No Review of Systems Const Denies chills, Denies fatigue, Denies fever(s), Denies frequent falls, Denies weakness, Denies weight gain and Denies weight loss ENT Denies dizziness Card Denies chest pain, Denies leg edema, Denies lightheadedness, Denies palpitations, Denies dyspnea and Denies dyspnea on exertion Resp Denies cough, Denies dyspnea and Denies dyspnea on exertion GI Denies hematochezia Musc Denies abnormal gait, Denies muscle weakness, Denies numbness, Denies radiating pain into limb and Denies tingling Neuro Denies abnormal gait, Denies dizziness, Denies frequent falls, Denies numbness, Denies tingling and Denies weakness Endo Denies fatigue and Denies palpitations Physical Exam Vital Signs: Last Vital Signs Pulse 94 10/17/24 13:16 BP 130/72 10/17/24 13:16 BMI result Body Mass Index 43.5 Const General: cooperative, healthy appearing, comfortable and no acute distress Orientation/consciousness: patient oriented x3 HEENT Head: Yes normal to inspection Neck Neck: Yes normal visual inspection, Yes trachea midline and Yes supple Chest Chest palpation & inspection: normal inspection of the chest Resp Effort & Inspection: normal respiratory effort Auscultation: clear to auscultation bilaterally, no crackles, no rales, no rhonchi and no wheezes Cardio Jugular venous distension: no JVD Palpation: normal PMI Rate: regular rate Rhythm: regular rhythm Heart sounds: S1 normal heart sound present, S2 normal heart sound present, no click, no gallops, no murmurs and no rubs Peripheral pulses: Peripheral pulses 2+ throughout GI Inspection: Yes normal to inspection Palpation (GI): Soft to palpation Auscultation: normal bowel sounds Skin General skin exam: no rashes or lesions noted Neuro General: patient oriented x3 Extrem General: Yes normal to inspection, No no pedal edema and No calf tenderness Psych Appearance: grossly normal Mental Status: mental status grossly normal Speech and movement: Normal speech and movement present Assessment & Plan Assessment & Plan (1) NSTEMI (non-ST elevated myocardial infarction): Code(s): I21.4 - Non-ST elevation (NSTEMI) myocardial infarction Category: Medical Plan: 04/06/2024- EKGs showed normal sinus rhythm with T-wave inversion in lead 1, 2, aVL, and V4 to V6. 04/07/2024- Echocardiogram showed normal EF between 65-70%, possible basal inferior wall hypokinesis, and moderate septal asymmetric hypertrophy. 04/07/2024-patient underwent a myocardial perfusion study which was normal. Clinically stable and without any anginal symptoms. Continue aspirin, carvedilol, losartan, and atorvastatin therapy. Advised to seek ER care in case of exertional chest pain not relieved with rest. (2) Chronic hypertension: Code(s): I10 - Essential (primary) hypertension Category: Medical Plan: Blood pressure today is well-controlled. Continue with current regimen. Advised to check blood pressures at home and keep a log of it. Ideally, blood pressure less than 130/80. (3) Diabetes mellitus: Code(s): E11.9 - Type 2 diabetes mellitus without complications Category: Medical Plan: Continue aggressive diabetes management with an A1c goal less than 7%. Most recent LDL at 73. Continue with statin therapy. Ideally, LDL goal less than 70. Lab work from last visit not completed. Advised to completing them. (4) Morbid obesity: Code(s): E66.01 - Morbid (severe) obesity due to excess calories Category: Medical Plan: Patient will get back in touch with weight management for weight loss program. Advised heart healthy diet, regular exercise, losing weight, compliance with medications, and aggressive management of her vascular risk factors. Follow up in 6 months. In the interim, patient will call us with concerns or change in symptoms. Advised patient to seek ER care in case of exertional chest pain not resolved with rest. This note was generated using voice recognition software. While every effort has been made to ensure accuracy and proper occupational safety specialist, there may be occasional errors that could affect the content or meaning of the described symptoms. Coding Level of Care Code Est Pt Level 4 (11906) Complex EM visit Add On G2211 Diagnoses NSTEMI (non-ST elevated myocardial infarction) I21.4 Chronic hypertension I10 Diabetes mellitus E11.9 Morbid obesity E66.01 Time Spent (min) 31 Comment Time spent in reviewing the chart, test results, assessment, counseling and documentation.
--- OUTSIDE RECORDS SUMMARY | 2024-10-17 13:31 | XMS_ITS | Clinical Summary ---
Author Organization [facility] Address [address] [place] [address] Phone Care Team Providers Care Irrigationist Name Role Phone Alva Granados MD Primary Care Provider [phone] Allergies Active Allergy Reactions Criticality Noted Date [...] infection 08/06/2019 Overview (03/14/2024): Tested positive at [facility] 08/01/2019 Hypertension 11/15/2018 PLMD (periodic limb movement disorder) 9 Obstructive sleep apnea 05/24/2018 Overview (03/14/2024): [facility] Home Polysomnogram: Date 05/23/2018; REYES [...] albuminuria, without long-term current use of insulin ([facility] V24, [facility] V28) 02/23/2017 Allergic rhinitis 09/12/2015 Migraine 09/12/2015 Morbid obesity due to excess calories ([facility] V24, [facility] V28) 09/12/2015 Encounters Date Type Department Care Team Description 08/07/2024 10:58 AM EDT - 08/07/2024 11:59 PM EDT Hospital Encounter [facility] Xray [address] [place] [address] Pain; Sprain of ligaments of [...] diabetes DX:Gestatio nal diabetes DM (diabetes mellitus) ([facility]/ [facility] V24, [facility] V28) DX:DM (diabetes mellitus) ([facility]) HTN [...] Annual GFR (Glomerular Filtration Rate) 01/10/2020 01/09/2019 Social Influencers of Health Screening 03/06/2022 Diabetes: Annual Urine Albumin-Creatinine Ratio (uACR) 03/13/2022 05/19/2018 Diabetes: Blood Sugar Control Test (HGBA1C) 03/13/2022 01/09/2019 Hypertension/CHF/CAD Annual BMP Blood Test 03/13/2022 01/09/2019 Cholesterol Screening (Lipid Panel) 05/19/2023 05/19/2018 COVID-19 Vaccine ( season) 2023 Depression Screening 03/28/2024 Influenza Vaccine (#1) 2024 , 04/11/2015, 01/06/2015 Cervical Cancer Screening: Pap Smear [...] Signed Date: 08/07/2024 15:08 ET Workstation ID: [id number] Transcribed By: Self Edit Transcribed Date: 08/07/2024 [...] Signed Date: 08/07/2024 15:08 ET Workstation ID: [id number] Transcribed By: Self Edit Transcribed Date: 08/07/2024 [...] Signed Date: 08/07/2024 15:08 ET Workstation ID: [id number] Transcribed By: Self Edit Transcribed Date: 08/07/2024 [...] Signed Date: 08/07/2024 15:08 ET Workstation ID: [id number] Transcribed By: Self Edit Transcribed Date: 08/07/2024 [...] Signed Date: 08/07/2024 15:08 ET Workstation ID: [id number] Transcribed By: Self Edit Transcribed Date: 08/07/2024 [...] Signed Date: 08/07/2024 15:08 ET Workstation ID: [id number] Transcribed By: Self Edit Transcribed Date: 08/07/2024 11:47 ET Result [facility] Miguel Mcleod DC IMG XR PROCEDURES Final Re sult * Pap Smear (10/19/2022) [facility] Pap smear Negative, Abstracted Result [facility] Provider HEALTH MAINTENANCE Final Result * Annual BMP Blood Test (01/09/2019) [facility] Annual BMP Blood Test Abstracted Result [facility] HEALTH MAINTENANCE Final Result * HIV Screening (01/09/2019) [facility] HIV Screening Abstracted Result [facility] Provider HEALTH MAINTENANCE Final Result * Hepatitis C Screening (01/09/2019) [facility] Hepatitis C Screening Abstracted Result [facility] HEALTH MAINTENANCE Final Result * Hemoglobin A1c (01/09/2019) [facility] Hemoglobin A1C 6.2 <=6.5 % Blood Venous blood specimen / Unknown Result [facility] LAB BLOOD ORDERABLES Adriana l Result * Urine Albumin Creatinine Ratio (05/19/2018) [facility] Urine Albumin Creatinine Ratio Abstracted Historical [...] Health Maintenance Insurance [employer] Care Teams Irrigationist Relationship Specialty Start Date End Date Alva Granados MD [address] [place] [id number] PCP - General Internal Medicine 02/13/16
--- OUTSIDE RECORDS SUMMARY | 2024-10-17 13:32 | XMS_ITS | Data Portability ---
Author Organization [facility], [address] Address [address] [place] [address] Assessment No assessment recorded. Plan of Treatment Reminders Order Date Submit Date Provider Last Modified By Organization Details Last Modified Time Details Appointments None recorded. Lab rapid SARS CoV 2 Ag, QL IA, respiratory specimen 2021 [facility], [address] [place] [address], [phone], 13:53:14 rapid flu (A+B) 2021 [email or web address] [facility], [address] [place] [address], [phone], 13:53:14 Referral None recorded. Procedures None recorded. Surgeries None recorded. Imaging None recorded. Medication Orders benzonatate 200 mg capsule 2021 [facility][id number], [address] [place], [address], 13:53:17 loratadine 10 mg tablet 2021 [facility]armacy #[id number], [address] [place], [address], 13:53:18 Patient TargetsNo targets recorded. Patient Instructions Encounter Date Encounter Id Patient Instructions Last Modified By Organization Details Last Modified Time 03/02/2022 [id number] cough: care instructions [email or web address] Not available 03/02/2022 13:53:14 You are being [...] or lung pathology. Thank you for using [facility] today - please don't hesitate to contact up or return to see if you have any questions or concerns. Not available 03/02/2022 13:45:15 Reason for Referral None Reported. Results Created Date Observation Date Name Description Value Unit Range Abnormal Flag Note LastModifiedBy Organization Detail LastModifiedTime 03/02/20 22 03/02/2022 rapid SARS CoV 2 Ag, QL IA, respi rator y speci men COVID ANTIGEN negati ve Not Available [address], [place], [address], 03/02/2022 12:52:20 03/02/20 22 03/02/2022 rapid flu (A+B) Unknown Analyte negati ve Not Available [address] [place], [address], 03/02/2022 12:52:15 03/02/20 22 03/02/2022 rapid flu (A+B) Unknown Analyte negati ve Not Available [address] [place], [address], 03/02/2022 12:52:15 Result Notes None recorded. Problems Name Problem SNOMED Code Status Onset Date Resolution Date Notes Provider Name and Address Organization Details Recorded Time Diabetes mellitus 25298931 Active 2021 TOMASA YADAV julissa, [place] - [facility] 2 12:49:26 Hypertensive disorder 74184340 Active 2021 TOMASA YADAV julissa, [place] - [facility] 2 12:49:31 Problem [...] Name and Address Organization Details Recorded Time 13971 honey bee venom medicatio n anaphylax is Not available Not available 03/02/2022 64469 7 RxNorm TOMASA YADAV julissa, [place] - [facility] 2 12:48:11 87725 latex environme nt,medica tion hives Not available Not available 03/02/2022 86433 91 RxNorm TOMASA YADAV null, [place] - [...] 2 TABLETS BY MOUTH TWICE A DAY 03/02 completed Not Available Not Available Not [...] Heart rate Respiratory rate Body temperature Systolic And Diastolic Provider Name and Address Organization Details Last Updated DateTime 2 332437. 19 g 45.3 kg/m2 170.18 cm 98 % 98 % 107 /min 18 /min 99.1 [degF] 154/98 mm[Hg] [facility] 12:53:38 Social History Question Answer Notes LastModified by Organizat ion Details LastModified Time Tobacco Smoking Status Current Every Day Smoker [facility] 03/02/2022 12:51:19 Which Illicit Or Recreational Drugs Have You Used? Marijuana [email or web address] Information not available 03/02/2022 How Much Tobacco Do You Smoke? 0.25 PPD [email or web address] Information not available 03/02/2022 Have You Recently Traveled Abroad? No [email or web address] Information not available 03/02/2022 Sex: Unknown Functional Status Question Answer Note LastModified by Organizat ion Details LastModified Time Do you use any illicit or recreational drugs? Yes [email or web address] Information not available 03/02/2022 Do you or have you ever used any other forms of tobacco or nicotine? No [email or web address] Information not available 03/02/2022 What is your level of alcohol consumption? None [email or web address] Information not available 03/02/2022 Mental Status None recorded. Family History Relationship Description Onset Age of this Age Resolved Age Notes LastModified by Organization Details LastModified Time Mother Hypertensive disorder [email or web address] Not available 2021 12:50:24 Maternal Grandmother Diabetes mellitus [email or web address] Not available 2021 12:50:34 Medical History No medical history recorded. Gynecological HistoryNo gynecological history recorded. Obstetrics History GPAL:G 0 P 0 0 0 0 Past Encounters Encounter ID Performer Location Encounter Start Date Encounter Closed Date Diagnosis/Indication Diagnosis SNOMED-CT Code Diagnosis ICD10 Code Diagnosis Note [id number] [address] [address] [place] [address] 01/28/2021 13:31:57 01/28/2021 14:33:12 [id number] [address] [place] [address] 11/18/2021 09:15:38 11/18/2021 11:59:18 [id number] [address] [place] [address] 05/04/2020 15:37:56 05/04/2020 16:04:40 [id number] [facility] [address] [place] [address] 03/02/2022 12:22:53 03/02/2022 13:57:10 Exposure to SARS-CoV-2 326712022 Z20.822 Rapid COVID Test Negative Hypertensive disorder 38 559687 I10 Your blood pressure was elevated today - you need to follow up with your PCP for this. Medication may need to be adjusted. Please keep a journal of AM and PM readings from a home cuff. This will help adjust medication s. Cough 85377668 R05.9 Health Concerns Section Related Observation LastModified by Organization Detai ls LastModified Time None Recorded Concern Status LastModified by Organization Details LastModified Time None Recorded Advance Directives Directive None Recorded Payers Insurance Date Sequence Insurance Name Policy Number Policy Bernard Covered Member ID Bernard Member ID Guarantor Name 03/02/2022 1 [facility] - [employer] (MEDICAID REPLACEMENT - HMO) LORE Das [id number] Susan Das Notes Date Note Type Note Provider Name [...] Flu. GREG RANDHAWA [address] [place], [address], [place] - [facility] 03/02/2022 22:44:59 OBGyn Episode No OBEpisode recorded.
--- OUTSIDE RECORDS SUMMARY | 2024-10-17 13:32 | XMS_ITS | Clinical Summary ---
Author Organization [facility] Address [address] [place] [address] Phone Care Team Providers Care Disease Intervention Specialist Name Role Phone Unknown, Unknown Primary Care Provider Sherman kitchen Allergies Active Allergy Reactions Criticality Noted Date Comments Latex 05/17/2018 Social History Tobacco Use Types Packs/Day Years Used Date Smoking Tobacco: Every Day Smokeless Tobacco: Never Alcohol Use Standard Drinks/Week Comments No 0 (1 standard drink = 0.6 oz pur e alcohol) Education Answer Date Recorded Are you interested in more education? Not on chelle e 07/23/2022 Are you concerned about learning? Not on file 07/23/2022 No 07/23/2022 No 07/23/2022 Digital Access Answer Date Recorded No 08/23/2022 No 08/23/2022 No 08/23/2022 Reliable internet access at home? Not on file 08/23/2022 Device with a working camera? Not on file Comments Unknown Sex and Gender Information Value Date Recorded Sex Assigned at Female 05/17/2018 2:55 PM EST Legal Sex Female 9:13 PM EDT Gender Identity Female 05/17/2018 2:55 PM EST Sexual Orientation Not on file Last Filed Vital Signs Vital Sign Reading Time Taken Comments Blood Pressure 144/81 05/17/2018 2:51 PM EST Pulse 98 05/17/2018 2:51 PM EST Temperature 37.8 C (100.1 F) 05/17/2018 2:51 PM EST Respiratory Rate 17 05/17/2018 2:51 PM EST Oxygen Saturation 98% 05/17/2018 2:51 PM EST Inhaled Oxygen Concentration - - Weight 136.1 kg (300 lb) 05/17/2018 2:51 PM EST Height 172.7 cm (5' 8 ) 05/17/2018 2:51 PM EST Body Mass Index 45.61 05/17/2018 2:51 PM EST Plan of Treatment Not on file Medical Devices Not on file Insurance [employer]CO [employer] Care Teams Disease Intervention Specialist Relationship Specialty Start Date End Date Unknown, Unknown, PCP - General 05/17/18 Additional Source Comments The information contained in this document represents components of the legal health record. It is not the complete legal health record.[facility]
--- OUTSIDE RECORDS SUMMARY | 2024-10-17 13:32 | XMS_ITS | Clinical Summary ---
Author Organization [facility] Address [address] [facility] [address] [place] [address] Phone Care Team Providers Care Lead Radiologic Technologist Name Role Phone Alva Granados MD Primary Care Provider [phone] Allergies Active Allergy Reactions Criticality Noted Date [...] 08/06/2019 04/06/2021 Overview (02/02/2021): Tested positive at [facility] 08/01/2019 Periodic limb movement disorder 08/01/2018 04/06/2021 Obstructive sleep apnea 05/24/201803/28 Overview (02/02/2021): [facility] Home Polysomnogram: Date 05/23/2018; REYES 16, Unclassified apneas 0; Obstructive apneas 2; Central apneas 1; Mixed apneas 0; hypopneas 45; average oxygen saturation 92% (lowest 76% with saturations <88% for 5% or more of study) [facility] Polysomnogram treatment study. Date 07/30/2018. Wt 290#; [...] of 2 - PCV) 2004 Influenza Vaccine (#1) 2024 01/06/2015 Insurance Medicaid Medicaid Care Teams Lead Radiologic Technologist Relationship Specialty Start Date End Date Alva Granados MD PCP - General 04/07/20
== END 2024-10-17 13:44 | disposition home or self-care (01) ==
LOC: HO.HCS 13:04
PROVIDERS: PCP Internal Medicine
DX: I21.4 Non-ST elevation (NSTEMI) myocardial infarction (principal); I10 Essential (primary) hypertension; E11.9 Type 2 diabetes mellitus without complications; E66.01 Morbid (severe) obesity due to excess calories
CPT/HCPCS: 99214; G2211

== ENCOUNTER → 2024-10-17 13:04 | Outpatient (BNVA) | payer OTHER, SELFPAY | PROVIDERS: PCP Internal Medicine | DX: I25.2 Old myocardial infarction (principal); I10 Essential (primary) hypertension; E11.9 Type 2 diabetes mellitus without complications; E66.01 Morbid (severe) obesity due to excess calories; Z68.41 Body mass index [BMI] 40.0-44.9, adult | CPT/HCPCS: 99212 ==